=== PATIENT | female | born 1970 | race Caucasian/White ===

== ENCOUNTER → 2017-11-14 11:37 | Outpatient (CLI) | payer BC, SELFPAY ==
[2017-11-14 12:43] LABS: Free T3 2.2 pg/mL (2.18-3.98); T4 Free Direct 0.97 ng/dL (0.76-1.46)
== END ==
PROVIDERS: Family Provider Family Medicine; PCP Family Medicine; Visit Provider Obstetrics & Gynecology
DX: N92.6 Irregular menstruation, unspecified (principal)
CPT/HCPCS: 36415; 84439; 84481

== ENCOUNTER → 2017-11-16 08:06 | Outpatient (CLI) | payer BC, SELFPAY ==
--- NOTE | 2017-11-16 11:07 | US_ITS ---
STUDY: THYROID ULTRASOUND REASON FOR EXAM: Female, 47 years old. History of thyroid nodules. TECHNIQUE: Ultrasound evaluation of the thyroid was performed with real-time and static sharma-scale imaging. COMPARISON: Comparison is made with prior examination dated November 17, 2016. FINDINGS: RIGHT LOBE: The right lobe of the thyroid gland measures 4.0 cm x 1.5 cm x 1.3 cm. There is a homogeneous echotexture. There are no demonstrated solid, cystic or complex lesions. LEFT LOBE: The left lobe of the thyroid gland measures 4.0 cm x 1.2 cm x 1.3 cm. There is a homogeneous echotexture. Once again, there are 4 well-defined hypoechoic nodule within the left lobe of the thyroid. The largest measures 6 mm x 5 mm x 4 mm. This is seen along the inferior medial aspect of the left lobe. This is unchanged. ISTHMUS: The isthmus measures 2.0 cm. The regional lymph nodes are normal. US/Thyroid IMPRESSION: Stable subcentimeter nodules in the left lobe of the thyroid. Electronically Signed: Carson Pinon MD at 15:15 EST Tel [phone], Service support ,
[2017-11-16 12:04] LABS: Basophil# 0.04 X10^3/uL; Eosinophil# 0.09 X10^3/uL; Eosinophils% 2.3 % (0-5); Hematocrit 39.7 % (37-47); Hemoglobin 13.4 g/dl (12.0-15.0); Lymphocyte % 37.7 % (19-41); Mean Corp Hgb Conc 33.8 g/gl (32-36); Mean Corpuscular Hgb 29.7 pg (27.0-32.0); Mean Platelet Vol. 11.4 fl (6.2-12.0); Monocyte# 0.33 X10^3/uL; Monocyte% 8.3 % (0-10); Neutrophil # 2.02 X10^3/uL (2.7-7.7); Neutrophil % 50.7 % (47-70); Platelet Count 176 K/mm3 (150-450); RBC Distribution Width CV 12.8 % (11.6-14.6); RBC Distribution Width SD 40.7 fl (35.1-43.9); Red Blood Count 4.51 M/mm3 (4.2-5.4)
[2017-11-16 12:08] LABS: POSITIVE COUNT NO; POSITIVE DIFFERENTIAL NO; POSITIVE MORPHOLOGY NO
[2017-11-16 12:16] LABS: AST(SGOT) 33 U/L (15-37); Alanine Aminotransfer ALT/SGPT 51 U/L (13-56); Albumin, Serum 3.8 g/dL (3.2-5.0); Alkaline Phosphatase 17 U/L (45-117); Anion Gap 7 (5-15); BUN 12 mg/dL (7-18); Calcium,Total 8.8 mg/dL (8.5-10.1); Chloride 104 mmol/L (98-107); Cholesterol 226 mg/dL (200); EST Glomerular Filtration Rate 63 mL/min (>60); Est Glom Filt Rate - Afr Amer 76 mL/min (>60); Glucose 85 mg/dL (70-110); High Density Lipoprotein 80 mg/dL; Lipase 171 U/L (73-393); Potassium 3.9 mmol/L (3.5-5.1); Protein, Total 7.8 g/dL (6.4-8.2); Sodium Level 138 mmol/L (136-145); Triglycerides 99 mg/dL; Very Low Density Lipoprotein 20 mg/dL (5-40)
== END ==
PROVIDERS: Family Provider Family Medicine; PCP Family Medicine; Visit Provider Obstetrics & Gynecology
DX: Z00.00 Encounter for general adult medical examination without abnormal findings (principal); E04.1 Nontoxic single thyroid nodule
CPT/HCPCS: 36415; 76536; 80053; 80061; 83690; 85025

== ENCOUNTER → 2017-11-25 09:31 | Outpatient (CLI) | payer BC, SELFPAY ==
--- NOTE | 2017-11-25 09:34 | US_ITS ---
STUDY: ABDOMINAL ULTRASOUND - RIGHT UPPER QUADRANT REASON FOR VISIT: Female, 47 years old. Intermittent right upper quadrant pain. Prior left nephrectomy. TECHNIQUE: Ultrasound evaluation of the right upper quadrant was performed with real-time and static sharma-scale imaging. TECHNICAL QUALITY: Adequate. COMPARISON: None. FINDINGS: Liver: The liver measures 14.2 cm. There is normal echogenicity of the liver. The bile ducts are within normal limits. There is hepatic color flow. The direction of portal flow is hepatopetal. There is no demonstrated mass lesion. Gallbladder: Normal distended gallbladder. The gallbladder wall measures 2.8 mm. There is a negative sonographic Garcia's sign. There is no pericholecystic fluid. There are no gallstones. Common Bile Duct (C.B.D.): The common bile duct measures 4.3 mm. Pancreas: Normal size of the head, body and tail of the pancreas. There is normal echogenicity of the pancreas. There is no demonstrated pancreatic mass or cyst. Right Kidney: Normal size of the right kidney. The right kidney measures 12.1 cm x 6.4 cm x 4.7 cm. Normal renal cortex. The right cortex measures 2.0 cm. There is no demonstrated renal mass or cyst. Minimal right hydronephrosis. US/Gallbladder IMPRESSION: Minimal right hydronephrosis. Electronically Signed: Carson Pinon MD at 13:42 EST Tel [phone], Service support ,
== END ==
PROVIDERS: Family Provider Family Medicine; PCP Family Medicine; Visit Provider Family Medicine
DX: R10.11 Right upper quadrant pain (principal)
CPT/HCPCS: 76705

== ENCOUNTER → 2018-06-16 14:01 | Outpatient (CLI) | payer BC, SELFPAY ==
[2018-06-21 15:08] LABS: HPV Reflexed? NOT INDICATED
== END ==
PROVIDERS: Visit Provider Obstetrics & Gynecology
DX: Z12.4 Encounter for screening for malignant neoplasm of cervix (principal)
CPT/HCPCS: 88175; G0145

== ENCOUNTER → 2018-07-10 14:31 | Outpatient (CLI) | payer BC, SELFPAY ==
--- NOTE | 2018-07-10 14:33 | BI_ITS ---
MAMMOGRAPHY - BILATERAL SCREENING REASON FOR EXAM: Female, 47 years old. Routine annual screening examination. PERTINENT HISTORY: Mother with breast cancer. TECHNIQUE: Digital bilateral breast pamela (3D mammographic acquisition) in the CC and MLO projections. 2-D mediolateral oblique (MLO) and craniocaudad (CC) views of both breasts were obtained. CAD: Full Field Digital Mammography with Computer Added Detection was performed. COMPARISON: Comparison is made with prior study dated June 13, 2017 and June 07, 2016. FINDINGS: Breast Composition: The breasts are heterogeneously dense, which may obscure small masses. There are no dominant masses or suspicious calcifications. No other significant abnormalities are identified. There has been no significant change since the prior study. BI/SCREENING MAMM (CAD), BILAT IMPRESSION: Stable bilateral screening mammogram. Yearly follow-up mammogram recommended. (A) ASSESSMENT CATEGORY: BIRADS Category 1: Negative. A letter regarding these results will be sent to the patient by the facility within 30 days. Approximately 10% of breast cancers are not detected by mammography. A normal mammogram should not delay biopsy of a clinically suspicious abnormality. [id number] Electronically Signed: Carson Pinon MD at 8:20 EDT Tel [phone], Service support ,
== END ==
PROVIDERS: Family Provider Family Medicine; PCP Family Medicine; Visit Provider Obstetrics & Gynecology
DX: Z12.31 Encounter for screening mammogram for malignant neoplasm of breast (principal)
CPT/HCPCS: 77063; 77067

== ENCOUNTER → 2019-04-12 08:36 | Outpatient (CLI) | payer BC, SELFPAY ==
[2019-04-12 12:26] LABS: Absolute Lymphocyte Count 1.49 X10^3/ul (0.83-4.51); Absolute Neutrophil Count 2.2 X10^3/uL (2.0-7.7); Basophil# 0.05 X10^3/uL; Basophil% 1.2 % (0-1); Eosinophil# 0.08 X10^3/uL; Eosinophils% 1.9 % (0-5); Hematocrit 38.7 % (37-47); Hemoglobin 12.7 g/dl (12.0-15.0); Lymphocyte # 1.49 X10^3/ul (4.0); Lymphocyte % 35.3 % (19-41); Mean Corp Hgb Conc 32.8 g/gl (32-36); Mean Corpuscular Hgb 28.8 pg (27.0-32.0); Mean Corpuscular Volume 87.8 fL (81-99); Mean Platelet Vol. 10.4 fl (6.2-12.0); Monocyte# 0.38 X10^3/uL; Neutrophil # 2.22 X10^3/uL (2.7-7.7); Neutrophil % 52.6 % (47-70); Platelet Count 244 K/mm3 (150-450); RBC Distribution Width CV 12.7 % (11.6-14.6); RBC Distribution Width SD 41.3 fl (35.1-43.9); Red Blood Count 4.41 M/mm3 (4.2-5.4); White Blood Count 4.2 K/mm3 (4.4-11.0)
[2019-04-12 12:31] LABS: POSITIVE COUNT NO; POSITIVE DIFFERENTIAL NO; POSITIVE MORPHOLOGY NO
[2019-04-12 13:56] LABS: ALB/GLOB Ratio 0.8 RATIO (0.9-2.4); AST(SGOT) 19 U/L (15-37); Alanine Aminotransfer ALT/SGPT 22 U/L (13-56); Albumin, Serum 3.4 g/dL (3.2-5.0); Alkaline Phosphatase 18 U/L (45-117); Anion Gap 3 (5-15); BUN 13 mg/dL (7-18); BUN/Creat Ratio 14.1 RATIO (10-20); Calcium,Total 8.6 mg/dL (8.5-10.1); Chloride 106 mmol/L (98-107); Cholesterol 239 mg/dL (200); Creatinine, Serum 0.92 mg/dL (0.55-1.02); EST Glomerular Filtration Rate 69 mL/min (>60); Est Glom Filt Rate - Afr Amer 83 mL/min (>60); Globulin 4.1 g/dL (2.2-4.2); Glucose 85 mg/dL (74-106); High Density Lipoprotein 85 mg/dL; Potassium 3.8 mmol/L (3.5-5.1); Protein, Total 7.5 g/dL (6.4-8.2); Sodium Level 137 mmol/L (136-145); T4 Free Direct 0.87 ng/dL (0.76-1.46); Thyroid Stim Hormone (TSH) 1.49 uIU/mL (0.358-3.74); Triglycerides 104 mg/dL; Very Low Density Lipoprotein 21 mg/dL (5-40)
== END ==
PROVIDERS: Family Provider Family Medicine; PCP Family Medicine; Visit Provider Family Medicine
DX: Z00.00 Encounter for general adult medical examination without abnormal findings (principal); E04.2 Nontoxic multinodular goiter
CPT/HCPCS: 36415; 80053; 80061; 84439; 84443; 85025

== ENCOUNTER → 2019-07-11 09:46 | Outpatient (CLI) | payer BC, SELFPAY ==
--- NOTE | 2019-07-11 09:48 | BI_ITS ---
MAMMOGRAPHY - BILATERAL SCREENING REASON FOR EXAM: Female, 48 years old. Routine annual screening examination. PERTINENT HISTORY: Mother with breast cancer. Brother with breast cancer. TECHNIQUE: Digital bilateral breast albina (3D mammographic acquisition) in the CC and MLO projections. 2-D mediolateral oblique (MLO) and craniocaudad (CC) views of both breasts were obtained. CAD: Full Field Digital Mammography with Computer Added Detection was performed. COMPARISON: Comparison is made with prior study dated July 10, 2018 and June 13, 2017. FINDINGS: Breast Composition: The breasts are heterogeneously dense, which may obscure small masses. There are no dominant masses or suspicious calcifications. No other significant abnormalities are identified. There has been no significant change since the prior study. BI/SCREEN MAMM (CAD) W/ALBINA BILAT IMPRESSION: Stable bilateral screening mammogram. Yearly follow-up mammogram recommended. (A) ASSESSMENT CATEGORY: BIRADS Category 1: Negative. A letter regarding these results will be sent to the patient by the facility within 30 days. Approximately 10% of breast cancers are not detected by mammography. A normal mammogram should not delay biopsy of a clinically suspicious abnormality. [id number] Electronically Signed: Carson Pinon, at 12:32 EDT , Service support ,
== END ==
PROVIDERS: Family Provider Family Medicine; PCP Family Medicine; Referring Provider Obstetrics & Gynecology; Visit Provider Obstetrics & Gynecology
DX: Z12.31 Encounter for screening mammogram for malignant neoplasm of breast (principal)
CPT/HCPCS: 77063; 77067

== ENCOUNTER → 2019-12-28 09:38 | Outpatient (CLI) | payer BC, SELFPAY ==
[2019-12-28 10:35] LABS: Absolute Lymphocyte Count 1.67 X10^3/uL (0.83-4.51); Absolute Neutrophil Count 2.5 X10^3/uL (2.0-7.7); Basophil# 0.05 X10^3/uL; Basophil% 1.1 % (0-1); Eosinophil# 0.08 X10^3/uL; Eosinophils% 1.7 % (0-5); Hematocrit 41.9 % (37-47); Hemoglobin 13.6 g/dL (12.0-15.0); Lymphocyte # 1.67 X10^3/ul (4.0); Lymphocyte % 35.4 % (19-41); Mean Corp Hgb Conc 32.5 g/dL (32-36); Mean Corpuscular Hgb 29.2 pg (27.0-32.0); Mean Corpuscular Volume 89.9 fL (81-99); Mean Platelet Vol. 10.4 fl (6.2-12.0); Monocyte# 0.38 X10^3/uL; Monocyte% 8.1 % (0-10); NRBC Flagged by Analyzer 0 % (0-5); Neutrophil # 2.53 X10^3/uL (2.7-7.7); Neutrophil % 53.5 % (47-70); Platelet Count 232 K/mm3 (150-450); RBC Distribution Width CV 11.9 % (11.6-14.6); RBC Distribution Width SD 39.1 fl (35.1-43.9); Red Blood Count 4.66 M/mm3 (4.2-5.4); White Blood Count 4.7 K/mm3 (4.4-11.0)
[2019-12-28 11:29] LABS: ALB/GLOB Ratio 0.8 RATIO (0.9-2.4); AST(SGOT) 19 U/L (15-37); Alanine Aminotransfer ALT/SGPT 23 U/L (13-56); Albumin, Serum 3.6 g/dL (3.2-5.0); Alkaline Phosphatase 20 U/L (45-117); Anion Gap 5 (5-15); BUN 13 mg/dL (7-18); Chloride 104 mmol/L (98-107); Cholesterol 294 mg/dL (200); Creatinine, Serum 0.93 mg/dL (0.55-1.02); EST Glomerular Filtration Rate 68 mL/min (>60); Est Glom Filt Rate - Afr Amer 82 mL/min (>60); Globulin 4.3 g/dL (2.2-4.2); Glucose 89 mg/dL (74-106); High Density Lipoprotein 94 mg/dL; Potassium 3.9 mmol/L (3.5-5.1); Protein, Total 7.9 g/dL (6.4-8.2); Sodium Level 139 mmol/L (136-145); T4 Free Direct 0.98 ng/dL (0.76-1.46); Thyroid Stim Hormone (TSH) 1.18 uIU/mL (0.358-3.74); Triglycerides 85 mg/dL; Very Low Density Lipoprotein 17 mg/dL (5-40)
== END ==
PROVIDERS: PCP Family Medicine; Referring Provider Family Medicine; Visit Provider Family Medicine
DX: Z00.00 Encounter for general adult medical examination without abnormal findings (principal); E04.2 Nontoxic multinodular goiter
CPT/HCPCS: 36415; 80053; 80061; 84439; 84443; 85025

== ENCOUNTER → 2020-01-31 13:06 | Outpatient (CLI) | payer BC, SELFPAY ==
[2020-01-31 13:15] LABS: Mucous, Urine 0 SEEN /hpf (<or=2+); Red Blood Cells-Urine 0 SEEN /hpf (0-5)
--- NOTE | 2020-01-31 13:15 | RAD_ITS ---
STUDY: X-RAY - ABDOMEN/PELVIS REASON FOR EXAM: Female, 49 years old. right side flank pain for several weeks TECHNIQUE: Two AP supine views of the abdomen and pelvis. COMPARISON: None. FINDINGS: Normal visualized lung bases. There is an unremarkable bowel gas pattern. There is no demonstrated free abdominal air. The visualized liver, spleen and kidneys are grossly normal in size and morphology. Normal soft tissue structures. Normal visualized osseous structures. RAD/Abdomen Single View IMPRESSION: Normal x-ray examination of the abdomen and pelvis. Electronically Signed: Franko Guerra, at 14:08 EDT Tel , Service support ,
[2020-01-31 15:20] LABS: Color, Urine Yellow (Yellow); Glucose, Dipstick Normal (Normal); Ketone-Dipstick 5 mg/dl (Negative); Leukocyte Esterase-Dipstick 100 /ul (Negative); Nitrite-Dipstick Negative (Negative); Occult Blood-Urine Negative /ul (Negative); Protein-Dipstick 15 mg/dl (Negative); Specific Gravity, Urine 1.025 (1.002-1.030); Urine Bilirubin Dipstick Negative (Negative); Urine Clarity Clear (Clear); Urine Urobilinogen 1 mg/dl (Normal)
[2020-01-31 15:29] LABS: Bacteria RARE /hpf (None Seen); Calcium Oxalate Crystals Ur 1+ /hpf (<or=2+); Squamous Epithelial Cells - UA 0-5 SEEN /hpf (5-10); White Blood Cells 0-5 SEEN /hpf (0-5)
== END ==
PROVIDERS: PCP Family Medicine; Referring Provider Family Medicine; Visit Provider Family Medicine
DX: R10.9 Unspecified abdominal pain (principal)
CPT/HCPCS: 74018; 81001

== ENCOUNTER → 2020-03-11 17:26 | Outpatient (CLI) | payer BC, SELFPAY | PROVIDERS: PCP Family Medicine; Referring Provider Obstetrics & Gynecology; Visit Provider Obstetrics & Gynecology | DX: Z12.4 Encounter for screening for malignant neoplasm of cervix (principal); N93.0 Postcoital and contact bleeding ==

== ENCOUNTER → 2020-03-20 16:13 | Outpatient (CLI) | payer BC, SELFPAY ==
--- NOTE | 2020-03-20 16:16 | US_ITS ---
STUDY: THYROID ULTRASOUND REASON FOR EXAM: Female, 49 years old. F/U NODULES follow-up nodules TECHNIQUE: Ultrasound evaluation of the thyroid was performed with real-time and static sharma-scale imaging. COMPARISON: 11/16/2017. FINDINGS: RIGHT LOBE: The right lobe of the thyroid gland measures 4.0 x 1.3 x 1.2 cm. There is a homogeneous echotexture. There are no demonstrated solid, cystic or complex lesions. LEFT LOBE: The left lobe of the thyroid gland measures 4.3 x 1.2 x 1.2 cm. There is a homogeneous echotexture. Several heterogeneous complex density nodules are seen. These range in size from 5 to 8 mm. Previously the largest nodule was 6 mm, but this is not considered a very significant globe changer 2 years. ISTHMUS: The isthmus measures 2 mm . The regional lymph nodes are normal. US/Thyroid IMPRESSION: Several subcentimeter nodules on the left minimally larger than 2 years ago. Recommend repeat exam in one year. Electronically Signed: Eugenio Marquez MD at 23:51 EDT , Service support ,
== END ==
PROVIDERS: PCP Family Medicine; Referring Provider Family Medicine; Visit Provider Family Medicine
DX: E04.2 Nontoxic multinodular goiter (principal)
CPT/HCPCS: 76536

== ENCOUNTER → 2020-07-21 15:33 | Outpatient (CLI) | payer BC, SELFPAY ==
--- NOTE | 2020-07-21 15:34 | BI_ITS ---
MAMMOGRAPHY - BILATERAL SCREENING REASON FOR EXAM: Female, 49 years old. Routine annual screening examination. PERTINENT HISTORY: FAM HX OF BREAST CANCER MOTHER AGE 83 BROTHER AGE 58 PROSTATE CA SAME T3 CELL MOTHERS SISTER DX WITH THYROID CA AGE 50 PT ON NUVA RING SINCE 10/2016 NO PREV SX TECHNIQUE: Digital bilateral breast albina (3D mammographic acquisition) in the CC and MLO projections. 2-D mediolateral oblique (MLO) and craniocaudad (CC) views of both breasts were obtained. CAD: Full Field Digital Mammography with Computer Added Detection was performed. COMPARISON: 07/11/2019 and 07/10/2018. FINDINGS: Breast Composition: The breasts are heterogeneously dense, which may obscure small masses. There are no dominant masses or suspicious calcifications. No other significant abnormalities are identified. BI/SCREEN MAMM (CAD) W/ALBINA BILAT IMPRESSION: Stable bilateral screening mammogram. Yearly follow-up mammogram recommended. (A) ASSESSMENT CATEGORY: BIRADS Category 2: Benign. A letter regarding these results will be sent to the patient by the facility within 30 days. Approximately 10% of breast cancers are not detected by mammography. A normal mammogram should not delay biopsy of a clinically suspicious abnormality. [id number] Electronically Signed: Franko Guerra, at 15:13 EDT Tel , Service support ,
== END ==
PROVIDERS: PCP Family Medicine; Referring Provider Obstetrics & Gynecology; Visit Provider Obstetrics & Gynecology
DX: Z12.31 Encounter for screening mammogram for malignant neoplasm of breast (principal); Z80.3 Family history of malignant neoplasm of breast; Z85.3 Personal history of malignant neoplasm of breast
CPT/HCPCS: 77063; 77067

== ENCOUNTER → 2020-12-01 09:13 | Outpatient (CLI) | payer BC, SELFPAY ==
[2020-12-01 12:06] LABS: Absolute Neutrophil Count 3.7 X10^3/uL (2.0-7.7); Basophil# 0.06 X10^3/uL; Basophil% 1.1 % (0-1); Eosinophil# 0.08 X10^3/uL; Eosinophils% 1.4 % (0-5); Hematocrit 41.9 % (37-47); Hemoglobin 13.7 g/dL (12.0-15.0); Mean Corp Hgb Conc 32.7 g/dL (32-36); Mean Corpuscular Hgb 29.4 pg (27.0-32.0); Mean Corpuscular Volume 89.9 fL (81-99); Mean Platelet Vol. 10.5 fl (6.2-12.0); Monocyte# 0.31 X10^3/uL; Monocyte% 5.5 % (0-10); NRBC Flagged by Analyzer 0 % (0-5); Neutrophil # 3.74 X10^3/uL (2.7-7.7); Platelet Count 241 K/mm3 (150-450); RBC Distribution Width CV 12.3 % (11.6-14.6); RBC Distribution Width SD 40.1 fl (35.1-43.9); Red Blood Count 4.66 M/mm3 (4.2-5.4); White Blood Count 5.6 K/mm3 (4.4-11.0)
[2020-12-01 12:08] LABS: Erythrocyte Sedimentation Rate 4 mm/hr (0-30)
[2020-12-01 12:31] LABS: Vitamin B12 346 pg/mL (211-911); Vitamin D,25 Hydroxy 17.7 ng/mL
[2020-12-01 12:40] LABS: ALB/GLOB Ratio 0.9 RATIO (0.9-2.4); AST(SGOT) 17 U/L (15-37); Alanine Aminotransfer ALT/SGPT 23 U/L (13-56); Albumin, Serum 3.6 g/dL (3.2-5.0); Alkaline Phosphatase 21 U/L (45-117); Anion Gap 5 (5-15); BUN 16 mg/dL (7-18); BUN/Creat Ratio 17.5 RATIO (10-20); CRP < 2.90 mg/L (0.0-3.0); Calcium,Total 8.9 mg/dL (8.5-10.1); Chloride 106 mmol/L (98-107); Cholesterol 274 mg/dL (200); Creatinine, Serum 0.92 mg/dL (0.55-1.02); EST Glomerular Filtration Rate 69 mL/min (>60); Est Glom Filt Rate - Afr Amer 84 mL/min (>60); Globulin 4.2 g/dL (2.2-4.2); Glucose 91 mg/dL (74-106); High Density Lipoprotein 95 mg/dL; Potassium 3.9 mmol/L (3.5-5.1); Protein, Total 7.8 g/dL (6.4-8.2); Sodium Level 139 mmol/L (136-145); Thyroid Stim Hormone (TSH) 1.57 uIU/mL (0.358-3.74); Triglycerides 88 mg/dL; Very Low Density Lipoprotein 18 mg/dL (5-40)
[2020-12-02 14:38] LABS: ANTINUCLEAR ANTIBODIES DIRECT Negative (Negative)
== END ==
PROVIDERS: PCP Family Medicine; Visit Provider Family Medicine
DX: Z00.00 Encounter for general adult medical examination without abnormal findings (principal); R53.83 Other fatigue; M54.2 Cervicalgia
CPT/HCPCS: 36415; 80053; 80061; 82306; 82607; 84439; 84443; 85025; 85652; 86038; 86140; 86225; 86235

== ENCOUNTER → 2021-01-26 13:56 | Outpatient (CLI) | payer BC, SELFPAY ==
--- NOTE | 2021-01-26 14:01 | US_ITS ---
STUDY: THYROID ULTRASOUND REASON FOR EXAM: Female, 50 years old. rt NECK PAIN HX MULTIPLE THYROID NODULE TECHNIQUE: Ultrasound evaluation of the thyroid was performed with real-time and static sharma-scale imaging. COMPARISON: 03/20/2020 FINDINGS: RIGHT LOBE: The right lobe of the thyroid gland measures 4.2 x 1.3 x 1.4 cm. There is a homogeneous echotexture. There is a simple 0.3 cm cyst. LEFT LOBE: The left lobe of the thyroid gland measures 3.8 x 1.3 x 1.4 cm. There is a homogeneous echotexture. Stable complex nodules in the left lobe largest again measures 0.7 cm. ISTHMUS: The isthmus measures 2 mm. The regional lymph nodes are normal. US/Thyroid IMPRESSION: Normal-sized homogeneous thyroid gland with cyst in the right lobe and stable complex nodules in the left lobe. No interval change since the previous study. Another year follow-up could be performed to ensure stability Electronically Signed: Dg Wilson MD at 16:44 EDT , Service support ,
== END ==
PROVIDERS: PCP Family Medicine; Referring Provider Family Medicine; Visit Provider Family Medicine
DX: M54.2 Cervicalgia (principal); E04.2 Nontoxic multinodular goiter
CPT/HCPCS: 76536

== ENCOUNTER → 2021-07-27 15:18 | Outpatient (CLI) | payer BC, SELFPAY ==
--- NOTE | 2021-07-27 15:20 | BI_ITS ---
MAMMOGRAPHY - BILATERAL SCREENING REASON FOR EXAM: Female, 50 years old. Routine annual screening examination. PERTINENT HISTORY: Mother with breast cancer. TECHNIQUE: Digital bilateral breast albina (3D mammographic acquisition) in the CC and MLO projections. 2-D mediolateral oblique (MLO) and craniocaudad (CC) views of both breasts were obtained. CAD: Full Field Digital Mammography with Computer Added Detection was performed. COMPARISON: Comparison is made with prior study 07/21/2020 and 07/11/2000. FINDINGS: Breast Composition: The breasts are extremely dense, which lowers the sensitivity of mammography. There are no dominant masses or suspicious calcifications. No other significant abnormalities are identified. There has been no significant change since the prior study. BI/SCRN MAMM (CAD)W/ALBINA BILAT IMPRESSION: Stable bilateral screening mammogram. Yearly follow-up mammogram recommended. (A) ASSESSMENT CATEGORY: BIRADS Category 1: Negative. A letter regarding these results will be sent to the patient by the facility within 30 days. Approximately 10% of breast cancers are not detected by mammography. A normal mammogram should not delay biopsy of a clinically suspicious abnormality. [id number] Pending Final Proof Editing
== END ==
PROVIDERS: PCP Family Medicine; Referring Provider Obstetrics & Gynecology; Visit Provider Obstetrics & Gynecology
DX: Z12.31 Encounter for screening mammogram for malignant neoplasm of breast (principal)
CPT/HCPCS: 77063; 77067

== ENCOUNTER → 2021-08-17 11:06 | Outpatient (CLI) | payer BC, SELFPAY ==
--- NOTE | 2021-08-17 11:19 | MRI_ITS ---
STUDY: BILATERAL BREAST MR WITHOUT AND WITH CONTRAST REASON FOR EXAM: Female, 50 years old. Dense breasts. Personal history of renal carcinoma status post nephrectomy in 2013. Mother with breast cancer at age 83. TECHNIQUE: Multi-sequence multi-echo imaging of both breasts was performed with a dedicated breast coil. T1-weighted and T2-weighted images were performed before the administration of contrast. T1-weighted images were also performed after the administration of 13 mL of Dotarem contrast without complications. COMPARISON: Mammograms dated 07/27/2021 and 07/21/2020. FINDINGS: RIGHT BREAST: The breast tissue is heterogeneously dense with no background enhancement. There are no abnormal enhancing masses or areas of non-mass enhancement in the right breast. LEFT BREAST: The breast tissue is heterogeneously dense with no background enhancement. There are no abnormal enhancing masses or areas of non-mass enhancement in the left breast. There are no enlarged or abnormal lymph nodes. There is no abnormality in the visualized regions of the chest or liver. MRI/Breast Bilateral W/O and W IMPRESSION: No abnormality on the breast MRI with contrast. Continued mammographic screening yearly recommended. CATEGORY: BIRADS Category 2: Benign. A letter regarding these results will be sent to the patient by the facility within 30 days. Electronically Signed: Gómez Hilliard MD at 13:54 EDT , Service support ,
[2021-08-17 11:40] LABS: CREATININE FINGERSTICK < 0.6 mg/dL (0.55-1.02); EGFR FINGERSTICK > 60.0000 mL/min (>60)
== END ==
PROVIDERS: PCP Family Medicine; Referring Provider Obstetrics & Gynecology; Visit Provider Obstetrics & Gynecology
DX: R92.2 Inconclusive mammogram (principal); Z80.3 Family history of malignant neoplasm of breast; Z90.5 Acquired absence of kidney; Z85.528 Personal history of other malignant neoplasm of kidney
CPT/HCPCS: 77049; A9575; A4216; C8908

== ENCOUNTER → 2022-03-31 | Outpatient (CLI) | payer BC, SELFPAY ==
[2022-03-31 10:31] LABS: Follicle Stimulating Hormone 1.7 mIU/mL
== END | disposition home or self-care (01) ==
LOC: WOBLAB 08:35
PROVIDERS: PCP Family Medicine; Visit Provider Obstetrics & Gynecology
DX: N92.5 Other specified irregular menstruation (principal)
CPT/HCPCS: 36415; 83001

== ENCOUNTER → 2022-08-16 | Outpatient (CLI) | payer BC, SELFPAY ==
--- NOTE | 2022-08-16 13:46 | BI_ITS ---
MAMMOGRAPHY - BILATERAL SCREENING REASON FOR EXAM: Female, 51 years old. Routine annual screening examination. PERTINENT HISTORY: Mother with breast cancer. TECHNIQUE: Digital bilateral breast albina (3D mammographic acquisition) in the CC and MLO projections. 2-D mediolateral oblique (MLO) and craniocaudad (CC) views of both breasts were obtained. CAD: Full Field Digital Mammography with Computer Added Detection was performed. COMPARISON: Comparison is made with prior study 07/21/2020 and 07/11/2019. FINDINGS: Breast Composition: The breasts are extremely dense, which lowers the sensitivity of mammography. There are no dominant masses or suspicious calcifications. No other significant abnormalities are identified. There has been no significant change since the prior study. BI/SCRN MAMM (CAD)W/ALBINA BILAT IMPRESSION: Stable bilateral screening mammogram. Yearly follow-up mammogram recommended. (A) ASSESSMENT CATEGORY: BIRADS Category 1: Negative. A letter regarding these results will be sent to the patient by the facility within 30 days. Approximately 10% of breast cancers are not detected by mammography. A normal mammogram should not delay biopsy of a clinically suspicious abnormality. [id number] Electronically Signed: Carson Pinon MD at 14:28 EDT ,
== END | disposition home or self-care (01) ==
LOC: OPBI 13:45
PROVIDERS: PCP Family Medicine; Visit Provider Family Medicine
DX: Z12.31 Encounter for screening mammogram for malignant neoplasm of breast (principal); Z80.3 Family history of malignant neoplasm of breast
CPT/HCPCS: 77063; 77067

== ENCOUNTER → 2022-11-22 | Outpatient (CLI) | payer BC, SELFPAY ==
[2022-11-22 17:46] LABS: Absolute Lymphocyte Count 1.96 X10^3/uL (0.83-4.51); Absolute Neutrophil Count 3.8 X10^3/uL (2.0-7.7); Basophil# 0.06 X10^3/uL; Eosinophil# 0.09 X10^3/uL; Eosinophils% 1.4 % (0-5); Hematocrit 38.8 % (37-47); Hemoglobin 12.9 g/dL (12.0-15.0); Lymphocyte # 1.96 X10^3/ul (0.83-4.51); Lymphocyte % 31.3 % (19-41); Mean Corp Hgb Conc 33.2 g/dL (32-36); Mean Corpuscular Hgb 29.5 pg (27.0-32.0); Mean Corpuscular Volume 88.6 fL (81-99); Monocyte# 0.33 X10^3/uL; Monocyte% 5.3 % (0-10); NRBC Flagged by Analyzer 0 % (0-5); Neutrophil # 3.82 X10^3/uL (2.7-7.7); Neutrophil % 60.8 % (47-70); Platelet Count 246 K/mm3 (150-450); RBC Distribution Width CV 12.1 % (11.6-14.6); RBC Distribution Width SD 39.5 fl (35.1-43.9); Red Blood Count 4.38 M/mm3 (4.2-5.4); White Blood Count 6.3 K/mm3 (4.4-11.0)
[2022-11-22 18:03] LABS: ALB/GLOB Ratio 0.8 RATIO (0.9-2.4); AST(SGOT) 17 U/L (15-37); Alanine Aminotransfer ALT/SGPT 24 U/L (13-56); Albumin, Serum 3.5 g/dL (3.2-5.0); Alkaline Phosphatase 18 U/L (45-117); Anion Gap 8 (5-15); BUN 12 mg/dL (7-18); BUN/Creat Ratio 13.2 RATIO (10-20); Calcium,Total 9.2 mg/dL (8.5-10.1); Chloride 104 mmol/L (98-107); Cholesterol 261 mg/dL (200); Creatinine, Serum 0.91 mg/dL (0.55-1.02); EST Glomerular Filtration Rate 69 mL/min (>60); Est Glom Filt Rate - Afr Amer 84 mL/min (>60); Globulin 4.6 g/dL (2.2-4.2); Glucose 79 mg/dL (74-106); High Density Lipoprotein 99 mg/dL; Potassium 3.7 mmol/L (3.5-5.1); Protein, Total 8.1 g/dL (6.4-8.2); Sodium Level 138 mmol/L (136-145); T4 Free Direct 0.95 ng/dL (0.76-1.46); Thyroid Stim Hormone (TSH) 1.85 uIU/mL (0.358-3.74); Triglycerides 89 mg/dL; Very Low Density Lipoprotein 18 mg/dL (5-40); Vitamin B12 585 pg/mL (211-911); Vitamin D,25 Hydroxy 24.3 ng/mL
== END | disposition home or self-care (01) ==
LOC: BFHLAB 13:55
PROVIDERS: PCP Family Medicine; Visit Provider Family Medicine
DX: Z00.00 Encounter for general adult medical examination without abnormal findings (principal); E04.2 Nontoxic multinodular goiter; E55.9 Vitamin D deficiency, unspecified; E53.8 Deficiency of other specified B group vitamins
CPT/HCPCS: 36415; 80053; 80061; 82306; 82607; 84439; 84443; 85025

== ENCOUNTER → 2022-12-06 | Outpatient (CLI) | payer BC, SELFPAY ==
--- NOTE | 2022-12-06 12:53 | US_ITS ---
INDICATION: NODULAR GOITER EXAMINATION: Ultrasound US Thyroid (eg thyroid, parathyroid, parotid) TECHNIQUE: Sandoval scale and color doppler imaging was performed of the thyroid gland. COMPARISON: 01/26/2021 FINDINGS: RIGHT THYROID LOBE: 4.3 x 1.4 x 1.0 cm previous 4.2 x 1.3 x 1.4 cm.. Homogeneous echotexture with normal vascularity. [] Medial midpole cyst 0.4 x 0.4 x 0.2 cm previously measuring 0.3 cm. LEFT THYROID LOBE: 3.9 x 1.4 x 1.0 cm previous 3.8 x 1.3 x 1.4 cm.. Homogeneous echotexture with normal vascularity. [Mixed solid and cystic nodule within the mid pole 1.2 x 0.8 x 0.5 cm increased as compared to prior study previously measuring 0.7 cm. This is a T RADS 3 nodule. There is a 0.6 x 0.4 x 0.5 cm solid nodule posteriorly in the mid to upper pole which is hypoechoic. There is a 0.4 x 0.2 x 0.2 cm nodule in the mid to lower pole which is hyperechoic. ISTHMUS: 0.2 cm. No thyroid nodules are present. US/Thyroid IMPRESSION: Multinodular goiter as detailed above. Electronically Signed: Maynor Bowamn MD, DANIEL at 8:43 EST ,
== END | disposition home or self-care (01) ==
LOC: US 12:50
PROVIDERS: PCP Family Medicine; Referring Provider Family Medicine; Visit Provider Family Medicine
DX: E04.2 Nontoxic multinodular goiter (principal)
CPT/HCPCS: 76536

== ENCOUNTER → 2022-12-20 | Outpatient (CLI) | payer BC, SELFPAY ==
--- NOTE | 2022-12-20 10:04 | MRI_ITS ---
STUDY: MRI BRAIN WITH AND WITHOUT CONTRAST (ATTENTION INTERNAL AUDITORY CANALS - I.A.C.''s) REASON FOR EXAM: Female, 52 years old. TINNITUS L EAR -- IAC TECHNIQUE: Standardized multiplanar fat and water weighted pulse sequences were obtained. IV 13mL CLARISCAN was administered for the contrast portion of the examination. COMPARISON: None. FINDINGS: Normal bilateral temporal bones. Normal bilateral internal auditory canals. There is no demonstrated intracanalicular or cisternal vestibular schwannoma (acoustic neuroma). There is no enhancement of the bilateral VIIth or VIIIth cranial nerves. Normal bilateral cochlea, vestibules and semicircular canals. Normal size of the ventricles and extra-axial spaces for the patient''s age. Normal white matter tracts of the supratentorial brain. Normal bilateral basal ganglia. Normal thalami. Normal flow voids within the major intracranial circulation suggesting patency by spin echo criteria. Normal venous enhancement. There is no enhancing intra-axial or extra-axial abnormality. There is no extra-axial fluid accumulation. Normal sella turcica, pituitary gland, infundibular stalk, optic chiasm and hypothalamus. Normal tectal plate and pineal gland. Normal midbrain, darwin and medulla. Normal cerebellum. Normal basal cisterns. No demonstrated orbital abnormality, within the constraints of a routine brain study. Normal visualized paranasal sinuses. Normal calvarium and skull base. Normal visualized soft tissue structures. Normal visualized upper cervical spine. MRI/Brain W/WO Contrast IMPRESSION: Normal unenhanced and enhanced MRI of the brain and bilateral internal auditory canals (I.A.C''s). Electronically Signed: Marshall Mart MD at 14:04 EST ,
== END | disposition home or self-care (01) ==
PROVIDERS: PCP Family Medicine; Referring Provider Family Medicine; Visit Provider Family Medicine
DX: H93.A2 Pulsatile tinnitus, left ear (principal); G25.3 Myoclonus; R20.2 Paresthesia of skin; R42 Dizziness and giddiness
CPT/HCPCS: 70553; A9575

== ENCOUNTER → 2023-03-21 | Outpatient (CLI) | payer BC, SELFPAY ==
[2023-03-21 12:47] LABS: NATERA MAILED SPECIMEN
[2023-03-29 15:08] LABS: HPV APTIMA, High Risk Negative (Negative)
== END | disposition home or self-care (01) ==
PROVIDERS: PCP Family Medicine; Referring Provider Registered Nurse; Visit Provider Registered Nurse
DX: Z01.419 Encounter for gynecological examination (general) (routine) without abnormal findings (principal)
CPT/HCPCS: 36415; 87624; 88175; G0145

== ENCOUNTER → 2023-03-28 | Outpatient (CLI) | payer BC, SELFPAY ==
--- NOTE | 2023-03-28 11:27 | US_ITS ---
STUDY: ULTRASOUND TRANSVAGINAL CLINICAL: Female, 52 years old. Postcoital bleeding TECHNIQUE: Transvaginal COMPARISON: None. FINDINGS: Normal uterine size measuring 6.6 x 4.3 x 3.0 cm in maximal craniocaudal dimension. There are no myometrial masses. Normal endometrial thickness measuring 4 mm. There are no endometrial masses, and there is no fluid in the endometrial cavity. Endometrium is striated. Uterine cervix is unremarkable aside from multiple nabothian cysts, largest measures 1.1 cm. Normal right ovary, measuring 1.5 x 1.1 x 1.7 cm. There are multiple follicles without a dominant cyst. Normal left ovary, measuring 1.4 x 1.2 x 1.6 cm. There are multiple follicles without a dominant cyst. There is no free fluid in the pelvis. US/Transvaginal Non- IMPRESSION: No suspicious adnexal mass or abnormal endometrial thickening. There are multiple nabothian cysts noted on the cervix. No suspicious adnexal mass or free fluid Electronically Signed: Dg Wilson MD at 9:45 EDT ,
== END | disposition home or self-care (01) ==
PROVIDERS: PCP Family Medicine; Referring Provider Registered Nurse; Visit Provider Registered Nurse
DX: N92.4 Excessive bleeding in the premenopausal period (principal); N93.0 Postcoital and contact bleeding
CPT/HCPCS: 76830

== ENCOUNTER → 2023-05-03 | Outpatient (CLI) | payer BC, SELFPAY ==
--- NOTE | 2023-05-03 13:50 | CER_PTH ---
PATIENT: JOSE JUAN RICHARDSON LOC: [facility]#:[id number] AGE/SX: 52/F ROOM: RE05/03/[address]: Dr. Jamee Gray MD : 1970 BED: DIS: 05/03/2023 SPEC #: [id number] RECD: 05/03/23 17:28 STATUS: JAMMIE RE #: [id number] PAULETTE: 05/03/23 13:[address]: Jamee Gray DEPT: SURGICAL PATHOLOGY RECD BY: Nayely Nunez ENTERED: 05/04/23 07:45 SP TYPE: CERV OTHR DR: Dr. Maynor Townsend, DO Tissues: Uterine cervix, NOS Procedures: Surgery Specimen Level IV HEADER OPERATION: Cervical biopsy PRE-OP DIAGNOSIS: Abnormal uterine bleeding TISSUE SUBMITTED: Cervical polyp MICROSCOPIC DIAGNOSIS Cervical polyp, biopsy: Benign inflamed endocervical polyp with acute and chronic inflammation and squamous metaplasia. SJ:masoud 05/05/2023 MICROSCOPIC DESCRIPTION Slides are reviewed. GROSS DESCRIPTION Received is one container labeled with the patient's name and not further designated. The specimen consists of a piece of pink, congested polyp measuring 1.0 x 0.6 x 0.2 cm. The specimen is totally submitted in one cassette. / SJ:rg 05/04/2023 TC:5 CPT: 61935
[2023-05-03 14:40] LABS: Estradiol 435.5 pg/mL; Follicle Stimulating Hormone 14.3 mIU/mL
== END | disposition home or self-care (01) ==
PROVIDERS: PCP Family Medicine; Referring Provider Obstetrics & Gynecology; Visit Provider Obstetrics & Gynecology
DX: N93.9 Abnormal uterine and vaginal bleeding, unspecified (principal)
CPT/HCPCS: 36415; 82670; 83001; 88305

== ENCOUNTER → 2023-06-03 | Outpatient (CLI) | payer BC, SELFPAY | END | disposition home or self-care (01) | LOC: MTLAB 07:04 | PROVIDERS: PCP Family Medicine; Referring Provider Family Medicine; Visit Provider Family Medicine | DX: N39.0 Urinary tract infection, site not specified (principal) | CPT/HCPCS: 87086; 87088 ==

== ENCOUNTER → 2023-08-22 | Outpatient (CLI) | payer BC, SELFPAY ==
--- NOTE | 2023-08-22 10:26 | BI_ITS ---
MAMMOGRAPHY - BILATERAL SCREENING REASON FOR EXAM: Female, 52 years old. Routine annual screening examination. PERTINENT HISTORY: Mother with breast cancer. TECHNIQUE: Digital bilateral breast albina (3D mammographic acquisition) in the CC and MLO projections. 2-D mediolateral oblique (MLO) and craniocaudad (CC) views of both breasts were obtained. CAD: Full Field Digital Mammography with Computer Added Detection was performed. COMPARISON: Comparison is made with prior study dated August 16, 2022 and July 21, 2020. FINDINGS: Breast Composition: The breasts are extremely dense, which lowers the sensitivity of mammography. There are no dominant masses or suspicious calcifications. No other significant abnormalities are identified. There has been no significant change since the prior study. BI/SCRN MAMM (CAD)W/ALBINA BILAT IMPRESSION: Stable bilateral screening mammogram. Yearly follow-up mammogram recommended. (A) ASSESSMENT CATEGORY: BIRADS Category 1: Negative. A letter regarding these results will be sent to the patient by the facility within 30 days. Approximately 10% of breast cancers are not detected by mammography. A normal mammogram should not delay biopsy of a clinically suspicious abnormality. [id number] Electronically Signed: Carson Pinon MD at 12:51 EST ,
== END | disposition home or self-care (01) ==
LOC: OPBI 10:25
PROVIDERS: PCP Family Medicine; Referring Provider Obstetrics & Gynecology; Visit Provider Obstetrics & Gynecology
DX: Z12.31 Encounter for screening mammogram for malignant neoplasm of breast (principal); Z80.3 Family history of malignant neoplasm of breast
CPT/HCPCS: 77063; 77067

== ENCOUNTER → 2023-12-19 | Outpatient (CLI) | payer BC, SELFPAY ==
[2023-12-19 12:45] LABS: Absolute Lymphocyte Count 1.63 X10^3/uL (0.83-4.51); Absolute Neutrophil Count 3.5 X10^3/uL (2.0-7.7); Basophil# 0.06 X10^3/uL; Basophil% 1.1 % (0-1); Eosinophil# 0.07 X10^3/uL; Eosinophils% 1.2 % (0-5); Hematocrit 39.4 % (37-47); Hemoglobin 12.7 g/dL (12.0-15.0); Lymphocyte # 1.63 X10^3/ul (0.83-4.51); Lymphocyte % 28.9 % (19-41); Mean Corp Hgb Conc 32.2 g/dL (32-36); Mean Corpuscular Hgb 28.7 pg (27.0-32.0); Mean Corpuscular Volume 88.9 fL (81-99); Mean Platelet Vol. 10.9 fl (6.2-12.0); Monocyte# 0.38 X10^3/uL; Monocyte% 6.7 % (0-10); NRBC Flagged by Analyzer 0 % (0-5); Neutrophil # 3.49 X10^3/uL (2.7-7.7); Neutrophil % 61.9 % (47-70); Platelet Count 223 K/mm3 (150-450); RBC Distribution Width CV 12.2 % (11.6-14.6); RBC Distribution Width SD 39.8 fl (35.1-43.9); Red Blood Count 4.43 M/mm3 (4.2-5.4); White Blood Count 5.6 K/mm3 (4.4-11.0)
[2023-12-19 13:08] LABS: Vitamin D,25 Hydroxy 34.5 ng/mL
[2023-12-19 13:36] LABS: AST(SGOT) 21 U/L (15-37); Alanine Aminotransfer ALT/SGPT 20 U/L (13-56); Albumin, Serum 3.7 g/dL (3.2-5.0); Alkaline Phosphatase 23 U/L (45-117); Anion Gap 5 (5-15); BUN 13 mg/dL (7-18); BUN/Creat Ratio 17.3 RATIO (10-20); Calcium,Total 9.2 mg/dL (8.5-10.1); Chloride 105 mmol/L (98-107); Cholesterol 220 mg/dL (200); Creatinine, Serum 0.75 mg/dL (0.55-1.02); EST Glomerular Filtration Rate 86 mL/min (>60); Est Glom Filt Rate - Afr Amer 104 mL/min (>60); Globulin 3.8 g/dL (2.2-4.2); Glucose 73 mg/dL (74-106); High Density Lipoprotein 90 mg/dL; Potassium 4.2 mmol/L (3.5-5.1); Protein, Total 7.5 g/dL (6.4-8.2); Sodium Level 138 mmol/L (136-145); T4 Free Direct 0.91 ng/dL (0.76-1.46); Thyroid Stim Hormone (TSH) 1.23 uIU/mL (0.358-3.74); Triglycerides 53 mg/dL; Very Low Density Lipoprotein 11 mg/dL (5-40)
== END | disposition home or self-care (01) ==
LOC: BFHLAB 10:59
PROVIDERS: PCP Family Medicine; Visit Provider Family Medicine
DX: Z00.00 Encounter for general adult medical examination without abnormal findings (principal); E04.2 Nontoxic multinodular goiter; E55.9 Vitamin D deficiency, unspecified
CPT/HCPCS: 36415; 80053; 80061; 82306; 84439; 84443; 85025

== ENCOUNTER → 2024-03-22 | Outpatient (CLI) | payer BC, SELFPAY ==
[2024-03-22 13:40] LABS: hCG Titer Quant., Serum < 1 mIU/mL (1-3)
== END | disposition home or self-care (01) ==
LOC: PAVLAB 12:37
PROVIDERS: PCP Family Medicine; Referring Provider Obstetrics & Gynecology; Visit Provider Obstetrics & Gynecology
DX: N91.2 Amenorrhea, unspecified (principal)
CPT/HCPCS: 36415; 84702

== ENCOUNTER → 2024-08-06 | Outpatient (CLI) | payer BC, SELFPAY ==
[2024-08-06 16:52] LABS: Absolute Lymphocyte Count 1.81 X10^3/uL (0.83-4.51); Basophil# 0.06 X10^3/uL; Basophil% 0.9 % (0-1); Eosinophil# 0.06 X10^3/uL; Eosinophils% 0.9 % (0-5); Hemoglobin 12.3 g/dL (12.0-15.0); Lymphocyte # 1.81 X10^3/ul (0.83-4.51); Lymphocyte % 28.3 % (19-41); Mean Corp Hgb Conc 32.4 g/dL (32-36); Mean Corpuscular Hgb 28.8 pg (27.0-32.0); Mean Platelet Vol. 10.6 fl (6.2-12.0); Monocyte# 0.45 X10^3/uL; NRBC Flagged by Analyzer 0 % (0-5); Neutrophil % 62.6 % (47-70); Platelet Count 238 K/mm3 (150-450); RBC Distribution Width CV 12.1 % (11.6-14.6); RBC Distribution Width SD 39.3 fl (35.1-43.9); Red Blood Count 4.27 M/mm3 (4.2-5.4); White Blood Count 6.4 K/mm3 (4.4-11.0)
[2024-08-06 17:35] LABS: Estradiol 81.1 pg/mL; Follicle Stimulating Hormone 13.6 mIU/mL
== END | disposition home or self-care (01) ==
LOC: PAVLAB 15:59 → LAB 16:02
PROVIDERS: PCP Family Medicine; Referring Provider Obstetrics & Gynecology; Visit Provider Obstetrics & Gynecology
DX: N93.9 Abnormal uterine and vaginal bleeding, unspecified (principal)
CPT/HCPCS: 36415; 82670; 83001; 84443; 85025

== ENCOUNTER → 2024-08-13 | Outpatient (CLI) | payer BC, SELFPAY ==
--- NOTE | 2024-08-13 14:19 | US_ITS ---
STUDY: ULTRASOUND OF THE FEMALE PELVIS - COMPLETE REASON FOR EXAM: Female, 53 years old. AUB LMP: August 04, 2024. TECHNIQUE: Transabdominal and Transvaginal TECHNICAL QUALITY: Adequate. COMPARISON: Comparison is made with prior study dated March 28, 2023. FINDINGS: The uterus is anteverted and is in a midline position. The uterus measures 8.8 cm x 4.6 cm x 3.9 cm. There is a Nabothian cyst of the cervix. The endometrium measures 6 mm in thickness, and is hyperechoic. There is no demonstrated endometrial mass. There is a 9 mm x 8 mm x 8 mm fibroid in the uterine body. Uterine echotexture is heterogeneous in keeping with fibroid change. I.U.D. - The patient does not have an I.U.D. The right ovary is visualized. The right ovary measures 2.2 cm x 2.5 cm x 1.8 cm. There is no right ovarian cyst or ovarian mass. There is no visualized right adnexal mass or complex lesion. There is normal arterial and normal venous vascularity. The left ovary is visualized. The left ovary measures 3 cm x 1.9 cm x 1.7 cm. There is no left ovarian cyst or ovarian mass. There is no visualized left adnexal mass or complex lesion. There is normal arterial and normal venous vascularity. There is no fluid in the cul-de-sac. The pre void volume of the bladder was 75 ml. Polycystic ovary disease: No. US/Pelvic w/ Transvaginal IMPRESSION: Small uterine fibroid. Heterogeneous appearance of the myometrium. Electronically Signed: Carson Pinon MD at 15:22 EDT ,
== END | disposition home or self-care (01) ==
LOC: US 14:16
PROVIDERS: PCP Family Medicine; Referring Provider Obstetrics & Gynecology; Visit Provider Obstetrics & Gynecology
DX: N93.9 Abnormal uterine and vaginal bleeding, unspecified (principal)
CPT/HCPCS: 76830; 76856

== ENCOUNTER → 2024-08-27 | Outpatient (CLI) | payer BC, SELFPAY | END | disposition home or self-care (01) | PROVIDERS: PCP Family Medicine; Referring Provider Obstetrics & Gynecology; Visit Provider Obstetrics & Gynecology | DX: Z12.31 Encounter for screening mammogram for malignant neoplasm of breast (principal); Z80.3 Family history of malignant neoplasm of breast | CPT/HCPCS: 77063; 77067 ==

== ENCOUNTER → 2025-03-04 | Outpatient (CLI) | payer BC, SELFPAY ==
[2025-03-04 12:30] LABS: Absolute Lymphocyte Count 1.37 X10^3/uL (0.83-4.51); Absolute Neutrophil Count 2.8 X10^3/uL (2.0-7.7); Basophil# 0.06 X10^3/uL; Basophil% 1.3 % (0-1); Eosinophil# 0.12 X10^3/uL; Eosinophils% 2.6 % (0-5); Hematocrit 37.8 % (37-47); Hemoglobin 12.6 g/dL (12.0-15.0); Lymphocyte # 1.37 X10^3/ul (0.83-4.51); Lymphocyte % 29.7 % (19-41); Mean Corp Hgb Conc 33.3 g/dL (32-36); Mean Corpuscular Hgb 29.7 pg (27.0-32.0); Mean Corpuscular Volume 89.2 fL (81-99); Mean Platelet Vol. 10.8 fl (6.2-12.0); Monocyte% 6.5 % (0-10); NRBC Flagged by Analyzer 0 % (0-5); Neutrophil # 2.75 X10^3/uL (2.7-7.7); Neutrophil % 59.7 % (47-70); Platelet Count 228 K/mm3 (150-450); RBC Distribution Width SD 38.8 fl (35.1-43.9); Red Blood Count 4.24 M/mm3 (4.2-5.4); White Blood Count 4.6 K/mm3 (4.4-11.0)
[2025-03-04 12:47] LABS: International Normalized Ratio 0.9; Prothrombin Time (Protime)PT. 12.8 SECONDS (11.7-14.9)
[2025-03-04 13:50] LABS: Albumin, Serum 4.3 g/dL (3.5-5.0); BUN 13 mg/dL (4-19); BUN/Creat Ratio 16.8 RATIO (10-20); Creatinine, Serum 0.74 mg/dL (0.70-1.20); EST Glomerular Filtration Rate 95 (>60); Glucose 81 mg/dL (70-99); Protein, Total 7.6 g/dL (5.9-8.4)
[2025-03-04 13:51] LABS: ALB/GLOB Ratio 1.3 RATIO (0.9-2.4); AST(SGOT) 21 U/L (<=31); Alanine Aminotransfer ALT/SGPT 12 U/L (<=34); Alkaline Phosphatase 24 U/L (35-104); Anion Gap 10 (5-15); Calcium,Total 9.3 mg/dL (7.6-11.0); Carbon Dioxide 25.1 mmol/L (21.0-32.0); Chloride 103 mmol/L (98-108); Globulin 3.3 g/dL (2.2-4.2); Lipase 35 U/L (13-75); Potassium 4.2 mmol/L (3.3-5.1); Sodium Level 137 mmol/L (133-145); Total Bilirubin 0.38 mg/dL (0.00-1.30)
== END | disposition home or self-care (01) ==
LOC: MTLAB 10:21
PROVIDERS: PCP Family Medicine; Referring Provider Family Medicine; Visit Provider Family Medicine
DX: R10.13 Epigastric pain (principal); R58 Hemorrhage, not elsewhere classified
CPT/HCPCS: 36415; 80053; 83690; 85025; 85610

== ENCOUNTER → 2025-03-09 | Outpatient (CLI) | payer BC, SELFPAY ==
--- NOTE | 2025-03-09 07:55 | US_ITS ---
PROCEDURE: THYROID 03/09/2025 REASON FOR EXAM: REASSESS THYROID NODULES TECHNIQUE: High-frequency thyroid ultrasound, including grayscale and color-flow images. REFERENCE LINKS: TI-RADS Chart: [email or web address] TI-RADS Calculator Tool with Reference Images: [email or web address]/ COMPARISON: Prior study dated December 06, 2022. FINDINGS: Right thyroid lobe size: 3.7 cm x 0.9 cm x 0.9 cm Left thyroid lobe size: 3.8 cm by 1.4 cm 1.4 cm Isthmus: 0.2 cm Background parenchymal echotexture is homogeneous. Nodules: . Lobe: Right, Location: Superior pole, Size: 0.5 cm x 0.4 cm 0.3 cm, Stability: Stable Composition: Cystic or mostly cystic (+0) Echogenicity: Anechoic (+0) Margin: Smooth (+0) Shape: Wider than tall (+0) Echogenic Foci: None (+0) TI-RADS: <2 = TR 1 * 2 = TR 2 * 3 = TR 3 * 4-6 = TR 4 * >6 = TR 5 . Lobe: Right, Location: Mid, Size: 0.6 cm 0.4 cm x 0.3 cm, Stability: Stable Composition: Cystic or mostly cystic (+0) Echogenicity: Anechoic (+0) Margin: Smooth (+0) Shape: Wider than tall (+0) Echogenic Foci: None (+0) TI-RADS: <2 = TR 1 * 2 = TR 2 * 3 = TR 3 * 4-6 = TR 4 * >6 = TR 5 Interval enlargement of the upper pole complex nodule in the left lobe presently measuring 1.7 cm x 1 cm x 0.8 cm. Biopsy recommended. The remaining nodules are unchanged. US/Thyroid IMPRESSION: Increased size of the complex nodule in the upper pole of the left lobe of the thyroid as described. Biopsy recommended. RECOMMENDATION: Based on most suspicious nodule. Nodule size = largest diameter Only evaluate nodule if =>5 mm. Growth > 20% in 2 dimensions = worsening. Follow up to 4 nodules. Recommend biopsy for no more than 2 nodules. Reading Location: [facility]--1
== END | disposition home or self-care (01) ==
LOC: US 07:53
PROVIDERS: PCP Family Medicine; Referring Provider Family Medicine; Visit Provider Family Medicine
DX: E04.2 Nontoxic multinodular goiter (principal)
CPT/HCPCS: 76536

== ENCOUNTER → 2025-03-26 | Outpatient (CLI) | payer BC, SELFPAY ==
--- NOTE | 2025-03-26 08:51 | US_ITS ---
PROCEDURE: ABDOMEN LIMITED 03/26/2025 REASON FOR EXAM: CHRONIC NAUSEA EPIGASTRIC PAIN COMPARISON: None FINDINGS: Liver: Grossly normal size and echotexture. There is evidence of a 1.2 cm 1.3 cm 1.1 cm cyst in the right lobe of the liver. Gallbladder: No stones, sludge, wall thickening or tenderness. Common bile duct: Normal measuring 4.7 mm . Pancreas: Normal Other: Visualized portions of the right kidney are unremarkable. No right upper quadrant ascites. US/Abdomen Limited IMPRESSION: 1.2 cm 1.3 cm 1.1 cm cyst in the right lobe of the liver. Reading Location: [place] [id number]
== END | disposition home or self-care (01) ==
LOC: US 08:44
PROVIDERS: PCP Family Medicine; Referring Provider Family Medicine; Visit Provider Family Medicine
DX: R10.13 Epigastric pain (principal); R11.0 Nausea
CPT/HCPCS: 76705

== ENCOUNTER → 2025-03-26 | Outpatient (CLI) | payer BC, SELFPAY ==
--- NOTE | 2025-03-26 10:00 | RAD_ITS ---
PROCEDURE: SHOULDER MIN 2 VIEWS 03/26/2025 REASON FOR EXAM: SHOULDER PAIN TECHNIQUE: Four view right shoulder series COMPARISON: None. RAD/Shoulder min 2 Views IMPRESSION: [id number] right acromioclavicular joint degenerative changes are seen, w ith significant associated joint narrowing. The right glenohumeral joint demonstrates no significant abnormality. 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 No acute fracture or dislocation is seen. If clinical concern persists, short-term follow-up imaging may be obtained to r ule out a currently occult fracture. Reading Location: [address]
--- OUTSIDE RECORDS SUMMARY | 2025-03-26 22:19 | XMS RPT_ITS | CCD ---
Author Organization [facility] CliniSynv Care Team Providers Care Occ Therapy Asst Name Role Phone BOLOGNA, BOLIVAR A Unavailable Unavailable BOLOGNA, BOLIVAR A Unavailable Unavailable BOLOGNA, BOLIVAR A Unavailable Unavailable BOLOGNA, BOLIVAR A Unavailable Unavailable BOLOGNA, BOLIVAR A Unavailable Unavailable NO REFERRING DR Unavailable Unavailable Albert, Bolivar G Unavailable Unavailable Kaylee Pink DO Primary Care Provider Kaylee Bolanos Primary Care Provider Unavail able Kaylee Bolanos Referring Provider UnavailMONET Franklin Attending Provider [phone] Dr. Kaylee Pink Primary Care Provider [phone] Dr. Kaylee Pink Referring Provider [phone] Dr. Jamee Gray Attending Provider Dr. Kaylee Pink Primary Care Provider Dr. Kaylee Pink Referring Provider [phone] Dr. Jamee Gray Attending Provider Kaylee Pink DO Primary Care Provider KAYLEE PINK Primary Care Unavailable GIOVANNI BEY Attending Unavailable KAYLEE PINK A Primary Care Unavailable GIOVANNI BEY Referring Unavailable KAYLEE PINK A Primary Care Unavailable HARSH VELAZQUEZ Referring Unavailable KAYLEE PINK A Primary Care Unavailable KAYLEE PINK A Primary Care Unavailable JAMSHID DUBOIS Attending Unavailable KAYLEE PINK A Primary Care Unavailable KAYLEE PINK Referring Unavailable Dr. Kaylee Pink DO Primary Care Provider [phone] Dr. Kaylee Pink DO Attending Provider Dr. Kaylee Pink DO Referring Provider [phone] Jamee Gray Referring Unavailable Kristian, Kaylee Primary Care Unavailable MarinonyJamee Attending Unavailable Kristian, Kaylee Primary Care Unavailable Kristian, Kaylee Attending Unavailable Kristian, Kaylee Referring Unavailable Kristian, Kaylee Referring Unavailable Kristian, Kaylee Primary Care Unavailable Kristian, Kaylee Attending Unavailable Marcanthony, Jamee Attending Unavailable Marcanthony, Jamee Referring Unavailable Kristian, Kaylee Primary Care Unavailable Kristian, Kaylee Referring Unavailable Marcanthony, Jamee Attending Unavailable Kristian, Kaylee Primary Care Unavailable Kristian, Kaylee Primary Care Unavailable Kristian, Kaylee Attending Unavailable Kristian, Kaylee Referring Unavailable Kristian, Kaylee Primary Care Unavailable Kristian, Kaylee Attending Unavailable Kristian, Kaylee Primary Care Unavailable Lauren Zafar Attending Unavailabl e Lauren Zafar Referring Unavailabl e Marcanthony, Jamee Referring Unavailable Kristian, Kaylee Primary Care Unavailable Marcanthony, Jamee Attending Unavailable Allergies Allergy Classification Reported Allergen(s) Allergy Type Date of Onset Reaction(s) Facility (12 sources) Dust; Translations: [DUST] Propensity to adverse reactions (disorder) 6 [facility] Repository (12 sources) methenamine; Translations: [METHENAMINE] Drug Allergy 7 Unknown [facility] Repository (12 sources) mold extract; Translations: [MOLD] Drug Allergy 6 [facility] Repository (12 sources) Seasonal allergy; Translations: [SEASONAL ALLERGIES] Propensity to adverse reactions (disorder) 7 Unknown [facility] Repository (12 sources) RAGWEED; Translations: [RAGWEED] Propensity to adverse reactions (disorder) 6 [facility] Repository (2 sources) HYDROcodone Drug Allergy 6 [facility] Work Phone: Medications Current Medications Medication Drug Class(es) Dates Sig (Normalized) Sig (Original) ascorbic acid 1000 mg oral tablet (17 sources) Vitamin C Start: 06-29-2016 take 1 tablet by mouth once daily Ascorbic Acid (Vitamin C) (Vitamin C) 1,000 MG tablet Active 1000 mg PO DAILY June 29, 2016 12:00am Comment on above: Take 1,000 mg by martin th once daily. biotin 1 mg oral capsule (1 source) Start: 07-30-2024 take 1 capsule by mouth once daily Biotin 1 mg capsule Active 1 mg PO daily July 30, 2024 12:00am cholecalciferol 0.025 mg oral capsule (1 source) Vitamin D Start: 07-30-2024 take 1 capsule by mouth once daily Cholecalciferol (Vitamin D3) 25 mcg (1,000 unit) capsule Active 25 ug PO daily July 30, 2024 12:00am ciclopirox 80 mg/ml topical solution (1 source) Start: 08-14-2024 End: 09-13-2024 Ciclopirox (CICLODAN) 8 % solution Indications: Onychodystrophy Apply to affected area daily at bedtime. 6.6 mL 2 08/14/2024 09/13/2024 Active ergocalciferol 1.25 mg oral capsule (7 sources) Provitamin D2 Compound ergocalciferol 50,000 unit capsule (VITAMIN D2, DRISDOL) Active Lactobacillus acidophilus (10 sources) LACTOBACILLUS ACIDOPHILUS (PROBIOTIC ORAL) Take by mouth. Active LACTOBACILLUS AC IDOPHILUS (PROBIOTIC ORAL) Take by mouth. 0 Active Comment on above: Take by mouth. LORazepam 0.5 mg oral tablet (10 sources) Benzodiazepine LORAZEPAM ORAL Take 0.5 mg by mouth as needed. Active Comment on above: Take 0.5 mg by mouth as needed. Magnesium Glycinate 100 mg magnesium capsule (1 source) Start: 4 take 1 mg by mouth once daily Magnesium Glycinate 100 mg magnesium capsule Active mg PO DAILY July 30, 2024 12:00am magnesium oxide 500 mg oral tablet (7 sources) Magnesium Oxide 500 mg magnesium tab Active meclizine hydrochloride 25 mg oral tablet (15 sources) Antiemetic Start: 3 take 1 tablet by mouth twice daily as needed Meclizine 25 mg tablet Active 25 mg PO TWICE A DAY as needed March 21, 2023 12:00am take 2 tablets by mo [facility] three times daily meclizine (ANTIVERT) 12.5 mg tab Take 25 mg by mouth three times daily. Active Comment on above: Take 25 mg by mouth three times daily. multivitamin tablet (10 sources) multivitamin tab let Take 1 tablet by mouth as needed. Active multivitamin tab let Take 1 tablet by mouth as needed. 0 Active Comment on above: Take 1 tablet by martin as needed. Completed/Discontinued Medications Medication Drug Class(es) Dates Sig (Normalized) Sig (Original) amoxicillin 500 mg oral capsule (2 sources) Penicillin-class Antibacterial Start: 08-09-2017 End: 12-23-2022 take 1 capsule by mouth three times daily amoxicillin (POLYMOX, AMOXIL) 500 mg capsule Take 1 capsule by mouth three times daily. 15 capsule 0 08/09/2017 12/23/2022 Discontinued Start: 05-19-2017 End: 12-23-2022 amoxicillin (AMOXIL) 875 mg tablet Comment on above: Take 1 capsule by mo [facility] three times daily. amoxicillin 875 mg / clavulanate 125 mg oral tablet (1 source) Penicillin-class Antibacterial Start: 08-17-20 End: 12-24-19 take 1 tablet by mouth twice daily amoxicillin-clavulani c acid (AUGMENTIN) 875-125 mg per tablet Take 1 tablet by mouth twice daily. 14 tablet 0 08/17/2017 12/23/2022 Discontinued Comment on above: Take 1 tablet by martin twice daily. Calcium Carbonate (1 source) End: 12-24-19 23 CALCIUM CARBONATE (CALCIUM 300 ORAL) Take by mouth as needed. 0 12/23/2022 Discontinued (Discontinued by Patient) Comment on above: Take by mouth as nee ded. ciprofloxacin 500 mg oral tablet (1 source) Quinolone Antimicrobial Start: 06-09-20 17 End: 12-24-19 23 ciprofloxacin HCl (CIPRO) 500 mg tablet Cran-C-B.Coag-Fos-L.A navdeep-L.Rha (Probiotic Plus & Cranberry Cap) 1 EACH capsule (7 sources) Start: 06-29-20 16 End: 03-21-20 23 Cran-C-B.Coag-Fos-L.A navdeep-L.Rha (Probiotic Plus & Cranberry Cap) 1 EACH capsule Discontinued 1 NMA PO DAILY June 29, 2016 12:00am March 21, 2023 9:58am Start: 06-29-2016 End: 03-21-2023 Cran-C-B.Coag-Fos-L.Acid-L.R wei (Probiotic Plus & Cranberry Cap) 1 EACH capsule Discontinued 1 EACH PO DAILY June 28, 2016 11:00pm March 21, 2023 8:58am Start: 06-29-2016 End: 03-21-2023 Cran-C-B.Coag-Fos-L.Acid-L.R wei (Probiotic Plus & Cranberry Cap) 1 EACH capsule Discontinued 1 EACH PO DAILY June 29, 2016 12:00am March 21, 2023 9:58am Start: 06-29-2016 Cran-C-B.Coag- Fos-L.Acid-L.Rha (Probiotic Plus & Cranberry Cap) 1 EACH capsule Active 1 EACH PO DAILY June 28, 2016 11:00pm Start: 06-29-2016 Cran-C-B.Coag- Fos-L.Acid-L.Rha (Probiotic Plus & Cranberry Cap) 1 EACH capsule Active 1 EACH PO DAILY June 29, 2016 12:00am 21 day ethinyl estradiol 0.764323 mg/hr / etonogestrel 0.005 mg/hr vaginal system (18 sources) Progestin, Estrogen Start: 03-21-2023 End: 06-13-2023 Etonogestrel-Ethinyl Estradiol (Nuvaring) 0.12-0.015 mg/24 hr ring Discontinued 1 NMA VAGINAL every 4 weeks 3 May 10, 2023 12:59pm June 13, 2023 1:11pm Leave inplace for 4 weeks, remove X 1 week then insert new ring Start: 06-06-2017 End: 06-13-2023 NUVARING 0.12-0.015 mg/24 hr vaginal ring 06/06/2017 Active METHENAM/DENIZ AC/SALICY/TY-AM (CYSTEX ORAL) (1 source) End: 12-23-2022 METHENAM/DENIZ AC/SALICY/TY-AM (CYSTEX ORAL) Take by mouth. 0 12/23/2022 Discontinued Comment on above: Take by mouth. methenamine hippurate 1000 mg oral tablet (1 source) Start: 06-07-2017 End: 12-23-2022 take 1 tablet by mouth twice daily Methenamine Hippurate (HIPREX) 1 gram tablet Take 1 tablet by mouth twice daily. 60 tablet 11 06/07/2017 12/23/2022 Discontinued Comment on above: Take 1 tablet by martin twice daily. methenamine 162 mg / sodium salicylate 162.5 mg oral tablet (7 sources) Start: 06-29-2016 End: 03-21-2023 Methenamine-Sodium Salicylate (Cystex Tablet) 1 EACH tablet Discontinued 1 NMA PO DAILY June 29, 2016 12:00am March 21, 2023 9:59am metroNIDAZOLE 0.01 mg/mg topical gel (1 source) Nitroimidazole Antimicrobial End: 12-23-2022 metroNIDAZOLE (METROGEL) 1 % Topical Gel Apply to affected area. 0 12/23/2022 Discontinued (Discontinued by Patient) Comment on above: Apply to affected ar ea. Problems Active Problems Problem Classification Problem Date Documented Date Episodic/Chronic Abdominal pain (2 sources) Epigastric pain; Translations: [Epigastric pain] Onset: 03-07-2025 Episodic Allergic reactions (10 sources) Contact dermatitis; Translations: [Unspecified contact dermatitis, unspecified cause] 02-18-2006 Episodic Fracture of lower limb (1 source) Closed fracture of phalanx of foot; Translations: [Nondisplaced unspecified fracture of right lesser toe(s), initial encounter for closed fracture] 08-15-2024 Episodic Menopausal disorders (7 sources) Postcoital bleeding; Translations: [Excessive bleeding in the premenopausal period] Onset: 07-30-2024 03-21-2023 Chronic Comment on above: discussed irregular menses and insomnia- discussed trazodone Menstrual disorders (2 sources) Amenorrhea; Translations: [Amenorrhea, unspecified] Onset: 03-30-2024 07-30-2024 Chronic Nausea and vomiting (1 source) Nausea; Translations: [Nausea] Onset: 03-21-2025 Episodic Nonmalignant breast conditions (10 sources) Fibrocystic disease of breast; Translations: [Diffuse cystic mastopathy of unspecified breast] 02-18-2006 Chronic Other connective tissue disease (1 source) Calcaneal spur of left foot; Translations: [Calcaneal spur, left foot] 08-15-2024 Episodic Other female genital disorders (3 sources) Abnormal uterine bleeding; Translations: [Abnormal uterine and vaginal bleeding, unspecified] 06-13-2023 Chronic Comment on above: nuvaring if desired. Other female genital disorders (3 sources) Abnormal uterine and vaginal bleeding, unspecified; Translations: [Unspecified disorders of menstruation and other abnormal bleeding from female genital tract] Onset: 09-04-2024 05-03-2023 Chronic Other female genital disorders (5 sources) Lesion of cervix; Translations: [Noninflammatory disorder of cervix uteri, unspecified] 03-21-2023 Episodic Comment on above: pap obtained today. removed in office Other female genital disorders (4 sources) Noninflammatory disorder of cervix uteri, unspecified; Translations: [Unspecified noninflammatory disorder of cervix] 03-21-2023 Episodic Other skin disorders (1 source) Dystrophia unguium; Translations: [Nail dystrophy] 08-15-2024 Episodic Other upper respiratory disease (10 sources) Allergic rhinitis; Translations: [Allergic rhinitis, unspecified] 02-18-2006 Chronic Residual codes; unclassified (5 sources) Family history of breast cancer; Translations: [Family history of malignant neoplasm of breast] 03-31-2023 Episodic Comment on above: brother with breast cancer cells in prostatesister with metastatic breast cancer [facility] genetic screening accepted todaydiscontinued nuvaring today. will call if bleeding increases over next few months. will consider POP. 03/31/23 [facility] test Negative. Residual codes; unclassified (3 sources) Family history of malignant neoplasm of breast; Translations: [Family history of malignant neoplasm of breast] 03-21-2023 Episodic Residual codes; unclassified (2 sources) Pain; Translations: [Pain, unspecified] 07-17-2024 Episodic Thyroid disorders (4 sources) Multinodular goiter; Translations: [Nontoxic multinodular goiter] Onset: 01-30-2024 Chronic Unclassified (1 source) Unknown / UNK(Unknown) Onset: 05-30-2017 Past or Other Problems Problem Classification Problem Date Documented Da te Episodic/Chronic Conditions associated with dizziness or vertigo (10 sources) Vertigo; Translations: [Dizziness and giddiness] Onset: 05-08-2015 05-08-2015 Episodic Fracture of lower limb (4 sources) Closed fracture of distal phalanx of lesser toe; Translations: [Nondisplaced fracture of distal phalanx of left lesser toe(s), initial encounter for closed fracture] Onset: 08-14-2024 07-17-2024 Episodic Other screening for suspected conditions (not mental disorders or infectious disease) (1 source) Encounter for screening mammogram for malignant neoplasm of breast; Translations: [Encounter for screening mammogram for malignant neoplasm of breast] Onset: 09-24-2024 Episodic Residual codes; unclassified (10 sources) History of nephrectomy; Translations: [Acquired absence of kidney] Onset: 05-08-2015 05-08-2015 Episodic Residual codes; unclassified (1 source) Pain, unspecified; Translations: [Pain] Onset: 07-17-2024 Episodic Unclassified (1 source) R30.0, R10.9 Onset: 05-30-2017 Urinary tract infections (4 sources) Urinary tract infection, site not specified; Translations: [Urinary tract infection, site not specified] Onset: 06-07-2017 Episodic Results Test Name Value Interpretation Reference Range Facility Thyroidon 03-09-[address] [facility] [address] [place] [id number] Thyroid MR#: [id number] Acct: [id number] Name: JOSE JUAN JOSHI Rep #: [id number] : [id number] F [id number] From: Carson sheikh MD PCP: Dr. Kaylee Pink DO Status: REG CLI Study: Thyroid Date of Exam: 03/09/25 Exam# [id number] Ordering Dr: Kaylee Pink DO PROCEDURE: THYROID 03/09/2025 REASON FOR EXAM: REASSESS THYROID NODULES TECHNIQUE: High-frequency thyroid ultrasound, including grayscale and color-flow images. REFERENCE LINKS: TI-RADS Chart: [email or web address] TI-RADS Calculator Tool with Reference Images: [email or web address]/ COMPARISON: Prior study dated December 06, 2022. FINDINGS: Right thyroid lobe size: 3.7 cm x 0.9 cm x 0.9 cm Left thyroid lobe size: 3.8 cm by 1.4 cm 1.4 cm Isthmus: 0.2 cm Background parenchymal echotexture is homogeneous. Nodules: . Lobe: Right, Location: Superior pole, Size: 0.5 cm x 0.4 cm 0.3 cm, Stability: Stable Composition: Cystic or mostly cystic (+0) Echogenicity: Anechoic (+0) Margin: Smooth (+0) Shape: Wider than tall (+0) Echogenic Foci: None (+0) TI-RADS: <2 = TR 1 * 2 = TR 2 * 3 = TR 3 * 4-6 = TR 4 * >6 = TR 5 . Lobe: Right, Location: Mid, Size: 0.6 cm 0.4 cm x 0.3 cm, Stability: Stable Composition: Cystic or mostly cystic (+0) Echogenicity: Anechoic (+0) Margin: Smooth (+0) Shape: Wider than tall (+0) Echogenic Foci: None (+0) TI-RADS: <2 = TR 1 * 2 = TR 2 * 3 = TR 3 * 4-6 = TR 4 * >6 = TR 5 Interval enlargement of the upper pole complex nodule in the left lobe presently measuring 1.7 cm x 1 cm x 0.8 cm. Biopsy recommended. The remaining nodules are unchanged. US/Thyroid IMPRESSION: Increased size of the complex nodule in the upper pole of the left lobe of the thyroid as described. Biopsy recommended. RECOMMENDATION: Based on most suspicious nodule. Nodule size = largest diameter Only evaluate nodule if =>5 mm. Growth > 20% in 2 dimensions = worsening. Follow up to 4 nodules. Recommend biopsy for no more than 2 nodules. Reading Location: [place] [address] CC: Dr. Kaylee Pink DO Table Hand: Signed Normal [facility] Absolute lymphocyte countOrd ered By: Kaylee Pink on 03-04-2025 Lymphocytes Auto (Unsp spec) [#/Vol] 1.37 10*3/uL 0.83-4.51 [facility] Absolute neutrophil countOrd ered By: Kaylee Pink on 03-04-2025 Neutrophils (Bld) [#/Vol] 2.8 10*3/uL 2.0-7.7 [facility] Anion gap in Serum or Plasma Ordered By: Kaylee Pink on 03-04-2025 Anion gap [Moles/Vol] 10 mmol/L 5-15 [facility] Automated lymphocyte count a s percentage of total leukocytesOrdered By: Kaylee Pink on 03-04-2025 Lymphocytes/100 WBC Auto (Unsp spec) 29.7 % [facility] BUN/creatinine ratioOrdered By: Kaylee Pink on 03-04-2025 Urea nitrogen/Creatinine [Mass ratio] 16.8 mg/mg 10- [facility] Basophil percentageOrdered B y: Kaylee ValenciaKristian on 03-04-2025 Basophils/100 WBC (Bld) 1.3 % High 0-1 [facility] Bilirubin, totalOrdered By: Kaylee ValenciaKristian on 03-04-2025 Bilirubin [Mass/Vol] 0.38 mg/dL 0.00-1.30 [facility] CBC W/Diff, Automatedon 02-14 Absolute Lymph 1.37 X10 3/uL Normal 0.83-4.51 [facility] Comment on above: Performed By: #### L 500.4050, L501.2450, L300.3900, L100.0100 #### [facility] [address] [place], [address] Absolute Neut 2.8 X10 3/uL Normal 2.0-7.7 [facility] Comment on above: Performed By: #### L 500.4050, L501.2450, L300.3900, L100.0100 #### [facility] [address] [place], [address] Basophils/100 WBC (Bld) 1.3 % High 0-1 [facility] Comment on above: Performed By: #### L 500.4050, L501.2450, L300.3900, L100.0100 #### [facility] [address] [place], [address] Eosinophils/100 WBC (Bld) 2.6 % Normal 0-5 [facility] Comment on above: Performed By: #### L 500.4050, L501.2450, L300.3900, L100.0100 #### [facility] [address] [place], [address] Erythrocyte distribution width (RBC) [Ratio] 12.0 % Normal 11.6-14.6 [facility] Comment on above: Performed By: #### L 500.4050, L501.2450, L300.3900, L100.0100 #### [facility] [address] [place], [address] Hematocrit (Bld) [Volume fraction] 37.8 % Normal 37-47 [facility] Comment on above: Performed By: #### L 500.4050, L501.2450, L300.3900, L100.0100 #### [facility] [address] [place], [address] Hemoglobin (Bld) [Mass/Vol] 12.6 g/dL Normal 12.0-15.0 [facility] Comment on above: Performed By: #### L 500.4050, L501.2450, L300.3900, L100.0100 #### [facility] [address] [place], [address] IG% 0.200 Normal 0.0-0.9 [facility] Comment on above: Result Comment: IG% - Immature Granulocytes (promyelocytes, myelocytes and metamyelocytes) > 1% indicates that a LEFT SHIFT is Present. Performed By: #### L 500.4050, L501.2450, L300.3900, L100.0100 #### [facility] [address] [place], [address] Lymphocytes/100 WBC (Bld) 29.7 % Normal 19-41 [facility] Comment on above: Performed By: #### L 500.4050, L501.2450, L300.3900, L100.0100 #### [facility] [address] [place], [address] MCH (RBC) [Entitic mass] 29.7 pg Normal 27.0-32.0 [facility] Comment on above: Performed By: #### L 500.4050, L501.2450, L300.3900, L100.0100 #### [facility] [address] [place], [address] MCHC (RBC) [Mass/Vol] 33.3 g/dL Normal 32-36 [facility] Comment on above: Performed By: #### L 500.4050, L501.2450, L300.3900, L100.0100 #### [facility] [address] [place], [address] MCV (RBC) [Entitic vol] 89.2 fL Normal 81-99 [facility] Comment on above: Performed By: #### L 500.4050, L501.2450, L300.3900, L100.0100 #### [facility] [address] [place], [address] Monocytes/100 WBC (Bld) 6.5 % Normal 0-10 [facility] Comment on above: Performed By: #### L 500.4050, L501.2450, L300.3900, L100.0100 #### [facility] [address] [place], [address] Neutrophils/100 WBC (Bld) 59.7 % Normal 47-70 [facility] Comment on above: Performed By: #### L 500.4050, L501.2450, L300.3900, L100.0100 #### [facility] [address] [place], [address] Nucleated RBC (Bld) [#/Vol] 0 10*3/uL Normal 0-5 [facility] Comment on above: Performed By: #### L 500.4050, L501.2450, L300.3900, L100.0100 #### [facility] [address] [place], [address] Platelet mean volume (Bld) [Entitic vol] 10.8 fL Normal 6.2-12.0 [facility] Comment on above: Performed By: #### L 500.4050, L501.2450, L300.3900, L100.0100 #### [facility] [address] [place], [address] Platelets (Bld) [#/Vol] 228 10*3/uL Normal 150-450 [facility] Comment on above: Performed By: #### L 500.4050, L501.2450, L300.3900, L100.0100 #### [facility] [address] [place], [address] RBC (Bld) [#/Vol] 4.24 10*6/uL Normal 4.2-5.4 [facility] Comment on above: Performed By: #### L 500.4050, L501.2450, L300.3900, L100.0100 #### [facility] [address] [place], [address] RDW SD 38.8 fl Normal 35.1-43.9 [facility] Comment on above: Performed By: #### L 500.4050, L501.2450, L300.3900, L100.0100 #### [facility] [address] [place], [address] WBC (Bld) [#/Vol] 4.6 10*3/uL Normal 4.4-11.0 [facility] Comment on above: Performed By: #### L 500.4050, L501.2450, L300.3900, L100.0100 #### [facility] [address] [place], [address] Carbon dioxide, total [Moles /volume] in Central venous bloodOrdered By: Kaylee Pink on 03-04-2025 CO2 [Moles/Vol] 25.1 mmol/L 21.0-32.0 [facility] Chloride assayOrdered By: Genet Pink on 03-04-2025 Chloride [Moles/Vol] 103 mmol/L 98-108 [facility] Comprehensive Metabolic Prof ilon 03-04-2025 Albumin/Globulin [Mass ratio] 1.3 {ratio} Normal 0.9-2.4 [facility] Comment on above: Performed By: #### L 500.4050, L501.2450, L300.3900, L100.0100 #### [facility] [address] [place], [address] ALK PHOS 24 U/L Low 35-104 [facility] Comment on above: Performed By: #### L 500.4050, L501.2450, L300.3900, L100.0100 #### [facility] [address] [place], [address] ALT [Catalytic activity/Vol] 12 U/L Normal <=34 [facility] Comment on above: Performed By: #### L 500.4050, L501.2450, L300.3900, L100.0100 #### [facility] [address] [place], [address] AST [Catalytic activity/Vol] 21 U/L Normal <=31 [facility] Comment on above: Performed By: #### L 500.4050, L501.2450, L300.3900, L100.0100 #### [facility] [address] [place], [address] Bilirubin [Mass/Vol] 0.38 mg/dL Normal 0.00-1.30 [facility] Comment on above: Performed By: #### L 500.4050, L501.2450, L300.3900, L100.0100 #### [facility] [address] [place], [address] Calcium [Mass/Vol] 9.3 mg/dL Normal 7.6-11.0 [facility] Comment on above: Performed By: #### L 500.4050, L501.2450, L300.3900, L100.0100 #### [facility] [address] [place], [address] Chloride [Moles/Vol] 103 mmol/L Normal 98-108 [facility] Comment on above: Performed By: #### L 500.4050, L501.2450, L300.3900, L100.0100 #### [facility] [address] [place], [address] CO2 [Moles/Vol] 25.1 mmol/L Normal 21.0-32.0 [facility] Comment on above: Performed By: #### L 500.4050, L501.2450, L300.3900, L100.0100 #### [facility] [address] [place], [address] GAP 10 Normal 5-15 [facility] Comment on above: Performed By: #### L 500.4050, L501.2450, L300.3900, L100.0100 #### [facility] [address] [place], [address] Globulin (S) [Mass/Vol] 3.3 g/dL Normal 2.2-4.2 [facility] Comment on above: Performed By: #### L 500.4050, L501.2450, L300.3900, L100.0100 #### [facility] [address] [place], [address] Potassium [Moles/Vol] 4.2 mmol/L Normal 3.3-5.1 [facility] Comment on above: Performed By: #### L 500.4050, L501.2450, L300.3900, L100.0100 #### [facility] [address] [place], [address] Sodium [Moles/Vol] 137 mmol/L Normal 133-145 [facility] Comment on above: Performed By: #### L 500.4050, L501.2450, L300.3900, L100.0100 #### [facility] [address] [place], [address] Albumin [Mass/Vol] 4.3 g/dL Normal 3.5-5.0 [facility] Comment on above: Performed By: #### L 500.4050, L501.2450, L300.3900, L100.0100 #### [facility] [address] [place], [address] BUN/CRE 16.8 RATIO Normal 10-20 [facility] Comment on above: Performed By: #### L 500.4050, L501.2450, L300.3900, L100.0100 #### [facility] [address] [place], [address] Creatinine [Mass/Vol] 0.74 mg/dL Normal 0.70-1.20 [facility] Comment on above: Performed By: #### L 500.4050, L501.2450, L300.3900, L100.0100 #### [facility] [address] [place], [address] GFR/1.73 sq M.predicted among non-blacks MDRD (S/P/Bld) [Vol rate/Area] 95 mL/min/{1.73_m2} Normal >60 [facility] Comment on above: Result Comment: mL/m in/1.73m2 CKD-EPI Creatinine Equation (2020) Performed By: #### L 500.4050, L501.2450, L300.3900, L100.0100 #### [facility] [address] [place], [address] Glucose [Mass/Vol] 81 mg/dL Normal 70-99 [facility] Comment on above: Performed By: #### L 500.4050, L501.2450, L300.3900, L100.0100 #### [facility] [address] [place], [address] T PROT 7.6 g/dL Normal 5.9-8.4 [facility] Comment on above: Performed By: #### L 500.4050, L501.2450, L300.3900, L100.0100 #### [facility] [address] [place], [address] Urea nitrogen [Mass/Vol] 13 mg/dL Normal 4-19 [facility] Comment on above: Performed By: #### L 500.4050, L501.2450, L300.3900, L100.0100 #### [facility] [address] [place], [address] Eosinophil percentageOrdered By: Kaylee Pink on 03-04-2025 Eosinophils/100 WBC (Bld) 2.6 % 0-5 [facility] Erythrocyte distribution wid th ratioOrdered By: Kaylee Pink on 03-04-2025 Erythrocyte distribution width (RBC) [Ratio] 12.0 % 11.6-14.6 [facility] Erythrocyte distribution wid th standard deviationOrdered By: Kaylee Pink on 03-04-2025 Erythrocyte distribution width (RBC) [Ratio] 38.8 fl 35.1-43.9 [facility] Glomerular filtration rate ( GFR) estimation/1.73 sq m using serum, plasma, or whole bOrdered By: Kaylee Pink on 03-04-2025 GFR/1.73 sq M.predicted among non-blacks MDRD (S/P/Bld) [Vol rate/Area] 95 mL/min/{1.73_m2} >60 [facility] Comment on above: mL/min/1.73m2 CKD-EP I Creatinine Equation (2020) Hematocrit Auto (Bld) [Volum e fraction]Ordered By: Kaylee Pink on 03-04-2025 Hematocrit (Bld) [Volume fraction] 37.8 % 37-47 [facility] Hemoglobin measurementOrdere d By: Kaylee Pink on 03-04-2025 Hemoglobin (Bld) [Mass/Vol] 12.6 g/dL 12.0-15.0 [facility] Immature granulocytes/100 WB C Auto (Bld)Ordered By: Kaylee Pink on 03-04-2025 Immature granulocytes/100 WBC (Bld) 0.200 % 0.0-0.9 [facility] Comment on above: IG% - Immature Granu locytes (promyelocytes, myelocytes and metamyelocytes) > 1% indicates that a LEFT SHIFT is Present. International normalized rat io (INR) calculationOrdered By: Kaylee Pink on 03-04-2025 INR Coag (Bld) [Relative time] 0.9 {INR} [facility] - Chemistry and C hemistry - challengeOrdered By: Kaylee Pink on 03-04-2025 AST [Catalytic activity/Vol] 21 U/L <32 [facility] Lipaseon 03-04-2025 Lipase [Catalytic activity/Vol] 35 U/L Normal 13-75 [facility] Comment on above: Result Comment: Plea note: LIPASE revised reference range effective 23. New Lipase methodology. Expected to produce lower values than the previous assay method. NEW Reference Range: 13 - 75 U/L Performed By: #### L 500.4050, L501.2450, L300.3900, L100.0100 #### [facility] [address] [place] [address], [address] Lipase measurementOrdered By : Kaylee Pink on 03-04-2025 Lipase [Catalytic activity/Vol] 35 U/L 13-75 [facility] Comment on above: Please note:LIPASE r evised reference range effective 23. New Lipase methodology. Expected to produce lower values than the previous assay method. NEW Reference Range: 13 - 75 U/L MCV (mean corpuscular volume ) determinationOrdered By: Kaylee Pink on 03-04-2025 MCV (RBC) [Entitic vol] 89.2 fL 81-99 [facility] Mean corpuscular hemoglobin (MCH) determinationOrdered By: Kaylee Pink on 03-04-2025 MCH (RBC) [Entitic mass] 29.7 pg 27.0-32.0 [facility] Mean corpuscular hemoglobin concentration (MCHC) determinationOrdered By: Kaylee Pink on 03-04-2025 MCHC (RBC) [Mass/Vol] 33.3 g/dL 32-36 [facility] Mean platelet volume determi nationOrdered By: Kaylee Pink on 03-04-2025 Platelet mean volume (Bld) [Entitic vol] 10.8 fL 6.2-12.0 [facility] Monocyte percentageOrdered B y: Kaylee Pink on 03-04-2025 Monocytes/100 WBC (Bld) 6.5 % 0-10 [facility] Neutrophil percentageOrdered By: Kaylee Pink on 03-04-2025 Neutrophils/100 WBC (Bld) 59.7 % 47-70 [facility] Nucleated red blood cell per centageOrdered By: Kaylee Pink on 03-04-2025 Nucleated RBC/100 WBC (Bld) [Ratio] 0 % 0-5 [facility] Platelet countOrdered By: Genet Pink on 03-04-2025 Platelets (Bld) [#/Vol] 228 10*3/uL 150-450 [facility] Potassium measurement (mass/ volume)Ordered By: Kaylee Pink on 03-04-2025 Potassium (Unsp spec) [Mass/Vol] 4.2 mmol/L 3.3-5.1 [facility] Prothrombin Time w/INRon INR Coag (PPP) [Relative time] 0.9 {INR} Normal [facility] Comment on above: Performed By: #### L 500.4050, L501.2450, L300.3900, L100.0100 #### [facility] [address] [place], [place], [address] PT Coag (PPP) [Time] 12.8 s Normal 11.7-14.9 [facility] Comment on above: Performed By: #### L 500.4050, L501.2450, L300.3900, L100.0100 #### [facility] [address] [place], [address] Prothrombin timeOrdered By: Kaylee Pink on 03-04-2025 PT Coag (PPP) [Time] 12.8 s 11.7-14.9 [facility] RBC Auto (Bld) [#/Vol]Ordere d By: Kaylee Pink on 03-04-2025 RBC (Bld) [#/Vol] 4.24 10*6/uL 4.2-5.4 [facility] Serum creatinine measurement (mass/volume)Ordered By: Kaylee Pink on 03-04-2025 Creatinine [Mass/Vol] 0.74 mg/dL 0.70-1.20 [facility] Serum globulin measurementOr dered By: Kaylee Pink on 03-04-2025 Globulin (S) [Mass/Vol] 3.3 g/dL 2.2-4.2 [facility] Serum glucose measurement (m ass/volume)Ordered By: Kaylee Pink on 03-04-2025 Glucose [Mass/Vol] 81 mg/dL 70-99 [facility] Serum or plasma alanine dillard otransferase (ALT) measurementOrdered By: Kaylee Pink on 03-04-2025 ALT [Catalytic activity/Vol] 12 U/L <35 [facility] Serum or plasma albumin paul urement (mass/volume)Ordered By: Kaylee Pink on 03-04-2025 Albumin [Mass/Vol] 4.3 g/dL 3.5-5.0 [facility] Serum or plasma albumin/glob ulin mass ratioOrdered By: Kaylee Pink on 03-04-2025 Albumin/Globulin [Mass ratio] 1.3 {ratio} 0.9-2.4 [facility] Serum or plasma alkaline amy sphatase measurementOrdered By: Kaylee Pink on 03-04-2025 ALP [Catalytic activity/Vol] 24 U/L Low 35-104 [facility] Serum or plasma calcium paul urement (mass/volume)Ordered By: Kaylee Pink on 03-04-2025 Calcium [Mass/Vol] 9.3 mg/dL 7.6-11.0 [facility] Serum or plasma urea nitroge n measurement (mass/volume)Ordered By: Kaylee Pink on 03-04-2025 Urea nitrogen [Mass/Vol] 13 mg/dL 4- [facility] Sodium levelOrdered By: Kaylee Pink on 03-04-2025 Sodium [Moles/Vol] 137 mmol/L 133-145 [facility] Total proteinOrdered By: Karen Pink on 03-04-2025 Protein [Mass/Vol] 7.6 g/dL 5.9-8.4 [facility] White blood cell (WBC) count Ordered By: Kaylee Pink on 03-04-2025 WBC (Bld) [#/Vol] 4.6 10*3/uL 4.4-11.0 [facility] CNPNon 09-17-2024 CNPN Telephone (RGMOB) -- JOSE JUAN JOSHI ([id number]) 1970 F Date Time Provider Department 09/17/24 JAZ PATEL [facility] During your visit today, we recorded the following information about you: Madison High 09/17/2024 8:04 AM Signed Patient is requesting disc and report of 08/14/24 XR FOOT LEFT and 07/17/24 XR TOE LEFT. 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 Jaz Patel, SOLO 09/17/2024 2:37 PM Signed CD READY FOR ROUSTABOUT AT [facility] Pt is aware Allergies As of Date: 09/17/2024 Noted Allergy Reaction DUST 02/18/2006 METHENAMINE 06/03/2017 16 - Unknown MOLD 02/18/2006 RAGWEED 02/18/2006 SEASONAL ALLERGIES 06/03/2017 16 - Unknown Date Reviewed: 08/14/2024 Reviewed by: Poornima Leigh MA - Fully Assessed Reason for Visit: Release Of Medical Records [2017] Cmt: Imaging Disc/Report Prescriptions as of 11/29/2024 - ergocalciferol 50,000 unit capsule (VITAMIN D2, DRISDOL) - Magnesium Oxide 500 mg magnesium tab - NUVARING 0.12-0.015 mg/24 hr vaginal ring - Ascorbic Acid (VITAMIN C) 1,000 mg tablet Take 1,000 mg by mouth once daily. - LACTOBACILLUS ACIDOPHILUS (PROBIOTIC ORAL) Take by mouth. - meclizine (ANTIVERT) 12.5 mg tab Take 25 mg by mouth three times daily. - multivitamin tablet Take 1 tablet by mouth as needed. - LORAZEPAM ORAL Take 0.5 mg by mouth as needed. Problem List As Of Date 09/17/2024 Noted Resolved ALLERGIC RHINITIS NOS [J30.9] DERMATITIS NOS [L25.9] DIFFUS CYSTIC MASTOPATHY [N60.19] S/p nephrectomy [Z90.5] 05/08/2015 Vertigo [R42] 05/08/2015 Encounter Status:Closed by MADISON HIGH on 11/29/24 Normal [facility] SCRN MAMM (CAD)W/ALBINA BILATo n 08-27-2024 SCRN MAMM (CAD)W/ALBINA BILAT [facility] Imaging Services [address] [place] [address] SCRN MAMM (CAD)W/ALBINA BILAT MR#: [id number] Acct: [id number] Name: JOSE JUAN JOSHI Rep #: [id number] : 1970 F 53 From: Carson sheikh MD PCP: Dr. Kaylee Pink, DO Status: REG CL Study: SCRN MAMM (CAD)W/ALBINA BILAT Date of Exam: 08/17 11/09 Exam# [id number] Ordering Dr: Jamee Gray [id number] MAMMOGRAPHY - BILATERAL SCREENING REASON FOR EXAM: Female, 53 years old. Routine annual screening examination. PERTINENT HISTORY: Sister with breast cancer. Mother with breast cancer. TECHNIQUE: Digital bilateral breast albina (3D mammographic acquisition) in the CC and MLO projections. 2-D mediolateral oblique (MLO) and craniocaudad (CC) views of both breasts were obtained. CAD: Full Field Digital Mammography with Computer Added Detection was performed. COMPARISON: Comparison is made with prior study August 22, 2023 and August 16, 2022. FINDINGS: Breast Composition: The breasts are extremely dense, which lowers the sensitivity of mammography. There are no dominant masses or suspicious calcifications. No other significant abnormalities are identified. There has been no significant change since the prior study. BI/SCRN MAMM (CAD)W/ALBINA BILAT IMPRESSION: Stable bilateral screening mammogram. Yearly follow-up mammogram recommended. (A) ASSESSMENT CATEGORY: BIRADS Category 1: Negative. A letter regarding these results will be sent to the patient by the facility within 30 days. Approximately 10% of breast cancers are not detected by mammography. A normal mammogram should not delay biopsy of a clinically suspicious abnormality. [id number] Electronically Signed: Carson Pinon MD at 10:33 EST , CC: Dr. Kaylee Pink, ; Dr. Jamee Gray MD Table Hand: Signed Normal [facility] CNOVon 08-14-2024 CNOV Office Visit (PODIWS ) -- JOSE JUAN JOSHI ([id number]) 1970 F Date Time Provider Department 08/14/24 2:15 PM SHARONEDDIE ALSTONLESLY EBAN During your visit today, we recorded the following information about you: Last Period 08/04/24 Giovanni Bey 08/15/2024 7:20 PM Signed Initial Podiatric Office Visit: Chief Complaint: This 53 year old female who presents with chief complaint:left foot pain HPI Patient presents to clinic for evaluation of left foot Complains of pain to left 3rd toe and left heel Earlier this month, she rolled her left 3rd toe and resulted in injury Went to urgent care and had xrays taken and she was told she fractured her 3rd toe. She has been using a surgical shoe Pain is 3/10 Patient does complain of pain to the posterior heel. Patient states that she hit the left heel on a garden bed. Patient states the pain in the left heel is sharp shooting pain. Takes tylenol and ices the foot. PAIN EVALUATION 08/14/2024 0755 08/14/2024 1355 Pain Level: 4 5 Pain Location: Heel-Left Foot-Left Description: Sharp Sharp Duration Amount of Time: -- 6 Duration Units: Weeks Weeks Frequency: Continuous Continuous Intervention/Comfort measure: Medication;Cold;Positionin g -- No results found for: HBA1C PCP: Kaylee Pink DO PAST MEDICAL HISTORY Diagnosis Date Abdominal pain, left lower quadrant Allergic rhinitis, cause unspecified Arthritis Bronchitis Contact dermatitis and other eczema, due to unspecified cause Diffuse cystic mastopathy Eczema Hemorrhage of gastrointestinal tract, unspecified Hives Infectious disease Internal hemorrhoids without mention of complication Mononucleosis Pneumonia UTI (urinary tract infection) Vertigo Current Outpatient Medications Medication Sig ergocalciferol 50,000 unit capsule (VITAMIN D2, DRISDOL) Magnesium Oxide 500 mg magnesium tab Ascorbic Acid (VITAMIN C) 1,000 mg tablet Take 1,000 mg by mouth once daily. LACTOBACILLUS ACIDOPHILUS (PROBIOTIC ORAL) Take by mouth. meclizine (ANTIVERT) 12.5 mg tab Take 25 mg by mouth three times daily. multivitamin tablet Take 1 tablet by mouth as needed. NUVARING 0.12-0.015 mg/24 hr vaginal ring LORAZEPAM ORAL Take 0.5 mg by mouth as needed. No current facility-administered medications for this visit. ALLERGIES Allergen Reactions Dust Methenamine Unknown Mold Ragweed Seasonal Allergies Unknown PAST SURGICAL HISTORY Procedure Laterality Date COLONOSCOPY FLX DX W/COLLJ SPEC WHEN PFRMD 05/14/15 Colonoscopy CYSTOSCOPY 2015 [facility] DIAGNOSTIC OR THERA - IPAS LAPAROSCOPY RADICAL NEPHRECTOMY 2013 left NM BILIARY (HIDA) SCAN 2016 SIGMOIDOSCOPY FLX DX W/COLLJ SPEC BR/WA IF PFRMD 06/12/10 wisdom teeth FAMILY HISTORY Problem Relation Age of Onset Hypertension Mother Stroke Mother Breast Cancer Mother other (MELANOMA) Mother Hypertension Father Prostate Cancer Father Thyroid Sister Hypertension Sister Cancer Sister Thyroid Cancer Sister Lung Cancer Sister Prostate Cancer Brother Heart Maternal Aunt Social History Tobacco Use Smoking status: Never Vaping Use Vaping status: Never Used Substance Use Topics Alcohol use: No Drug use: No REVIEW OF SYSTEMS GENERAL: Negative for Malaise, significant weight loss, fever RESPIRATORY: Negative for cough, wheezing and shortness of breath CARDIOVASCULAR: Negative for chest pain, leg swelling and palpitations GI: Negative for abdominal discomfort, blood in stools or black stools and change in bowel habits : Negative for dysuria, frequency and incontinence MUSCULOSKELETAL: Negative for joint pain or swelling, back pain, and muscle pain. SKIN: Negative for lesions, rash, and itching. HEMATOLOGY/LYMPHOLOGY Negative for prolonged bleeding, bruising easily, and swollen nodes. ENDOCRINE: Negative for cold or heat intolerance, polyuria, polydipsia and goiter. NEURO: negative Physical Exam: Constitutional: Pt is a well developed 53 year old female who is alert, oriented and cooperative Eyes: Following during examination. No redness or drainage. Respiratory: RR normal and nonlabored. Even breathing. No evidence of distress or shortness of breath. Psychology: Patient is engaged during conversation. Normal affect and mood. Does not appear depressed or anxious during encounter. Vascular: Dorsalis pedis and posterior tibial pulses palpable as b/l Capillary Fill time < 5 seconds to digits 1-5 b/l Skin temperature warm to warm proximal to distal b/l Hair growth present to digits Neurological: intact light touch/epicritic sensation - tinel b/l intact protective sensation no significant neurological deficits Dermatological: Nails left 3rd and left 5th show some discoloration. Webspaces clean and dry 1-4 b/l. Skin appears well hydrated and supple. good color, texture, turgor. (more content not included)... Normal [facility] XR FOOT 3V AP/LAT/OBL LTon 1 0-29-2024 XR FOOT 3V AP/LAT/OBL LT * * *Final Report* * * DATE OF EXAM: Aug 14 2024 1:52PM [id number] - XR FOOT 3V AP/LAT/OBL LT / PROCEDURE REASON: Closed nondisplaced fracture of distal phalanx of lesser toe of left foot with r * * * * Physician Interpretation * * * * EXAMINATION / TECHNIQUE: XR FOOT 3V AP/LAT/OBL LT HISTORY: Closed nondisplaced fracture of distal phalanx of 3rd toe of left foot, and left heel pain after injury to heel. Closed nondisplaced fracture of distal phalanx of lesser toe of left foot with routine healing, subsequent encounter COMPARISON: 07/17/2024. RESULT: See Impression IMPRESSION: Small fracture at the dorsal base of the third digit distal phalanx is better appreciated on the prior exam. Remaining bones appear intact with normal alignment. The joint spaces are preserved. There is an insertional Achilles enthesophyte. Table Hand: [facility] Trans[facility] Date/Time: Aug 20 2024 7:39P Dictated by : HARLEY LINDER MD This examination was interpreted and the report reviewed and electronically signed by: HARLEY LINDER MD on Aug 20 2024 7:40PM EST [id number] Normal [facility] Pelvic w/ Transvaginalon Pelvic w/ Transvaginal [facility] Imaging Services [address] [place] [address] Pelvic w/ Transvaginal MR#: [id number] Acct: [id number] Name: JOSE JUAN JOSHI Rep #: [id number] : 1970 F 53 From: Carson sheikh MD PCP: Dr. Kaylee Pink, Status: REG CLI Study: Pelvic w/ Transvaginal Date of Exam: 08/13/24 Exam# [id number] Ordering Dr: Jamee Gray [id number] STUDY: ULTRASOUND OF THE FEMALE PELVIS - COMPLETE REASON FOR EXAM: Female, 53 years old. AUB LMP: August 04, 2024. TECHNIQUE: Transabdominal and Transvaginal TECHNICAL QUALITY: Adequate. COMPARISON: Comparison is made with prior study dated March 28, 2023. FINDINGS: The uterus is anteverted and is in a midline position. The uterus measures 8.8 cm x 4.6 cm x 3.9 cm. There is a Nabothian cyst of the cervix. The endometrium measures 6 mm in thickness, and is hyperechoic. There is no demonstrated endometrial mass. There is a 9 mm x 8 mm x 8 mm fibroid in the uterine body. Uterine echotexture is heterogeneous in keeping with fibroid change. I.U.D. - The patient does not have an I.U.D. The right ovary is visualized. The right ovary measures 2.2 cm x 2.5 cm x 1.8 cm. There is no right ovarian cyst or ovarian mass. There is no visualized right adnexal mass or complex lesion. There is normal arterial and normal venous vascularity. The left ovary is visualized. The left ovary measures 3 cm x 1.9 cm x 1.7 cm. There is no left ovarian cyst or ovarian mass. There is no visualized left adnexal mass or complex lesion. There is normal arterial and normal venous vascularity. There is no fluid in the cul-de-sac. The pre void volume of the bladder was 75 ml. Polycystic ovary disease: No. US/Pelvic w/ Transvaginal IMPRESSION: Small uterine fibroid. Heterogeneous appearance of the myometrium. Electronically Signed: Carson Pinon MD at 15:22 EDT , CC: Dr. Kaylee Pink DO; Dr. Jamee Gray MD Table Hand: Signed Normal [facility] CBC W/Diff, Automatedon 10-2 Absolute Lymph 1.81 X10 3/uL Normal 0.83-4.51 [facility] Comment on above: Performed By: #### L 3100.5125, L501.9520, L3300.1750, L100.0100 #### [facility] [address] [place], [address] Absolute Neut 4.0 X10 3/uL Normal 2.0-7.7 [facility] Comment on above: Performed By: #### L 3100.5125, L501.9520, L3300.1750, L100.0100 #### [facility] [address] [place], [address] Basophils/100 WBC (Bld) 0.9 % Normal 0-1 [facility] Comment on above: Performed By: #### L 3100.5125, L501.9520, L3300.1750, L100.0100 #### [facility] [address] [place], [address] Eosinophils/100 WBC (Bld) 0.9 % Normal 0-5 [facility] Comment on above: Performed By: #### L 3100.5125, L501.9520, L3300.1750, L100.0100 #### [facility] [address] [place], [address] Erythrocyte distribution width (RBC) [Ratio] 12.1 % Normal 11.6-14.6 [facility] Comment on above: Performed By: #### L 3100.5125, L501.9520, L3300.1750, L100.0100 #### [facility] [address] [place], [address] Hematocrit (Bld) [Volume fraction] 38.0 % Normal 37-47 [facility] Comment on above: Performed By: #### L 3100.5125, L501.9520, L3300.1750, L100.0100 #### [facility] [address] [place], [address] Hemoglobin (Bld) [Mass/Vol] 12.3 g/dL Normal 12.0-15.0 [facility] Comment on above: Performed By: #### L 3100.5125, L501.9520, L3300.1750, L100.0100 #### [facility] [address] [place], [address] IG% 0.300 Normal 0.0-0.9 [facility] Comment on above: Result Comment: IG% - Immature Granulocytes (promyelocytes, myelocytes and metamyelocytes) > 1% indicates that a LEFT SHIFT is Present. Performed By: #### L 3100.5125, L501.9520, L3300.1750, L100.0100 #### [facility] [address] [place], [address] Lymphocytes/100 WBC (Bld) 28.3 % Normal 19-41 [facility] Comment on above: Performed By: #### L 3100.5125, L501.9520, L3300.1750, L100.0100 #### [facility] [address] [place], [address] MCH (RBC) [Entitic mass] 28.8 pg Normal 27.0-32.0 [facility] Comment on above: Performed By: #### L 3100.5125, L501.9520, L3300.1750, L100.0100 #### [facility] [address] [place], [address] MCHC (RBC) [Mass/Vol] 32.4 g/dL Normal 32-36 [facility] Comment on above: Performed By: #### L 3100.5125, L501.9520, L3300.1750, L100.0100 #### [facility] [address] [place], [address] MCV (RBC) [Entitic vol] 89.0 fL Normal 81-99 [facility] Comment on above: Performed By: #### L 3100.5125, L501.9520, L3300.1750, L100.0100 #### [facility] [address] [place], [address] Monocytes/100 WBC (Bld) 7.0 % Normal 0-10 [facility] Comment on above: Performed By: #### L 3100.5125, L501.9520, L3300.1750, L100.0100 #### [facility] [address] [place], [address] Neutrophils/100 WBC (Bld) 62.6 % Normal 47-70 [facility] Comment on above: Performed By: #### L 3100.5125, L501.9520, L3300.1750, L100.0100 #### [facility] [address] [place], [address] Nucleated RBC (Bld) [#/Vol] 0 10*3/uL Normal 0-5 [facility] Comment on above: Performed By: #### L 3100.5125, L501.9520, L3300.1750, L100.0100 #### [facility] [address] [place], [address] Platelet mean volume (Bld) [Entitic vol] 10.6 fL Normal 6.2-12.0 [facility] Comment on above: Performed By: #### L 3100.5125, L501.9520, L3300.1750, L100.0100 #### [facility] [address] [place], [address] Platelets (Bld) [#/Vol] 238 10*3/uL Normal 150-450 [facility] Comment on above: Performed By: #### L 3100.5125, L501.9520, L3300.1750, L100.0100 #### [facility] [address] [place], [address] RBC (Bld) [#/Vol] 4.27 10*6/uL Normal 4.2-5.4 [facility] Comment on above: Performed By: #### L 3100.5125, L501.9520, L3300.1750, L100.0100 #### [facility] [address] [place], [address] RDW SD 39.3 fl Normal 35.1-43.9 [facility] Comment on above: Performed By: #### L 3100.5125, L501.9520, L3300.1750, L100.0100 #### [facility] [address] [place], [address] WBC (Bld) [#/Vol] 6.4 10*3/uL Normal 4.4-11.0 [facility] Comment on above: Performed By: #### L 3100.5125, L501.9520, L3300.1750, L100.0100 #### [facility] [address] [place], [address] Estradiolon 08-06-2024 ESTRADIOL 81.1 pg/mL Normal [facility] Comment on above: Result Comment: NORM AL REFERENCE RANGES FEMALE FOLLICULAR 21.4 - 164.8 pg/mL MID-CYCLE PEAK 49.9 - 367.2 pg/mL LUTEAL 40.2 - 259.0 pg/mL POST-MENOPAUSAL ON MHT <11.0 - 462.1 pg/mL NOT ON MHT <11.0 - 58.3 pg/mL MALE <11.0 - 52.5 pg/mL NOTE: [facility] HAS CONFIRMED THE DRUG FULVETRANT (FASLODEX) MAY CAUSE FALSELY ELEVATED ESTRADIOL RESULTS WHEN USING THIS TEST METHOD. IF PATIENT IS TAKING FULVESTRANT AN ALTERNATIVE METHOD SHOULD BE USED TO DETERMINE ESTRADIOL CONCENTRATION. Performed By: #### L 500.4050, L501.2450, L300.3900, L100.0100 #### [facility] [address] [place], [place], [address] Follicle Stimulating Hormone on 08-06-2024 FSH 13.6 mIU/mL Normal [facility] Comment on above: Result Comment: NORMAL REFERENCE RANGES FEMALE FOLLICULAR 2.3 - 12.6 mIU/mL MID-CYCLE PEAK 5.2 - 17.5 mIU/mL LUTEAL 1.7 - 12.9 mIU/mL POST-MENOPAUSAL ON MHT 5.9 - 72.8 mIU/mL NOT ON MHT 12.7 - 132.2 mlU/mL MALE 0.7 - 10.8 mIU/mL Performed By: #### L 500.4050, L501.2450, L300.3900, L100.0100 #### [facility] [address] [place], [place], [address] Thyroid Stim Hormone (TSH)on 08-06-2024 TSH 1.490 uIU/mL Normal 0.358-3.740 [facility] Comment on above: Performed By: #### L 500.4050, L501.2450, L300.3900, L100.0100 #### [facility] [address] 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 ) Allergies No Known Allergies Allergy (Verified 07/30/24 10:27) Medications ???Medication ???Instructions ???Recorded ???Confirmed ???Type ascorbic acid (vitamin C) 1,000 mg 1,000 mg PO DAILY 06/29/16 07/30/24 History tablet (Vitamin C) meclizine 25 mg tablet 25 mg PO BID PRN 03/21/23 07/30/24 History biotin 1 mg capsule 1 mg PO QDAY 07/30/24 07/30/24 History cholecalciferol (vitamin D3) 25 25 mcg PO QDAY 07/30/24 07/30/24 History mcg (1,000 unit) capsule magnesium glycinate mg PO DAILY 07/30/24 07/30/24 History Is last menstrual period known: Yes Last Menstrual Period: 07/23/24 (irregular spotting and periods) Patient : No : No PFSH Surgical History S/P wisdom tooth extraction S/P dilation and curettage S/P endometrial ablation S/p nephrectomy Family History (Updated 07/30/24 @ 10:34 by Sunitha Schwartz) Brother Breast cancer Sister Breast cancer Cancer osteocarcinoma Parkinsons disease Mother CVA (cerebral vascular accident) Breast cancer Skin cancer Father CVA (cerebral vascular accident) Prostate cancer Social History (Updated 07/30/24 @ 10:32 by Sunitha Schwartz) housing: apartment number of children: 2 current occupational status: employed current occupation: [employer] Smoking Status: Never smoker alcohol intake: current details: occasionally substance use type: does not use caffeine: Yes what type of physical activity do you participate in: walking, aerobics and weight training frequency: 1-2 times per week seatbelt use: always do you feel safe at home: Yes additional social history: -Rosalba History 2 Elective abortions Hx Para 2 Spontaneous abortions Hx # Term Pregnancies Ectopic pregnancies Hx # Pregnancies Multiple births # of living children Past Pregnancies Del. Date Name GA/Weeks Outcome Route Bth Weight Infant Gen Labor Lgth Anesthesia Del Locatn Provider FOB Unknown Silvino Unknown Adriana HPI Encounter for routine gynecological examination Details: JOSE JUAN JOSHI is a 53 year old who presents for annual exam.june irregular bleeding most of the month, rest were WNL Last PAP: 03/21/2023 History of abnormal PAP: Last mammogram: 08/22/2023 History of abnormal mammogram: Colon cancer screening: Around 10 years ago Other preventative health care screenings: PCP Dr. Pink - monitors routine labs Female Reproductive History Last Menstrual Period: 07/23/24 (irregular spotting and periods) Cycle Length: 21-35 Bleeding Duration: 5 Questions: metorrhagia: No, sexually active: Yes, dyspareunia: No and PCB: No Menopausal Symptoms: No hot flashes, No night sweats, No weight change, No mood changes, No difficulty concentrating, No sleep problems and No change in libido ROS Const Constitutional: Reports as per HPI; Denies fatigue, increased appetite, poor appetite, night sweats, weight gain or weight loss Cardio Card: Denies chest pain Resp Resp: Denies cough or dyspnea GI GI: Reports as per HPI; Denies abdominal pain, bloating, constipation, nausea or vomiting : Reports as per HPI and other; Denies difficulty voiding, dysuria, hematuria, hot flashes, nipple discharge, pelvic pain, prolapse symptoms, urinary frequency, urinary incontinence, urinary urgency, vaginal discharge, vaginal dryness, vaginal odor or vaginal pruritus Skin Skin/Breast: Denies changing lesions, breast mass, breast pain, breast skin changes or nipple discharge Psych Psych: Denies anxiety, change in libido, depression or difficulty concentrating Exam Const General: cooperative, healthy appearing, comfortable, no acute distress, well developed and well groomed HENWY Head: normal to inspection and normocephalic Ears: hearing grossly normal bilaterally and external ears normal Nose: external nose normal Face and sinus: normal facial exam Neck Neck: normal visual inspection, full ROM and no lymphad (more content not included)... Normal [facility] CNOVon 07-17-2024 CNOV Office Visit (UCWSTR ) -- MADELYNJOSE JUAN Gwyn ([id number]) 1970 F Date Time Provider Department 07/17/24 5:30 PM [facility] During your visit today, we recorded the following information about you: Temperature Pulse Respiration Blood pressure 98 degrees 73/minute 16/minute 128/80 Weight 65.4 kg Harsh Velazquez APRN.DATA CENTER OPERATOR 07/17/2024 7:14 PM Signed Subjective Female with complaints of left toe pain. Patient says she tripped over a toy. Patient says it is swollen and bruised. Patient says it is painful. Patient denies any numbness tingling or loss of feeling. The history is provided by the patient. No speech language pathologist was used. Review of Systems Constitutional: Negative. Skin: Negative. Objective Physical Exam Constitutional: Appearance: Normal appearance. Pulmonary: Effort: Pulmonary effort is normal. Musculoskeletal: Feet: Feet: Comments: Swelling and bruising noted in the area marked above. Patient is tender in that area. Circulation is intact. Neurological: Mental Status: She is alert. PAST MEDICAL HISTORY Diagnosis Date Abdominal pain, left lower quadrant Allergic rhinitis, cause unspecified Arthritis Bronchitis Contact dermatitis and other eczema, due to unspecified cause Diffuse cystic mastopathy Eczema Hemorrhage of gastrointestinal tract, unspecified Hives Infectious disease Internal hemorrhoids without mention of complication Mononucleosis Pneumonia UTI (urinary tract infection) Vertigo PAST SURGICAL HISTORY Procedure Laterality Date COLONOSCOPY FLX DX W/COLLJ SPEC WHEN PFRMD 05/14/15 Colonoscopy CYSTOSCOPY 2016 [facility] DIAGNOSTIC OR THERA - IPAS LAPAROSCOPY RADICAL NEPHRECTOMY 2014 left NM BILIARY (HIDA) SCAN 2016 SIGMOIDOSCOPY FLX DX W/COLLJ SPEC BR/WA IF PFRMD 06/12/10 wisdom teeth ALLERGIES Dust, Methenamine, Mold, Ragweed, and Seasonal Allergies MEDICATIONS ergocalciferol 50,000 unit capsule (VITAMIN D2, DRISDOL) Magnesium Oxide 500 mg magnesium tab NUVARING 0.12-0.015 mg/24 hr vaginal ring Ascorbic Acid (VITAMIN C) 1,000 mg tablet Take 1,000 mg by mouth once daily. LACTOBACILLUS ACIDOPHILUS (PROBIOTIC ORAL) Take by mouth. meclizine (ANTIVERT) 12.5 mg tab Take 25 mg by mouth three times daily. multivitamin tablet Take 1 tablet by mouth as needed. LORAZEPAM ORAL Take 0.5 mg by mouth as needed. FAMILY HISTORY Problem Relation Age of Onset Hypertension Mother Stroke Mother Breast Cancer Mother other (MELANOMA) Mother Thyroid Sister Hypertension Sister Heart Maternal Aunt Hypertension Father Prostate Cancer Father Social History Tobacco Use Smoking status: Never Substance Use Topics Alcohol use: No Drug use: No ASSESSMENT/PLAN: 1. Pain - ICD9: 780.96, ICD10: R52 - XR TOE AP/LAT/OBL LEFT * * * * Physician Interpretation * * * * EXAMINATION: LEFT THIRD TOE X-RAY SERIES HISTORY: Third toe jamming injury. Pain at the tuft. COMPARISON: None available. TECHNIQUE: PA, lateral and oblique views. RESULT: There is a small chip/avulsion fracture involving the dorsal base of the distal phalanx of the third toe. Mild degenerative changes at the third DIP joint. Soft tissue swelling about the third toe. IMPRESSION IMPRESSION: Small chip/avulsion fracture involving the dorsal base of the distal phalanx of the third toe. Table Hand: ARCHANA Transcribe Date/Time: Jul 17 2024 6:34P Dictated by : PREM DEGROOT MD 2. Closed nondisplaced fracture of distal phalanx of lesser toe of left foot, initial encounter - ICD9: 826.0, ICD10: S92.535A Was placed in a postop shoe. Patient was educated to follow-up with primary podiatry. Patient will rest ice elevate. Patient was okay with this care plan. Harsh Velazquez APRN.DATA CENTER OPERATOR Allergies As of Date: 07/17/2024 Noted Allergy Reaction DUST 02/18/2006 METHENAMINE 06/03/2017 16 - Unknown MOLD 02/18/2006 RAGWEED 02/18/2006 SEASONAL ALLERGIES 06/03/2017 16 - Unknown Date Reviewed: 07/17/2024 Reviewed by: Radha Cervantes LPN - Fully Assessed Reason for Visit: left foot/toe pain [Other] Cmt: X 3 days-tripped over toys Primary Visit Diagnosis:Pain [R52] Other Visit Diagnosis:Closed nondisplaced fracture of distal phalanx of lesser toe of left foot, initial encounter [S92.535A] Order(s):XR TOE AP/LAT/OBL LEFT [[id number]] Order #: [id number] FUTURE Prescriptions as of 07/17/2024 - ergocalciferol 50,000 unit capsule (VITAMIN D2, DRISDOL) - Magnesium Oxide 500 mg magnesium tab - NUVARING 0.12-0.015 mg/24 hr vaginal ring - Ascorbic Acid (VITAMIN C) 1,000 mg tablet Take 1,000 mg by mouth once daily. - LACTOBACILLUS ACIDOPHILUS (PROBIOTIC ORAL) Take by mouth. - meclizine (ANTIVERT) 12.5 mg tab Take 25 mg by mouth three times daily. - multivitamin tablet Take 1 tablet by mouth as needed. - LORAZEPAM ORAL Take 0.5 mg by mouth as needed. Pro (more content not included)... Normal [facility] XR TOE 3V AP/LAT/OBL LTon XR TOE 3V AP/LAT/OBL LT * * *Final Report* * * DATE OF EXAM: Jul 17 2024 6:06PM WOX 5268 - XR TOE 3V AP/LAT/OBL LT / PROCEDURE REASON: Pain * * * * Physician Interpretation * * * * EXAMINATION: LEFT THIRD TOE X-RAY SERIES HISTORY: Third toe jamming injury. Pain at the tuft. COMPARISON: None available. TECHNIQUE: PA, lateral and oblique views. RESULT: There is a small chip/avulsion fracture involving the dorsal base of the distal phalanx of the third toe. Mild degenerative changes at the third DIP joint. Soft tissue swelling about the third toe. IMPRESSION: Small chip/avulsion fracture involving the dorsal base of the distal phalanx of the third toe. Table Hand: ARCHANA Transcribe Date/Time: Jul 17 2024 6:34P Dictated by : PREM DEGROOT MD This examination was interpreted and the report reviewed and electronically signed by: PREM DEGROOT MD on Jul 17 2024 6:36PM EST [id number] Normal [facility] XR Toes - left 3 Viewson IMPRESSION: Small chip/avulsion fracture involving the dorsal base of the distal phalanx of the third toe. Table Hand: PSCVannesa Transcribe Date/Time: Jul 17 2024 6:34P Dictated by : PREM DEGROOT MD This examination was interpreted and the report reviewed and electronically signed by: PREM DEGROOT MD on Jul 17 2024 6:36PM EST DIVISION OF RADIOLOGY * * *Final Report* * * DATE OF EXAM: Jul 17 2024 6:06PM WOX 5268 - XR TOE 3V AP/LAT/OBL LT / PROCEDURE REASON: Pain * * * * Physician Interpretation * * * * EXAMINATION: LEFT THIRD TOE X-RAY SERIES HISTORY: Third toe jamming injury. Pain at the tuft. COMPARISON: None available. TECHNIQUE: PA, lateral and oblique views. RESULT: There is a small chip/avulsion fracture involving the dorsal base of the distal phalanx of the third toe. Mild degenerative changes at the third DIP joint. Soft tissue swelling about the third toe. DIVISION OF RADIOLOGY Provider, [facility] - 07/17/2024 * * *Final Report* * * DATE OF EXAM: Jul 17 2024 6:06PM WOX 5268 - XR TOE 3V AP/LAT/OBL LT / PROCEDURE REASON: Pain * * * * Physician Interpretation * * * * EXAMINATION: LEFT THIRD TOE X-RAY SERIES HISTORY: Third toe jamming injury. Pain at the tuft. COMPARISON: None available. TECHNIQUE: PA, lateral and oblique views. RESULT: There is a small chip/avulsion fracture involving the dorsal base of the distal phalanx of the third toe. Mild degenerative changes at the third DIP joint. Soft tissue swelling about the third toe. IMPRESSION IMPRESSION: Small chip/avulsion fracture involving the dorsal base of the distal phalanx of the third toe. Table Hand: PSCB Transcribe Date/Time: Jul 17 2024 6:34P Dictated by : PREM DEGROOT MD This examination was interpreted and the report reviewed and electronically signed by: PREM DEGROOT MD on Jul 17 2024 6:36PM EST [facility] Radiology Study observation (narrative) [facility] XR Toes - left 3 ViewsOrdere d By: [facility]cf Provider on 07-17-2024 [facility] CNOVon 07-04-2024 CNOV Office Visit (ENDOMN ) -- JOSE JUAN JOSHI ([id number]) 1970 F Date Time Provider Department 07/04/24 11:00 AM JAMSHID DUBOIS During your visit today, we recorded the following information about you: Pulse Blood pressure Weight 67/minute 138/65 66 kg Pennie Wilson OCCA 07/04/2024 10:50 AM Signed Thank you for choosing the [facility] Department of Endocrinology, Diabetes and Metabolism. Did you know that you need to call 48 hours in advance of your scheduled visit, if you are unable to make your appointment? The [facility] [place] thanks you for your commitment, because patients not showing to their appointment results in a lost opportunity for patients to receive [facility] health care at the [facility]. To Cancel an appointment, please choose one of the following: - Call the Appointment Call Center at [phone] - From [place], Go to Appointments - Cancel Appts If cancelling, consider your need to reschedule to prevent further delays in your care. To Schedule an appointment, please choose one of the following: - Call the Appointment Call Center at [phone] - From [place], Go to Appointments - Request an Appt Jamshid Dubois MD 07/04/2024 11:19 AM Signed Jose Juan Joshi is a 53 year old female who is presenting today July 04, 2024 for a Thyroid problem. Parts of this note are copied from last visit and modified as needed. Social History Tobacco Use Smoking status: Never Substance Use Topics Alcohol use: No Drug use: No Reason for visit: Nodules/mass Previous laboratory results: TSH (uU/mL) Date Value 09/23/2003 1.770 Review of patient's past medical history indicates: Jose Juan Joshi is a 53 year old female with a medical history of thyroid nodules, renal mass s/p nephrectomy 2013, presenting today for evaluation of thyroid nodules. She was initially diagnosed with thyroid nodules in 2013 during a renal mass workup. Since then she has had a thyroid ultrasound yearly. She has never had an FNA and one was never recommended, Until 2022 when a nodule was noted to have increased in size. However the US done in our office showed nodule to be stable in siz.e ROS: Energy is good. Sleeps well. Weight is stable. No difficulties swallowing or breathing. No pain or tenderness from thyroid bed. No heart palpitations. No temperature intolerance. No excessive sweating No constipation or diarrhea. No problems with skin, hair or nails. No muscle weaknes. No muscle cramping. No tremors. Memory is good. No problems focusing. FAM HX: Sister - thyroid cancer in her 50s. PE: Middle aged CC female. No acute distress, alert and oriented and in appropriate mood. HEENT: Jennifer, sclera anicteric, conjunctiva non inflamed, oral mucosa moist, no lesions. No lid lag. No stare. No exophtalmos. NECK: Supple. No adenopathy. No elevated JVP. No palpable lymph nodes. THYROID: Not palpable. CV: No tachycardia. EXT: No edema or deformities. SKIN: no rash or lesions. No achantosis nigricans. NEURO: No focal signs. No tremors. Assessment: Patient has thyroid nodules first time noticed in 2013. Nodules are small but she has sister with history of thyroid Ca (may have been an incidental finding in [facility]). Last US reported increase in the size of left sided nodule (14 mm in largest dimension now). Cursory US exam today showed largest nodule to be well defined oval and hyperechoic and measures 10 mm in largest dimension. Plan: Her nodules are small, long standing and stable in size. But, because of sister's history we recommend US exam in 2 years. Jamshid Dubois MD Answers submitted by the patient for this visit: Endocrine Review of Systems (Submitted on 06/28/2024) Fatigue: Yes Night sweats: Yes Recent unintentional weight change: No Skin Color Changes: No Post-Nasal Drip: No Thyroid Pain (lower neck): No Trouble Swallowing: No Vision Disturbance: Yes Chest pain: No Leg Swelling: No Blood Clots?: No Leg Pain while walking?: No Difficulty Breathing?: Yes Heartburn: Yes Nausea: Yes Vomiting: No Diarrhea: No Constipation: Yes Abdominal pain: Yes Bone Pain?: No Muscle aches: No Muscle weakness: No Joint pain or stiffness: Yes Headaches: No Dizziness: Yes Numbness?: Yes Urgency to Urinate?: No Increased Urination: No Slow or Small Urine Stream?: No Are your menstrual cycles regular?: No Are your menstrual cycles irregular?: Yes Have your menstrual cycles stopped?: No Flushing: No Hot Flashes?: No Increased Thirst: No Change in Body Hair?: Yes Cold Intolerance: No Heat Intolerance: No Jamshid Dubois MD 07/04/2024 11:19 AM Signed ULTRASOUND EXAM OF THYROID RIGHT: Right thyroid lobe is of normal size and shape. Parenchyma is homogenous. There are few small cysts in this lobe that are not c (more content not included)... Normal [facility] Thyroid glandon [facility] Radiology Study observation (narrative) [facility] hCG Titer Quant., Serumon HCG QUANT. < 1 Normal 1-3 [facility] Comment on above: Result Comment: hCG levels with Gestational Age Gestational Age hCG mIU/mL (IU/L) 0.2 - 1 week 5 - 50 1-2 weeks 50 - 500 2-3 weeks 100 - 5000 3-4 weeks 500 - 74353 4-5 weeks 1000 - 40132 5-6 weeks 78843 - 100,000 6-8 weeks 12801 - 200,000 2-3 months 70307 - 100,000 Performed By: #### L 700.8000 #### [facility] [address] [place], [address] CNPNon 02-02-2024 CNPN Telephone (ENDOMN) -- JOSE JUAN JOSHI ([id number]) 1970 F Date Time Provider Department 02/02/24 JAMSHID DUBOIS During your visit today, we recorded the following information about you: Grecia Morrell 02/02/2024 4:17 PM Signed Patient called in to let the office know she had her ultrasound done 02/01/24 and is asking for the office to review. Patient can be reached via my chart. Grecia Hummel Chief Power Dispatcher II [facility] Allergies As of Date: 02/02/2024 Noted Allergy Reaction DUST 02/18/2006 METHENAMINE 06/03/2017 16 - Unknown MOLD 02/18/2006 RAGWEED 02/18/2006 SEASONAL ALLERGIES 06/03/2017 16 - Unknown Date Reviewed: 12/23/2022 Reviewed by: Lynn James MA - Fully Assessed Reason for Visit: Patient Update [1234] Prescriptions as of 02/03/2024 - NUVARING 0.12-0.015 mg/24 hr vaginal ring - Ascorbic Acid (VITAMIN C) 1,000 mg tablet Take 1,000 mg by mouth once daily. - LACTOBACILLUS ACIDOPHILUS (PROBIOTIC ORAL) Take by mouth. - meclizine (ANTIVERT) 12.5 mg tab Take 25 mg by mouth three times daily. - multivitamin tablet Take 1 tablet by mouth as needed. - LORAZEPAM ORAL Take 0.5 mg by mouth as needed. Problem List As Of Date 02/02/2024 Noted Resolved ALLERGIC RHINITIS NOS [J30.9] DERMATITIS NOS [L25.9] DIFFUS CYSTIC MASTOPATHY [N60.19] S/p nephrectomy [Z90.5] 05/08/2015 Vertigo [R42] 05/08/2015 Encounter Status:Closed by JAMSHID DUBOIS on 02/03/24 Normal [facility] US THYROID/PARATHYROIDon US THYROID/PARATHYROID * * *Final Report * * * DATE OF EXAM: Jan 30 2024 9:33AM [facility] 1048 - US THYROID/PARATHYROID / PROCEDURE REASON: MULTINODULAR GOITER * * * * Physician Interpretation * * * * EXAMINATION: THYROID ULTRASOUND CLINICAL HISTORY: MULTINODULAR GOITER TECHNIQUE: Sonography and Doppler imaging of the thyroid was performed. Images were obtained and stored in a permanent archive. MQ: UST_1 COMPARISON: None. RESULT: Right Lobe: 3.8 x 1.1 x 1.3 cm; homogeneous echogenicity, expected vascular flow. Left Lobe: 4 x 1.3 x 1.4 cm; homogeneous echogenicity, expected vascular flow. Isthmus: 0.1 cm The most suspicious thyroid nodule(s) (up to four) as below: NODULE 1: Location: Upper left Size: 1.3 x 1 x 0.7 cm Characteristics: Composition: Solid or almost completely solid, 2 points Echogenicity: Hypoechoic, 2 points Shape: [id number], 0 points Margin: Smooth, 0 points Echogenic foci (add points for all that apply): Punctate echogenic foci, 3 points Internal vascularity: present Interval growth: No prior available for comparison TI-RADS Category: TR5 ACR Recommendation: TI-RADS 5 nodule. FNA is advised. NODULE 2: Location: Mid left Size: 0.5 x 0.5 x 0.5 cm Characteristics: Composition: Solid or almost completely solid, 2 points Echogenicity: Hypoechoic, 2 points Shape: [id number], 0 points Margin: Smooth, 0 points Echogenic foci (add points for all that apply): Peripheral (rim) calcification (complete or incomplete), 2 points Internal vascularity: absent Interval growth: No prior available for comparison TI-RADS Category: TR4 ACR Recommendation: TI-RADS 4 nodule. No FNA or follow-up imaging is advised. IMPRESSION: Thyroid nodule(s) is/are present. Fine needle aspiration is recommended for one or more nodules as detailed in the synoptic report. TI-RADS Category: TR5 ACR Recommendation: TI-RADS 5 nodule. FNA is advised. ACR recommendations are strictly based on the size and imaging appearance at the time of the exam and do not consider stability or previous biopsy results. ACTIONABLE RESULT: FOLLOW-UP Acuity: Actionable Findings: Endocrine (thyroid) Routing Code: EMI_1 Recommendation: Unlisted Recommendation (see report) Time Frame: At the discretion of the clinical team. COMMUNICATION: Results will be communicated with the ordering provider via [employer] staff message or phone message by [facility] [employer] within 2 business days of report finalization. --END OF FINDING-- Table Hand: ARCHANA Transcribe Date/Time: Feb 01 2024 1:23P Dictated by : LISA ROJAS MD This examination was interpreted and the report reviewed and electronically signed by: LISA ROJAS MD on Feb 01 2024 1:27PM EST [id number] ACTIONABLE Invalid Interpretation Code [facility] Absolute lymphocyte countOrd ered By: Kaylee Pink on 12-19-2023 Lymphocytes Auto (Unsp spec) [#/Vol] 1.63 10*3/uL 0.83-4.51 [facility] Automated lymphocyte count a s percentage of total leukocytesOrdered By: Kaylee Pink on 12-19-2023 Lymphocytes/100 WBC Auto (Unsp spec) 28.9 % 19-41 [facility] Basophil percentageOrdered B y: Kaylee Pink on 12-19-2023 Basophils/100 WBC (Bld) 1.1 % 0-1 [facility] Bilirubin [Mass/Vol] 0.50 mg/dL 0.20-1.00 [facility] Comment on above: For patients on eltr ombopag therapy, use of Dimension [place] TBIL is not recommended. Chloride [Moles/Vol] 105 mmol/L 98-107 [facility] Cholesterol [Mass/Vol] 220 mg/dL <200 [facility] Comment on above: <200 mg/dL Desirable 200-240 mg/dL Borderline >240 mg/dL High Risk Eosinophils/100 WBC (Bld) 1.2 % 0-5 [facility] Glucose [Mass/Vol] 73 mg/dL 74-106 [facility] Hemoglobin (Bld) [Mass/Vol] 12.7 g/dL 12.0-15.0 [facility] Monocytes/100 WBC (Bld) 6.7 % 0-10 [facility] Neutrophils (Bld) [#/Vol] 3.5 10*3/uL 2.0-7.7 [facility] Neutrophils/100 WBC (Bld) 61.9 % 47-70 [facility] Potassium [Moles/Vol] 4.2 mmol/L 3.5-5.1 [facility] Protein [Mass/Vol] 7.5 g/dL 6.4-8.2 [facility] Sodium [Moles/Vol] 138 mmol/L 136-145 [facility] Triglyceride [Mass/Vol] 53 mg/dL <199 [facility] Comment on above: The drugs N-Acetylcy steine and Metamizole may falsely depress this assay.Serum Triglycerides Reference Interval Normal <150 mg/dL Borderline high 150 - 199 mg/dL High 200 - 499 mg/dL Very High > or = 500 mg/dL WBC (Bld) [#/Vol] 5.6 10*3/uL 4.4-11.0 [facility] Determination of erythrocyte mean corpuscular volume (MCV)Ordered By: Kaylee Pink on 12-19-2023 MCV (RBC) [Entitic vol] 88.9 fL 81-99 [facility] Erythrocyte distribution wid th ratioOrdered By: Kaylee Pink on 12-19-2023 Erythrocyte distribution width (RBC) [Ratio] 12.2 % 11.6-14.6 [facility] Erythrocyte distribution wid th standard deviationOrdered By: Kaylee Pink on 12-19-2023 Erythrocyte distribution width (RBC) [Entitic vol] 39.8 fL 35.1-43.9 [facility] Hematocrit Auto (Bld) [Volum e fraction]Ordered By: Kaylee Pink on 12-19-2023 Hematocrit (Bld) [Volume fraction] 39.4 % 37-47 [facility] Immature granulocytes/100 WB C Auto (Bld)Ordered By: Kaylee Pink on 12-19-2023 Immature granulocytes/100 WBC (Bld) 0.200 % 0.0-0.9 [facility] Comment on above: IG% - Immature Granu locytes (promyelocytes, myelocytes and metamyelocytes) > 1% indicates that a LEFT SHIFT is Present. Laboratory - Chemistry and C hemistry - challengeOrdered By: Kaylee Pink on 12-19-2023 Albumin/Globulin [Mass ratio] 1.0 {ratio} 0.9-2.4 [facility] ALP [Catalytic activity/Vol] 23 U/L 45-117 [facility] ALT [Catalytic activity/Vol] 20 U/L 13-56 [facility] Cholesterol in HDL [Mass/Vol] 90 mg/dL >40 [facility] Comment on above: The drugs N-Acetylcy steine and Metamizole may falsely depress this assay. Reference Range HDL <40 mg/dL Low HDL Cholesterol HDL >or= 60 mg/dL High HDL Cholesterol Cholesterol in LDL [Mass/Vol] 119 mg/dL 0-130 [facility] CO2 [Moles/Vol] 28.0 mmol/L 21.0-32.0 [facility] Globulin (S) [Mass/Vol] 3.8 g/dL 2.2-4.2 [facility] Urea nitrogen/Creatinine [Mass ratio] 17.3 mg/mg 10-20 [facility] Laboratory - Hematology and Cell countsOrdered By: Kaylee Pink on 12-19-2023 MCH (RBC) [Entitic mass] 28.7 pg 27.0-32.0 [facility] MCHC (RBC) [Mass/Vol] 32.2 g/dL 32-36 [facility] Nucleated RBC/100 WBC (Bld) [Ratio] 0 % 0-5 [facility] Platelet mean volume (Bld) [Entitic vol] 10.9 fL 6.2-12.0 [facility] Platelets (Bld) [#/Vol] 223 10*3/uL 150-450 [facility] No Panel InformationOrdered By: Kaylee Pink on 12-19-2023 Estimated GFR (MDRD) Amer 104 mL/min >60 [facility] Comment on above: GFR Calc Estimated GFR (MDRD) Non-Af Amer 86 mL/min >60 [facility] Comment on above: Non- GFR Calc Vitamin D 25-Hydroxy 34.5 ng/mL [facility] Comment on above: Vitamin D 25(OH) Sta tus Range Deficiency <20 ng/mL (50nmol/L) Insufficiency 20 - 30 ng/mL (50 - 75 nmol/L) Sufficiency 30 - 100 ng/mL (75 - 250 nmol/L) Toxicity >100 ng/mL (>250 nmol/L) VLDL Cholesterol 11 mg/dL 5-40 [facility] RBC Auto (Bld) [#/Vol]Ordere d By: Kaylee Pink on 12-19-2023 RBC (Bld) [#/Vol] 4.43 10*6/uL 4.2-5.4 [facility] Serum or plasma calcium paul urement (mass/volume)Ordered By: Kaylee Pink on 12-19-2023 Calcium [Mass/Vol] 9.2 mg/dL 8.5-10.1 [facility] Serum or plasma creatinine m easurement (mass/volume)Ordered By: Kaylee Pink on 12-19-2023 Creatinine [Mass/Vol] 0.75 mg/dL 0.55-1.02 [facility] Comment on above: The validity of the calculated GFR & GFRAA in patients over 70 years has not been determined. Clinical correlation is essential. Serum or plasma thyroid stim ulating hormone (TSH) measurement (units/volume)Ordered By: Kaylee Pink on 12-19-2023 TSH Qn 1.23 uIU/mL 0.358-3.74 [facility] Serum or plasma urea nitroge n measurement (mass/volume)Ordered By: Kaylee Pink on 12-19-2023 Urea nitrogen [Mass/Vol] 13 mg/dL 7-18 [facility] Thin prep Papanicolaou smear with manual screeningOrdered By: Kaylee Pink on 12-19-2023 Thin prep Papanicolaou smear with manual screening 3.7 g/dL 3.2-5.0 [facility] Thin prep Papanicolaou smear with manual screening 21 U/L 15-37 [facility] Thin prep Papanicolaou smear with manual screening 5 5-15 [facility] Thin prep Papanicolaou smear with manual screening 0.91 ng/dL 0.76-1.46 [facility] Culture, urineOrdered By: Genet Pink on 06-03-2023 Bacteria identified Cx Nom (U) Positive [facility] No Panel InformationOrdered By: Jamee Gray on 05-03-2023 Follicle Stimulating Hormone 14.3 mIU/mL [facility] Comment on above: NORMAL REFERENCE RAN GES FEMALE FOLLICULAR 2.3 - 12.6 mIU/mL MID-CYCLE PEAK 5.2 - 17.5 mIU/mL LUTEAL 1.7 - 12.9 mIU/mL POST-MENOPAUSAL ON MHT 5.9 - 72.8 mIU/mL NOT ON MHT 12.7 - 132.2 mlU/mL MALE 0.7 - 10.8 mIU/mL Serum or plasma estradiol (E 2) measurement (mass/volume)Ordered By: Jamee Gray on 05-03-2023 E2 [Mass/Vol] 435.5 pg/mL [facility] Comment on above: NORMAL REFERENCE RAN GES FEMALE FOLLICULAR 21.4 - 164.8 pg/mL MID-CYCLE PEAK 49.9 - 367.2 pg/mL LUTEAL 40.2 - 259.0 pg/mL POST-MENOPAUSAL ON MHT <11.0 - 462.1 pg/mL NOT ON MHT <11.0 - 58.3 pg/mL MALE <11.0 - 52.5 pg/mL NOTE:[employer] HAS CONFIRMED THE DRUG FULVETRANT (FASLODEX) MAY CAUSE FALSELY ELEVATED ESTRADIOL RESULTS WHEN USING THIS TEST METHOD. IF PATIENT IS TAKING FULVESTRANT AN ALTERNATIVE METHOD SHOULD BE USED TO DETERMINE ESTRADIOL CONCENTRATION. Cervical or vagninal specime n microscopic examination by cytology stain (reported asOrdered By: Cait Torrez on 03-21-2023 Cytology report Cyto stain Doc (Cvx/Vag) Comment . [facility] Comment on above: The Pap smear is a s creening test designed to aid in thedetection of premalignant and malignant conditions of theuterine cervix. It is not a diagnostic procedure andshould not be used as the sole means of detecting cervicalcancer. Both false-positive and false-negative reports dooccur. Detection in cervical specim en of any of human papilloma virus (HPV) 16, 18, 31, 33,Ordered By: Cait Torrez on 03-21-2023 HPV 16+18+31+33+35+39+45+5 1+52+56+58+59+66+68 DNA Probe+sig amp Ql (Cvx) Negative Negative [facility] Comment on above: This nucleic acid am plification test detects fourteen high- risk HPV types (16,18,31,33,35,39,45,51,52,56,58,59,66,68)without differentiation. Laboratory - CytologyOrdered By: Cait Torrez on 03-21-2023 Recreation Program Coordinator Cyto stain Nom (Cvx/Vag) [ID] Comment . [facility] Comment on above: Kelsy Santillan, Cytotec hnologist (ASCP) Laboratory - Miscellaneous t estsOrdered By: Cait Torrez on 03-21-2023 Service comment (Unsp spec) [Interp] Comment . [facility] Comment on above: This liquid based Th inPrep(R) pap test was screened withthe use of an image guided system. Service comment (Unsp spec) [Interp] . . [facility] Liquid-based cerv Pap + CT/G C by CHRISTOPHER w reflex to high-risk HPV for ASCUSOrdered By: Cait Torrez on 03-21-2023 Cytology report Cyto stain.thin prep Doc (Cvx/Vag) Comment . [facility] Comment on above: Criteria not met, HP V Genotype not performed.Performed at: [facility] [address] [id number] Director: Delia Barbosa MD, Phone: [phone] at: [facility] [id number] [place], [place] [id number] Director: Juve Zapata MD, Phone: [phone] at: =[facility] - [facility] [address] [id number] Director: Delia Barbosa MD, Phone: [phone] No Panel InformationOrdered By: Cait Torrez on 03-21-2023 Pap Smear QC Review Comment . [facility] Comment on above: Lisa Sinclair ytotechnologist (ASCP) Pathology report final diagnosis Narrative Comment . [facility] Comment on above: NEGATIVE FOR INTRAEP ITHELIAL LESION OR MALIGNANCY.THIS SPECIMEN WAS RESCREENED PART OF OUR SOFTWARE TEST AND VALIDATION ENGINEER PROGRAM. Miscellaneous Test Comment MAILED SPECIMEN [facility] No Panel Informationon 03-31 Follicle Stimulating Hormone 1.7 mIU/mL [facility] Work Phone: Comment on above: NORMAL REFERENCE RAN GES FEMALE FOLLICULAR 2.3 - 12.6 mIU/mL MID-CYCLE PEAK 5.2 - 17.5 mIU/mL LUTEAL 1.7 - 12.9 mIU/mL POST-MENOPAUSAL ON MHT 5.9 - 72.8 mIU/mL NOT ON MHT 12.7 - 132.2 mlU/mL MALE 0.7 - 10.8 mIU/mL Celeste 08-17-2017 VICTORINO Telephone ([employer]) JOSE JUAN JOSHI ([id number]) 1970 FDate Time Provider Stsrtppriz02/1/17 MONA VALLEJO (MAURO) HEMANT During your visit today, we recorded the following information about you:Reyes Garcia MA 08/17/2017 9:28 AM SignedPatient called for urine culture results. Please advise. Thank you.Reyes Vallejo CNP, MAURO 08/17/2017 1:18 PM SignedPlease call patientbalbina sent to pharmacy.Reyes Garcia MA 08/17/2017 2:01 PM SignedPatient notified.Reyes Garcia MAAllashu As of Date: 08/17/2017 Noted Allergy ReactionDUST 02/18/2006METHENAMINE 06/03/2017 16 - UnknownMOLD 02/18/2006RAGWEED 02/18/2006SEASONAL ALLERGIES 06/03/2017 16 - UnknownDate Reviewed: 06/07/2017Reviewed by: Eva Batista MA - Fully AssessedReason for Visit: Results [95]Order(s):amoxicillin-c lavulanic acid (AUGMENTIN) 875-125 mg per tabletTake 1 tablet by mouth twice daily.Disp: 14 tabletRfl: 0Prescriptions as of 08/17/2017 Sig: AMOXICILLIN 875 MG-POTASSIUM * Take 1 tablet by mouth twice * AMOXICILLIN 500 MG CAPSULE Take 1 capsule by mouth three* NUVARING 0.12 MG -0.015 MG/24* ASCORBIC ACID (VITAMIN C) 1,0* Take 1,000 mg by mouth once d* CYSTEX ORAL Take by mouth. PROBIOTIC ORAL Take by mouth. METHENAMINE HIPPURATE 1 GRAM * Take 1 tablet by mouth twice * MECLIZINE 12.5 MG TABLET Take 25 mg by mouth three sharita* CALCIUM 300 ORAL Take by mouth as needed. MULTIVITAMIN TABLET Take 1 tablet by mouth as nee* METRONIDAZOLE 1 % TOPICAL GEL Apply to affected area. 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 Status:Closed by MONA VALLEJO on 08/17/17 [facility] CNPN Telephone (UROLAE) JOSE JUAN JOSHI ([id number]) 1970 FDate Time Provider Jewuzxyaeq89/1/17 BOLIVAR DEL TORO During your visit today, we recorded the following information about you:Bolivar Del Toro MD 08/17/2017 1:35 PM SignedI sent an rx in for amoxicillinI do not know if her uti has been treated.08/17/2017 ?7:57 AM - Interface, Results InComponent ResultsComponent Performing LabSpecimen Request (Final) CCMSpecimen received in preservativeCulture (Abnormal) (Final) CCM10,000 - ANDlt;50,000 CFU/mlEnterococcus faecalisInsignificant colony count. No further workup.Culture (Final) CCM10,000 - ANDlt;50,000 CFU/mlNormal urogenital floraResult HistoryReyes Garcia MA 08/17/2017 2:12 PM SignedPatient notified of urine culture results as well as last urine culture resultsexplained to patient both antibiotics would cover the bacteria.Reyes Jose Carmona 08/17/2017 2:31 PM SignedStacy called requesting to speak with you. She asked if you could call her backregarding concerns about her UTI. Phone # is .Lety Call As of Date: 08/17/2017 Noted Allergy ReactionDUST 02/18/2006METHENAMINE 06/03/2017 16 - UnknownMOLD 02/18/2006RAGWEED 02/18/2006SEASONAL ALLERGIES 06/03/2017 16 - UnknownDate Reviewed: 06/07/2017Reviewed by: Eva Batista MA - Fully AssessedReason for Visit: UTI [116]Order(s):amoxicillin (POLYMOX, AMOXIL) 500 mg capsuleTake 1 capsule by mouth three times daily for 5 days.Disp: 15 capsuleRfl: 0Prescriptions as of 08/17/2017 Sig: AMOXICILLIN 875 MG-POTASSIUM * Take 1 tablet by mouth twice * AMOXICILLIN 500 MG CAPSULE Take 1 capsule by mouth three* AMOXICILLIN 500 MG CAPSULE Take 1 capsule by mouth three* NUVARING 0.12 MG -0.015 MG/24* ASCORBIC ACID (VITAMIN C) 1,0* Take 1,000 mg by mouth once d* CYSTEX ORAL Take by mouth. PROBIOTIC ORAL Take by mouth. METHENAMINE HIPPURATE 1 GRAM * Take 1 tablet by mouth twice * MECLIZINE 12.5 MG TABLET Take 25 mg by mouth three sharita* CALCIUM 300 ORAL Take by mouth as needed. MULTIVITAMIN TABLET Take 1 tablet by mouth as nee* METRONIDAZOLE 1 % TOPICAL GEL Apply to affected area. 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 Status:Closed by BOLIVAR DEL TORO MD on 08/17/17 [facility] Celeste 08-08-2017 VICTORINO Telephone (UROLAE) JOSE JUAN JOSHI ([id number]) 1970 FDate Time Provider Prfkszkdkw25/23/17 BOLIVAR DEL TORO During your visit today, we recorded the following information about you:Eva Batista MA 08/08/2017 11:56 AM SignedPt called asking for urine culture resultsBolivar Del Toro MD 08/09/2017 8:39 AM SignedRX sent to pharmacy for uti.Please confirm with patient.Thank youMelizaana Batista MA 08/09/2017 8:51 AM SignedPt should take amoxicillianTamara Lynne MAYA 08/09/2017 9:00 AM SignedThe Rx for amoxicillin was not sent please give directions and I will call inRx to her pharmacyMelizaana Batista MA 08/09/2017 9:17 AM SignedPt aware of rxAllergies As of Date: 08/08/2017 Noted Allergy ReactionDUST 02/18/2006METHENAMINE 06/03/2017 16 - UnknownMOLD 02/18/2006RAGWEED 02/18/2006SEASONAL ALLERGIES 06/03/2017 16 - UnknownDate Reviewed: 06/07/2017Reviewed by: Eva Batista MA - Fully AssessedReason for Visit: Results [95]Order(s):cephALEXin (KEFLEX) 500 mg capsuleTake 1 capsule by mouth three times daily for 7 days.Disp: 21 capsuleRfl: 0Prescriptions as of 08/08/2017 Sig: CEPHALEXIN 500 MG CAPSULE Take 1 capsule by mouth three* NUVARING 0.12 MG -0.015 MG/24* ASCORBIC ACID (VITAMIN C) 1,0* Take 1,000 mg by mouth once d* CYSTEX ORAL Take by mouth. PROBIOTIC ORAL Take by mouth. METHENAMINE HIPPURATE 1 GRAM * Take 1 tablet by mouth twice * MECLIZINE 12.5 MG TABLET Take 25 mg by mouth three sharita* CALCIUM 300 ORAL Take by mouth as needed. MULTIVITAMIN TABLET Take 1 tablet by mouth as nee* METRONIDAZOLE 1 % TOPICAL GEL Apply to affected area. 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 Status:Closed by BOLIVAR DEL TORO MD on 08/09/17 [facility] CNOVon 06-07-2017 CNOV Office Visit (UROLAE) MADELYNJOSE JUAN BARRETO ([id number]) 1970 FDate Time Provider Department06/07/17 2:45 PM BOLIVAR DEL TORO UROMILDRED During your visit today, we recorded the following information about you: Blood pressure Weight Height 118/74 65.8 kg 1.702 Deysi Del Toro MD 06/07/2017 4:23 PM SignedESTABLISHED PATIENT VISITHPBenny Pascal Madelyn is a 46 year old female who presents uti symptoms started [id number].Recent uti April entercoccus - amoxicillinNo bladder symptoms is the flank pain.Currently on Nuvo ring.Two infections since October.Reviewed uti prevention.08/18/2016 ?9:23 AM - Interface, Results InImpressionIMPRESSION:1. ?Normal appearance of the right kidney including no calculus, mass, orhydronephrosis. ?2. Prior left nephrectomy. ?3. There is a small amount of free pelvic fluid (a common physiologicfinding in premenopausal women). ?NOTE: ?There are one or more incidentally detected liver lesions lessthan or equal to 0.5 cm. ?Recommend no follow-up imaging of theselesions.Color/Appeara nce (comment:)Date Value06/07/2017 yellow/clear Gluc ose, Urine (mg/dL)Date Value06/07/2017 neg Bilirubin, Urine (no units)Date Value06/07/2017 neg Ketones, Urine (no units)Date 06/07/2017 trace Specific Harmony, Ur (no units)Date 06/07/2017 1.024 Hemoglobin/ Blood,Ur (no units)Date 06/07/2017 neg pH, Urine (no units)Date 06/07/2017 6.0 Protein, Urine (mg/dL)Date Value06/07/2017 neg Nitrites (no units)Date 06/07/2017 neg REVIEW OF SYSTEMSGENERAL:No weight loss, malaise or fevers, No weight loss, malaise or fevers.,SEE HPIGENITOURINARY: No history of dysuria, frequency or incontinence, See HPICONSTITUTIONALl: No recent fever or weight lossALLERGIESAllergen Reactions- Dust- Methenamine Unknown- Mold- Ragweed- Seasonal Allergies UnknownHISTORIESPAST MEDICAL HISTORYDiagnosis Date- Abdominal pain, left lower quadrant- Allergic rhinitis, cause unspecified- Arthritis- Bronchitis- Contact dermatitis and other eczema, due to unspecified cause- Diffuse cystic mastopathy- Eczema- Hemorrhage of gastrointestinal tract, unspecified- Hives- Infectious disease- Internal hemorrhoids without mention of complication- Mononucleosis- Pneumonia- UTI (urinary tract infection)- VertigoFAMILY HISTORYProblem Relation Age of Onset- Hypertension Mother- Stroke Mother- Breast Cancer Mother- MELANOMA [OTHER] Mother- Thyroid Sister- Hypertension Sister- Heart Maternal Aunt- Hypertension Father- Prostate Cancer FatherSocial HistorySubstance Use Topics- Smoking status: Never Smoker- Smokeless tobacco: Not on file- Alcohol use NoMEDICATIONS:NUVARING 0.12-0.015 mg/24 hr vaginal ringAscorbic Acid (VITAMIN C) 1,000 mg tablet Take 1,000 mg by mouth once daily.METHENAM/DENIZ AC/SALICY/TY-AM (CYSTEX ORAL) Take by mouth.LACTOBACILLUS ACIDOPHILUS (PROBIOTIC ORAL) Take by mouth.meclizine (ANTIVERT) 12.5 mg tab Take 25 mg by mouth three times daily.multivitamin tablet Take 1 tablet by mouth as needed.metroNIDAZOLE (METROGEL) 1 % gel Apply to affected area.CALCIUM CARBONATE (CALCIUM 300 ORAL) Take by mouth as needed.LORAZEPAM ORAL Take 0.5 mg by mouth as needed.Physical ExamBP 118/74 Ht 170.2 cm (5' 7ANDquot;) Wt 65.8 kg (145 lb) BMI 22.71 kg/f5LPMUAYBTHC/PLAN:1. Urinary tract infection, site not specified- UA DIP B/Celina Del Toro MD 06/07/2017 3:58 PM SignedRecurrent Urinary Tract InfectionsMost Common Questions1. How many infections a year is considered normal?2. Does intercourse cause urinary tract infections?3. How can I prevent infections?4. Should I have a culture done when I have symptoms?5. What is self-start therapy?6. What role does cranberry and vitamin C play in urinary tract infections?Urinary tract infections (UTI?s) are a significant burden. When they happen,they disrupt all aspects of life. Bladder infections, infectious cystitis, andlower urinary tract infections are similar terms. These are infections of thebladder or lower urinary tract system. Symptoms of a bladder infection includepain with urination (dysuria), needing to urinate frequently (urinaryfrequency), hesitation or difficulty urinating, and maybe blood in the urine(hematuria).Usually, if you have a bladder infection, lower urinary tract infection, youwill not have a fever. If you have a fever and back pain, this is a sign thatyou may have a kidney infection or upper urinary tract infection. Upper urinarytract infections need to be evaluated and treated differently.Two or three infections a year is considered normal. Also, recurrences arecommon if infections are not adequately treated the first time.Why do infections happen?Most women get some bacteria in their bladder every day. The bladder lining isprotective and prevents the bacteria from adhering to the bladder wall. Whenyou urinate, the bacteria flush out of the bladder. Any change in this normalprocess can result in a bladder infection.What can go wrong?1. Not drinking enough water.2. Not urinating regularly.3. Not emptying your bladder completely.4. An increase in the amount of bacteria in the bladder due to other reasons.a. Change or irritation to the vaginal environment.b. Menopause ? the decrease in estrogens results in a decrease in the goodbacteria, lactobacillus. This provides an increased opportunity for the badbacteria such as E. coli to increase its presence in the vaginal area andtherefore the bladder.5. Abnormalities in the urinary tract or urethra (the tube you urinate through)a. Bladder or kidney stonesb. Fistula ? an abnormal connection between the bladder and bowel.1. History ? When you are seen by your health-care provider he/she will wantto knowa. How many infections have you had in the past 12 months?b. Have you had a fever with these infections?c. Have you had any urine cultures done to determine the source of theinfection?d. What antibiotics have you been on and for how long?e. Was there anything associated with the infections?i. Travelii. Dehydrationiii. Sexual activityf. Have you had previous bladder or pelvic surgery.g. Have you had any recent x-rays of your kidneys or bladder?h. Do you have any symptoms of prolapse (loss of support of your bladder,uterus, or vagina)?i. Feeling or seeing a vaginal bulge?ii. Feeling of a pressure or pulling sensation vaginally?i. Do you have a history of diverticulosis or other bowel problems?2. Evaluationa. Physical exam ? we will want to do a pelvic exam and check how well yourbladder empties.b. A catheterized urine specimen can be villatoro to out a bladderinfection from irritating bladder symptoms. Both have very similar symptoms.Often, the symptoms after intercourse are irritative bladder symptoms not aurinary tract infection.c. X-rays, often your provider will want to order a renal ultrasound or otherimaging to check for kidney stones or other problems.d. Cystoscopy ? looking into the bladder with a small scope in the office.Cystoscopy is a five-minute office procedure to allow us to evaluate thebladder lining. Typically, the urethra is numbed with a gel and the scope isplaced into the bladder. This allows the urethra and bladder lining to beevaluated for any abnormalities.3. Treatmenta. Treating the most recent infection with five to ten days of the correctantibiotics is step one. Often, someone will have a recurrence of theirinfection because the correct antibiotic was not used based on a urine culture.b. If you have been suffering from frequent infections, checking a repeatculture after treatment to insure the infections has completely cleared can behelpful.c. A Long-term course of treatment is often used to help give the bladder achance to recover. Typically, this is one antibiotic at bedtime to help reducethe amount of bacteria in the urine. This can be helpful. However, we try tolimit the amount of antibiotics used because of the risks of antibiotics usageincluding C. diff and other complications.d. Self-start therapy ? once we know that a you do not have an anatomy problem,kidney stones or other problem, self-start therapy is an options. This allowsyou to start an antibiotic when you are developing symptoms. We will give youantibiotics and a slip to get a urine culture. We ask that once you feel youare getting an infection, to go to a convenient lab and get a urine culture andthen start your antibiotic. As long as you are only getting 2 or 3 infectionsin a year this is an acceptable treatment option.4. Prevention ? This maybe the most important parta. Hydration ? staying well hydrated is the first villatoro to prevention.b. Emptying your bladder on a regular basis.c. Good bowel habits. Constipation and loose stools can both increase the riskof urinary tract infections.d. Vitamin C 1000mg a day increases the acidity of your urine and potentiallyreduces the growth of bacteria.e. Cranberry pills help prevent the bacteria from adhering to the bladderlining. The active ingredient in cranberry pills is Proanthocyanidins. Therecommendation is 36 mg orally a day. You want the supplement made from theinner portion of the maddox, not from the skin.f. D-Mannose power, 2gm daily.g. Methiamine (Urex) a prescription medication that acidifies the urine.h. Vaginal estrogen help return the vaginal environment back to its normalpre-menopausal state. The use of vaginal estrogens increases the growth thegood bacteria, lactobacillus, resulting in the presence of less bad bacteria.Vaginal estrogens come in cream, pills, and an estrogen ring. Even women whoare on oral estrogen replacement tend not to have enough local vaginalestrogen.i. Probiotics/Lactobacillus ? Intravaginal lactin-v probiotic 5 days a weekthen 1 day a week can help prevention. Orally, twice weekly rhamunosus or L.reuteri maybe helpful.5. Special situationsa. Travel ? We have noticed that patients are more prone to infections whenthey travel. Travel disrupts the normal routine. Often people will drink lessand urinate less often. We try to encourage good bladder habits with travel andwill often provide patients with an antibiotic so that their vacation is notspent finding a local pharmacy.b. Sexual activity. If infections have been related to sexual activity, weencourage patients to drink water and urinate after sexual activity. For somepatients one does of an antibiotic after sexual activity can be helpful.c. Swimming and hot tubs ? many patients claim they get bladder infectionsafter these activities. The most important part of this is determining if youhave an infection.6. Is it an infection?a. Often we see patients that say they have a bladder infection or that theyhave been treated for a bladder infection. Many have had a dipstick urine checkat home, in their primary care providers officer, or an urgent care setting.Often the dipsticks can be misleading. A patient may show a trace of blood andhave symptoms a bladder infection, but their culture is negative. This is wherewe must try to determine if a patient is truly infected or has bladderirritation. Bladder irritation can be treated without antibiotics.Non-antibiotic preventive optionsVaginal estrogens (post-menopausal women) Small amount (pea sized) twice weeklyCranberryVaccinium Macrocarpon Rwandan Cranberry Proanthocyanidins 36 mg daily 3600mg Cranberry per day*Vitamin C 1000 mg per dayD-Mannose Powder 2 gm dailyLactobacillus Intravaginal lactin-V, 109 cfuOral probiotics L. rhamunosus or L.reuteri orally twice a day* A note about Cranberry. The active ingredient is thought to beProanthocyanidins (PAC). PAC?s are found in many products. The concentration incranberry is high. PAC?s are divided into varies types such as dimers andtrimers. It is thought that the dimers and trimers have the best absorption inthe gastrointestinal tract. Cranberries contain 25mgs of PAC dimers per 100gmor edible food. If the recommended dose of PAC?s for urinary tract infectionprevention is 36 mg per day it would take a minimum of 3600gms of cranberry perday (1 cup = 100gm).Referring Provider: SELF [200]Allergies As of Date: 06/07/2017 Noted Allergy ReactionDUST 02/18/2006METHENAMINE 06/03/2017 16 - UnknownMOLD 02/18/2006RAGWEED 02/18/2006SEASONAL ALLERGIES 06/03/2017 16 - UnknownDate Reviewed: 06/07/2017Reviewed by: Eva Batista MA - Fully AssessedReason for Visit: UTI [116]Primary Visit Diagnosis:Urinary tract infection, site not specified [N39.0]Order(s):UA DIP B/O [1851116] Order #: [id number] Methenamine Hippurate (HIPREX) 1 gram tabletTake 1 tablet by mouth twice daily.Disp: 60 tabletRfl: 11 URINE CULTURE [SQURCUL] Order #: [id number] URINE CULTURE [SQURCUL] Order #: [id number] STANDINGPrescriptions as of 06/07/2017 Sig: NUVARING 0.12 MG -0.015 MG/24* ASCORBIC ACID (VITAMIN C) 1,0* Take 1,000 mg by mouth once d* CYSTEX ORAL Take by mouth. PROBIOTIC ORAL Take by mouth. MECLIZINE 12.5 MG TABLET Take 25 mg by mouth three sharita* MULTIVITAMIN TABLET Take 1 tablet by mouth as nee* METRONIDAZOLE 1 % TOPICAL GEL Apply to affected area. METHENAMINE HIPPURATE 1 GRAM * Take 1 tablet by mouth twice * CALCIUM 300 ORAL Take by mouth as needed. 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 How many infections a year is considered normal? 2. Does intercourse cause urinary tract infections? 3. How can I prevent infections? 4. Should I have a culture done when I have symptoms? 5. What is self-start therapy? 6. What role does cranberry and vitamin C play in urinary tract infections? Urinary tract infections (UTI?s) are a significant burden. When they happen, they disrupt all aspects of life. Bladder infections, infectious cystitis, and lower urinary tract infections are similar terms. These are infections of the bladder or lower urinary tract system. Symptoms of a bladder infection include pain with urination (dysuria), needing to urinate frequently (urinary frequency), hesitation or difficulty urinating, and maybe blood in the urine (hematuria). Usually, if you have a bladder infection, lower urinary tract infection, you will not have a fever. If you have a fever and back pain, this is a sign that you may have a kidney infection or upper urinary tract infection. Upper urinary tract infections need to be evaluated and treated differently. Two or three infections a year is considered normal. Also, recurrences are common if infections are not adequately treated the first time. Why do infections happen? Most women get some bacteria in their bladder every day. The bladder lining is protective and prevents the bacteria from adhering to the bladder wall. When you urinate, the bacteria flush out of the bladder. Any change in this normal process can result in a bladder infection. What can go wrong? 1. Not drinking enough water. 2. Not urinating regularly. 3. Not emptying your bladder completely. 4. An increase in the amount of bacteria in the bladder due to other reasons. a. Change or irritation to the vaginal environment. b. Menopause ? the decrease in estrogens results in a decrease in the good bacteria, lactobacillus. This provides an increased opportunity for the bad bacteria such as E. coli to increase its presence in the vaginal area and therefore the bladder. 5. Abnormalities in the urinary tract or urethra (the tube you urinate through) a. Bladder or kidney stones b. Fistula ? an abnormal connection between the bladder and bowel. 1. History ? When you are seen by your health-care provider he/she will want to know a. How many infections have you had in the past 12 months? b. Have you had a fever with these infections? c. Have you had any urine cultures done to determine the source of the infection? d. What antibiotics have you been on and for how long? e. Was there anything associated with the infections? i. Travel ii. Dehydration iii. Sexual activity f. Have you had previous bladder or pelvic surgery. g. Have you had any recent x-rays of your kidneys or bladder? h. Do you have any symptoms of prolapse (loss of support of your bladder, uterus, or vagina)? i. Feeling or seeing a vaginal bulge? ii. Feeling of a pressure or pulling sensation vaginally? i. Do you have a history of diverticulosis or other bowel problems? 2. Evaluation a. Physical exam ? we will want to do a pelvic exam and check how well your bladder empties. b. A catheterized urine specimen can be villatoro to out a bladder infection from irritating bladder symptoms. Both have very similar symptoms. Often, the symptoms after intercourse are irritative bladder symptoms not a urinary tract infection. c. X-rays, often your provider will want to order a renal ultrasound or other imaging to check for kidney stones or other problems. d. Cystoscopy ? looking into the bladder with a small scope in the office. Cystoscopy is a five-minute office procedure to allow us to evaluate the bladder lining. Typically, the urethra is numbed with a gel and the scope is placed into the bladder. This allows the urethra and bladder lining to be evaluated for any abnormalities. 3. Treatment a. Treating the most recent infection with five to ten days of the correct antibiotics is step one. Often, someone will have a recurrence of their infection because the correct antibiotic was not used based on a urine culture. b. If you have been suffering from frequent infections, checking a repeat culture after treatment to insure the infections has completely cleared can be helpful. c. A Long-term course of treatment is often used to help give the bladder a chance to recover. Typically, this is one antibiotic at bedtime to help reduce the amount of bacteria in the urine. This can be helpful. However, we try to limit the amount of antibiotics used because of the risks of antibiotics usage including C. diff and other complications. d. Self-start therapy ? once we know that a you do not have an anatomy problem, kidney stones or other problem, self-start therapy is an options. This allows you to start an antibiotic when you are developing symptoms. We will give you antibiotics and a slip to get a urine culture. We ask that once you feel you are getting an infection, to go to a convenient lab and get a urine culture and then start your antibiotic. As long as you are only getting 2 or 3 infections in a year this is an acceptable treatment option. 4. Prevention ? This maybe the most important part a. Hydration ? staying well hydrated is the first villatoro to prevention. b. Emptying your bladder on a regular basis. c. Good bowel habits. Constipation and loose stools can both increase the risk of urinary tract infections. d. Vitamin C 1000mg a day increases the acidity of your urine and potentially reduces the growth of bacteria. e. Cranberry pills help prevent the bacteria from adhering to the bladder lining. The active ingredient in cranberry pills is Proanthocyanidins. The recommendation is 36 mg orally a day. You want the supplement made from the inner portion of the maddox, not from the skin. f. D-Mannose power, 2gm daily. g. Methiamine (Urex) a prescription medication that acidifies the urine. h. Vaginal estrogen help return the vaginal environment back to its normal pre-menopausal state. The use of vaginal estrogens increases the growth the good bacteria, lactobacillus, resulting in the presence of less bad bacteria. Vaginal estrogens come in cream, pills, and an estrogen ring. Even women who are on oral estrogen replacement tend not to have enough local vaginal estrogen. i. Probiotics/Lactobacillus ? Intravaginal lactin-v probiotic 5 days a week then 1 day a week can help prevention. Orally, twice weekly rhamunosus or L. reuteri maybe helpful. 5. Special situations a. Travel ? We have noticed that patients are more prone to infections when they travel. Travel disrupts the normal routine. Often people will drink less and urinate less often. We try to encourage good bladder habits with travel and will often provide patients with an antibiotic so that their vacation is not spent finding a local pharmacy. b. Sexual activity. If infections have been related to sexual activity, we encourage patients to drink water and urinate after sexual activity. For some patients one does of an antibiotic after sexual activity can be helpful. c. Swimming and hot tubs ? many patients claim they get bladder infections after these activities. The most important part of this is determining if you have an infection. 6. Is it an infection? a. Often we see patients that say they have a bladder infection or that they have been treated for a bladder infection. Many have had a dipstick urine check at home, in their primary care providers officer, or an urgent care setting. Often the dipsticks can be misleading. A patient may show a trace of blood and have symptoms a bladder infection, but their culture is negative. This is where we must try to determine if a patient is truly infected or has bladder irritation. Bladder irritation can be treated without antibiotics. Non-antibiotic preventive options Vaginal estrogens (post-menopausal women) Small amount (pea sized) twice weekly Cranberry Vaccinium Macrocarpon Rwandan Cranberry Proanthocyanidins 36 mg daily 3600mg Cranberry per day* Vitamin C 1000 mg per day D-Mannose Powder 2 gm daily Lactobacillus Intravaginal lactin-V, 109 cfu Oral probiotics L. rhamunosus or L.reuteri orally twice a day * A note about Cranberry. The active ingredient is thought to be Proanthocyanidins (PAC). PAC?s are found in many products. The concentration in cranberry is high. PAC?s are divided into varies types such as dimers and trimers. It is thought that the dimers and trimers have the best absorption in the gastrointestinal tract. Cranberries contain 25mgs of PAC dimers per 100gm or edible food. If the recommended dose of PAC?s for urinary tract infection prevention is 36 mg per day it would take a minimum of 3600gms of cranberry per day (1 cup = 100gm).Prescriptions ordered this encounter Disp Refills Start End METHENAMINE HIPPURATE 1 GRAM TABLET 60 t* 11 06/07/2017 Route: ORAL Sig: Take 1 tablet by mouth twice daily. Status:Closed by BOLIVAR DEL TORO MD on 06/07/17 [facility] Cult Urineon 06-07-2017 Cult Urine Test performed at [facility] Mixed skin zi. No further identification or susceptibility testing will be performed. Please submit a new specimen. Plates will be held for 5 days. Normal [facility] Comment on above: Performed By: #### C _URI ####[facility] [place] [id number] PROGRESSon 06-07-2017 PROGRESS HNO ID: [id number] thor: Bolivar Dean: (none)Author Type: PhysicianType: Progress NotesFiled: 06/07/2017 4:23 PMNote Text:ESTABLISHED PATIENT VISITHPBenny Joshi is a 46 year old female who presents uti symptoms startedin 2013.Recent uti April entercoccus - amoxicillinNo bladder symptoms is the flank pain.Currently on Nuvo ring.Two infections since October.Reviewed uti prevention.08/18/2016 ?9:23 AM - Interface, Results InImpressionIMPRESSION:1. ?Normal appearance of the right kidney including no calculus, mass, orhydronephrosis. ?2. Prior left nephrectomy. ?3. There is a small amount of free pelvic fluid (a common physiologicfinding in premenopausal women). ?NOTE: ?There are one or more incidentally detected liver lesions lessthan or equal to 0.5 cm. ?Recommend no follow-up imaging of theselesions.Color/Appeara nce (comment:)Date Value06/07/2017 yellow/clear Gluc ose, Urine (mg/dL)Date Value06/07/2017 neg Bilirubin, Urine (no units)Date Value06/07/2017 neg Ketones, Urine (no units)Date Value06/07/2017 trace Specific Harmony, Ur (no units)Date Value06/07/2017 1.024 Hemoglobin/ Blood,Ur (no units)Date Value06/07/2017 neg pH, Urine (no units)Date Value06/07/2017 6.0 Protein, Urine (mg/dL)Date Value06/07/2017 neg Nitrites (no units)Date Value06/07/2017 neg REVIEW OF SYSTEMSGENERAL:No weight loss, malaise or fevers, No weight loss, malaise orfevers., SEE HPIGENITOURINARY: No history of dysuria, frequency or incontinence, See HPICONSTITUTIONALl: No recent fever or weight lossALLERGIESAllergen Reactions- Dust- Methenamine Unknown- Mold- Ragweed- Seasonal Allergies UnknownHISTORIESPAST MEDICAL HISTORYDiagnosis Date- Abdominal pain, left lower quadrant- Allergic rhinitis, cause unspecified- Arthritis- Bronchitis- Contact dermatitis and other eczema, due to unspecified cause- Diffuse cystic mastopathy- Eczema- Hemorrhage of gastrointestinal tract, unspecified- Hives- Infectious disease- Internal hemorrhoids without mention of complication- Mononucleosis- Pneumonia- UTI (urinary tract infection)- VertigoFAMILY HISTORYProblem Relation Age of Onset- Hypertension Mother- Stroke Mother- Breast Cancer Mother- MELANOMA [OTHER] Mother- Thyroid Sister- Hypertension Sister- Heart Maternal Aunt- Hypertension Father- Prostate Cancer FatherSocial HistorySubstance Use Topics- Smoking status: Never Smoker- Smokeless tobacco: Not on file- Alcohol use NoMEDICATIONS:NUVARING 0.12-0.015 mg/24 hr vaginal ringAscorbic Acid (VITAMIN C) 1,000 mg tablet Take 1,000 mg by mouth oncedaily.METHENAM/DENIZ AC/SALICY/TY-AM (CYSTEX ORAL) Take by mouth.LACTOBACILLUS ACIDOPHILUS (PROBIOTIC ORAL) Take by mouth.meclizine (ANTIVERT) 12.5 mg tab Take 25 mg by mouth three times daily.multivitamin tablet Take 1 tablet by mouth as needed.metroNIDAZOLE (METROGEL) 1 % gel Apply to affected area.CALCIUM CARBONATE (CALCIUM 300 ORAL) Take by mouth as needed.LORAZEPAM ORAL Take 0.5 mg by mouth as needed.Physical ExamBP 118/74 Ht 170.2 cm (5' 7) Wt 65.8 kg (145 lb) BMI 22.71 kg/m3AUCBQOBSYO/PLAN:1. Urinary tract infection, site not specified- UA DIP B/O [facility] URINE CULTUREon 06-01-2017 Urine culture, bacteria URINE RESULT 15-20,000 COL/ML MIXED ZI-PLEASE REPEAT-POSSIBLE CONTAMIN [facility] Comment on above: Performed By: #### M [id number] ####[facility] [id number] [place] [id number]# [phone] Vital Signs Date Time Vital Sign Value Performing Clinician Facility 07-17-2024 17:31-0400 Body mass index (BMI) [Ratio] 22.52 kg/m2 Harsh Velazquez APRN.DATA CENTER OPERATOR Work Phone: [facility] 07-17-2024 17:31-0400 Body temperature 98.01 [degF] Harsh Velazquez APRN.DATA CENTER OPERATOR Work Phone: [facility] 07-17-2024 17:31-0400 Body weight 65.4 kg Harsh Velazquez APRN.DATA CENTER OPERATOR Work Phone: [facility] 07-17-2024 17:31-0400 Diastolic blood pressure 80 mm[Hg] Harsh Velazquez APRN.DATA CENTER OPERATOR Work Phone: [facility] 07-17-2024 17:31-0400 Heart rate 73 /min Harsh Velazquez APRN.DATA CENTER OPERATOR Work Phone: [facility] 07-17-2024 17:31-0400 Respiratory rate 16 /min Harsh Velazquez APRN.DATA CENTER OPERATOR Work Phone: [facility] 07-17-2024 17:31-0400 SaO2% (BldA) [Mass fraction] 99 % Harsh Velazquez APRN.DATA CENTER OPERATOR Work Phone: [facility] 07-17-2024 17:31-0400 Systolic blood pressure 128 mm[Hg] Harsh Velazquez APRN.DATA CENTER OPERATOR Work Phone: [facility] 07-04-2024 10:56-0400 Body mass index (BMI) [Ratio] 22.73 kg/m2 Jamshid Dubois MD Work Phone: [facility] 07-04-2024 10:56-0400 Body weight 66 kg Jamshid Dubois MD Work Phone: [facility] 07-04-2024 10:56-0400 Diastolic blood pressure 65 mm[Hg] Jamshid Dubois MD Work Phone: [facility] 07-04-2024 10:56-0400 Heart rate 67 /min Jamshid Dubois MD Work Phone: [facility] 07-04-2024 10:56-0400 Systolic blood pressure 138 mm[Hg] Jamshid Dubois MD Work Phone: [facility] 06-13-2023 13:11-0400 Body height 167.[address] Kaylee Pink Work Phone: [facility] 06-13-2023 13:09-0400 Body mass index (BMI) [Ratio] 23.6 kg/m2 Dr. Kaylee Pink Work Phone: [facility] 06-13-2023 13:09-0400 Body weight 66.[address] Kaylee Pink Work Phone: [facility] 06-13-2023 13:09-0400 Diastolic blood pressure 76 mm[Hg] Dr. Kaylee Pink Work Phone: [facility] 06-13-2023 13:09-0400 Systolic blood pressure 115 mm[Hg] Dr. Kaylee Pink Work Phone: [facility] 05-03-2023 12:55-0400 Body mass index (BMI) [Ratio] 23.4 kg/m2 Kaylee [facility] 05-03-2023 12:55-0400 [facility] 05-03-2023 12:55-0400 Diastolic blood pressure 90 mm[Hg] Kaylee [facility] 05-03-2023 12:55-0400 Systolic blood pressure 131 mm[Hg] [facility] 03-21-2023 10:02-0400 Body height 167.64 [facility]23 09:46-0400 Body mass index (BMI) [Ratio] 23.3 kg/m2 [facility]-21-2023 09:46-0400 Body weight 65.48 kg [facility] 03-21-2023 09:46-0400 Diastolic blood pressure 77 mm[Hg] Kaylee ROSEN [facility] 03-21-2023 09:46-0400 Systolic blood pressure 120 mm[Hg] Kaylee ROSEN [facility] 12-23-2022 08:46-0500 Body height 170.4 cm Melinahelga Ajchito DO Work Phone: [facility] 12-23-2022 08:46-0500 Body weight 64.41 kg Melina Tranchito DO Work Phone: [facility] 12-23-2022 08:46-0500 Diastolic blood pressure 60 mm[Hg] Melina Tranchito DO Work Phone: [facility] 12-23-2022 08:46-0500 Heart rate 69 /min Melina Ajchito DO Work Phone: [facility] 12-23-2022 08:46-0500 Systolic blood pressure 115 mm[Hg] Melina Ajchito DO Work Phone: [facility] Encounters Encounter Date Encounter Type Care Provider Facility Start: 03-26-2025 ambulatory Kaylee Pink Facility: [facility] Start: 03-11-2025 ambulatory Kaylee Kristian Facility: [facility] Start: 03-09-2025 End: 03-09-[address] Kaylee Pink DO Work Phone: [facility] Work Phone: Start: 03-09-2025 End: 03-09-[address] Kaylee Pink DO -Ultrasound [facility] Work Phone: Start: 03-09-2025 End: 03-09-2025 ambulatory Kaylee Pink Facility:[facility] Start: 03-04-2025 End: 03-04-[address] Kaylee Pink DO -Laboratory [place] Work Phone: Start: 03-04-2025 End: 03-04-2025 ambulatory Kaylee Pink Facility:[facility] Start: 09-17-2024 End: 11-29-2024 Telephone encounter Jaz Patel [facility] Radiology Comment on above: Release Of Medical R ecords (Imaging Disc/Report) Start: 08-27-2024 End: 08-27-2024 ambulatory Jamee Gray Facility:[facility] Start: 08-14-2024 End: 08-14-2024 Patient encounter procedure Giovanni Bey Work Phone: Podiatry Comment on above: Closed nondisplaced fracture of phalanx of lesser toe of right foot, unspecified phalanx, initial encounter (Primary Dx); Onychodystrophy; Calcaneal spur of foot, left Start: 08-14-2024 End: 08-14-2024 ambulatory [facility] Facility:[facility] Start: 08-14-2024 End: 08-14-2024 Subsequent hospital visit by physician Marcella [facility] Franc Work Phone: Radiology Comment on above: Closed nondisplaced fracture of distal phalanx of lesser toe of left foot with routine healing, subsequent encounter [S92.535D] Start: 08-13-2024 End: 08-13-2024 Orders Only Giovanni Bey Work Phone: Podiatry Comment on above: Closed nondisplaced fracture of distal phalanx of lesser toe of left foot with routine healing, subsequent encounter (Primary Dx) Start: 08-13-2024 End: 08-13-2024 ambulatory Jamee Gray Facility:[facility] Start: 08-06-2024 End: 08-06-2024 ambulatory Jamee Gray Facility:[facility] Start: 07-30-2024 Encounter for gynecological examination (general) (routine) with abnormal findings Jamee Gray [facility] Start: 07-30-2024 End: 07-30-2024 ambulatory [facility] Facility:[facility] Start: 07-17-2024 End: 07-17-2024 Subsequent hospital visit by physician Marcella [facility] Work Phone: Radiology Comment on above: Pain [R52] Start: 07-17-2024 End: 07-17-2024 ambulatory [facility] Facility:[facility] Start: 07-17-2024 End: 07-17-2024 Patient encounter procedure Harsh Velazquez APRN.CNP Work Phone: [facility] Comment on above: Pain (Primary Dx); Closed nondisplaced fracture of distal phalanx of lesser toe of left foot, initial encounter Start: 07-04-2024 End: 07-04-2024 ambulatory [facility] Facility:[facility] Start: 07-04-2024 End: 07-04-2024 Patient encounter procedure Jamshid Dubois MD Work Phone: Endocrinology Comment on above: Multiple thyroid nod ules (Primary Dx) Start: 03-22-2024 End: 03-22-2024 ambulatory [facility] Facility:[facility] Start: 02-02-2024 Telephone encounter Jamshid byrnes MD Work Phone: Endocrinology Comment on above: Patient Update Start: 01-30-2024 End: 01-30-2024 ambulatory [facility] Facility:[facility] Start: 01-30-2024 End: 01-30-2024 Subsequent hospital visit by physician [facility] Work Phone: Radiology Comment on above: 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 Kaylee Pink Work Phone: [facility] Work Phone: Start: 08-22-2023 End: 08-22-[address] Kaylee Pink Work Phone: [facility]-Outpatient Breast Imaging Work Phone: Start: 06-13-2023 End: 06-13-[address] Kaylee Pink Work Phone: [facility] Work Phone: Start: 06-03-2023 End: 06-03-[address] Kaylee Pink Work Phone: [facility]-Laboratory, [place] Work Phone: Start: 05-03-2023 End: 05-03-2023 ambulatory [facility] Work Phone: Start: 05-03-2023 End: 05-03-2023 Patient encounter procedure Kaylee Pink [facility], [facility] Start: 05-03-2023 End: 05-03-2023 Patient encounter procedure Kaylee Kristian [facility] Work Phone: Start: 03-28-2023 End: 03-28-2023 ambulatory Kaylee [facility] Work Phone: Start: 03-28-2023 End: 03-28-2023 Patient encounter procedure Kaylee [facility]-Ultrasound, [facility] Start: 03-21-2023 Patient encounter procedure Kaylee [facility] Start: 03-21-2023 End: 03-21-2023 Patient encounter procedure Kaylee [facility] Start: 03-21-2023 End: 03-21-2023 Patient encounter procedure Kaylee [facility] Start: 12-23-2022 End: 12-23-2022 Patient encounter procedure Melina Vieira DO Work Phone: Endocrinology Comment on above: Multiple thyroid nod ules (Primary Dx) Start: 12-20-2022 End: 12-20-2022 Patient encounter procedure Kaylee Kristian [facility]-MRI - [facility] Start: 12-06-2022 End: 12-06-2022 Patient encounter procedure Kaylee Pink [facility]-Ultrasound, [facility] Start: 08-16-2022 End: 08-16-2022 ambulatory [facility] Work Phone: Start: 08-16-2022 End: 08-16-2022 Patient encounter procedure [facility]-Outpatient Breast Imaging Start: 03-31-2022 End: 03-31-2022 Patient encounter procedure [facility]-Laboratory, [place] chief power dispatcher Off Start: 06-07-2017 End: 06-08-2017 [facility] Start: 06-07-2017 End: 06-07-2017 Ambulatory BOLIVAR Perez [facility] Start: 05-30-2017 Ambulatory Bolivar Price Facilit y:[facility] Procedures Date Procedure Procedure Detail Performing Clinician Start: 03-09-2025 US scan of thyroid Dr. Kaylee Pink DO Work Phone: Start: 07-17-2024 Radex toe minimum 2 views Harsh Velazquez APRN.CNP Work Phone: Start: 07-04-2024 Us soft tissue head & neck real time imge justin Dubois MD Work Phone: Start: 08-22-2023 Screening mammography Roni Pink Work Phone: Start: 06-03-[address] Kaylee Pink Work Phone: Start: 03-28-2023 Transvaginal echography Kaylee ROSEN Start: 12-20-2022 MRI of brain with contrast Kaylee ROSEN Start: 12-06-2022 US scan of thyroid Kaylee ROSEN Start: 08-16-2022 Screening mammography Start: 05-14-2015 Colonoscopy Melina chavarria DO Work Phone: Plan of Treatment Date Care Activity Detail Author Start: 08-14-2024 End: 08-14-2024 Patient encounter procedure Podiatry Comment on above: broken toe 3rd,Lt Xray Start: 06-17-2024 Covid-19 Vaccine ( season) Covid-19 Vaccine ( season) [facility] Start: 06-17-2024 Covid-19 Vaccine ( season) Covid-19 Vaccine ( season) [facility] Start: 06-17-2024 Influenza vaccination C [facility] Start: 10-17-2023 Behavioral Health Screening Behavioral Health Screening [facility] Start: 06-17-2023 Covid-19 Vaccine ( season) Covid-19 Vaccine ( season) [facility] Start: 10-17-2022 DEPRESSION ASSESSMENT DEPRESSION ASS ESSMENT [facility] Start: 06-17-2022 Influenza vaccination INFLUENZA (#1) [facility] Start: 07-19-2021 DIABETES SCREEN DIABETES SCREEN [facility] Start: 07-19-2021 Diabetes Screening Diabetes Screenin g [facility] Start: 2020 Pneumococcal Vaccine : 50+ (1 of 1 - PCV) Pneumococcal Vaccine: 50+ (1 of 1 - PCV) [facility] Start: 2020 SHINGRIX VACCINE (1 of 2) SHINGRIX VACCINE (1 of 2) [facility] Start: 05-14-2020 Colonoscopy COLONOSCOPY [facility] Start: 05-14-2020 COLORECTAL CANCER SCREENING COLORECTAL CANCER SCREENING [facility] Start: 05-14-2020 Screening for malign ant neoplasm of colon [facility] Start: 2015 COLOGUARD (FIT-DNA) COLOGUARD (FIT-D NA) [facility] Start: [address] COLONOGRAPHY [facility] Start: 2015 FECAL OCCULT BLOOD FECAL OCCULT BLOO D [facility] Start: 2015 Lipid panel Lipid Screening [facility] Start: 2015 LIPID SCREEN LIPID SCREEN [facility] Start: 2015 Screening for malign ant neoplasm of colon [facility] Start: 2015 SIGMOIDOSCOPY SIGMOIDOSCOPY [facility] Start: 2010 Mammography MAMMOGRAM [facility] Start: 2010 Screening for malign ant neoplasm of breast Mammogram Screening [facility] Start: 06-05-2005 Urine microalbumin profile [facility] Start: 2000 HPV TESTING HPV TESTING [facility] Start: 2000 Screening for malign ant neoplasm of cervix HPV Testing [facility] Start: 1991 PAP TESTING PAP TESTING [facility] Start: 1991 Screening for malign ant neoplasm of cervix [facility] Start: 1989 Hepatitis B Vaccine (1 of 3 - 19+ 3-dose series) Hepatitis B Vaccine (1 of 3 - 19+ 3-dose series) [facility] Start: 1988 Anxiety Screening Anxiety Screening [facility] Start: 1988 Depression Screening Depression Scre toney [facility] Start: 1988 HEPATITIS C SCREENING HEPATITIS C [facility] Start: 1988 Hepatitis C screening Hepatitis C [facility] Start: 1988 HIV SCREENING HIV SCREENING [facility] Start: 1988 HIV screening HIV Screening [facility] Start: 04-04-1971 COVID-19 VACCINE (#1) COVID-19 VACCI NE (#1) [facility] Start: 1970 HEPATITIS B (1 of 3 - 3-dose series) HEPATITIS B (1 of 3 - 3-dose series) [facility] End: 09-12-2025 XR Foot - left AP and Lateral and oblique XR FOOT GENERAL 3V AP/LAT/OBL LEFT Radiology Routine Closed nondisplaced fracture of distal phalanx of lesser toe of left foot with routine healing, subsequent encounter 1 Occurrences starting 08/13/2024 until 09/12/2025 [facility] Work Phone: Comment on above: 1 Occurrences starti ng 08/13/2024 until 09/12/2025 XR Foot - left AP an d Lateral and oblique XR FOOT GENERAL 3V AP/LAT/OBL LEFT Radiology Routine Closed nondisplaced fracture of distal phalanx of lesser toe of left foot with routine healing, subsequent encounter 08/14/2024 1:52 PM EDT [facility] Work Phone: Immunizations Immunization Date Immunization Notes Care Provider Irene wei 06-04-2005 tetanus and diphther ia toxoids, not adsorbed, for adult use Melina Vieira DO Work Phone: [facility] Work Phone: Payers Date Payer Category Payer Self-pay [id number] 2007 [facility] BLUE CARD PPO OOS [id number] 2007 Unknown [employer] BLUE CARD PPO OOS [id number] 2007-Present [phone] [address] [place] [address] PPO [id number] 2007 Unknown [id number] Unknown [id number] Unknown [id number] Unknown [id number] Unknown [id number] Unknown [id number] Unknown [id number] Unknown [id number] Unknown [id number] Unknown [id number] Social History Date Type Detail Facility Start: 06-29-2016 End: 06-13-2023 Tobacco smoking status NHIS Unknown if ever smoked [facility] Start: 1970 Sex Assigned At Female [facility] Start: 07-30-2024 Tobacco smoking stat us NHIS Never smoked tobacco [facility] Start: 12-23-2022 End: 08-14-2024 Alcohol intake Current non-drinker of alcohol (finding) [facility] Start: 1970 Sex Assigned At Not on file C [facility] Start: 12-23-2022 End: 07-04-2024 History of Social function [facility] Start: 12-23-2022 End: 07-04-2024 Tobacco use panel [facility] National Score (1-10 0), lower number is lower risk 52 [facility] Functional Status Date Assessment Result Facility 05-21-2015 Are you deaf, or do you have serious difficulty hearing No 05/21/2015 10:10 AM Alana Martinez LPN No [facility] 05-21-2015 Are you blind, or do you have serious difficulty seeing, even when wearing glasses No 05/21/2015 10:10 AM Alana Martinez LPN No [facility] 05-21-2015 Do you have serious difficulty walking or climbing stairs No 05/21/2015 10:10 AM Alana Martinez LPN No [facility] 05-21-2015 Do you have difficul ty dressing or bathing No 05/21/2015 10:10 AM Alana Martinez LPN No [facility] 05-21-2015 Because of a physica l, mental, or emotional condition, do you have difficulty doing errands alone such as visiting a physician's office or shopping No 05/21/2015 10:10 AM Alana Martinez LPN No [facility] Mental Status Date Assessment Result Facility 05-21-2015 Because of a physica l, mental, or emotional condition, do you have serious difficulty concentrating, remembering, or making decisions No 05/21/2015 10:10 AM Alana Martinez LPN No [facility] Clinical Notes 12-23-2022 to 03-12-2025 Telephone Encounter - Jaz Patel PSS - 09/17/2024 2:36 PM ESTTelephone Encounter - Jaz Patel PSS - 09/17/2024 2:36 PM ESTTelephone Encounter - [place] [facility] - 09/17/2024 8:03 AM EST Note Date & Type Note Facility 03-12-2025 Radiology Diagnostic study note [facility] Imaging Services [address] [place] [address] Thyroid MR#: [id number] Acct: [id number] Name: JOSE JUAN JOSHI Rep #: [id number] : 1970 F [id number] From: Jose Daniel Pinon MD PCP: Dr. Kaylee Pink DO Status: REG CLI Study:Thyroid Date of Exam: 03/09/25 Exam# [id number] Ordering Dr: Kaylee Pink DO PROCEDURE: THYROID 03/09/2025 REASON FOR EXAM: REASSESS THYROID NODULES TECHNIQUE: High-frequency thyroid ultrasound, including grayscale and color-flow images. REFERENCE LINKS: TI-RADS Chart: [email or web address] TI-RADS Calculator Tool with Reference Images: [email or web address] [email or web address] COMPARISON: Prior study dated December 06, 2022. FINDINGS: Right thyroid lobe size: 3.7 cm x 0.9 cm x 0.9 cm Left thyroid lobe size: 3.8 cm by 1.4 cm 1.4 cm Isthmus: 0.2 cm Background parenchymal echotexture is homogeneous. Nodules: . Lobe: Right, Location: Superior pole, Size: 0.5 cm x 0.4 cm 0.3 cm, Stability: Stable Composition: Cystic or mostly cystic (+0) Echogenicity: Anechoic (+0) Margin: Smooth (+0) Shape: Wider than tall (+0) Echogenic Foci: None (+0) TI-RADS: <2 = TR 1 * 2 = TR 2 * 3 = TR 3 * 4-6 = TR 4 * >6 = TR 5 . Lobe: Right, Location: Mid, Size: 0.6 cm 0.4 cm x 0.3 cm, Stability: Stable Composition: Cystic or mostly cystic (+0) Echogenicity: Anechoic (+0) Margin: Smooth (+0) Shape: Wider than tall (+0) Echogenic Foci: None (+0) TI-RADS: <2 = TR 1 * 2 = TR 2 * 3 = TR 3 * 4-6 = TR 4 * >6 = TR 5 Interval enlargement of the upper pole complex nodule in the left lobe presentlymeasuring 1.7 cm x 1 cm x 0.8 cm. Biopsy recommended. The remaining nodules are unchanged. US/Thyroid IMPRESSION: Increased size of the complex nodule in the upper pole of the left lobe of the thyroid as described. Biopsy recommended. RECOMMENDATION: Based on most suspicious nodule. Nodule size = largest diameter Only evaluate nodule if =>5 mm. Growth > 20% in 2 dimensions = worsening. Follow up to 4 nodules. Recommend biopsy for no more than 2 nodules. Reading Location: [place] [address] CC: Dr. Kaylee Pink, DO ~ Table Hand: Signed [facility] 09-17-2024 Telephone encounter Note CD READY FOR ROUSTABOUT AT [facility] Pt is aware [facility] 09-17-2024 Miscellaneous Notes CD READY FOR ROUSTABOUT AT [facility] Pt is aware Patient is requesting disc and report of 08/14/24 XR FOOT LEFT and 07/17/24 XR TOE LEFT. 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 documented in this encounter [facility] 09-17-2024 Telephone encounter Note Patient is requesting disc and report of 08/14/24 XR FOOT LEFT and 07/17/24 XR TOE LEFT. 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 [facility] 08-14-2024 Note HNO ID: [id number] Author: CARRIE MACIAS LPN Service: ? Author Type: LICENSED NURSE Type: Progress Notes Filed: 08/15/2024 19:20 Note Text: Per Dr. Bey, Jose Juan was provided with Achilles sleeve, size M, and instructed/educated in its application, wear, and care. All questions were answered, and patient was able to demonstrate competence with the necessary skills to utilize the above equipment. Carrie Macias LPN [facility] 08-14-2024 History of Present illness Narrative Per Dr. Bey, Jose Juan was provided with Achilles sleeve, size M, and instructed/educated in its application, wear, and care. All questions were answered, and patient was able to demonstrate competence with the necessary skills to utilize the above equipment. Carrie Macias LPN Images from the original note were not included. Initial Podiatric Office Visit: Chief Complaint: This 53 year old female who presents with chief complaint:left foot pain HPI Patient presents to clinic for evaluation of left foot Complains of pain to left 3rd toe and left heel Earlier this month, she rolled her left 3rd toe and resulted in injury Went to urgent care and had xrays taken and she was told she fractured her 3rd toe. She has been using a surgical shoe Pain is 3/10 Patient does complain of pain to the posterior heel. Patient states that she hit the left heel on a garden bed. Patient states the pain in the left heel is sharp shooting pain. Takes tylenol and ices the foot. PAIN EVALUATION 08/14/2024 [id number] 08/14/2024 1355 Pain Level: 4 5 Pain Location: Heel-Left Foot-Left Description: Sharp Sharp Duration Amount of Time: -- 6 Duration Units: Weeks Weeks Frequency: Continuous Continuous Intervention/Comfort measure: Medication;Cold;Positioning -- No results found for: HBA1C PCP: Kaylee Pink DO PAST MEDICAL HISTORY Diagnosis Date Abdominal pain, left lower quadrant Allergic rhinitis, cause unspecified Arthritis Bronchitis Contact dermatitis and other eczema, due to unspecified cause Diffuse cystic mastopathy Eczema Hemorrhage of gastrointestinal tract, unspecified Hives Infectious disease Internal hemorrhoids without mention of complication Mononucleosis Pneumonia UTI (urinary tract infection) Vertigo Current Outpatient Medications Medication Sig ergocalciferol 50,000 unit capsule (VITAMIN D2, DRISDOL) Magnesium Oxide 500 mg magnesium tab Ascorbic Acid (VITAMIN C) 1,000 mg tablet Take 1,000 mg by mouth once daily. LACTOBACILLUS ACIDOPHILUS (PROBIOTIC ORAL) Take by mouth. meclizine (ANTIVERT) 12.5 mg tab Take 25 mg by mouth three times daily. multivitamin tablet Take 1 tablet by mouth as needed. NUVARING 0.12-0.015 mg/24 hr vaginal ring LORAZEPAM ORAL Take 0.5 mg by mouth as needed. No current facility-administered medications for this visit. ALLERGIES Allergen Reactions Dust Methenamine Unknown Mold Ragweed Seasonal Allergies Unknown PAST SURGICAL HISTORY Procedure Laterality Date COLONOSCOPY FLX DX W/COLLJ SPEC WHEN PFRMD 05/14/15 Colonoscopy CYSTOSCOPY 2016 D&C DIAGNOSTIC OR THERA - IPAS LAPAROSCOPY RADICAL NEPHRECTOMY 2013 left NM BILIARY (HIDA) SCAN 2016 SIGMOIDOSCOPY FLX DX W/COLLJ SPEC BR/WA IF PFRMD 06/12/10 wisdom teeth FAMILY HISTORY Problem Relation Age of Onset Hypertension Mother Stroke Mother Breast Cancer Mother other (MELANOMA) Mother Hypertension Father Prostate Cancer Father Thyroid Sister Hypertension Sister Cancer Sister Thyroid Cancer Sister Lung Cancer Sister Prostate Cancer Brother Heart Maternal Aunt Social History Tobacco Use Smoking status: Never Vaping Use Vaping status: Never Used Substance Use Topics Alcohol use: No Drug use: No REVIEW OF SYSTEMS GENERAL: Negative for Malaise, significant weight loss, fever RESPIRATORY: Negative for cough, wheezing and shortness of breath CARDIOVASCULAR: Negative for chest pain, leg swelling and palpitations GI: Negative for abdominal discomfort, blood in stools or black stools and change in bowel habits : Negative for dysuria, frequency and incontinence MUSCULOSKELETAL: Negative for joint pain or swelling, back pain, and muscle pain. SKIN: Negative for lesions, rash, and itching. HEMATOLOGY/LYMPHOLOGY Negative for prolonged bleeding, bruising easily, and swollen nodes. ENDOCRINE: Negative for cold or heat intolerance, polyuria, polydipsia and goiter. NEURO: negative Physical Exam: Constitutional: Pt is a well developed 53 year old female who is alert, oriented and cooperative Eyes: Following during examination. No redness or drainage. Respiratory: RR normal and nonlabored. Even breathing. No evidence of distress or shortness of breath. Psychology: Patient is engaged during conversation. Normal affect and mood. Does not appear depressed or anxious during encounter. Vascular: Dorsalis pedis and posterior tibial pulses palpable as b/l Capillary Fill time < 5 seconds to digits 1-5 b/l Skin temperature warm to warm proximal to distal b/l Hair growth present to digits Neurological: intact light touch/epicritic sensation - tinel b/l intact protective sensation no significant neurological deficits Dermatological: Nails left 3rd and left 5th show some discoloration. Webspaces clean and dry 1-4 b/l. Skin appears well hydrated and supple. good color, texture, turgor. No open lesions present. No callosities present. Musculoskeletal/Orthopaedic: Patient has pain to palpation of left 3rd toe at dipj. Decreased motion of left 3rd toe dipj. Pain present to left posterior heel Foot type is neutral structurally AJ ROM is full with knee extended and flexed 1st MPJ is full when loaded and no pain or crepitus are noted with ROM. MTJ, STJ are full and free of pain and crepitus. +5/5 muscle strength dorsiflexion, plantarflexion, inversion, eversion b/l Radiographs: 3 views left foot ordered August 14, 2024: I have personally reviewed and interpreted these XR myself: posterior heel spur. 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 History and physical examination performed. 2. XR reviewed with patient and interpreted today 3. Discussed fracture of left 3rd toe. No significant pain. Fracture is less apparent on xray today but xrays were of the foot. Could obtain xrays of toe. Patient has no pain. Can use firm sole sneaker or surgical shoe 4. Discussed posterior heel spur. Recommend stretching, icing, inserts. If pain fails to improve, referral to therapy is an option. Lastly, if pain fails to improve, could proceed with surgical removal of spur 5. Discussed nail disoloration. Discussed topical medication vs oral medication vs removal of toenail. Will try penlac. Giovanni Bey DPM Podiatry [address] [place] [address] Dept: [phone] Dept documented in this encounter [facility] 08-14-2024 Instructions Giovanni Bey - 08/14/2024 2:14 PM EDT Fracture of toe: continue with firm sole sneaker, ie hoka, booker or asics Heel spur: recommend low heels shoes and/or use of gel pad. documented in this encounter [facility] 08-14-2024 Note HNO ID: [id number] Author: GIOVANNI BEY, ? Service: ? Author Type: Physician Type: Progress Notes Filed: 08/15/2024 19:20 Note Text: Initial Podiatric Office Visit: Chief Complaint: This 53 year old female who presents with chief complaint:left foot pain HPI Patient presents to clinic for evaluation of left foot Complains of pain to left 3rd toe and left heel Earlier this month, she rolled her left 3rd toe and resulted in injury Went to urgent care and had xrays taken and she was told she fractured her 3rd toe. She has been using a surgical shoe Pain is 3/10 Patient does complain of pain to the posterior heel. Patient states that she hit the left heel on a garden bed. Patient states the pain in the left heel is sharp shooting pain. Takes tylenol and ices the foot. PAIN EVALUATION 08/14/2024 [id number] 08/14/2024 1355 Pain Level: 4 5 Pain Location: Heel-Left Foot-Left Description: Sharp Sharp Duration Amount of Time: -- 6 Duration Units: Weeks Weeks Frequency: Continuous Continuous Intervention/Comfort measure: Medication;Cold;Positioning -- No results found for: HBA1C PCP: Kaylee Pink DO PAST MEDICAL HISTORY Diagnosis Date Abdominal pain, left lower quadrant Allergic rhinitis, cause unspecified Arthritis Bronchitis Contact dermatitis and other eczema, due to unspecified cause Diffuse cystic mastopathy Eczema Hemorrhage of gastrointestinal tract, unspecified Hives Infectious disease Internal hemorrhoids without mention of complication Mononucleosis Pneumonia UTI (urinary tract infection) Vertigo Current Outpatient Medications Medication Sig ergocalciferol 50,000 unit capsule (VITAMIN D2, DRISDOL) Magnesium Oxide 500 mg magnesium tab Ascorbic Acid (VITAMIN C) 1,000 mg tablet Take 1,000 mg by mouth once daily. LACTOBACILLUS ACIDOPHILUS (PROBIOTIC ORAL) Take by mouth. meclizine (ANTIVERT) 12.5 mg tab Take 25 mg by mouth three times daily. multivitamin tablet Take 1 tablet by mouth as needed. NUVARING 0.12-0.015 mg/24 hr vaginal ring LORAZEPAM ORAL Take 0.5 mg by mouth as needed. No current facility-administered medications for this visit. ALLERGIES Allergen Reactions Dust Methenamine Unknown Mold Ragweed Seasonal Allergies Unknown PAST SURGICAL HISTORY Procedure Laterality Date COLONOSCOPY FLX DX W/COLLJ SPEC WHEN PFRMD 05/14/15 Colonoscopy CYSTOSCOPY 2015 [facility] DIAGNOSTIC OR THERA - IPAS LAPAROSCOPY RADICAL NEPHRECTOMY 2013 left NM BILIARY (HIDA) SCAN 2016 SIGMOIDOSCOPY FLX DX W/COLLJ SPEC BR/WA IF PFRMD 06/12/10 wisdom teeth FAMILY HISTORY Problem Relation Age of Onset Hypertension Mother Stroke Mother Breast Cancer Mother other (MELANOMA) Mother Hypertension Father Prostate Cancer Father Thyroid Sister Hypertension Sister Cancer Sister Thyroid Cancer Sister Lung Cancer Sister Prostate Cancer Brother Heart Maternal Aunt Social History Tobacco Use Smoking status: Never Vaping Use Vaping status: Never Used Substance Use Topics Alcohol use: No Drug use: No REVIEW OF SYSTEMS GENERAL: Negative for Malaise, significant weight loss, fever RESPIRATORY: Negative for cough, wheezing and shortness of breath CARDIOVASCULAR: Negative for chest pain, leg swelling and palpitations GI: Negative for abdominal discomfort, blood in stools or black stools and change in bowel habits : Negative for dysuria, frequency and incontinence MUSCULOSKELETAL: Negative for joint pain or swelling, back pain, and muscle pain. SKIN: Negative for lesions, rash, and itching. HEMATOLOGY/LYMPHOLOGY Negative for prolonged bleeding, bruising easily, and swollen nodes. ENDOCRINE: Negative for cold or heat intolerance, polyuria, polydipsia and goiter. NEURO: negative Physical Exam: Constitutional: Pt is a well developed 53 year old female who is alert, oriented and cooperative Eyes: Following during examination. No redness or drainage. Respiratory: RR normal and nonlabored. Even breathing. No evidence of distress or shortness of breath. Psychology: Patient is engaged during conversation. Normal affect and mood. Does not appear depressed or anxious during encounter. Vascular: Dorsalis pedis and posterior tibial pulses palpable as b/l Capillary Fill time < 5 seconds to digits 1-5 b/l Skin temperature warm to warm proximal to distal b/l Hair growth present to digits Neurological: intact light touch/epicritic sensation - tinel b/l intact protective sensation no significant neurological deficits Dermatological: Nails left 3rd and left 5th show some discoloration. Webspaces clean and dry 1-4 b/l. Skin appears well hydrated and supple. good color, texture, turgor. No open lesions present. No callosities present. Musculoskeletal/Orthopaedic: Patient has pain to palpation of left 3rd toe at dipj. Decreased motion of left 3rd toe dipj. Pain present to left posterior heel (more content not included)... [facility] 08-14-2024 History of Present illness Narrative Radiology Service Progress Note PATIENT NAME: Jose Juan Joshi DATE OF SERVICE: August 14, 2024 TIME: 1:40 PM PATIENT IDENTITY VERIFICATION COMPLETED USING TWO (2) IDENTIFIERS: Name and Date of confirmed by patient verbally. FALL SCREENING: Has the patient had 2 falls in the last year or 1 fall with injury or currently using an Ambulatory Assistive Device (Walker, Cane, Wheelchair, Crutches, etc.)? No PATIENT GENDER DATA: Female. status: : No status: NO. PATIENT RELEVANT IMPLANT DATA REVIEWED: Yes PATIENT PRESENTS WITH AN IMPLANTABLE OR ATTACHED HOME HEALTH MANAGER: No RADIOLOGY DEPARTMENT: General X-ray: Exam(s) Completed: Lower Extremity X-Ray(s): Foot, Left PERIPHERAL IV DATA: Not applicable SIGNED BY: RT Jordan(R) August 14, 2024 1:40 PM documented in this encounter [facility] 08-14-2024 Note HNO ID: [id number] Author: RICCO MONTENEGRO RT(R) Service: ? Author Type: Customer Account Coordinator Type: Progress Notes Filed: 08/14/2024 13:50 Note Text: Radiology Service Progress Note PATIENT NAME: Jose Juan Joshi DATE OF SERVICE: August 14, 2024 TIME: 1:40 PM PATIENT IDENTITY VERIFICATION COMPLETED USING TWO (2) IDENTIFIERS: Name and Date of confirmed by patient verbally. FALL SCREENING: Has the patient had 2 falls in the last year or 1 fall with injury or currently using an Ambulatory Assistive Device (Walker, Cane, Wheelchair, Crutches, etc.)? No PATIENT GENDER DATA: Female. status: : No status: NO. PATIENT RELEVANT IMPLANT DATA REVIEWED: Yes PATIENT PRESENTS WITH AN IMPLANTABLE OR ATTACHED HOME HEALTH MANAGER: No RADIOLOGY DEPARTMENT: General X-ray: Exam(s) Completed: Lower Extremity X-Ray(s): Foot, Left PERIPHERAL IV DATA: Not applicable SIGNED BY: RT Jordan(Junior) August 14, 2024 1:40 PM [facility] 07-17-2024 History of Present illness Narrative Radiology Service Progress Note PATIENT NAME: Jose Juan Joshi DATE OF SERVICE: July 17, 2024 TIME: 5:58 PM PATIENT IDENTITY VERIFICATION COMPLETED USING TWO (2) IDENTIFIERS: Name and Date of confirmed by patient verbally. FALL SCREENING: Has the patient had 2 falls in the last year or 1 fall with injury or currently using an Ambulatory Assistive Device (Walker, Cane, Wheelchair, Crutches, etc.)? No PATIENT GENDER DATA: Female. status: : No status: NO. PATIENT RELEVANT IMPLANT DATA REVIEWED: Yes PATIENT PRESENTS WITH AN IMPLANTABLE OR ATTACHED HOME HEALTH MANAGER: No RADIOLOGY DEPARTMENT: General X-ray: Exam(s) Completed: Lower Extremity X-Ray(s): Toes, Left 3rd toe PERIPHERAL IV DATA: Not applicable SIGNED BY: RT Willy(Junior) July 17, 2024 5:58 PM documented in this encounter [facility] 07-17-2024 Note HNO ID: [id number] Author: FRASER, DINORAH, RT(R) Service: Radiology Author Type: Technologist Type: Progress Notes Filed: 07/17/2024 18:06 Note Text: Radiology Service Progress Note PATIENT NAME: Jose Juan Joshi DATE OF SERVICE: July 17, 2024 TIME: 5:58 PM PATIENT IDENTITY VERIFICATION COMPLETED USING TWO (2) IDENTIFIERS: Name and Date of confirmed by patient verbally. FALL SCREENING: Has the patient had 2 falls in the last year or 1 fall with injury or currently using an Ambulatory Assistive Device (Walker, Cane, Wheelchair, Crutches, etc.)? No PATIENT GENDER DATA: Female. status: : No status: NO. PATIENT RELEVANT IMPLANT DATA REVIEWED: Yes PATIENT PRESENTS WITH AN IMPLANTABLE OR ATTACHED HOME HEALTH MANAGER: No RADIOLOGY DEPARTMENT: General X-ray: Exam(s) Completed: Lower Extremity X-Ray(s): Toes, Left 3rd toe PERIPHERAL IV DATA: Not applicable SIGNED BY: RT Willy(R) July 17, 2024 5:58 PM [facility] 07-17-2024 Note HNO ID: [id number] Author: HARSH VELAZQUEZ APRN.DATA CENTER OPERATOR Service: ? Author Type: Nurse Practitioner Type: Progress Notes Filed: 07/17/2024 19:14 Note Text: Subjective Female with complaints of left toe pain. Patient says she tripped over a toy. Patient says it is swollen and bruised. Patient says it is painful. Patient denies any numbness tingling or loss of feeling. The history is provided by the patient. No speech language pathologist was used. Review of Systems Constitutional: Negative. Skin: Negative. Objective Physical Exam Constitutional: Appearance: Normal appearance. Pulmonary: Effort: Pulmonary effort is normal. Musculoskeletal: Feet: Feet: Comments: Swelling and bruising noted in the area marked above. Patient is tender in that area. Circulation is intact. Neurological: Mental Status: She is alert. PAST MEDICAL HISTORY Diagnosis Date Abdominal pain, left lower quadrant Allergic rhinitis, cause unspecified Arthritis Bronchitis Contact dermatitis and other eczema, due to unspecified cause Diffuse cystic mastopathy Eczema Hemorrhage of gastrointestinal tract, unspecified Hives Infectious disease Internal hemorrhoids without mention of complication Mononucleosis Pneumonia UTI (urinary tract infection) Vertigo PAST SURGICAL HISTORY Procedure Laterality Date COLONOSCOPY FLX DX W/COLLJ SPEC WHEN PFRMD 05/14/15 Colonoscopy CYSTOSCOPY 2016 [facility] DIAGNOSTIC OR THERA - IPAS LAPAROSCOPY RADICAL NEPHRECTOMY 2013 left [place] BILIARY (HIDA) SCAN 2016 SIGMOIDOSCOPY FLX DX W/COLLJ SPEC BR/WA IF PFRMD 06/12/10 wisdom teeth ALLERGIES Dust, Methenamine, Mold, Ragweed, and Seasonal Allergies MEDICATIONS ergocalciferol 50,000 unit capsule (VITAMIN D2, DRISDOL) Magnesium Oxide 500 mg magnesium tab NUVARING 0.12-0.015 mg/24 hr vaginal ring Ascorbic Acid (VITAMIN C) 1,000 mg tablet Take 1,000 mg by mouth once daily. LACTOBACILLUS ACIDOPHILUS (PROBIOTIC ORAL) Take by mouth. meclizine (ANTIVERT) 12.5 mg tab Take 25 mg by mouth three times daily. multivitamin tablet Take 1 tablet by mouth as needed. LORAZEPAM ORAL Take 0.5 mg by mouth as needed. FAMILY HISTORY Problem Relation Age of Onset Hypertension Mother Stroke Mother Breast Cancer Mother other (MELANOMA) Mother Thyroid Sister Hypertension Sister Heart Maternal Aunt Hypertension Father Prostate Cancer Father Social History Tobacco Use Smoking status: Never Substance Use Topics Alcohol use: No Drug use: No ASSESSMENT/PLAN: 1. Pain - ICD9: 780.96, ICD10: R52 - XR TOE AP/LAT/OBL LEFT * * * * Physician Interpretation * * * * EXAMINATION: LEFT THIRD TOE X-RAY SERIES HISTORY: Third toe jamming injury. Pain at the tuft. COMPARISON: None available. TECHNIQUE: PA, lateral and oblique views. RESULT: There is a small chip/avulsion fracture involving the dorsal base of the distal phalanx of the third toe. Mild degenerative changes at the third DIP joint. Soft tissue swelling about the third toe. IMPRESSION IMPRESSION: Small chip/avulsion fracture involving the dorsal base of the distal phalanx of the third toe. Table Hand: ARCHANA Transcribe Date/Time: Jul 17 2024 6:34P Dictated by : PREM DEGROOT MD 2. Closed nondisplaced fracture of distal phalanx of lesser toe of left foot, initial encounter - ICD9: 826.0, ICD10: S92.535A Was placed in a postop shoe. Patient was educated to follow-up with primary podiatry. Patient will rest ice elevate. Patient was okay with this care plan. Harsh Velazquez APRN.[facility] 07-17-2024 History of Present illness Narrative Images from the original note were not included. Subjective Female with complaints of left toe pain. Patient says she tripped over a toy. Patient says it is swollen and bruised. Patient says it is painful. Patient denies any numbness tingling or loss of feeling. The history is provided by the patient. No speech language pathologist was used. Review of Systems Constitutional: Negative. Skin: Negative. Objective Physical Exam Constitutional: Appearance: Normal appearance. Pulmonary: Effort: Pulmonary effort is normal. Musculoskeletal: Feet: Feet: Comments: Swelling and bruising noted in the area marked above. Patient is tender in that area. Circulation is intact. Neurological: Mental Status: She is alert. PAST MEDICAL HISTORY Diagnosis Date Abdominal pain, left lower quadrant Allergic rhinitis, cause unspecified Arthritis Bronchitis Contact dermatitis and other eczema, due to unspecified cause Diffuse cystic mastopathy Eczema Hemorrhage of gastrointestinal tract, unspecified Hives Infectious disease Internal hemorrhoids without mention of complication Mononucleosis Pneumonia UTI (urinary tract infection) Vertigo PAST SURGICAL HISTORY Procedure Laterality Date COLONOSCOPY FLX DX W/COLLJ SPEC WHEN PFRMD 05/14/15 Colonoscopy CYSTOSCOPY 2016 [facility] DIAGNOSTIC OR THERA - IPAS LAPAROSCOPY RADICAL NEPHRECTOMY 2013 left NM BILIARY (HIDA) SCAN 2016 SIGMOIDOSCOPY FLX DX W/COLLJ SPEC BR/WA IF PFRMD 06/12/10 wisdom teeth ALLERGIES Dust, Methenamine, Mold, Ragweed, and Seasonal Allergies MEDICATIONS ergocalciferol 50,000 unit capsule (VITAMIN D2, DRISDOL) Magnesium Oxide 500 mg magnesium tab NUVARING 0.12-0.015 mg/24 hr vaginal ring Ascorbic Acid (VITAMIN C) 1,000 mg tablet Take 1,000 mg by mouth once daily. LACTOBACILLUS ACIDOPHILUS (PROBIOTIC ORAL) Take by mouth. meclizine (ANTIVERT) 12.5 mg tab Take 25 mg by mouth three times daily. multivitamin tablet Take 1 tablet by mouth as needed. LORAZEPAM ORAL Take 0.5 mg by mouth as needed. FAMILY HISTORY Problem Relation Age of Onset Hypertension Mother Stroke Mother Breast Cancer Mother other (MELANOMA) Mother Thyroid Sister Hypertension Sister Heart Maternal Aunt Hypertension Father Prostate Cancer Father Social History Tobacco Use Smoking status: Never Substance Use Topics Alcohol use: No Drug use: No ASSESSMENT/PLAN: 1. Pain - ICD9: 780.96, ICD10: R52 - XR TOE AP/LAT/OBL LEFT * * * * Physician Interpretation * * * * EXAMINATION: LEFT THIRD TOE X-RAY SERIES HISTORY: Third toe jamming injury. Pain at the tuft. COMPARISON: None available. TECHNIQUE: PA, lateral and oblique views. RESULT: There is a small chip/avulsion fracture involving the dorsal base of the distal phalanx of the third toe. Mild degenerative changes at the third DIP joint. Soft tissue swelling about the third toe. IMPRESSION IMPRESSION: Small chip/avulsion fracture involving the dorsal base of the distal phalanx of the third toe. Table Hand: ARCHANA Transcribe Date/Time: Jul 17 2024 6:34P Dictated by : PREM DEGROOT MD 2. Closed nondisplaced fracture of distal phalanx of lesser toe of left foot, initial encounter - ICD9: 826.0, ICD10: S92.535A Was placed in a postop shoe. Patient was educated to follow-up with primary podiatry. Patient will rest ice elevate. Patient was okay with this care plan. Harsh Velazquez APRN.DATA CENTER OPERATOR documented in this encounter [facility] 07-04-2024 Note HNO ID: [id number] Author: JAMSHID DUBOIS MD Service: ? Author Type: Physician Type: Procedures Filed: 07/04/2024 11:19 Note Text: ULTRASOUND EXAM OF THYROID RIGHT: Right thyroid lobe is of normal size and shape. Parenchyma is homogenous. There are few small cysts in this lobe that are not clinically significant. ISTHMUS:Normal. LEFT: Left thyroid lobe is of normal size and shape. Parenchyma is homogenous. IN the mid lobe there is well defined elongated. partially cystic nodule measuring 8 x 10 x 14 mm. Nodule has no calcifications and shows 2/4 level of vascularity. In the lower pole there is another small nodule measuring 6 x 6 x 10 mm that is not vascular and has one area of rough calcification. Impression: Stable right sided thyroid nodules. FNA: No FNA - We will repeat US exam next year. U/S by Staff:Jamshid Dubois MD Date: July 04, 2024 [facility] 07-04-2024 Procedure note ULTRASOUND EXAM OF THYROID RIGHT: Right thyroid lobe is of normal size and shape. Parenchyma is homogenous. There are few small cysts in this lobe that are not clinically significant. ISTHMUS:Normal. LEFT: Left thyroid lobe is of normal size and shape. Parenchyma is homogenous. IN the mid lobe there is well defined elongated. partially cystic nodule measuring 8 x 10 x 14 mm. Nodule has no calcifications and shows 2/4 level of vascularity. In the lower pole there is another small nodule measuring 6 x 6 x 10 mm that is not vascular and has one area of rough calcification. Impression: Stable right sided thyroid nodules. FNA: No FNA - We will repeat US exam next year. U/S by Staff:Jamshid Dubois MD Date: July 04, 2024 [facility] 07-04-2024 Procedure note ULTRASOUND EXAM OF THYROID RIGHT: Right thyroid lobe is of normal size and shape. Parenchyma is homogenous. There are few small cysts in this lobe that are not clinically significant. ISTHMUS:Normal. LEFT: Left thyroid lobe is of normal size and shape. Parenchyma is homogenous. IN the mid lobe there is well defined elongated. partially cystic nodule measuring 8 x 10 x 14 mm. Nodule has no calcifications and shows 2/4 level of vascularity. In the lower pole there is another small nodule measuring 6 x 6 x 10 mm that is not vascular and has one area of rough calcification. Impression: Stable right sided thyroid nodules. FNA: No FNA - We will repeat US exam next year. U/S by Staff:Jamshid Dubois MD Date: July 04, 2024 documented in this encounter [facility] 07-04-2024 Note HNO ID: [id number] Author: JAMSHID DUBOIS MD Service: ? Author Type: Physician Type: Progress Notes Filed: 07/04/2024 11:19 Note Text: Jose Juan Joshi is a 53 year old female who is presenting today July 04, 2024 for a Thyroid problem. Parts of this note are copied from last visit and modified as needed. Social History Tobacco Use Smoking status: Never Substance Use Topics Alcohol use: No Drug use: No Reason for visit: Nodules/mass Previous laboratory results: TSH (uU/mL) Date Value 09/23/2003 1.770 Review of patient's past medical history indicates: Jose Juan Joshi is a 53 year old female with a medical history of thyroid nodules, renal mass s/p nephrectomy 2013, presenting today for evaluation of thyroid nodules. She was initially diagnosed with thyroid nodules in 2013 during a renal mass workup. Since then she has had a thyroid ultrasound yearly. She has never had an FNA and one was never recommended, Until 2022 when a nodule was noted to have increased in size. However the US done in our office showed nodule to be stable in siz.e ROS: Energy is good. Sleeps well. Weight is stable. No difficulties swallowing or breathing. No pain or tenderness from thyroid bed. No heart palpitations. No temperature intolerance. No excessive sweating No constipation or diarrhea. No problems with skin, hair or nails. No muscle weaknes. No muscle cramping. No tremors. Memory is good. No problems focusing. FAM HX: Sister - thyroid cancer in her 50s. PE: Middle aged CC female. No acute distress, alert and oriented and in appropriate mood. HEENT: Jennifer, sclera anicteric, conjunctiva non inflamed, oral mucosa moist, no lesions. No lid lag. No stare. No exophtalmos. NECK: Supple. No adenopathy. No elevated JVP. No palpable lymph nodes. THYROID: Not palpable. CV: No tachycardia. EXT: No edema or deformities. SKIN: no rash or lesions. No achantosis nigricans. NEURO: No focal signs. No tremors. Assessment: Patient has thyroid nodules first time noticed in 2013. Nodules are small but she has sister with history of thyroid Ca (may have been an incidental finding in [facility]). Last US reported increase in the size of left sided nodule (14 mm in largest dimension now). Cursory US exam today showed largest nodule to be well defined oval and hyperechoic and measures 10 mm in largest dimension. Plan: Her nodules are small, long standing and stable in size. But, because of sister's history we recommend US exam in 2 years. Jamshid Dubois MD Answers submitted by the patient for this visit: Endocrine Review of Systems (Submitted on 06/28/2024) Fatigue: Yes Night sweats: Yes Recent unintentional weight change: No Skin Color Changes: No Post-Nasal Drip: No Thyroid Pain (lower neck): No Trouble Swallowing: No Vision Disturbance: Yes Chest pain: No Leg Swelling: No Blood Clots?: No Leg Pain while walking?: No Difficulty Breathing?: Yes Heartburn: Yes Nausea: Yes Vomiting: No Diarrhea: No Constipation: Yes Abdominal pain: Yes Bone Pain?: No Muscle aches: No Muscle weakness: No Joint pain or stiffness: Yes Headaches: No Dizziness: Yes Numbness?: Yes Urgency to Urinate?: No Increased Urination: No Slow or Small Urine Stream?: No Are your menstrual cycles regular?: No Are your menstrual cycles irregular?: Yes Have your menstrual cycles stopped?: No Flushing: No Hot Flashes?: No Increased Thirst: No Change in Body Hair?: Yes Cold Intolerance: No Heat Intolerance: No [facility] 07-04-2024 History of Present illness Narrative Jose Juan Joshi is a 53 year old female who is presenting today July 04, 2024 for a Thyroid problem. Parts of this note are copied from last visit and modified as needed. Social History Tobacco Use Smoking status: Never Substance Use Topics Alcohol use: No Drug use: No Reason for visit: Nodules/mass Previous laboratory results: TSH (uU/mL) Date Value 09/23/2003 1.770 Review of patient's past medical history indicates: Jose Juan Joshi is a 53 year old female with a medical history of thyroid nodules, renal mass s/p nephrectomy 2013, presenting today for evaluation of thyroid nodules. She was initially diagnosed with thyroid nodules in 2013 during a renal mass workup. Since then she has had a thyroid ultrasound yearly. She has never had an FNA and one was never recommended, Until 2022 when a nodule was noted to have increased in size. However the US done in our office showed nodule to be stable in siz.e ROS: Energy is good. Sleeps well. Weight is stable. No difficulties swallowing or breathing. No pain or tenderness from thyroid bed. No heart palpitations. No temperature intolerance. No excessive sweating No constipation or diarrhea. No problems with skin, hair or nails. No muscle weaknes. No muscle cramping. No tremors. Memory is good. No problems focusing. FAM HX: Sister - thyroid cancer in her 50s. PE: Middle aged CC female. No acute distress, alert and oriented and in appropriate mood. HEENT: Jennifer, sclera anicteric, conjunctiva non inflamed, oral mucosa moist, no lesions. No lid lag. No stare. No exophtalmos. NECK: Supple. No adenopathy. No elevated JVP. No palpable lymph nodes. THYROID: Not palpable. CV: No tachycardia. EXT: No edema or deformities. SKIN: no rash or lesions. No achantosis nigricans. NEURO: No focal signs. No tremors. Assessment: Patient has thyroid nodules first time noticed in 2013. Nodules are small but she has sister with history of thyroid Ca (may have been an incidental finding in [facility]). Last US reported increase in the size of left sided nodule (14 mm in largest dimension now). Cursory US exam today showed largest nodule to be well defined oval and hyperechoic and measures 10 mm in largest dimension. Plan: Her nodules are small, long standing and stable in size. But, because of sister's history we recommend US exam in 2 years. Jamshid Dubois MD Answers submitted by the patient for this visit: Endocrine Review of Systems (Submitted on 06/28/2024) Fatigue: Yes Night sweats: Yes Recent unintentional weight change: No Skin Color Changes: No Post-Nasal Drip: No Thyroid Pain (lower neck): No Trouble Swallowing: No Vision Disturbance: Yes Chest pain: No Leg Swelling: No Blood Clots?: No Leg Pain while walking?: No Difficulty Breathing?: Yes Heartburn: Yes Nausea: Yes Vomiting: No Diarrhea: No Constipation: Yes Abdominal pain: Yes Bone Pain?: No Muscle aches: No Muscle weakness: No Joint pain or stiffness: Yes Headaches: No Dizziness: Yes Numbness?: Yes Urgency to Urinate?: No Increased Urination: No Slow or Small Urine Stream?: No Are your menstrual cycles regular?: No Are your menstrual cycles irregular?: Yes Have your menstrual cycles stopped?: No Flushing: No Hot Flashes?: No Increased Thirst: No Change in Body Hair?: Yes Cold Intolerance: No Heat Intolerance: No documented in this encounter [facility] 07-04-2024 Instructions Pennie Wilson OCCA - 07/04/2024 10:50 AM EDT Thank you for choosing the [facility] Department of Endocrinology, Diabetes and Metabolism. Did you know that you need to call 48 hours in advance of your scheduled visit, if you are unable to make your appointment? [facility] [place] thanks you for your commitment, because patients not showing to their appointment results in a lost opportunity for patients to receive [facility] health care at the [facility]. To Cancel an appointment, please choose one of the following: - Call the Appointment Call Center at [phone] - From [place], Go to Appointments - Cancel Appts If cancelling, consider your need to reschedule to prevent further delays in your care. To Schedule an appointment, please choose one of the following: - Call the Appointment Call Center at [phone] - From [place], Go to Appointments - Request an Appt documented in this encounter [facility] 02-02-2024 Miscellaneous Notes Patient called in to let the office know she had her ultrasound done 02/01/24 and is asking for the office to review. Patient can be reached via my chart. Grecia Hummel Chief Power Dispatcher [facility] documented in this encounter [facility] 01-30-2024 History of Present illness Narrative Radiology Service Progress Note PATIENT NAME: Jose Juan Joshi DATE OF SERVICE: January 30, 2024 TIME: 2:30 PM PATIENT IDENTITY VERIFICATION COMPLETED USING TWO (2) IDENTIFIERS: Name and Date of confirmed by patient verbally. FALL SCREENING: Has the patient had 2 falls in the last year or 1 fall with injury or currently using an Ambulatory Assistive Device (Walker, Cane, Wheelchair, Crutches, etc.)? No PATIENT GENDER DATA: Female. status: : No status: NO. PATIENT RELEVANT IMPLANT DATA REVIEWED: Not Applicable PATIENT PRESENTS WITH AN IMPLANTABLE OR ATTACHED HOME HEALTH MANAGER: No RADIOLOGY DEPARTMENT: Ultrasound PERIPHERAL IV DATA: Not applicable SIGNED BY: Sara Baltazar RDMS RVLauren January 30, 2024 2:30 PM documented in this encounter [facility] 01-30-2024 Note HNO ID: [id number] Author: SARA BALTAZAR RDMS Service: ? Author Type: Surveyor'S Assistant Type: Progress Notes Filed: 01/30/2024 14:31 Note Text: Radiology Service Progress Note PATIENT NAME: Jose Juan Joshi DATE OF SERVICE: January 30, 2024 TIME: 2:30 PM PATIENT IDENTITY VERIFICATION COMPLETED USING TWO (2) IDENTIFIERS: Name and Date of confirmed by patient verbally. FALL SCREENING: Has the patient had 2 falls in the last year or 1 fall with injury or currently using an Ambulatory Assistive Device (Walker, Cane, Wheelchair, Crutches, etc.)? No PATIENT GENDER DATA: Female. status: : No status: NO. PATIENT RELEVANT IMPLANT DATA REVIEWED: Not Applicable PATIENT PRESENTS WITH AN IMPLANTABLE OR ATTACHED HOME HEALTH MANAGER: No RADIOLOGY DEPARTMENT: Ultrasound PERIPHERAL IV DATA: Not applicable SIGNED BY: Sara Baltazar RDMS RVLauren January 30, 2024 2:30 PM [facility] 03-21-2023 Note [facility] Pap Smear Specimen Adequacy March 21, 2023 1:22pm Comment . Satisfactory for evaluation. Endocervical and/or squamous metaplasticcells (endocervical component) are present. Comment on above: Satisfactory for patito luation. Endocervical and/or squamous metaplasticcells (endocervical component) are present. 03-21-2023 Note [facility] Pap Smear Specimen Adequacy March 21, 2023 1:22pm Comment . Satisfactory for evaluation. Endocervical and/or squamous metaplasticcells (endocervical component) are present. Comment on above: Satisfactory for patito luation. Endocervical and/or squamous metaplasticcells (endocervical component) are present. 12-23-2022 History of Present illness Narrative Images from the original note were not included. [facility] CC: Thyroid nodules Request of PCP regarding: thyroid nodule PCP is Kaylee Pink DO HISTORY OF PRESENT ILLNESS: Jose Juan Joshi is a 52 year old female with a medical history of thyroid nodules, renal mass s/p nephrectomy 2013, presenting today for evaluation of thyroid nodules. She was initially diagnosed with thyroid nodules in 2013 during a renal mass workup. Since then she has had a thyroid ultrasound yearly. She has never had an FNA and one was never recommended, until this year when a nodule was noted to have increased in size. Reports that her blood work was done recently and her thyroid function was normal. History of ionizing radiation to the head, neck or chest? no Family history of thyroid disorders or thyroid cancer: Sister - thyroid cancer in her 50s. 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 Also has lung CA - Father has prostate CA - Mother has breast and skin CA - Brother has prostate CA - Oldest sister has breast CA REVIEW OF SYSTEMS: SYSTEMIC: weight has been stable and good energy Voice: normal NECK: Denies neck pain, new lumps CARDIOVASCULAR: Denies chest pain, palpitations RESPIRATORY: Denies shortness of breath, cough, wheezing GASTRO-INTESTINAL: Denies abdominal pain, increased bowel movements, nausea or vomiting NEUROLOGICAL: Denies tremor, weakness, numbness or tingling MUSCULOSKELETAL: Denies joint pain, stiffness, swelling SKIN: Denies new rashes, dryness, new stretch casey PSYCHIATRIC: Denies depression or anxiety PAST HISTORY, MEDICATIONS & ALLERGIES: PAST MEDICAL HISTORY Diagnosis Date Abdominal pain, left lower quadrant Allergic rhinitis, cause unspecified Arthritis Bronchitis Contact dermatitis and other eczema, due to unspecified cause Diffuse cystic mastopathy Eczema Hemorrhage of gastrointestinal tract, unspecified Hives Infectious disease Internal hemorrhoids without mention of complication Mononucleosis Pneumonia UTI (urinary tract infection) Vertigo PAST SURGICAL HISTORY Procedure Laterality Date COLONOSCOPY FLX DX W/COLLJ SPEC WHEN PFRMD 05/14/15 Colonoscopy CYSTOSCOPY 2016 D&C DIAGNOSTIC OR THERA - IPAS LAPAROSCOPY RADICAL NEPHRECTOMY 2013 left NM BILIARY (HIDA) SCAN 2016 SIGMOIDOSCOPY FLX DX W/COLLJ SPEC BR/WA IF PFRMD 06/12/10 wisdom teeth FAMILY HISTORY Problem Relation Age of Onset Hypertension Mother Stroke Mother Breast Cancer Mother other (MELANOMA) Mother Thyroid Sister Hypertension Sister Heart Maternal Aunt Hypertension Father Prostate Cancer Father Social History Tobacco Use Smoking status: Never Substance Use Topics Alcohol use: No Drug use: No Current Outpatient Medications Medication Sig Dispense Refill NUVARING 0.12-0.015 mg/24 hr vaginal ring Ascorbic Acid (VITAMIN C) 1,000 mg tablet Take 1,000 mg by mouth once daily. LACTOBACILLUS ACIDOPHILUS (PROBIOTIC ORAL) Take by mouth. meclizine (ANTIVERT) 12.5 mg tab Take 25 mg by mouth three times daily. multivitamin tablet Take 1 tablet by mouth as needed. LORAZEPAM ORAL Take 0.5 mg by mouth as needed. amoxicillin (AMOXIL) 875 mg tablet ciprofloxacin HCl (CIPRO) 500 mg tablet amoxicillin-clavulanic acid (AUGMENTIN) 875-125 mg per tablet Take 1 tablet by mouth twice daily. 14 tablet 0 amoxicillin (POLYMOX, AMOXIL) 500 mg capsule Take 1 capsule by mouth three times daily. 15 capsule 0 METHENAM/DENIZ AC/SALICY/TY-AM (CYSTEX ORAL) Take by mouth. Methenamine Hippurate (HIPREX) 1 gram tablet Take 1 tablet by mouth twice daily. 60 tablet 11 CALCIUM CARBONATE (CALCIUM 300 ORAL) Take by mouth as needed. metroNIDAZOLE (METROGEL) 1 % Topical Gel Apply to affected area. No current facility-administered medications for this visit. ALLERGIES Allergen Reactions Dust Methenamine Unknown Mold Ragweed Seasonal Allergies Unknown PHYSICAL EXAMINATION: BP 115/60 Pulse 69 Ht 170.4 cm (5' 7.09) Wt 64.4 kg (142 lb) LMP 04/24/2015 BMI 22.18 kg/m General: Well appearing, no acute distress Heart: Normal rate Lungs: Breathing comfortably on room air Neck: Soft, no tenderness, masses or lymphadenopathy, thyroid normal size and consistency Extremities: Warm and well perfused, no edema Neuro: A&Ox3, no tremors, normal strength in upper and lower extremities Skin: No rash LABS & IMAGIN11/23/2022 TSH: 1.85 Imaging: Thyroid INDICATION: NODULAR GOITER EXAMINATION: Ultrasound US Thyroid (eg thyroid, parathyroid, parotid) COMPARISON: 01/26/2021 FINDINGS: RIGHT THYROID LOBE: 4.3 x 1.4 x 1.0 cm previous 4.2 x 1.3 x 1.4 cm.. Homogeneous echotexture with normal vascularity. [] Medial midpole cyst 0.4 x 0.4 x 0.2 cm previously measuring 0.3 cm. LEFT THYROID LOBE: 3.9 x 1.4 x 1.0 cm previous 3.8 x 1.3 x 1.4 cm.. Homogeneous echotexture with normal vascularity. [Mixed solid and cystic nodule within the mid pole 1.2 x 0.8 x 0.5 cm increased as compared to prior study previously measuring 0.7 cm. This is a T RADS 3 nodule. There is a 0.6 x 0.4 x 0.5 cm solid nodule posteriorly in the mid to upper pole which is hypoechoic. There is a 0.4 x 0.2 x 0.2 cm nodule in the mid to lower pole which is hyperechoic. ISTHMUS: 0.2 cm. No thyroid nodules are present. US/Thyroid IMPRESSION: Multinodular goiter as detailed above. ASSESSMENT & PLAN: Jose Juan Joshi is a 52 year old female with a medical history of thyroid nodules, renal mass s/p nephrectomy 2013, presenting today for evaluation of thyroid nodules. Report reviewed and cursory exam done in office today shows multiple sub-centimeter nodules and a dominant nodule which measures 1.0 cm in the largest dimension. Discussed that there is no indication for FNA at this time, but given her family history of thyroid cancer, can continue to monitor with ultrasounds. # MNG: - Follow up ultrasound in 2 years Melina Vieira, DO PGY-5, [facility] [place]. Patient seen and staffed with Dr. Dubois, addendum to follow Endocrinology Staff Note: New: Patient is self referred to me for evaluation of thyroid nodules.. I personally interviewed and examined Jose Juan Joshi and confirmed the villatoro elements of the history and physical exam documented by the Fellow. Assessment: Patient has thyroid nodules first time noticed in 2013. Nodules are small but she has sister with history of thyroid Ca (may have been an incidental finding in [facility]). Last US reported increase in the size of left sided nodule (12 mm in largest dimension now). Cursory US exam today showed largest nodule to be well defined oval and hyperechoic and measures 10 mm in largest dimension. Plan: Her nodules are small, long standing and stable in size. But, because of sister's history we recommend US exam in 2 years. Jamshid Dubois MD documented in this encounter [facility] 12-23-2022 Instructions Lynn James Ma - 12/23/2022 8:41 AM EST Thank you for choosing the [facility] Department of Endocrinology, Diabetes and Metabolism. Did you know that you need to call 48 hours in advance of your scheduled visit, if you are unable to make your appointment? The [facility] [place] thanks you for your commitment, because patients not showing to their appointment results in a lost opportunity for patients to receive [facility] health care at the [facility]. To Cancel an appointment, please choose one of the following: - Call the Appointment Call Center at [phone] - From [place], Go to Appointments - Cancel Appts If cancelling, consider your need to reschedule to prevent further delays in your care. To Schedule an appointment, please choose one of the following: - Call the Appointment Call Center at [phone] - From [place], Go to Appointments - Request an Appt documented in this encounter [facility] Evaluation note No assessment inform ation available [facility] Work Phone: Evaluation note Diagnosis Multiple thyroid nodules- Primary Nontoxic multinodular goiter [facility] Diagnosis Onset Date Resolution Status Cervical lesion acute Family history of breast cancer acute Women's annual routine gynecological examination acute [facility] Work Phone: Evaluation note* Diagnosis Onset Date Resolution Status Abnormal uterine bleeding ac [place] Cervical lesion acute Abnormal uterine bleeding ac [place] Cervical lesion acute Family history of breast cancer acute [facility] Work Phone: Evaluation note* Diagnosis Multiple thyroid nodules- Primary Nontoxic multinodular goiter [facility] [place] [facility]* Diagnosis Pain- Primary Generalized pain Closed nondisplaced fracture of distal phalanx of lesser toe of left foot, initial encounter Pain Generalized pain [facility] [place] [facility]* Diagnosis Pain Generalized pain documented [facility] [place] [facility]* Diagnosis Closed nondisplaced fracture of distal phalanx of lesser toe of left foot with routine healing, subsequent encounter- Primary documented [facility] [place] [facility]* Diagnosis Closed nondisplaced fracture of distal phalanx of lesser toe of left foot with routine healing, subsequent encounter [facility] [place] [facility]* Diagnosis Closed nondisplaced fracture of phalanx of lesser toe of right foot, unspecified phalanx, initial encounter- Primary Onychodystrophy Other specified disease of nail Calcaneal spur of foot, left documented in this encounter [facility] for referral (narrative)* Diagnostic Procedure Only (Urgent) - Closed Specialty Diagnoses / Procedures Referred By Contac t Referred To Contact XR IMAGING Diagnoses Pain Procedures XR TOE AP/LAT/OBL LEFT RADEX TOE MINIMUM 2 VIEWS Harsh Velazquez APRN.DATA CENTER OPERATOR [address] [place] [address] [place] [address] Referral ID Status Reason Start Date Expiration Date V isits Requested Visits Authorized [id number] Closed Auto-Generate d Referral 07/17/2024 08/16/2025 1 1 [facility] for referral (narrative)* Diagnostic Procedure Only (Urgent) - Closed Specialty Diagnoses / Procedures Referred By Contac t Referred To Contact XR IMAGING Diagnoses Pain Procedures XR TOE AP/LAT/OBL LEFT RADEX TOE MINIMUM 2 VIEWS Harsh Velazquez APRN.CNP [address] [place] [address] [place] [address] Referral ID Status Reason Start Date Expiration Date V isits Requested Visits Authorized [id number] Closed Auto-Generate d Referral 07/17/2024 08/16/2025 1 1 [facility] for referral (narrative)* Diagnostic Procedure Only (Routine) - Authorized Specialty Diagnoses / Procedures Referred By Contac t Referred To Contact XR IMAGING Diagnoses Closed nondisplaced fracture of distal phalanx of lesser toe of left foot with routine healing, subsequent encounter Procedures XR FOOT GENERAL 3V AP/LAT/OBL LEFT RADEX FOOT COMPLETE MINIMUM 3 VIEWS Giovanni Bey [address] [place] [address] [place] [address] Referral ID Status Reason Start Date Expiration Date Visits Requested Visits Authorized [id number] Authorized Auto-Generat ed Referral 09/12/2025 1 1 [facility] for referral (narrative)No reason for referral [facility]: [facility]oms for visit Narrative* Diagnostic Procedure Only (Urgent) - Closed Specialty Diagnoses / Procedures Referred By Contac t Referred To Contact XR IMAGING Diagnoses Pain Procedures XR TOE AP/LAT/OBL LEFT RADEX TOE MINIMUM 2 VIEWS Harsh Velazquez APRN.CNP [address] [place] [address] [place] [address] Referral ID Status Reason Start Date Expiration Date V isits Requested Visits Authorized [id number] Closed Auto-Generate d Referral 07/17/2024 08/16/2025 1 1 [facility] for visit Narrative* Diagnostic Procedure Only (Routine) - Closed Specialty Diagnoses / Procedures Referred By Contac t Referred To Contact XR IMAGING Diagnoses Closed nondisplaced fracture of distal phalanx of lesser toe of left foot with routine healing, subsequent encounter Procedures XR FOOT GENERAL 3V AP/LAT/OBL LEFT RADEX FOOT COMPLETE MINIMUM 3 VIEWS Giovanni Bey [address] [place] [address] [place] [id number] Referral ID Status Reason Start Date Expiration Date V isits Requested Visits Authorized [id number] Closed Auto-Generate d Referral 08/13/2024 09/12/2025 1 1 [facility] Summary Purpose Family History No Family History Records Found Relationship Condition Age at Onset Recorded Date/T rashid brother Malignant neoplasm of breast Unknown sister Malignant neoplasm of breast Unknown Malignant neoplasm Unknown mother Cerebrovascular accident (CVA) Unknown Malignant neoplasm of breast Unknown Malignant neoplasm of skin Unknown father Cerebrovascular accident (CVA) Unknown Malignant neoplasm of prostate Unknown Relationship Condition Age at Onset Recorded Date/T rashid brother Malignant neoplasm of breast Unknown sister Malignant neoplasm of breast Unknown Malignant neoplasm Unknown Parkinson's disease Unknown mother Cerebrovascular accident (CVA) Unknown Malignant neoplasm of breast Unknown Malignant neoplasm of skin Unknown father Cerebrovascular accident (CVA) Unknown Malignant neoplasm of prostate Unknown Advance Directives No Advanced Directives Records Found Advance Directive Response Recorded Date/ Time Advance Directives Yes June 3:39pm Living Will Yes June 29, 2016 3:39pm Power of Audiovisual Librarian Yes June 3:39pm Advance Directive Response Recorded Date/ Time Advance Directives Yes June 2:39pm Living Will Yes June 29, 2016 2:39pm Power of Audiovisual Librarian Yes June 2:39pm Advance Directive Response Recorded Date/ Time Advance Directives Yes March 09 1:08pm Living Will Yes March 09, 2023 1 :08pm Power of Audiovisual Librarian Yes March 09, 2023 1:08pm Advance Directive Response Recorded Date/ Time Advance Directives Yes May 03 2:07pm Living Will Yes May 03, 2023 2:07pm Power of Audiovisual Librarian Yes May 03 2:07pm Advance Directive Response Recorded Date/ Time Advance Directives Yes May 03 1:07pm Living Will Yes May 03, 2023 1:07pm Power of Audiovisual Librarian Yes May 03 1:07pm Advance Directive Response Recorded Date/ Time Advance Directives Yes May 03 2:07pm Chief Complaint and Reason for Visit Chief Complaint SCREENING Chief Complaint Nontoxic multinodula r goiter PERSISTENT PULSATILE TINNITUS LEFT EAR 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) , per nurse moved up due to BC refill POSTCOITAL BLEEDING Reason for Visit Cervical lesion Family history of breast cancer Women's annual routine gynecological examination Chief Complaint 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) , per n arianae moved up due to BC refill POSTCOITAL BLEEDING surgical consult Reason for Visit Cervical lesion Family history of breast cancer Women's annual routine gynecological examination Chief Complaint surgical consult 1 M FU, Pt req SCREENING Reason for Visit Abnormal uterine ble eding Cervical lesion Abnormal uterine bleeding Cervical lesion Family history of breast cancer Chief Complaint Admit Date REASSESS THYROID NODULES March 09, 2025 7:52am Additional Source Comments INFORMATION SOURCE (unrecogn ized section and content) DATE CREATED AUTHOR 04/11/2018 [facility] DATE CREATED AUTHOR AUTHOR'S ORGANIZ ATION 04/12/2018 [facility] DATE CREATED AUTHOR AUTHOR'S ORGANIZ ATION 04/12/2018 [facility] DATE CREATED AUTHOR AUTHOR'S ORGANIZ ATION 12/01/2024 [facility] DATE CREATED AUTHOR AUTHOR'S ORGANIZ ATION 03/22/2025 [facility] Goals (unrecognized section and content) Goals may be documented in a n alternate sectionGoals may be documented in an alternate sectionGoals may be documented in an alternate sectionGoals may be documented in an alternate sectionGoals may be documented in an alternate sectionGoals may be documented in an alternate sectionGoals may be documented in an alternate section Source Comments (unrecognize d section and content) In the event this informatio n is protected by the Federal Confidentiality of Alcohol and Drug Abuse Patient Records regulations: The Federal rules restrict any use of the information to criminally investigate or prosecute any alcohol or drug abuse patient.[facility] the event this information is protected by the Federal Confidentiality of Alcohol and Drug Abuse Patient Records regulations: The Federal rules restrict any use of the information to criminally investigate or prosecute any alcohol or drug abuse patient.[facility] the event this information is protected by the Federal Confidentiality of Alcohol and Drug Abuse Patient Records regulations: The Federal rules restrict any use of the information to criminally investigate or prosecute any alcohol or drug abuse patient.[facility] the event this information is protected by the Federal Confidentiality of Alcohol and Drug Abuse Patient Records regulations: The Federal rules restrict any use of the information to criminally investigate or prosecute any alcohol or drug abuse patient.[facility] the event this information is protected by the Federal Confidentiality of Alcohol and Drug Abuse Patient Records regulations: The Federal rules restrict any use of the information to criminally investigate or prosecute any alcohol or drug abuse patient.[facility] the event this information is protected by the Federal Confidentiality of Alcohol and Drug Abuse Patient Records regulations: The Federal rules restrict any use of the information to criminally investigate or prosecute any alcohol or drug abuse patient.[facility] the event this information is protected by the Federal Confidentiality of Alcohol and Drug Abuse Patient Records regulations: The Federal rules restrict any use of the information to criminally investigate or prosecute any alcohol or drug abuse patient.[facility] the event this information is protected by the Federal Confidentiality of Alcohol and Drug Abuse Patient Records regulations: The Federal rules restrict any use of the information to criminally investigate or prosecute any alcohol or drug abuse patient.[facility] the event this information is protected by the Federal Confidentiality of Alcohol and Drug Abuse Patient Records regulations: The Federal rules restrict any use of the information to criminally investigate or prosecute any alcohol or drug abuse patient.[facility] System[facility] the event this information is protected by the Federal Confidentiality of Alcohol and Drug Abuse Patient Records regulations: The Federal rules restrict any use of the information to criminally investigate or prosecute any alcohol or drug abuse patient.[facility] Reason for Visit (unrecogniz ed section and content) Reason Comments Thyroid Nodule Reason Comments Radiology US Reason Comments Patient Update Reason Comments left foot/toe pain X 3 days-tripped ove r toys Reason Comments New broken 3rd toe Pain Reason Comments Release Of Medical Records Imaging Disc/ Report Care Teams (unrecognized sec tion and content) Occ Therapy Asst Relationship Specialty Start Date End Date Kaylee Pink DO [address] [place] [address] PCP - General Family Medicine 09/12/17 Team Status: Active Member Role Status Dates Kaylee ROSEN Family Provider Active Dr. Kaylee Pink DO Primary Care Provider Active Team Status: Inactive Member Role Status Dates Kaylee ROSEN Primary Care Provider, Referring Pro vider Active Cait Torrez CNM Attending Provider Active Team Status: Inactive Member Role Status Dates Kaylee ROSEN Primary Care Provider Active Dr. Kaylee Pink DO Attending Provider, Referring P rovider Active Team Status: Inactive Member Role Status Dates Dr. Kaylee Pink DO Primary Care Provider Active Cait Torrez CNM Attending Provider, Referring Pr ovider Active Team Status: Inactive Member Role Status Dates Dr. Kaylee Pink DO Primary Care Provider, Referrin g Provider Active Dr. Jamee Gray MD Attending Provider Active Team Status: Inactive Member Role Status Dates Dr. Kaylee Pink DO Primary Care Provider Active Dr. Jamee Gray MD Attending Provider, Referr ing Provider Active Team Status: Inactive Member Role Status Dates Dr. Kaylee Pink DO Primary Care Prov ider, Attending Provider, Referring Provider Active Team Status: Inactive Member Role Status Dates Dr. Kaylee Pink DO Primary Care Provider, Attendin g Provider Active Occ Therapy Asst Relationship Specialty Start Date End Date Kaylee Pink DO [address] [place] [address] PCP - General Family Medicine 09/12/17 Occ Therapy Asst Relationship Specialty Start Date End Date Kaylee Pink DO [address] [place] [address] PCP - General Family Medicine 09/12/17 Occ Therapy Asst Relationship Specialty Start Date End Date Kaylee Pink DO [address] [place] [address] PCP - General Family Medicine 09/12/17 Occ Therapy Asst Relationship Specialty Start Date End Date Kaylee Pink DO [address] [place] [address] PCP - General Family Medicine 09/12/17 Occ Therapy Asst Relationship Specialty Start Date End Date Kaylee Pink DO [address] [place] [address] PCP - General Family Medicine 09/12/17 Occ Therapy Asst Relationship Specialty Start Date End Date Kaylee Pink DO [address] [place] [address] PCP - General Family Medicine 09/12/17 Occ Therapy Asst Relationship Specialty Start Date End Date Kaylee Pink DO [address] [place] [address] PCP - General Family Medicine 09/12/17 Team Status: Active Member Role Status Dates Dr. Kaylee Pink DO Primary Care Provider Active Team Status: Inactive Member Role Status Dates Dr. Kaylee Pink DO Primary Care Provider Active Start: March 04, 2025 End: March 04, 2025 Dr. Kaylee Pink DO Attending Provider Active Start: March 04, 2025 End: March 04, 2025 Dr. Kaylee Pink DO Referring Provider Active Start: March 04, 2025 End: March 04, 2025 Team Status: Inactive Member Role Status Dates Dr. Kaylee Pink DO Primary Care Provider Active Start: March 09, 2025 End: March 09, 2025 Dr. Kaylee Pink DO Attending Provider Active Start: March 09, 2025 End: March 09, 2025 Dr. Kaylee Pink DO Referring Provider Active Start: March 09, 2025 End: March 09, 2025 FOR RECORDS PERTAINING TO PATIENTS WHO ARE OR HAVE BEEN ENROLLED IN A CHEMICAL DEPENDENCY/SUBSTANCEABUSE PROGRAM, SOME INFORMATION MAY BE OMITTED. This clinical summary was aggregated from multiple sources. Caution should be exercised in using it in the provision of clinical care. This summary normalizes information from multiple sources, and as a consequence, information in this document may materially change the coding, format and clinical context of patient data. In addition, data may be omitted in some cases. CLINICAL DECISIONS SHOULD BE BASED ON THE PRIMARY CLINICAL RECORDS. [employer] [facility]. provides no warranty or guarantee of the accuracy or completeness of information in this document.
== END | disposition home or self-care (01) ==
LOC: MTRAD 09:54
PROVIDERS: PCP Family Medicine; Referring Provider Family Medicine; Visit Provider Family Medicine
DX: M25.511 Pain in right shoulder (principal)
CPT/HCPCS: 73030

== ENCOUNTER → 2025-06-24 | Outpatient (CLI) | payer BC, SELFPAY | END | disposition home or self-care (01) | LOC: LABSPEC 15:30 | PROVIDERS: PCP Family Medicine; Referring Provider Urology; Visit Provider Urology | DX: R30.0 Dysuria (principal) | CPT/HCPCS: 87077; 87086; 87088; 87186 ==

== ENCOUNTER 2025-07-15 08:13 | Day surgery (SDC) | payer BC, SELFPAY ==
[2025-07-15] VITALS (10 sets, daily range): BP systolic 98–154; BP diastolic 57–95; PULSE 81–89; RESP 16–18; TEMP 36.6–36.9; O2SAT 95–100; BMI 23.3
[2025-07-15 08:44] LABS: Internal QC Validated? YES +Cl - CLEAR BKGD; Pregnancy, Urine Negative Negative; Record Kit Lot#,Urine Preg 0000964736
[2025-07-15] MEDS: Lactated Ringers 1,000 ML 15 ML IV (08:54)
--- NOTE | 2025-07-15 09:02 | PCM.PRE.AN2 ---
ASA Classification* ASA Classification ASA Classification: 2 Assessment & Plan Anesthesia* Anesthesia Assessment Anesthesia Assessment: Discussed sedation and/or anesthesia options, risks, benefits, and alternatives with patient/parents/legal guardian/POA. Questions invited. The patient/parents/legal guardian/POA seems to understand and agrees to proceed with anesthesia plan. Reviewed the physical assessment, medical history, allergy history and patient home medications list prior to surgery/procedure/anesthetic and documented any changes. Performed airway and anesthesia risk assessments. Anesthesia Type Anesthesia Type: MAC History Source History Obtained from:: Patient and Chart Anesthesia Focused Assessment* Temperature: 98.3 F Pulse Rate: 81 Blood Pressure: 110/61 Respiratory Rate: 18 Pulse Ox: 98 Airway Assessment Mouth opens: >3 cm Mallampati Score: I Labs Anesthesia Preop lab: CBC WBC, (4.4-11.0) 4.6 K/mm3 03/04/25, 10:24 RBC, (4.2-5.4) 4.24 M/mm3 03/04/25, 10:24 Hgb, (12.0-15.0) 12.6 g/dL 03/04/25, 10:24 Hct, (37-47) 37.8 % 03/04/25, 10:24 Plt Count, (150-450) 228 K/mm3 03/04/25, 10:24 CHEMISTRY Potassium, (3.3-5.1) 4.2 mmol/L 03/04/25, 10:24 Sodium, (133-145) 137 mmol/L 03/04/25, 10:24 BUN, (4-19) 13 mg/dL 03/04/25, 10:24 Creatinine, (0.70-1.20) 0.74 mg/dL 03/04/25, 10:24 Glucose, (70-99) 81 mg/dL 03/04/25, 10:24 TSH, (0.358-3.740) 1.490 uIU/mL 08/06/24, 16:13 COAG PT, (11.7-14.9) 12.8 SECONDS 03/04/25, 10:24 HCG, Quant, (1-3) < 1 mIU/mL 06/06/24, 12:50 Urine Test Negative Negative Today, 08:33 Pre-Assessment Diagnosis/Proposed Procedure Planned Operative Procedure(s): COLONOSCOPY Anesthesia History 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 When Was Last Pacemaker Check QUESTION #4 FULL TEXT: You/Your Family Experience fever (hyperthermia) with Anesthesia Last Oral Intake Last Oral intake: Last Oral Intake NPO since 00:00 07/15/25 08:42 Meds taken in AM with sips of No 07/15/25 08:42 water? Meds patient instructed to take am of surgery PONV PONV - surgical appliance fitter: PONV - surgical appliance fitter Female Yes 07/10/25 13:54 HX of Motion Sickness Yes 07/10/25 13:54 HX of N/V After Surgery Yes 07/10/25 13:54 Non-Smoker Yes 07/10/25 13:54 Duration of Surgery greater No 07/10/25 13:54 than 60 minutes Number of Risk Factors 4 07/10/25 13:54 PONV Score Severe Risk 07/10/25 13:54 Height & Weight Height & Weight: Anesthesia: Height & Weight Height 5 ft 6 in 07/15/25 08:42 Weight: 65.7 kg 07/15/25 08:42 Body Mass Index (BMI) 23.3 07/15/25 08:42 Respiratory Assessment Respiratory Assessment - surgical appliance fitter: Respiratory Tract Infection Hx - surgical appliance fitter Hx Respiratory Tract Infection Yes: COLD SYMPTOMS, WILL 07/10/25 13:54 CALL IF SYMPTOMS STOP Sleep Apnea STOP Sleep Apnea - surgical appliance fitter: STOP Sleep Apnea - surgical appliance fitter Hx Hypertension No 07/10/25 13:54 Hx Sleep Apnea No 07/10/25 13:54 CPAP No 05/03/23 14:07 BIPAP No 05/03/23 14:07 Do you snore loudly (louder No 07/10/25 13:54 than talking or can be heard Do you often feel tired/ No 07/10/25 13:54 fatigued/ sleepy during daytime? Has anyone observed you stop No 07/10/25 13:54 breathing during sleep? STOP Results Negative 07/10/25 13:54 QUESTION #5 FULL TEXT : Do you snore loudly (louder than talking or can be heard through closed doors)? 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 Specify any problems Hx of Preganancy in last 3 No 07/10/25 13:54 Months Nurse Filling Out Transfusion VLEHMAN 07/10/25 13:54 & Questions: Date: 07/10/25 07/10/25 13:54 Time: 14:01 07/10/25 13:54 Patient unable to answer at this time (ie. confused, unrespo /Reproduction History /Reproductive History - surgical appliance fitter: /Reproductive Hx- surgical appliance fitter Hx Now No 07/10/25 13:54 Gestational Age (in weeks): EDC: Hx Hx Para Hx Section SAB No 07/10/25 13:54 Active Medications Active Medications: Current Medications Generic Name Dose Route Start Last Admin Trade Name Freq PRN Reason Stop Dose Admin Lactated Ringer's 1,000 mls @ 15 mls/hr 07/15/25 08:30 07/15/25 08:54 IV 15 mls/hr .Q48H LYNETTE Administration PFSH Medical History Wears glasses Thyroid disease Arthritis History of renal disease Easy bruising Restless legs History of IBS Non-smoker Leg cramps Home Medications Medication Instructions Recorded Last Taken Type meclizine 25 mg tablet 25 mg PO BID PRN dizziness 03/21/23 Unknown History peg 3350-electrolytes 236 4,000 ml PO ONCE #4,000 mL 05/13/25 07/14/25 Rx gram-22.74 gram-6.74 gram-5.86 gram solution metronidazole 0.75 % topical gel 1 applic topical BID PRN ROSCEA 07/10/25 Unknown History Allergy/AdvReac Type Severity Reaction Status Date / Time No Known Allergies Allergy Verified 07/15/25 08:41 Family History Brother Breast cancer Sister Breast cancer Cancer osteocarcinoma Parkinsons disease Mother CVA (cerebral vascular accident) Breast cancer Skin cancer Father CVA (cerebral vascular accident) Prostate cancer Surgical History History of colonoscopy S/P wisdom tooth extraction S/P dilation and curettage S/P endometrial ablation S/p nephrectomy Social History housing: apartment number of children: 2 current occupational status: employed current occupation: [employer] Smoking Status: Never smoker alcohol intake: current details: occasionally substance use type: does not use caffeine: Yes what type of physical activity do you participate in: walking, aerobics and weight training frequency: 1-2 times per week seatbelt use: always do you feel safe at home: Yes additional social history: -Bennett Addt'l Information Additional Findings: >4 mets Review of Systems (Anesthesia) ROS Narrative System reviewed and no additional complaints, except as documented. Physical Exam Const alert and oriented x3 Neck full ROM Resp normal respiratory effort, normal air movement and clear to auscultation bilaterally Cardio regular rate and regular rhythm Back/Spine normal ROM Neuro oriented x3 and moves all extremities
--- NOTE | 2025-07-15 09:28 | HP.PCM_ITS ---
[facility] - General General Date of Service: 07/15/25 HPI Narrative JOSE JUAN RICHARDSON, is a 54 F who presents for screening colonoscopy. Patient's last colonoscopy was about 10 years ago at [facility] per patient negative. Patient states her mom did have a grape sized tumor may be related to diverticulitis removed in her 40s not sure if it was cancerous per patient mom is now in her 80s. Patient has bowel movements about every 3 to 4 days. Patient denies any chronic abdominal pain/nausea/vomiting/reflux. Patient is is having some nausea at night almost every night currently not on any medication. [facility] Medical History Wears glasses Thyroid disease Arthritis History of renal disease Easy bruising Restless legs History of IBS Non-smoker Leg cramps Home Medications Medication Instructions Recorded Last Taken Type meclizine 25 mg tablet 25 mg PO BID PRN dizziness 0 03/21/23 Unknown History peg 3350-electrolytes 236 4,000 ml PO ONCE #4,000 mL 0 05/13/25 07/14/25 Rx gram-22.74 gram-6.74 gram-5.86 gram solution metronidazole 0.75 % topical gel 1 applic topical BID PRN ROSCEA 07/10/25 Unknown History Allergy/AdvReac Type Severity Reaction Status Date / Time No Known Allergies Allergy Verified 07/15/25 08:41 Family History Brother Breast cancer Sister Breast cancer Cancer osteocarcinoma Parkinsons disease Mother CVA (cerebral vascular accident) Breast cancer Skin cancer Father CVA (cerebral vascular accident) Prostate cancer Surgical History History of colonoscopy S/P wisdom tooth extraction S/P dilation and curettage S/P endometrial ablation S/p nephrectomy Social History housing: apartment number of children: 2 current occupational status: employed current occupation: [employer] Smoking Status: Never smoker alcohol intake: current details: occasionally substance use type: does not use caffeine: Yes what type of physical activity do you participate in: walking, aerobics and weight training frequency: 1-2 times per week seatbelt use: always do you feel safe at home: Yes additional social history: -B[place]ett Past Medical/Surgical History Planned Operation Planned Operative Procedure(s): COLONOSCOPY S.O.S: No Previous Hospitalizations/Surgeries HX Hospitalizations: Yes HX of Surgeries: WISDOM TEETH D AND C 2011 NEPHRECTOMY 2013 Any Problems With Anesthesia: No You/Your Family Experience Fever (Hyperthermia) With Anes: No Cholinesterase deficiency: No Cardiovascular Hx Chest Pain within Last 2 months: No Hx of Irregular Heartbeat and/or Afib: No Hx Heart Attack: No Hx Congestive Heart Failure: No Hx Rheumatic Fever: No Hx Hypertension: No Hx Internal Defibrillator: No Hx Pacemaker: No Hx Cardiac Catheterization: No Hx Cardiac Surgery/Stents/Etc.: No Hx Stress Test: No Hx Pain in Legs when Walking/Leg Cramps: No Respiratory Chronic Cough: No HX of Shortness of Breath: No Hoarseness: No Hx Chronic Obstructive Pulmonary Disease (COPD): No Hx Asthma: No Hx Emphysema: No Hx Sleep Apnea: No CPAP: No BIPAP: No Hx Respiratory Tract Infection/Cold (presently): Yes (MILD COLD, NO FEVER OR COUGH) Do You Snore Loudly (louder than talking or can be heard): No Do You Often Feel Tired/ Fatigued/ Sleepy Dring Daytime?: No Has Anyone Observed You Stop Breathing During Sleep?: No Result (for STOP score): Negative Hx Smoking: No Smoking Status: Never smoker Gastrointestinal Hx Gastrointestinal Disorders: Yes (IBS) Hx Gastrointestinal Bleed: No Hx Ulcer: No Hx Hiatal Hernia: No Difficulty Chewing/Swallowing: No Special diet followed at home: Yes (LOW PROTEIN, LOW SODIUM,) Hx Unplanned Weight Loss of 20#: No HX Unplanned Weight Gain of 20#: No Neurological Hx Seizures: No HX Syncope/Blackout Spells/Unconsciousness: No Hx Transient Ischemic Attacks (TIA): No Hx Multiple Sclerosis: No Hx Parkinson's Disease: No Hx Head/Neck Injury: No Hx Headaches: No Hx Back Injury/Pain: No Recent Onset of Speech Difficulty: No Restless Legs: No Does patient have nerve stimulator: No Blood Disorder Hx Leukemia: No Bleeding Tendencies: No Hx Deep Vein Thrombosis: No Hx High Cholesterol: No Blood Transmitted Disease: No Hx Hepatitis: No Hx Cirrhosis: No Hx Anemia: No Hx Blood Disorders: No Reproduction : No Is Patient Lactating: No Hx Hysterectomy: No Hx Tubal Ligation: No Are You Post Menopause: No Genitourinary Hx 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) Hx Dialysis: No Musculoskeletal Hx Arthritis: No Hx Rheumatoid Arthritis: No Hx Gout: No Recent Onset of an Orthopedic Problem: No Endocrine Hx Diabetes: No Thyroid Disease: Yes Hx Steroid Therapy: No Psycho/Social Hx Substance Use: No Hx Alcohol Use: No Hx Anxiety: No Hx Depression: No Mental Illness: No Hx Dementia: No Miscellaneous Hx Cancer: No Recent Exposure to Contagious Disease: No Hx of C-Diff: No Any Loose Teeth: No Allergies No Known Allergies Allergy (Verified 07/15/25 08:41) Discharge Is Pt Admitted From a Halfway, or a Longterm: No Who Could Help: After D/C, Where Do you Plan to Go: Return Home Vital Signs Vital Signs Vital Signs: 07/15/25 08:42 07/15/25 08:42 07/15/25 09:06 Temperature 98.3 F 98.3 F Temperature Source Temporal Pulse Rate 81 81 Respiratory Rate 18 18 Respiratory Pattern Normal Blood Pressure 110/61 110/61 Blood Pressure Mean 77 Blood Pressure Source Monitor Blood Pressure Position Semi-Fowlers Blood Pressure Location Left Arm Pulse Ox 98 98 Oxygen Delivery Method Room Air Weight Weight: 144 lb 13.499 oz Body Mass Index (BMI) 23.3 Physical Exam Const alert, oriented x3 and no apparent distress HEENT normocephalic and head/scalp atraumatic Resp normal respiratory effort Cardio regular rate GI soft to palpation and non-tender; Negative for non-distended Palpation: Negative for guarding Extremity no clubbing, cyanosis or edema Skin no rashes or lesions noted Neuro CN's II-XII intact bilaterally Psych mental status grossly normal Assessment & Plan Assessment/Plan (1) Screening for colon cancer: (2) Nausea: PLAN: Plan Recommend patient trying [id number] omeprazole 20 to 40 mg p.o. daily for couple weeks and Pepcid (famotidine 20 mg p.o. daily for 1 to 2 days) for the initial first few days with the omeprazole due to the nausea and see if it improves. Patient is agreeable to plan. Surgery Risks - Colonoscopy I discussed with the patient the risks of the procedure: Yes Risks Include but are not Limited To: Risks include but are not limited to: Bleeding, perforation requiring further surgery, inability to complete colonoscopy requiring barium enema.
[2025-07-15] MEDS: Lidocaine 1% (5 ml sdv) 5 ML Vial IV (10:16)
--- NOTE | 2025-07-15 10:44 | OP.PROVAT_ITS ---
07/15/2025 Maynor Townsend [address] [place] [address] Re : Colonoscopy procedure for [facility] Dear Dr. Townsend This procedure was performed on Tuesday, July 15, 2025. My impressions and recommendations are as follows: Impressions : - The entire examined colon is normal on direct and retroflexion views. - No specimens collected. Recommendations : - Discharge patient to home. - Resume previous diet. - Continue present medications. - Repeat colonoscopy in 10 years for screening purposes. My findings are described in the full procedure note, which is enclosed. If I can be of further assistance, please feel free to contact me at Doctor phone number(s): , Work: . Sincerely, MD Elham Bautista MD 07/15/2025 10:44:01 AM This report has been signed electronically.
--- NOTE | 2025-07-15 10:44 | OP.COLON_ITS ---
Patient Name: Elisabet Joshi Procedure Date: 07/15/2025 10:10 AM Date of : 1970 Age: 54 Procedure: Colonoscopy Indications: Screening for colorectal malignant neoplasm Providers: Elham Curtis MD Referring MD: Maynor Townsend Medicines: Monitored Anesthesia Care Patient Profile: This is a 54 year old female. Last Colonoscopy: 10 years ago. Complications: No immediate complications. Procedure: Pre-Anesthesia Assessment: - Prior to the procedure, a History and Physical was performed, and patient medications and allergies were reviewed. The patient's tolerance of previous anesthesia was also reviewed. The risks and benefits of the procedure and the sedation options and risks were discussed with the patient. All questions were answered, and informed consent was obtained. Prior Anticoagulants: The patient has taken no anticoagulant or antiplatelet agents. ASA Grade Assessment: Per anesthesia. After reviewing the risks and benefits, the patient was deemed in satisfactory condition to undergo the procedure. After I obtained informed consent, the scope was passed under direct vision. Throughout the procedure, the patient's blood pressure, pulse, and oxygen saturations were monitored continuously. The Colonoscope was introduced through the anus and advanced to the cecum, identified by the appendiceal orifice, ileocecal valve and palpation. The colonoscopy was performed without difficulty. The patient tolerated the procedure well. The quality of the bowel preparation was good. Scope In: 10:19:16 AM Scope Withdrawal Time 0 hours 6 minutes 59 seconds Scope Out: 10:39:31 AM Total Procedure Duration Time 0 hours 20 minutes 15 seconds Findings: The perianal and digital rectal examinations were normal. The entire examined colon appeared normal on direct and retroflexion views. Impression: - The entire examined colon is normal on direct and retroflexion views. - No specimens collected. Recommendation: - Discharge patient to home. - Resume previous diet. - Continue present medications. - Repeat colonoscopy in 10 years for screening purposes. Procedure Code(s): --- Professional --- G0121, PT, Colorectal cancer screening; colonoscopy on individual not meeting criteria for high risk Diagnosis Code(s): --- Professional --- Z12.11, Encounter for screening for malignant neoplasm of colon CPT copyright 2021 [employer]. All rights reserved. The codes documented in this report are preliminary and upon foiling machine adjuster review may be revised to meet current compliance requirements. MD Elham Bautista MD 07/15/2025 10:44:01 AM This report has been signed electronically. Number of Addenda: 0 Note Initiated On: 07/15/2025 10:10 AM
--- NOTE | 2025-07-15 10:46 | PCM.POST.ANE ---
Anesthesia: Postop Eval I Current Vital Signs Temperature: 98.5 F Pulse Rate: 88 Blood Pressure: 154/95 Respiratory Rate: 16 Pulse Ox: 95 Oxygen Delivery Method: Room Air Assessment Airway patent: Yes Spontaneous unlabored respirations: Yes Mental status: Asleep nausea: No Vomiting: No Anesthesia Complication: No Fluid Hydration Crystalloid volume administer (ml): 600 Total IV fluid infused: 600 Progress Note Anesthesia document: Postop Eval 1 completed: No
--- NOTE | 2025-07-15 11:56 | POSTOPAN2_ITS ---
Anesthesia Postop Eval I Sum Postop Eval Completion status Anesthesia document: Postop Eval 1 completed: No Anesthesia Postop Eval I Summary Anesthesia Postop Eval I Summary: Anesthesia Postop Eval I: Assessment Summary Airway patent Yes 07/15/25 10:47 [email or web address] Spontaneous unlabored Yes 07/15/25 10:47 [email or web address] respirations Mental status Asleep 07/15/25 10:47 [email or web address] nausea No 07/15/25 10:47 [email or web address] Vomiting No 07/15/25 10:47 [email or web address] Anesthesia Postop Eval I: Fluid Summary Crystalloid volume administer 600 07/15/25 10:47 [email or web address] (ml) Colloids volume administered ( ml) Blood Product volume administered (ml) Total IV fluid infused 600 07/15/25 10:47 [email or web address] Anesthesia Postop Eval I: Summary Notes Anesthesia Complication No 07/15/25 10:47 MIK Anesthesia Complication Comment: Post-operative progress note Anesthesia: Postop Eval II Evaluation Mental status: Awake and Calm Pain Level: 0 nausea: No Vomiting: No Complications Anesthesia Complication: No
--- NOTE | 2025-07-15 11:56 | PCM.POSTANE2 ---
Anesthesia Postop Eval I Sum Postop Eval Completion status Anesthesia document: Postop Eval 1 completed: No Anesthesia Postop Eval I Summary Anesthesia Postop Eval I Summary: Anesthesia Postop Eval I: Assessment Summary Airway patent Yes 07/15/25 10:47 [email or web address] Spontaneous unlabored Yes 07/15/25 10:47 [email or web address] respirations Mental status Asleep 07/15/25 10:47 [email or web address] nausea No 07/15/25 10:47 [email or web address] Vomiting No 07/15/25 10:47 [email or web address] Anesthesia Postop Eval I: Fluid Summary Crystalloid volume administer 600 07/15/25 10:47 [email or web address] (ml) Colloids volume administered ( ml) Blood Product volume administered (ml) Total IV fluid infused 600 07/15/25 10:47 [email or web address] Anesthesia Postop Eval I: Summary Notes Anesthesia Complication No 07/15/25 10:47 MIK Anesthesia Complication Comment: Post-operative progress note Anesthesia: Postop Eval II Evaluation Mental status: Awake and Calm Pain Level: 0 nausea: No Vomiting: No Complications Anesthesia Complication: No
== END 2025-07-15 11:43 | disposition home or self-care (01) ==
LOC: EN 08:13 → AC 08:14
PROVIDERS: Anesthesiology; PCP Family Medicine; Referring Provider Family Medicine; Visit Provider Surgery
PROC: 0DJD8ZZ Inspection of Lower Intestinal Tract, Via Natural or Artificial Opening Endoscopic (ICD-10-PCS; CPT 45378; principal; 2025-07-15 09:25)
DX: Z12.11 Encounter for screening for malignant neoplasm of colon (principal); R11.0 Nausea
CPT/HCPCS: 45378; 81025; J2405

== ENCOUNTER → 2025-07-24 | Outpatient (CLI) | payer BC, SELFPAY | END | disposition home or self-care (01) | PROVIDERS: PCP Family Medicine; Referring Provider Urology; Visit Provider Urology | DX: N39.0 Urinary tract infection, site not specified (principal) | CPT/HCPCS: 87077; 87086; 87088; 87186 ==

== ENCOUNTER → 2025-08-05 | Outpatient (CLI) | payer BC, SELFPAY ==
--- OUTSIDE RECORDS SUMMARY | 2025-08-05 12:38 | XMS RPT_ITS | CCD ---
Author Organization [facility] Care Team Providers Care Account Liaison Name Role Phone BOLOGNA, BOLIVAR A Unavailable Unavailable BOLOGNA, BOLIVAR A Unavailable Unavailable BOLOGNA, BOLIVAR A Unavailable Unavailable BOLOGNA, BOLIVAR A Unavailable Unavailable BOLOGNA, BOLIVAR A Unavailable Unavailable NO REFERRING DR Unavailable Unavailable Bolivar Price Unavailable Unavailable Kaylee Pink DO Primary Care Provider Kaylee Bolanos Primary Care Provider Unavail able Kaylee Bolanos Referring Provider UnavailMONET Franklin Attending Provider Dr. Kaylee Pink Primary Care Provider [phone] Dr. Kaylee Pink Referring Provider Dr. Jamee Gray Attending Provider Dr. Kaylee Pink Primary Care Provider Dr. Kaylee Pink Referring Provider Dr. Jamee Gray Attending Provider Kaylee Pink [...] Dr. Kaylee Pink DO Primary Care Provider Dr. Kaylee Pink DO Attending Provider Dr. Kaylee Pink DO Referring Provider [phone] Kristian LOPEZ, Dr. Mcguire Primary Care Physician [phone] Kristian LOPEZ, Dr. Mcguire Attending Physician Kristian LOPEZ, Dr. Mcguire Referring Provider [phone] Fer LITTLE, Dr. Dhruv Chaparro Attending Physician Fer LITTLE, Dr. Dhruv Chaparro Referring Provider Kirsten LITTLE, Dr. Lizarraga Attending Physician Kirsten LITTLE, Dr. Lizarraga Nurse Practitioner Kristian, Kaylee Attending Unavailable Kristian, Kaylee Referring Unavailable Kristian, Kaylee Primary Care Unavailable Kristian, Kaylee Primary Care Unavailable Marcanthony, Jamee Attending Unavailable Marcanthony, Jamee Referring Unavailable Kristian, Kaylee Primary Care Unavailable Kristian, Kaylee Attending Unavailable Kristian, Kaylee Referring Unavailable Robotham, Elham Attending Unavailable Kristian, Kaylee Referring Unavailable Kristian, Kaylee Primary Care Unavailable Kristian, Kaylee Attending Unavailable Kristian, Kaylee Referring Unavailable Kristian, Kaylee Primary Care Unavailable Fer, Dhruv Chaparro Attending Unavailable Fer, Dhruv Chaparro Referring Unavailable Kristian, Kaylee Primary Care Unavailable Marcanthony, Jamee Attending Unavailable Kristian, Kaylee Referring Unavailable Kristian, Kaylee Primary Care Unavailable Robotham, Elham Consulting Unavailable Robotham, Elham Attending Unavailable Kristian, Kaylee Referring Unavailable Kristian, Kaylee Primary Care Unavailable Fer, Dhruv Chaparro Attending Unavailable Fer, Dhruv Chaparro Referring Unavailable Kristian, Kaylee Primary Care Unavailable Marcanthony, Jamee Attending Unavailable Marcanthony, Jamee Referring Unavailable Kristian, Kaylee Primary Care Unavailable Kristian, Kaylee Primary Care Unavailable Marcanthony, Jamee Referring Unavailable Marcanthony, Jamee Attending Unavailable Kristian, Kaylee Attending Unavailable Kristian, Kaylee Referring Unavailable Kristian, Kaylee Primary Care Unavailable Allergies Allergy Classification Reported Allergen(s) Allergy Type Date of Onset Reaction(s) Facility (12 sources) Dust; Translations: [DUST] Propensity to adverse reactions (disorder) [facility] Repository (12 sources) methenamine; Translations: [METHENAMINE] Drug Allergy 7 Unknown [facility] Repository (12 sources) mold extract; Translations: [MOLD] Drug Allergy 6 [facility] Repository (12 sources) Seasonal allergy; Translations: [SEASONAL ALLERGIES] Propensity to adverse reactions (disorder) 7 Unknown [facility] Repository (12 sources) RAGWEED; Translations: [RAGWEED] Propensity to adverse reactions (disorder) 6 [facility] Repository (2 sources) HYDROcodone Drug Allergy 6 Nausea [facility] Work Phone: Medications Current Medications Medication Drug Class(es) Dates Sig (Normalized) Sig (Original) ciclopirox 80 mg/ml topical solution (1 source) Start: 08-14-2024 End: 09-13-2024 Ciclopirox (CICLODAN) 8 % solution Indications: Onychodystrophy Apply to affected area daily at bedtime. 6.6 mL 2 08/14/2024 09/13/2024 Active ergocalciferol 1.25 mg oral capsule (7 sources) Provitamin D2 Compound ergocalciferol 50,00 0 unit capsule (VITAMIN D2, DRISDOL) Active Lactobacillus acidophilus (10 sources) LACTOBACILLUS ACIDOPHILUS (PROBIOTIC ORAL) Take by mouth. Active LACTOBACILLUS AC IDOPHILUS (PROBIOTIC ORAL) Take by mouth. 0 Active Comment on above: Take by mouth. LORazepam 0.5 mg oral tablet (10 sources) Benzodiazepine LORAZEPAM ORAL Take 0.5 mg by mouth as needed. Active Comment on above: Take 0.5 mg by mouth as needed. magnesium oxide 500 mg oral tablet (7 sources) Magnesium Oxide 500 mg magnesium tab Active meclizine hydrochloride 25 mg oral tablet (19 sources) Antiemetic Start: 03-21-20 take 1 tablet by mouth twice daily as needed for dizziness take 2 tablets by mo ut three times daily meclizine (ANTIVERT) 12.5 mg tab Take 25 mg by mouth three times daily. Active Comment on above: Take 25 mg by mouth three times daily. metroNIDAZOLE 0.0075 mg/mg topical gel (3 sources) Nitroimidazole Antimicrobial Start: 07-10-2025 Start: 07-10-2025 End: 03-09-2023 metroNIDAZOLE (METROGEL) 1 % Topical Gel Apply to affected area. 0 12/23/2022 Discontinued (Discontinued by Patient) Comment on above: Apply to affected ar ea. multivitamin tablet (10 sources) multivitamin tab let Take 1 tablet by mouth as needed. Active multivitamin tab let Take 1 tablet by mouth as needed. 0 Active Comment on above: Take 1 tablet by martin as needed. polyethylene glycol 3350 829385 mg / potassium chloride 2970 mg / sodium bicarbonate 6740 mg / sodium chloride 5860 mg / sodium sulfate 33981 mg powder for oral solution (2 sources) Osmotic Laxative Start: 05-13-2025 take 4000 mL by mouth once Completed/Discontinued Medications Medication Drug Class(es) Dates Sig [...] on above: Take 1 capsule by mo [facility] three times daily. amoxicillin 875 mg / clavulanate 125 mg oral tablet (1 source) Penicillin-class Antibacterial Start: 017 End: 023 take 1 tablet by mouth twice daily amoxicillin-clavulanic acid (AUGMENTIN) 875-125 mg per tablet Take 1 tablet by mouth twice daily. 14 tablet 0 08/17/2017 12/23/2022 Discontinued Comment on above: Take 1 tablet by martin twice daily. ascorbic acid 1000 mg oral tablet (20 sources) Vitamin C Start: 016 End: 025 take 1 tablet by mouth once daily Ascorbic Acid (Vitamin C) (Vitamin C) 1,000 MG tablet Discontinued 1000 mg PO DAILY June 29, 2016 12:00am July 10, 2025 1:52pm Comment on above: Take 1,000 mg by martin once daily. biotin 1 mg oral capsule (5 sources) Start: 024 End: 025 take 1 capsule by mouth once daily Biotin 1 mg capsule Discontinued 1 mg PO daily July 30, 2024 12:00am July 10, 2025 1:52pm Calcium Carbonate (1 source) End: CALCIUM CARBONATE (CALCIUM 300 ORAL) Take by mouth as needed. 0 12/23/2022 Discontinued (Discontinued by Patient) Comment on above: Take by mouth as nee ded. cholecalciferol 0.025 mg oral capsule (5 sources) Vitamin D Start: 024 End: take 1 capsule by mouth once daily Cholecalciferol (Vitamin D3) 25 mcg (1,000 unit) capsule Discontinued 25 ug PO daily July 30, 2024 12:00am July 10, 2025 1:51pm ciprofloxacin 500 mg oral tablet (1 source) Quinolone Antimicrobial Start: 017 End: ciprofloxacin HCl (CIPRO) 500 mg tablet Cran-C-B.Coag-Fos-L.Ac id-L.Rha (Probiotic Plus & Cranberry Cap) 1 EACH capsule (11 sources) Start: 016 End: Cran-C-B.Coag-Fos-L.Ac id-L.Rha (Probiotic Plus & Cranberry Cap) 1 EACH [...] 29, 2016 12:00am 21 day ethinyl estradiol 0.914043 mg/hr / etonogestrel 0.005 mg/hr vaginal system (20 sources) Progestin, Estrogen Start: 03-21-2023 End: 06-13-2023 Etonogestrel-Ethinyl Estradiol (Nuvaring) 0.12-0.015 mg/24 hr ring Discontinued 1 NMA VAGINAL every 4 weeks 3 2 May 10, 2023 12:59pm June 13, 2023 1:11pm Leave inplace for 4 weeks, remove X 1 week then insert new ring Start: 06-06-2017 End: 06-13-2023 NUVARING 0.12-0.015 mg/24 hr vaginal ring 06/06/2017 Active Magnesium Glycinate 100 mg magnesium capsule (5 sources) Start: 07-30-2024 End: 07-10-2025 take 1 mg by mouth once daily Magnesium Glycinate 100 mg magnesium capsule Discontinued mg PO DAILY July 30, 2024 12:00am July 10, 2025 1:51pm Start: 07-30-2024 take 1 mg by mouth once daily Magnesium Glycinate 100 mg magnesium capsule Active mg PO DAILY July 30, 2024 12:00am METHENAM/DENIZ AC/SALICY/TY-AM (CYSTEX ORAL) (1 source) End: [...] on above: Take 1 tablet by martin th twice daily. methenamine 162 mg / sodium salicylate 162.5 mg oral tablet (11 sources) Start: 06-29-2016 End: 03-21-2023 Methenamine-Sodium Salicylate (Cystex Tablet) 1 EACH tablet Discontinued 1 NMA PO DAILY June 29, 2016 12:00am March 21, 2023 9:59am Problems Active Problems Problem Classification Problem Date Documented Date Episodic/Chronic Allergic reactions (10 sources) Contact dermatitis; Translations: [Unspecified contact dermatitis, unspecified cause] 02-18-2006 Episodic Fracture of lower limb (1 source) Closed fracture of phalanx of foot; Translations: [Nondisplaced unspecified fracture of right lesser toe(s), initial encounter for closed fracture] 08-15-2024 Episodic Genitourinary symptoms and ill-defined conditions (1 source) Dysuria; Translations: [Dysuria] Onset: 07-05-2025 Episodic Menopausal disorders (14 sources) Postcoital bleeding; Translations: [Excessive bleeding in the premenopausal period] 03-21-2023 Chronic Comment on above: discussed irregular menses and insomnia- discussed trazodone Menstrual disorders (5 sources) Amenorrhea; Translations: [Amenorrhea, unspecified] 07-30-2024 Chronic Nausea and vomiting (5 sources) Nausea; Translations: [Nausea] Onset: 07-18-2025 07-15-2025 Episodic Nonmalignant breast conditions (10 sources) Fibrocystic disease of breast; Translations: [Diffuse cystic mastopathy of unspecified breast] 02-18-2006 Chronic Other connective tissue disease (1 source) Calcaneal spur of left foot; Translations: [Calcaneal spur, left foot] 08-15-2024 Episodic Other female genital disorders (7 sources) Abnormal uterine bleeding; Translations: [Abnormal uterine and vaginal bleeding, unspecified] 06-13-2023 Chronic Comment on above: nuvaring if desired. Other female genital disorders (3 sources) Abnormal uterine and vaginal bleeding, unspecified; Translations: [Unspecified disorders of menstruation and other abnormal bleeding from female genital tract] Onset: 09-04-2024 05-03-2023 Chronic Other female genital disorders (9 sources) Lesion of cervix; Translations: [Noninflammatory disorder of cervix uteri, unspecified] 03-21-2023 Episodic Comment on above: pap obtained today. removed in office Other female genital disorders (4 sources) Noninflammatory disorder of cervix uteri, unspecified; Translations: [Unspecified noninflammatory disorder of cervix] 03-21-2023 Episodic Other screening for suspected conditions (not mental disorders or infectious disease) (8 sources) Patient encounter status; Translations: [Encounter for screening for malignant neoplasm of colon] Onset: 09-24-2024 07-15-2025 Episodic Other skin disorders (1 source) Dystrophia unguium; Translations: [Nail dystrophy] 08-15-2024 Episodic Other upper respiratory disease (10 sources) Allergic rhinitis; Translations: [Allergic rhinitis, unspecified] 02-18-2006 Chronic Residual codes; unclassified (9 sources) Family history of breast cancer; Translations: [...] (1 source) Unknown / UNK(Unknown) Onset: 05-30-2017 Urinary tract infections (5 sources) Urinary tract infection, site not specified; Translations: [Urinary tract infection, site not specified] Onset: 06-07-2017 Episodic Past or Other Problems Problem Classification Problem Date Documented Da te Episodic/Chronic Abdominal pain (1 source) Epigastric pain; Translations: [Epigastric pain] Onset: 04-03-2025 Episodic Conditions associated with dizziness or vertigo (10 sources) Vertigo; Translations: [Dizziness and giddiness] Onset: 05-08-2015 05-08-2015 Episodic Fracture of lower limb (4 sources) Closed fracture of distal phalanx of lesser toe; Translations: [Nondisplaced fracture of distal phalanx of left lesser toe(s), initial encounter for closed fracture] Onset: 08-14-2024 07-17-2024 Episodic Other non-traumatic joint disorders (1 source) Pain in right shoulder; Translations: [Pain in right shoulder] Onset: 04-02-2025 Episodic Residual codes; unclassified (10 sources) History of nephrectomy; Translations: [Acquired absence of kidney] Onset: 05-08-2015 05-08-2015 Episodic Residual codes; unclassified (1 source) Pain, unspecified; Translations: [Pain] Onset: 07-17-2024 Episodic Unclassified (1 source) R30.0, R10.9 Onset: 05-30-2017 Results Test Name Value Interpretation Reference Range Facility Urine Cultureon 07-26-2025 [facility] Streptococcus agalac tiae (B) Emerson Count 50,000-80,000 Streptococcus agalactiae (B): REACTION Ampicillin Islt NELIA <=0.25 cefTRIAXone Islt NELIA <=0.12 S Clindamycin.induced Susc Islt POS Linezolid Islt NELIA <=2 S Vancomycin Islt NELIA 0.5 S Normal [facility] Comment on above: Performed By: #### M 100.2200 ####[facility] [id number] [facility] [place], [address] Colonoscopy Reporton 025 Colonoscopy Report [facility] Medical Records Department [address] [place] [address] Colonoscopy Report MR#: [id number] Acct: [id number] Name: JOSE JUAN JOSHI Rep #: [id number] : 1970 54 From: Elham Curtis MD PCP: Dr. Kaylee Pink, DO Status:[place] [facility] Patient Name: Jose Juan Joshi Procedure Date: 07/15/2025 10:10 AM Date of : 1970 Age: 54 Procedure: Colonoscopy Indications: Screening for colorectal malignant neoplasm Providers: Elham Curtis MD Referring MD: Kaylee Pink Medicines: Monitored Anesthesia Care Patient Profile: This is a 54 year old female. Last Colonoscopy: 10 years ago. Complications: No immediate complications. Procedure: Pre-Anesthesia Assessment: - Prior to the procedure, a History and Physical was performed, and patient medications and allergies were reviewed. The patient's tolerance of previous anesthesia was also reviewed. The risks and benefits of the procedure and the sedation options and risks were discussed with the patient. All questions were answered, and informed consent was obtained. Prior Anticoagulants: The patient has taken no anticoagulant or antiplatelet agents. ASA Grade Assessment: Per anesthesia. After reviewing the risks and benefits, the patient was deemed in satisfactory condition to undergo the procedure. After I obtained informed consent, the scope was passed under direct vision. Throughout the procedure, the patient's blood pressure, pulse, and oxygen saturations were monitored continuously. The Colonoscope was introduced through the anus and advanced to the cecum, identified by the appendiceal orifice, ileocecal valve and palpation. The colonoscopy was performed without difficulty. The patient tolerated the procedure well. The quality of the bowel preparation was good. Scope In: 10:19:16 AM Scope Withdrawal Time 0 hours 6 minutes 59 seconds Scope Out: 10:39:31 AM Total Procedure Duration Time 0 hours 20 minutes 15 seconds Findings: The perianal and digital rectal examinations were normal. The entire examined colon appeared normal on direct and retroflexion views. Impression: - The entire examined colon is normal on direct and retroflexion views. - No specimens collected. Recommendation: - Discharge patient to home. - Resume previous diet. - Continue present medications. - Repeat colonoscopy in 10 years for screening purposes. Procedure Code(s): --- Professional --- G0121, PT, Colorectal cancer screening; colonoscopy on individual not meeting criteria for high risk Diagnosis Code(s): --- Professional --- Z12.11, Encounter for screening for malignant neoplasm of colon CPT copyright 2021 [employer]. All rights reserved. The codes documented in this report are preliminary and upon group fitness department head review may be revised to meet current compliance requirements. MD Elham Bautista MD 07/15/2025 10:44:01 AM This report has been signed electronically. Number of Addenda: 0 Note Initiated On: 07/15/2025 10:10 AM 07/15/25 1044 Date Elham Lee Signature: Date (if indicated) CC: Dr. Kaylee Pink DO; Dr. Elham Curtis MD Date Dictated: 07/15/25 1010 Date Transcribed: Cannoneer: TR Signed [facility] MR/OP.Taco 07-15-2025 MR[facility]OP.[facility] Medical Records Department [address] [place] [address] Provation Physician Letter MR#: [id number] Acct: [id number] Name: JOSE JUAN JOSHI Rep #: [id number] : 1970 54 From: Elham Curtis MD PCP: Dr. Kaylee Pink DO Status:[place] [facility] 07/15/2025 Kaylee Pink [address] [place] [address] Re : Colonoscopy procedure for Jose Juan Joshi Dear Dr. Pink This procedure was performed on Tuesday, July 15, 2025. My impressions and recommendations are as follows: Impressions : - The entire examined colon is normal on direct and retroflexion views. - No specimens collected. Recommendations : - Discharge patient to home. - Resume previous diet. - Continue present medications. - Repeat colonoscopy in 10 years for screening purposes. My findings are described in the full procedure note, which is enclosed. If I can be of further assistance, please feel free to contact me at Doctor phone number(s): , Work: . Sincerely, MD Elham Bautista MD 07/15/2025 10:44:01 AM This report has been signed electronically. 07/15/25 1044 Date Elham Curtis MD Cosigner Signature: Date (if indicated) CC: Dr. Kaylee Pink DO; Dr. Elham Curtis MD Date Dictated: 07/15/25 1010 Date Transcribed: Cannoneer: TR Signed [facility] MR/POSTOP.ANEon 07-15-2025 MR/POSTOP.ANE [facility] Medical Records Department [address] [place] [address] Anesthesia Postop Eval I 07/15/25 1046 MR#: [id number] Acct: [id number] Name: JOSE JUAN JOSHI Rep #: [id number] : 1970 54 From: Thao Hansen CRNA PCP: Dr. Kaylee Pink, DO Status:REG SDC Y Race: C Location: [place] [address] Anesthesia: Postop Eval I Current Vital Signs Temperature: 98.5 F Pulse Rate: 88 Blood Pressure: 154/95 Respiratory Rate: 16 Pulse Ox: 95 Oxygen Delivery Method: Room Air Assessment Airway patent: Yes Spontaneous unlabored respirations: Yes Mental status: Asleep nausea: No Vomiting: No Anesthesia Complication: No Fluid Hydration Crystalloid volume administer (ml): 600 Total IV fluid infused: 600 Progress Note Anesthesia document: Postop Eval 1 completed: No 07/15/25 1047 Date Thao Hansen TRIBAL JUDGE Cosigner Signature: Date CC: Signed [facility] MR/RMATCCOS4gi 07-15-2025 MR/POSTOPAN2 [facility] Medical Records Department [address] [place] [address] Anesthesia Postop Eval II 07/15/25 1156 MR#: [id number] Acct: [id number] Name: JOSE JUAN JOSHI Rep #: [id number] : 1970 54 From: Go Chen MD PCP: Dr. Kaylee Pink, DO Status:DEP SDC Y Race: C Location: [place] Anesthesia Postop Eval I Sum Postop Eval Completion status Anesthesia document: Postop Eval 1 completed: No Anesthesia Postop Eval I Summary Anesthesia Postop Eval I Summary: Anesthesia Postop Eval I: Assessment Summary Airway patent Yes 07/15/25 10:47 TRIBAL JUDGE.OSMAR Spontaneous unlabored Yes 07/15/25 10:47 TRIBAL JUDGE.OSMAR respirations Mental status Asleep 07/15/25 10:47 TRIBAL JUDGE.OSMAR nausea No 07/15/25 10:47 TRIBAL JUDGE.OSMAR Vomiting No 07/15/25 10:47 TRIBAL JUDGE.OSMAR Anesthesia Postop Eval I: Fluid Summary Crystalloid volume administer 600 07/15/25 10:47 TRIBAL JUDGE.OSMAR (ml) Colloids volume administered ( ml) Blood Product volume administered (ml) Total IV fluid infused 600 07/15/25 10:47 MIK Anesthesia Postop Eval I: Summary Notes Anesthesia Complication No 07/15/25 10:47 MIK Anesthesia Complication Comment: Post-operative progress note Anesthesia: Postop Eval II Evaluation Mental status: Awake and Calm Pain Level: 0 nausea: No Vomiting: No Complications Anesthesia Complication: No 07/15/25 1156 Date Go Chen MD Cosigner Signature: Date CC: Signed Normal [facility] ,Urineon 07-15-2025 Beta HCG ( test) Ql (U) Negative Normal [facility] Comment on above: Result Comment: Very dilute urine specimens, as indicated by a low specific gravity, may not contain eligibility services representative levels of hCG. If is still suspected, a first morning urine specimen should be collected 48 hours later and tested. Performed By: #### L 400.7600 ####[facility] [address] [place], [address] Urine testOrdered By: Martin Hayward on 07-15-2025 HCG ( test) Ql (U) Negative [facility] Comment on above: Very dilute urine sp ecimens, as indicated by a low specificgravity, may not contain eligibility services representative levels of hCG. If is still suspected, a first morning urinespecimen should be collected 48 hours later and tested. Urine Cultureon 06-27-2025 [facility] Streptococcus agalac tiae (B) Emerson Count 50,000-80,000 Streptococcus agalactiae (B): REACTION Ampicillin Islt NELIA <=0.25 cefTRIAXone Islt NELIA <=0.12 S Clindamycin.induced Susc Islt POS Linezolid Islt NELIA <=2 S Vancomycin Islt NELIA 0.5 S Normal [facility] Comment on above: Performed By: #### M 100.2200 #### [facility] [address] [facility]. [place], [place], [id number] Urine cultureOrdered By: Lambert Monroe on 06-24-2025 Bacteria identified Cx Nom (U) Streptococcus agalactiae (B) Abnormal [facility] Abdomen Limitedon 03-26-2025 Abdomen Limited [facility] Imaging Services [address] [place], [place] [address] Abdomen Limited MR#: [id number] Acct: [id number] Name: JOSE JUAN JOSHI Rep #: [id number] : 1970 F 54 From: Carson sheikh MD PCP: Dr. Kaylee Pink DO Status: REG CLI Study: Abdomen Limited Date of Exam: 03/26/25 Exam# [id number] Ordering Dr: Kaylee Pink DO PROCEDURE: ABDOMEN LIMITED 03/26/2025 REASON FOR EXAM: CHRONIC NAUSEA EPIGASTRIC PAIN COMPARISON: None FINDINGS: Liver: Grossly normal size and echotexture. There is evidence of a 1.2 cm 1.3 cm 1.1 cm cyst in the right lobe of the liver. Gallbladder: No stones, sludge, wall thickening or tenderness. Common bile duct: Normal measuring 4.7 mm . Pancreas: Normal Other: Visualized portions of the right kidney are unremarkable. No right upper quadrant ascites. US/Abdomen Limited IMPRESSION: 1.2 cm 1.3 cm 1.1 cm cyst in the right lobe of the liver. Reading Location: [place] [address] CC: Dr. Kaylee Pink DO Cannoneer: Signed Normal [facility] Shoulder min 2 Viewson 03-26 Shoulder min 2 Views [facility] Imaging Services [address] [place], [place] [id number] Shoulder min 2 Views MR#: [id number] Acct: [id number] Name: JOSE JUAN JOSHINE Rep #: [id number] : 1970 F 54 From: Prem Tamaoy PCP: Dr. Kaylee Pink DO Status: REG CLI Study: Shoulder min 2 Views Date of Exam: 03/26/25 Exam# [id number] Ordering Dr: Kaylee Pink DO PROCEDURE: SHOULDER MIN 2 VIEWS 03/26/2025 REASON FOR EXAM: SHOULDER PAIN TECHNIQUE: Four view right shoulder series COMPARISON: None. RAD/Shoulder min 2 Views IMPRESSION: [id number] right acromioclavicular joint degenerative changes are seen, with significant associated joint narrowing. The right glenohumeral joint demonstrates no significant abnormality. 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 No acute fracture or dislocation is seen. If clinical concern persists, short-term follow-up imaging may be obtained to rule out a currently occult fracture. Reading Location: [address] CC: Dr. Kaylee Pink DO Cannoneer: Signed Normal [facility] Thyroidon 03-09-2025 Thyroid [facility] Imaging Services [address] [place] [address] Thyroid MR#: [id number] Acct: [id number] Name: JOSE JUAN JOSHI Rep #: [id number] : 1970 F 54 From: Carson sheikh MD PCP: Dr. Kaylee Pink DO Status: REG CLI Study: Thyroid Date of Exam: 03/09/25 Exam# [id number] Ordering Dr: Kaylee Pink DO PROCEDURE: THYROID 03/09/2025 REASON FOR EXAM: REASSESS THYROID NODULES TECHNIQUE: High-frequency thyroid ultrasound, including grayscale and color-flow images. REFERENCE LINKS: TI-RADS Chart: [email or web address]/ti-[email or web address] ads TI-RADS Calculator Tool with Reference Images: [email or web address] ology-calculators/body-abby ging/tirads-calculator/ COMPARISON: Prior study dated December [...] no more than 2 nodules. Reading Location: [place] [address] CC: Dr. Kaylee Pink, Cannoneer: Signed Normal [facility] Absolute lymphocyte countOrd ered By: Kaylee Pink on 03-04-2025 Lymphocytes Auto (Unsp spec) [#/Vol] 1.37 10*3/uL 0.83-4.51 [facility] Absolute neutrophil countOrd ered By: Kaylee Pink on 03-04-2025 Neutrophils (Bld) [#/Vol] 2.8 10*3/uL 2.0-7.7 [facility] Anion gap in Serum or Plasma Ordered By: Kaylee Pink on 03-04-2025 Anion gap [Moles/Vol] 10 mmol/L 5-15 [facility] Automated lymphocyte count a s percentage of total leukocytesOrdered By: Kaylee Pink on 03-04-2025 Lymphocytes/100 WBC Auto (Unsp spec) 29.7 % - [facility] BUN/creatinine ratioOrdered By: Kaylee Pink on 03-04-2025 Urea nitrogen/Creatinine [Mass ratio] 16.8 mg/mg 10-20 [facility] Basophil percentageOrdered B y: Kaylee Pink on 03-04-2025 Basophils/100 WBC (Bld) 1.3 % High 0-1 [facility] Bilirubin, totalOrdered By: Kaylee Pink on 03-04-2025 Bilirubin [Mass/Vol] 0.38 mg/dL 0.00-1.30 [facility] CBC W/Diff, Automatedon 02-14 Absolute Lymph 1.37 X10 3/uL Normal 0.83-4.51 [facility] Comment on above: Performed By: #### L 500.4050, L501.2450, L300.3900, L100.0100 ####[facility] [address] [place], [address] Absolute Neut 2.8 X10 3/uL Normal 2.0-7.7 [facility] Comment on above: Performed By: #### L 500.4050, L501.2450, L300.3900, L100.0100 ####[facility] [address] [place], [address] Basophils/100 WBC (Bld) 1.3 % High 0-1 [facility] Comment on above: Performed By: #### L 500.4050, L501.2450, L300.3900, L100.0100 ####[facility] [address] [place], [address] Eosinophils/100 WBC (Bld) 2.6 % Normal 0-5 [facility] Comment on above: Performed By: #### L 500.4050, L501.2450, L300.3900, L100.0100 ####[facility] [address] [place], [address] Erythrocyte distribution width (RBC) [Ratio] 12.0 % Normal 11.6-14.6 [facility] Comment on above: Performed By: #### L 500.4050, L501.2450, L300.3900, L100.0100 ####[facility] [address] [place], [address] Hematocrit (Bld) [Volume fraction] 37.8 % Normal 37-47 [facility] Comment on above: Performed By: #### L 500.4050, L501.2450, L300.3900, L100.0100 ####[facility] [address] [place], [address] Hemoglobin (Bld) [Mass/Vol] 12.6 g/dL Normal 12.0-15.0 [facility] Comment on above: Performed By: #### L 500.4050, L501.2450, L300.3900, L100.0100 ####[facility] [address] [place], [address] IG% 0.200 Normal 0.0-0.9 [facility] Comment on above: Result Comment: IG% - Immature Granulocytes (promyelocytes, myelocytes and metamyelocytes) > 1% indicates that a LEFT SHIFT is Present. Performed By: #### L 500.4050, L501.2450, L300.3900, L100.0100 ####[facility] [address] [place], [address] Lymphocytes/100 WBC (Bld) 29.7 % Normal 19-41 [facility] Comment on above: Performed By: #### L 500.4050, L501.2450, L300.3900, L100.0100 ####[facility] [address] [place], [address] MCH (RBC) [Entitic mass] 29.7 pg Normal 27.0-32.0 [facility] Comment on above: Performed By: #### L 500.4050, L501.2450, L300.3900, L100.0100 ####[facility] [address] [place], [address] MCHC (RBC) [Mass/Vol] 33.3 g/dL Normal 32-36 [facility] Comment on above: Performed By: #### L 500.4050, L501.2450, L300.3900, L100.0100 ####[facility] [address] [place], [address] MCV (RBC) [Entitic vol] 89.2 fL Normal 81-99 [facility] Comment on above: Performed By: #### L 500.4050, L501.2450, L300.3900, L100.0100 ####[facility] [address] [place], [address] Monocytes/100 WBC (Bld) 6.5 % Normal 0-10 [facility] Comment on above: Performed By: #### L 500.4050, L501.2450, L300.3900, L100.0100 ####[facility] [address] [place], [address] Neutrophils/100 WBC (Bld) 59.7 % Normal 47-70 [facility] Comment on above: Performed By: #### L 500.4050, L501.2450, L300.3900, L100.0100 ####[facility] [address] [place], [address] Nucleated RBC (Bld) [#/Vol] 0 10*3/uL Normal 0-5 [facility] Comment on above: Performed By: #### L 500.4050, L501.2450, L300.3900, L100.0100 ####[facility] [address] [place], [address] Platelet mean volume (Bld) [Entitic vol] 10.8 fL Normal 6.2-12.0 [facility] Comment on above: Performed By: #### L 500.4050, L501.2450, L300.3900, L100.0100 ####[facility] [address] [place], [address] Platelets (Bld) [#/Vol] 228 10*3/uL Normal 150-450 [facility] Comment on above: Performed By: #### L 500.4050, L501.2450, L300.3900, L100.0100 ####[facility] [address] [place], [address] RBC (Bld) [#/Vol] 4.24 10*6/uL Normal 4.2-5.4 [facility] Comment on above: Performed By: #### L 500.4050, L501.2450, L300.3900, L100.0100 ####[facility] [address] [place], [address] RDW SD 38.8 fl Normal 35.1-43.9 [facility] Comment on above: Performed By: #### L 500.4050, L501.2450, L300.3900, L100.0100 ####[facility] [address] [place], [address] WBC (Bld) [#/Vol] 4.6 10*3/uL Normal 4.4-11.0 [facility] Comment on above: Performed By: #### L 500.4050, L501.2450, L300.3900, L100.0100 ####[facility] [address] [place], [address] Carbon dioxide, total [Moles /volume] in Central venous bloodOrdered By: Kaylee Pink on 03-04-2025 CO2 [Moles/Vol] 25.1 mmol/L 21.0-32.0 [facility] Chloride assayOrdered By: Genet Pink on 03-04-2025 Chloride [Moles/Vol] 103 mmol/L 98-108 [facility] Comprehensive Metabolic Prof ilon 03-04-2025 Albumin/Globulin [Mass ratio] 1.3 {ratio} Normal 0.9-2.4 [facility] Comment on above: Performed By: #### L 500.4050, L501.2450, L300.3900, L100.0100 ####[facility] [address] [place], [address] ALK PHOS 24 U/L Low 35-104 [facility] Comment on above: Performed By: #### L 500.4050, L501.2450, L300.3900, L100.0100 ####[facility] [address] [place], [address] ALT [Catalytic activity/Vol] 12 U/L Normal <=34 [facility] Comment on above: Performed By: #### L 500.4050, L501.2450, L300.3900, L100.0100 ####[facility] [address] [place], [address] AST [Catalytic activity/Vol] 21 U/L Normal <=31 [facility] Comment on above: Performed By: #### L 500.4050, L501.2450, L300.3900, L100.0100 ####[facility] [address] [place], [address] Bilirubin [Mass/Vol] 0.38 mg/dL Normal 0.00-1.30 [facility] Comment on above: Performed By: #### L 500.4050, L501.2450, L300.3900, L100.0100 ####[facility] [address] [place], [address] Calcium [Mass/Vol] 9.3 mg/dL Normal 7.6-11.0 [facility] Comment on above: Performed By: #### L 500.4050, L501.2450, L300.3900, L100.0100 ####[facility] [address] [place], [address] Chloride [Moles/Vol] 103 mmol/L Normal 98-108 [facility] Comment on above: Performed By: #### L 500.4050, L501.2450, L300.3900, L100.0100 ####[facility] [address] [place], [address] CO2 [Moles/Vol] 25.1 mmol/L Normal 21.0-32.0 [facility] Comment on above: Performed By: #### L 500.4050, L501.2450, L300.3900, L100.0100 ####[facility] [address] [place], [address] GAP 10 Normal 5-15 [facility] Comment on above: Performed By: #### L 500.4050, L501.2450, L300.3900, L100.0100 ####[facility] [address] [place], [address] Globulin (S) [Mass/Vol] 3.3 g/dL Normal 2.2-4.2 [facility] Comment on above: Performed By: #### L 500.4050, L501.2450, L300.3900, L100.0100 ####[facility] [address] [place], [address] Potassium [Moles/Vol] 4.2 mmol/L Normal 3.3-5.1 [facility] Comment on above: Performed By: #### L 500.4050, L501.2450, L300.3900, L100.0100 ####[facility] [address] [place], [address] Sodium [Moles/Vol] 137 mmol/L Normal 133-145 [facility] Comment on above: Performed By: #### L 500.4050, L501.2450, L300.3900, L100.0100 ####[facility] [address] [place], [address] Albumin [Mass/Vol] 4.3 g/dL Normal 3.5-5.0 [facility] Comment on above: Performed By: #### L 500.4050, L501.2450, L300.3900, L100.0100 ####[facility] [address] [place], [address] BUN/CRE 16.8 RATIO Normal 10-20 [facility] Comment on above: Performed By: #### L 500.4050, L501.2450, L300.3900, L100.0100 ####[facility] [address] [place], [address] Creatinine [Mass/Vol] 0.74 mg/dL Normal 0.70-1.20 [facility] Comment on above: Performed By: #### L 500.4050, L501.2450, L300.3900, L100.0100 ####[facility] [address] [place], [address] GFR/1.73 sq M.predicted among non-blacks MDRD (S/P/Bld) [Vol rate/Area] 95 mL/min/{1.73_m2} Normal >60 [facility] Comment on above: Result Comment: mL/m in/1.73m2 CKD-EPI Creatinine Equation (2020) Performed By: #### L 500.4050, L501.2450, L300.3900, L100.0100 ####[facility] [address] [place], [address] Glucose [Mass/Vol] 81 mg/dL Normal 70-99 [facility] Comment on above: Performed By: #### L 500.4050, L501.2450, L300.3900, L100.0100 ####[facility] [address] [place], [address] T PROT 7.6 g/dL Normal 5.9-8.4 [facility] Comment on above: Performed By: #### L 500.4050, L501.2450, L300.3900, L100.0100 ####[facility] [address] [place], [address] Urea nitrogen [Mass/Vol] 13 mg/dL Normal 4-19 [facility] Comment on above: Performed By: #### L 500.4050, L501.2450, L300.3900, L100.0100 ####[facility] [address] [place], [address] Eosinophil percentageOrdered By: Kaylee Pink on 03-04-2025 Eosinophils/100 WBC (Bld) 2.6 % 0-5 [facility] Erythrocyte distribution wid th ratioOrdered By: Kaylee Pink on 03-04-2025 Erythrocyte distribution width (RBC) [Ratio] 12.0 % 11.6-14.6 [facility] Erythrocyte distribution wid th standard deviationOrdered By: Kaylee Pink on 03-04-2025 Erythrocyte distribution width (RBC) [Ratio] 38.8 fl 35.1-43.9 [facility] Glomerular filtration rate ( GFR) estimation/1.73 sq m using serum, plasma, or whole bOrdered By: Kaylee Pink on 03-04-2025 GFR/1.73 sq M.predicted among non-blacks MDRD (S/P/Bld) [Vol rate/Area] 95 mL/min/{1.73_m2} >60 [facility] Comment on above: mL/min/1.73m2 CKD-EP I Creatinine Equation (2020) Hematocrit Auto (Bld) [Volum e fraction]Ordered By: Kaylee Pink on 03-04-2025 Hematocrit (Bld) [Volume fraction] 37.8 % 37-47 [facility] Hemoglobin measurementOrdere d By: Kaylee Pink on 03-04-2025 Hemoglobin (Bld) [Mass/Vol] 12.6 g/dL 12.0-15.0 [facility] Immature granulocytes/100 WB C Auto (Bld)Ordered By: Kaylee Pink on 03-04-2025 Immature granulocytes/100 WBC (Bld) 0.200 % 0.0-0.9 [facility] Comment on above: IG% - Immature Granu locytes (promyelocytes, myelocytes and metamyelocytes) > 1% indicates that a LEFT SHIFT is Present. International normalized rat io (INR) calculationOrdered By: Kaylee iPnk on 03-04-2025 INR Coag (Bld) [Relative time] 0.9 {INR} [facility] Laboratory - Chemistry and C hemistry - challengeOrdered By: Kaylee Pink on 03-04-2025 AST [Catalytic activity/Vol] 21 U/L <32 [facility] Lipaseon 03-04-2025 Lipase [Catalytic activity/Vol] 35 U/L Normal 13-75 [facility] Comment on above: Result Comment: Fab mancia note: LIPASE revised reference range effective 23. New Lipase methodology. Expected to produce lower values than the previous assay method. NEW Reference Range: 13 - 75 U/L Performed By: #### L 500.4050, L501.2450, L300.3900, L100.0100 ####[facility] [address] [place], [address] Lipase measurementOrdered By : Kaylee Pink on 03-04-2025 Lipase [Catalytic activity/Vol] 35 U/L 13-75 [facility] Comment on above: Please note:LIPASE r evised reference range effective 23. New Lipase methodology. Expected to produce lower values than the previous assay method. NEW Reference Range: 13 - 75 U/L MCV (mean corpuscular volume ) determinationOrdered By: Kaylee Pink on 03-04-2025 MCV (RBC) [Entitic vol] 89.2 fL 81-99 [facility] Mean corpuscular hemoglobin (MCH) determinationOrdered By: Kaylee Pink on 03-04-2025 MCH (RBC) [Entitic mass] 29.7 pg 27.0-32.0 [facility] Mean corpuscular hemoglobin concentration (MCHC) determinationOrdered By: Kaylee Pink on 03-04-2025 MCHC (RBC) [Mass/Vol] 33.3 g/dL 32-36 [facility] Mean platelet volume determi nationOrdered By: Kaylee Pink on 03-04-2025 Platelet mean volume (Bld) [Entitic vol] 10.8 fL 6.2-12.0 [facility] Monocyte percentageOrdered B y: Kaylee Pink on 03-04-2025 Monocytes/100 WBC (Bld) 6.5 % 0-10 [facility] Neutrophil percentageOrdered By: Kalyee Pink on 03-04-2025 Neutrophils/100 WBC (Bld) 59.7 % 47-70 [facility] Nucleated red blood cell per centageOrdered By: Kaylee Pink on 03-04-2025 Nucleated RBC/100 WBC (Bld) [Ratio] 0 % 0-5 [facility] Platelet countOrdered By: Genet Pink on 03-04-2025 Platelets (Bld) [#/Vol] 228 10*3/uL 150-450 [facility] Potassium measurement (mass/ volume)Ordered By: Kaylee Pink on 03-04-2025 Potassium (Unsp spec) [Mass/Vol] 4.2 mmol/L 3.3-5.1 [facility] Prothrombin Time w/INRon INR Coag (PPP) [Relative time] 0.9 {INR} Normal [facility] Comment on above: Performed By: #### L 500.4050, L501.2450, L300.3900, L100.0100 ####[facility] [address] [place], [address] PT Coag (PPP) [Time] 12.8 s Normal 11.7-14.9 [facility] Comment on above: Performed By: #### L 500.4050, L501.2450, L300.3900, L100.0100 ####[facility] [address] [place], [address] Prothrombin timeOrdered By: Kaylee Pink on 03-04-2025 PT Coag (PPP) [Time] 12.8 s 11.7-14.9 [facility] RBC Auto (Bld) [#/Vol]Ordere d By: Kaylee Pink on 03-04-2025 RBC (Bld) [#/Vol] 4.24 10*6/uL 4.2-5.4 [facility] Serum creatinine measurement (mass/volume)Ordered By: Kaylee Pink on 03-04-2025 Creatinine [Mass/Vol] 0.74 mg/dL 0.70-1.20 [facility] Serum globulin measurementOr dered By: Kaylee Pink on 03-04-2025 Globulin (S) [Mass/Vol] 3.3 g/dL 2.2-4.2 [facility] Serum glucose measurement (m ass/volume)Ordered By: Kaylee Pink on 03-04-2025 Glucose [Mass/Vol] 81 mg/dL 70-99 [facility] Serum or plasma alanine dillard otransferase (ALT) measurementOrdered By: Kaylee Pink on 03-04-2025 ALT [Catalytic activity/Vol] 12 U/L <35 [facility] Serum or plasma albumin paul urement (mass/volume)Ordered By: Kaylee Pink on 03-04-2025 Albumin [Mass/Vol] 4.3 g/dL 3.5-5.0 [facility] Serum or plasma albumin/glob ulin mass ratioOrdered By: Kaylee Pink on 03-04-2025 Albumin/Globulin [Mass ratio] 1.3 {ratio} 0.9-2.4 [facility] Serum or plasma alkaline amy sphatase measurementOrdered By: Kaylee Pink on 03-04-2025 ALP [Catalytic activity/Vol] 24 U/L Low 35-104 [facility] Serum or plasma calcium paul urement (mass/volume)Ordered By: Kaylee Pink on 03-04-2025 Calcium [Mass/Vol] 9.3 mg/dL 7.6-11.0 [facility] Serum or plasma urea nitroge n measurement (mass/volume)Ordered By: Kaylee Pink on 03-04-2025 Urea nitrogen [Mass/Vol] 13 mg/dL 4-19 [facility] Sodium levelOrdered By: Kaylee Pink on 03-04-2025 Sodium [Moles/Vol] 137 mmol/L 133-145 [facility] Total proteinOrdered By: Karen Pink on 03-04-2025 Protein [Mass/Vol] 7.6 g/dL 5.9-8.4 [facility] White blood cell (WBC) count Ordered By: Kaylee Pink on 03-04-2025 WBC (Bld) [#/Vol] 4.6 10*3/uL 4.4-11.0 [facility] CNPOtilia 09-17-2024 MAURON Telephone ([facility]) -- JOSE JUAN JOSHI ([id number]) 1970 F Date Time Provider Department 09/17/24 JAZ PATELMOVannesa During your visit today, we recorded the following information about you: Madison High 09/17/2024 8:04 AM Signed Patient is requesting disc and report of 08/14/24 XR FOOT LEFT and 07/17/24 XR TOE LEFT. Please notify patient when items are ready for seed cone picker. Jaz Patel, PSS 09/17/2024 2:37 PM Signed CD READY FOR PANTOGRAPH TRANSFERRER AT [facility] Pt is aware Allergies [...] Status:Closed by MADISON HIGH on 11/29/24 Normal [facility] SCRN MAMM (CAD)W/ALBINA BILATo n 08-27-2024 SCRN MAMM (CAD)W/ALBINA BILAT [facility] Imaging Services [address] [place], [place] [address] SCRN MAMM (CAD)W/ALBINA BILAT MR#: [id number] Acct: [id number] Name: JOSE JUAN JOSHI Rep #: [id number] : 1970 F 53 From: aCrson sheikh MD PCP: Dr. Kaylee Pink, DO Status: REG CLI Study: SCRN MAMM (CAD)W/ALBINA BILAT Date of Exam: 08/17 11/09 Exam# [id number] Ordering Dr: Jamee Gray [id number] MAMMOGRAPHY - BILATERAL SCREENING REASON FOR EXAM: [...] delay biopsy of a clinically suspicious abnormality. [id number] Electronically Signed: Carson Pinon MD at 10:33 EST , CC: Dr. Kaylee Pink, ; Dr. Jamee Gray MD Cannoneer: Signed Normal [facility] CNOVon 08-14-2024 CNOV Office Visit (PODIWS ) -- JOSE JUAN JOSHI ([id number]) 1970 F Date Time Provider Department 08/14/24 2:15 PM GIOVANNI BEY PODIWS During your visit today, we recorded the [...] SPEC WHEN PFRMD 05/14/15 Colonoscopy CYSTOSCOPY 2015 [facility]ERA - IPAS LAPAROSCOPY RADICAL [...] texture, turgor. (more content not included)... Normal [facility] XR FOOT 3V AP/LAT/OBL LTon 1 XR FOOT 3V AP/LAT/OBL LT * * [...] preserved. There is an insertional Achilles enthesophyte. Cannoneer: ARCHANA Transcribe Date/Time: Aug 20 2024 7:39P Dictated by : HARLEY LINDER MD This examination was interpreted and the report reviewed and electronically signed by: HARLEY LINDER MD on Aug 20 2024 7:40PM EST [id number] Normal [facility] Pelvic w/ Transvaginalon Pelvic w/ Transvaginal [facility] Imaging Services [address] [place] [address] Pelvic w/ Transvaginal MR#: [id number] Acct: [id number] Name: JOSE JUAN JOHSI Rep #: [id number] : 1970 F 53 From: Carson sheikh MD PCP: Dr. Kaylee Pink, DO Status: REG CLI Study: Pelvic w/ Transvaginal Date of Exam: 08/13/24 Exam# [id number] Ordering Dr: Jamee Gray [id number] STUDY: ULTRASOUND OF THE FEMALE PELVIS - [...] Signed: Carson Pinon MD at 15:22 EDT Reading Location ID and State: [address] [place] [address] , Service support , CC: Dr. Kaylee Pink DO; Dr. Jamee Gray MD Cannoneer: Signed Normal [facility] CBC W/Diff, Automatedon 10-2 Absolute Lymph 1.81 X10 3/uL Normal 0.83-4.51 [facility] Comment on above: Performed By: #### L 100.0100, L3100.5125, L501.9520, L3300.1750 #### [facility] [address] [place], [address] Absolute Neut 4.0 X10 3/uL Normal 2.0-7.7 [facility] Comment on above: Performed By: #### L 100.0100, L3100.5125, L501.9520, L3300.1750 #### [facility] [address] [place], [address] Basophils/100 WBC (Bld) 0.9 % Normal 0-1 [facility] Comment on above: Performed By: #### L 100.0100, L3100.5125, L501.9520, L3300.1750 #### [facility] [address] [place], [address] Eosinophils/100 WBC (Bld) 0.9 % Normal 0-5 [facility] Comment on above: Performed By: #### L 100.0100, L3100.5125, L501.9520, L3300.1750 #### [facility] [address] [place], [address] Erythrocyte distribution width (RBC) [Ratio] 12.1 % Normal 11.6-14.6 [facility] Comment on above: Performed By: #### L 100.0100, L3100.5125, L501.9520, L3300.1750 #### [facility] [address] [place], [address] Hematocrit (Bld) [Volume fraction] 38.0 % Normal 37-47 [facility] Comment on above: Performed By: #### L 100.0100, L3100.5125, L501.9520, L3300.1750 #### [facility] [address] [place], [address] Hemoglobin (Bld) [Mass/Vol] 12.3 g/dL Normal 12.0-15.0 [facility] Comment on above: Performed By: #### L 100.0100, L3100.5125, L501.9520, L3300.1750 #### [facility] [address] [place], [address] IG% 0.300 Normal 0.0-0.9 [facility] Comment on above: Result Comment: IG% - Immature Granulocytes (promyelocytes, myelocytes and metamyelocytes) > 1% indicates that a LEFT SHIFT is Present. Performed By: #### L 100.0100, L3100.5125, L501.9520, L3300.1750 #### [facility] [address] [place], [address] Lymphocytes/100 WBC (Bld) 28.3 % Normal 19-41 [facility] Comment on above: Performed By: #### L 100.0100, L3100.5125, L501.9520, L3300.1750 #### [facility] [address] [place], [address] MCH (RBC) [Entitic mass] 28.8 pg Normal 27.0-32.0 [facility] Comment on above: Performed By: #### L 100.0100, L3100.5125, L501.9520, L3300.1750 #### [facility] [address] [place], [address] MCHC (RBC) [Mass/Vol] 32.4 g/dL Normal 32-36 [facility] Comment on above: Performed By: #### L 100.0100, L3100.5125, L501.9520, L3300.1750 #### [facility] [address] [place], [address] MCV (RBC) [Entitic vol] 89.0 fL Normal 81-99 [facility] Comment on above: Performed By: #### L 100.0100, L3100.5125, L501.9520, L3300.1750 #### [facility] [address] [place], [address] Monocytes/100 WBC (Bld) 7.0 % Normal 0-10 [facility] Comment on above: Performed By: #### L 100.0100, L3100.5125, L501.9520, L3300.1750 #### [facility] [address] [place], [address] Neutrophils/100 WBC (Bld) 62.6 % Normal 47-70 [facility] Comment on above: Performed By: #### L 100.0100, L3100.5125, L501.9520, L3300.1750 #### [facility] [address] [place], [address] Nucleated RBC (Bld) [#/Vol] 0 10*3/uL Normal 0-5 [facility] Comment on above: Performed By: #### L 100.0100, L3100.5125, L501.9520, L3300.1750 #### [facility] [address] [place], [address] Platelet mean volume (Bld) [Entitic vol] 10.6 fL Normal 6.2-12.0 [facility] Comment on above: Performed By: #### L 100.0100, L3100.5125, L501.9520, L3300.1750 #### [facility] [address] [place], [address] Platelets (Bld) [#/Vol] 238 10*3/uL Normal 150-450 [facility] Comment on above: Performed By: #### L 100.0100, L3100.5125, L501.9520, L3300.1750 #### [facility] [address] [place], [address] RBC (Bld) [#/Vol] 4.27 10*6/uL Normal 4.2-5.4 [facility] Comment on above: Performed By: #### L 100.0100, L3100.5125, L501.9520, L3300.1750 #### [facility] [address] [place], [address] RDW SD 39.3 fl Normal 35.1-43.9 [facility] Comment on above: Performed By: #### L 100.0100, L3100.5125, L501.9520, L3300.1750 #### [facility] [address] [place], [address] WBC (Bld) [#/Vol] 6.4 10*3/uL Normal 4.4-11.0 [facility] Comment on above: Performed By: #### L 100.0100, L3100.5125, L501.9520, L3300.1750 #### [facility] [address] [place], [address] Estradiolon 08-06-2024 ESTRADIOL 81.1 pg/mL Normal [facility] Comment on above: Result Comment: NORM AL [...] DETERMINE ESTRADIOL CONCENTRATION. Performed By: #### L 100.0100, L3100.5125, L501.9520, L3300.1750 #### [facility] [address] [place], [address] Follicle Stimulating Hormone on 08-06-2024 FSH 13.6 mIU/mL Normal [facility] Comment on above: Result Comment: NORMAL REFERENCE RANGES FEMALE FOLLICULAR 2.3 - 12.6 mIU/mL MID-CYCLE PEAK 5.2 - 17.5 mIU/mL LUTEAL 1.7 - 12.9 mIU/mL POST-MENOPAUSAL ON MHT 5.9 - 72.8 mIU/mL NOT ON MHT 12.7 - 132.2 mlU/mL MALE 0.7 - 10.8 mIU/mL Performed By: #### L 100.0100, L3100.5125, L501.9520, L3300.1750 #### [facility] [address] [place], [place], [address] Thyroid Stim Hormone (TSH)on 08-06-2024 TSH 1.490 uIU/mL Normal 0.358-3.740 [facility] Comment on above: Performed By: #### L 100.0100, L3100.5125, L501.9520, L3300.1750 #### [facility] [place], [address] CNOVon 07-17-2024 CNOV Office Visit (UCWSTR ) -- JOSE JUAN JOSHI ([id number]) 1970 F Date Time Provider Department 07/17/24 5:30 PM HARSH VELAZQUEZ [facility] [place] During your visit today, we recorded the following information about you: Temperature Pulse Respiration Blood pressure 98 degrees 73/minute 16/minute 128/80 Weight 65.4 kg Harsh Velazquez APRN.WINDOWS CONSULTANT 07/17/2024 7:14 PM Signed Subjective Female with complaints of left toe pain. Patient says she tripped over a toy. Patient says it is swollen and bruised. Patient says it is painful. Patient denies any numbness tingling or loss of feeling. The history is provided by the patient. No fusing machine feeder was used. Review of Systems Constitutional: Negative. [...] SPEC WHEN PFRMD 05/14/15 Colonoscopy CYSTOSCOPY 2015 [facility] - IPAS LAPAROSCOPY RADICAL [...] the distal phalanx of the third toe. Cannoneer: ARCHANA Transcribe Date/Time: Jul 17 2024 6:34P Dictated by : PREM DEGROOT MD 2. Closed nondisplaced fracture of distal phalanx of lesser toe of left foot, initial encounter - ICD9: 826.0, ICD10: S92.535A Was placed in a postop shoe. Patient was educated to follow-up with primary podiatry. Patient will rest ice elevate. Patient was okay with this care plan. Harsh Velazquez APRN.WINDOWS CONSULTANT Allergies As of Date: 07/17/2024 Noted Allergy [...] initial encounter [S92.535A] Order(s):XR TOE AP/LAT/OBL LEFT [[id number]] Order #: [id number] FUTURE Prescriptions as of 07/17/2024 - ergocalciferol [...] needed. Pro (more content not included)... Normal [facility] XR TOE 3V AP/LAT/OBL LTon XR [...] the distal phalanx of the third toe. Cannoneer: ARCHANA Transcribe Date/Time: Jul 17 2024 6:34P Dictated by : PREM DEGROOT MD This examination was interpreted and the report reviewed and electronically signed by: PREM DEGROOT MD on Jul 17 2024 6:36PM EST [id number] Normal [facility] XR Toes - left 3 Viewson IMPRESSION: Small chip/avulsion fracture involving the dorsal base of the distal phalanx of the third toe. Cannoneer: ARCHANA Transcribe Date/Time: Jul 17 2024 6:34P [...] the third toe. DIVISION OF RADIOLOGY Provider, [facility] - 07/17/2024 * * *Final Report* * [...] the distal phalanx of the third toe. Cannoneer: TESSAB Transcribe Date/Time: Jul 17 2024 6:34P Dictated by : PREM DEGROOT MD This examination was interpreted and the report reviewed and electronically signed by: PREM DEGROOT MD on Jul 17 2024 6:36PM EST [facility] Radiology Study observation (narrative) [facility] XR Toes - left 3 ViewsOrdere d By: Ccf Provider on 07-17-2024 [facility] CNOVon 07-04-2024 CNOV Office Visit (ENDOMN ) -- JOSE JUAN JOSHI ([id number]) 1970 F Date Time Provider Department 07/04/24 11:00 AM JAMSHID DUBOIS During your visit today, we recorded the following information about you: Pulse Blood pressure Weight 67/minute 138/65 66 kg Pennie Wilson OCCA 07/04/2024 10:50 AM Signed Thank you for choosing the [facility] Department of Endocrinology, Diabetes and Metabolism. Did you know that you need to call 48 hours in advance of your scheduled visit, if you are unable to make your appointment? [facility] [place] thanks you for your commitment, because patients not showing to their appointment results in a lost opportunity for patients to receive [facility] health care at the [facility]. To Cancel an appointment, please choose one of the following: - Call the Appointment Call Center at [phone] - From [employer], Go to Appointments - Cancel Appts If cancelling, consider your need to reschedule to prevent further delays in your care. To Schedule an appointment, please choose one of the following: - Call the Appointment Call Center at [phone] - From [employer], Go to Appointments - Request an Appt [...] not c (more content not included)... Normal [facility] US Thyroid glandon [facility] Radiology Study observation (narrative) [facility] CNPNon 02-02-2024 CNPN Telephone (ENDOMN) -- JOSE JUAN JOSHI ([id number]) 1970 F Date Time Provider Department 02/02/24 JAMSHID DUBOIS ENDOCHOCO During your visit today, we recorded the following information about you: Shaheed Librarian Head, Grecia Anival 02/02/2024 4:17 PM Signed Patient called in to let the office know she had her ultrasound done 02/01/24 and is asking for the office to review. Patient can be reached via my chart. Grecia Hummel Aerodynamics Engineer II [facility] Allergies As of Date: 02/02/2024 Noted Allergy [...] Status:Closed by JAMSHID DUBOIS on 02/03/24 Normal [facility] US THYROID/PARATHYROIDon US THYROID/PARATHYROID * * *Final Report * * * DATE OF EXAM: Jan 30 2024 9:33AM WRU 1048 - US THYROID/PARATHYROID / PROCEDURE REASON: [...] 2 points Echogenicity: Hypoechoic, 2 points Shape: Zqvbj-etjc-gzct, 0 points Margin: Smooth, 0 points Echogenic [...] 2 points Echogenicity: Hypoechoic, 2 points Shape: Zugmi-mamh-plkt, 0 points Margin: Smooth, 0 points Echogenic [...] be communicated with the ordering provider via [employer] staff message or phone message by [employer] within 2 business days of report finalization. --END OF FINDING-- Cannoneer: ARCHANA Transcribe Date/Time: Feb 01 2024 1:23P Dictated by : LISA ROJAS MD This examination was interpreted and the report reviewed and electronically signed by: LISA ROJAS MD on Feb 01 2024 1:27PM EST [id number] ACTIONABLE Invalid Interpretation Code [facility] Absolute lymphocyte countOrd ered By: Kaylee Pink on 12-19-2023 Lymphocytes Auto (Unsp spec) [#/Vol] 1.63 10*3/uL 0.83-4.51 [facility] Automated lymphocyte count a s percentage of total leukocytesOrdered By: Kaylee Pink on 12-19-2023 Lymphocytes/100 WBC Auto (Unsp spec) 28.9 % 19-41 [facility] Basophil percentageOrdered B y: Kaylee Pink on 12-19-2023 Basophils/100 WBC (Bld) 1.1 % 0-1 [facility] Bilirubin [Mass/Vol] 0.50 mg/dL 0.20-1.00 [facility] Comment on above: For patients on eltr ombopag therapy, use of Dimension [place] TBIL is not recommended. Chloride [Moles/Vol] 105 mmol/L 98-107 [facility] Cholesterol [Mass/Vol] 220 mg/dL <200 [facility] Comment on above: <200 mg/dL Desirable 200-240 mg/dL Borderline >240 mg/dL High Risk Eosinophils/100 WBC (Bld) 1.2 % 0-5 [facility] Glucose [Mass/Vol] 73 mg/dL 74-106 [facility] Hemoglobin (Bld) [Mass/Vol] 12.7 g/dL 12.0-15.0 [facility] Monocytes/100 WBC (Bld) 6.7 % 0-10 [facility] Neutrophils (Bld) [#/Vol] 3.5 10*3/uL 2.0-7.7 [facility] Neutrophils/100 WBC (Bld) 61.9 % 47-70 [facility] Potassium [Moles/Vol] 4.2 mmol/L 3.5-5.1 [facility] Protein [Mass/Vol] 7.5 g/dL 6.4-8.2 [facility] Sodium [Moles/Vol] 138 mmol/L 136-145 [facility] Triglyceride [Mass/Vol] 53 mg/dL <199 [facility] Comment on above: The drugs N-Acetylcy steine and Metamizole may falsely depress this assay.Serum Triglycerides Reference Interval Normal <150 mg/dL Borderline high 150 - 199 mg/dL High 200 - 499 mg/dL Very High > or = 500 mg/dL WBC (Bld) [#/Vol] 5.6 10*3/uL 4.4-11.0 [facility] Determination of erythrocyte mean corpuscular volume (MCV)Ordered By: Kaylee Pink on 12-19-2023 MCV (RBC) [Entitic vol] 88.9 fL 81-99 [facility] Erythrocyte distribution wid th ratioOrdered By: Kaylee Pink on 12-19-2023 Erythrocyte distribution width (RBC) [Ratio] 12.2 % 11.6-14.6 [facility] Erythrocyte distribution wid th standard deviationOrdered By: Kaylee Pink on 12-19-2023 Erythrocyte distribution width (RBC) [Entitic vol] 39.8 fL 35.1-43.9 [facility] Hematocrit Auto (Bld) [Volum e fraction]Ordered By: Kaylee Pink on 12-19-2023 Hematocrit (Bld) [Volume fraction] 39.4 % 37-47 [facility] Immature granulocytes/100 WB C Auto (Bld)Ordered By: Kaylee Pink on 12-19-2023 Immature granulocytes/100 WBC (Bld) 0.200 % 0.0-0.9 [facility] Comment on above: IG% - Immature Granu locytes (promyelocytes, myelocytes and metamyelocytes) > 1% indicates that a LEFT SHIFT is Present. Laboratory - Chemistry and C hemistry - challengeOrdered By: Kaylee Pink on 12-19-2023 Albumin/Globulin [Mass ratio] 1.0 {ratio} 0.9-2.4 [facility] ALP [Catalytic activity/Vol] 23 U/L 45-117 [facility] ALT [Catalytic activity/Vol] 20 U/L 13-56 [facility] Cholesterol in HDL [Mass/Vol] 90 mg/dL >40 [facility] Comment on above: The drugs N-Acetylcy steine and Metamizole may falsely depress this assay. Reference Range HDL <40 mg/dL Low HDL Cholesterol HDL >or= 60 mg/dL High HDL Cholesterol Cholesterol in LDL [Mass/Vol] 119 mg/dL 0-130 [facility] CO2 [Moles/Vol] 28.0 mmol/L 21.0-32.0 [facility] Globulin (S) [Mass/Vol] 3.8 g/dL 2.2-4.2 [facility] Urea nitrogen/Creatinine [Mass ratio] 17.3 mg/mg 10-20 [facility] - Hematology and Cell countsOrdered By: Kaylee Pink on 12-19-2023 MCH (RBC) [Entitic mass] 28.7 pg 27.0-32.0 [facility] MCHC (RBC) [Mass/Vol] 32.2 g/dL 32-36 [facility] Nucleated RBC/100 WBC (Bld) [Ratio] 0 % 0-5 [facility] Platelet mean volume (Bld) [Entitic vol] 10.9 fL 6.2-12.0 [facility] Platelets (Bld) [#/Vol] 223 10*3/uL 150-450 [facility] No Panel InformationOrdered By: Kaylee Pink on 12-19-2023 Estimated GFR (MDRD) Amer 104 mL/min >60 [facility] Comment on above: GFR Calc Estimated GFR (MDRD) Non-Af Amer 86 mL/min >60 [facility] Comment on above: Non- GFR Calc Vitamin D 25-Hydroxy 34.5 ng/mL [facility] Comment on above: Vitamin D 25(OH) Sta tus Range Deficiency <20 ng/mL (50nmol/L) Insufficiency 20 - 30 ng/mL (50 - 75 nmol/L) Sufficiency 30 - 100 ng/mL (75 - 250 nmol/L) Toxicity >100 ng/mL (>250 nmol/L) VLDL Cholesterol 11 mg/dL 5-40 [facility] RBC Auto (Bld) [#/Vol]Ordere d By: Kaylee Pink on 12-19-2023 RBC (Bld) [#/Vol] 4.43 10*6/uL 4.2-5.4 [facility] Serum or plasma calcium paul urement (mass/volume)Ordered By: Kaylee Pink on 12-19-2023 Calcium [Mass/Vol] 9.2 mg/dL 8.5-10.1 [facility] Serum or plasma creatinine m easurement (mass/volume)Ordered By: Kaylee Pink on 12-19-2023 Creatinine [Mass/Vol] 0.75 mg/dL 0.55-1.02 [facility] Comment on above: The validity of the calculated GFR & GFRAA in patients over 70 years has not been determined. Clinical correlation is essential. Serum or plasma thyroid stim ulating hormone (TSH) measurement (units/volume)Ordered By: Kaylee Pink on 12-19-2023 TSH Qn 1.23 uIU/mL 0.358-3.74 [facility] Serum or plasma urea nitroge n measurement (mass/volume)Ordered By: Kaylee Pink on 12-19-2023 Urea nitrogen [Mass/Vol] 13 mg/dL 05-03 [facility] Thin prep Papanicolaou smear with manual screeningOrdered By: Kaylee Pink on 12-19-2023 Thin prep Papanicolaou smear with manual screening 3.7 g/dL 3.2-5.0 [facility] Thin prep Papanicolaou smear with manual screening 21 U/L 15-37 [facility] Thin prep Papanicolaou smear with manual screening 5 5-15 [facility] Thin prep Papanicolaou smear with manual screening 0.91 ng/dL 0.76-1.46 [facility] Culture, urineOrdered By: Genet Pink on 06-03-2023 Bacteria identified Cx Nom (U) Positive [facility] No Panel InformationOrdered By: Jamee Gray on 05-03-2023 Follicle Stimulating Hormone 14.3 mIU/mL [facility] Comment on above: NORMAL REFERENCE RAN GES FEMALE FOLLICULAR 2.3 - 12.6 mIU/mL MID-CYCLE PEAK 5.2 - 17.5 mIU/mL LUTEAL 1.7 - 12.9 mIU/mL POST-MENOPAUSAL ON MHT 5.9 - 72.8 mIU/mL NOT ON MHT 12.7 - 132.2 mlU/mL MALE 0.7 - 10.8 mIU/mL Serum or plasma estradiol (E 2) measurement (mass/volume)Ordered By: Jamee Gray on 05-03-2023 E2 [Mass/Vol] 435.5 pg/mL [facility] Comment on above: NORMAL REFERENCE RAN GES [...] report Cyto stain Doc (Cvx/Vag) Comment . [facility] Comment on above: The Pap smear is [...] DNA Probe+sig amp Ql (Cvx) Negative Negative [facility] Comment on above: This nucleic acid am plification test detects fourteen high- risk HPV types (16,18,31,33,35,39,45,51,52,56,58,59,66,68)without differentiation. Laboratory - CytologyOrdered By: Cait Torrez on 03-21-2023 Implementation Specialist Payroll Cyto stain Nom (Cvx/Vag) [ID] Comment . [facility] Comment on above: Kelsy Santillan, Cytotec hnologist (ASCP) Laboratory - Miscellaneous t estsOrdered By: Cait Torrez on 03-21-2023 Service comment (Unsp spec) [Interp] Comment . [facility] Comment on above: This liquid based Th inPrep(R) pap test was screened withthe use of an image guided system. Service comment (Unsp spec) [Interp] . . [facility] Liquid-based cerv Pap + CT/G C by CHRISTOPHER w reflex to high-risk HPV for ASCUSOrdered By: Cait Torrez on 03-21-2023 Cytology report Cyto stain.thin prep Doc (Cvx/Vag) Comment . [facility] Comment on above: Criteria not met, HP V Genotype not performed.Performed at: [address], [place] [id number] Director: Delia Barbosa MD, Phone: [phone] at: [facility] Cyto [id number] [place], [place] [id number] Director: Juve Zapata MD, Phone: [phone] at: =G - [facility] [address] [place], [place] [id number] Director: Delia Barbosa MD, Phone: [phone] No Panel InformationOrdered By: Cait Torrez on 03-21-2023 Pap Smear QC Review Comment . [facility] Comment on above: Lisa Sinclair ytotechnologist (ASCP) Pathology report final diagnosis Narrative Comment . [facility] Comment on above: NEGATIVE FOR INTRAEP ITHELIAL LESION OR MALIGNANCY.THIS SPECIMEN WAS RESCREENED PART OF OUR OCCUPATIONAL MEDICINE OFFICER PROGRAM. Miscellaneous Test Comment MAILED SPECIMEN [facility] No Panel Informationon 03-31 Follicle Stimulating Hormone 1.7 mIU/mL [facility] Work Phone: Comment on above: NORMAL REFERENCE RAN GES FEMALE FOLLICULAR 2.3 - 12.6 mIU/mL MID-CYCLE PEAK 5.2 - 17.5 mIU/mL LUTEAL 1.7 - 12.9 mIU/mL POST-MENOPAUSAL ON MHT 5.9 - 72.8 mIU/mL NOT ON MHT 12.7 - 132.2 mlU/mL MALE 0.7 - 10.8 mIU/mL Celeste 08-17-2017 [facility] Telephone (UROLAE) JOSE JUAN JOSHI ([id number]) 1970 [facility] Time Provider Eehupcbmya06/1/17 MONA VALLEJO) HEMANT During your visit today, we recorded the following information about you:Reyes Garcia MA 08/17/2017 9:28 AM SignedPatient called for urine culture results. Please advise. Thank you.Reyes Vallejo CNP, MAURO 08/17/2017 1:18 PM SignedPlease call patientbalbina sent to pharmacy.Reyes Garcia MA 08/17/2017 2:01 PM SignedPatient notified.[place] As of Date: 08/17/2017 Noted Allergy ReactionDUST [...] daily. Status:Closed by MONA VALLEJO on 08/17/17 [facility] CNPN Telephone (UROLAE) JOSE JUAN JOSHI ([id number]) 1970 FDate Time Provider Glxjznmzwk42/1/17 BOLIVAR DEL TORO During your visit today, [...] by BOLIVAR DEL TORO MD on 08/17/17 [facility] Telephone (UROMILDRED) JOSE JUAN JOSHI ([id number]) 1970 [facility] Time Provider Gtyvndbgxx51/23/17 BOLIVAR DEL TORO During your visit today, we recorded the following information about you:Eva Batista MA 08/08/2017 11:56 AM SignedPt called asking for urine culture resultsRaymjaqueline Del Toro MD 08/09/2017 8:39 AM SignedRX sent to pharmacy for uti.Please confirm with patient.Thank Mara Lynne MAYA 08/09/2017 8:51 AM SignedPt should take amoxicillianTamara Lynne MAYA 08/09/2017 9:00 AM SignedThe Rx for amoxicillin was not sent please give directions and I will call inRx to her pharmacyEva Madisonmalcolm MAYA 08/09/2017 9:17 AM SignedPt aware of rxAllergies [...] by BOLIVAR DEL TORO MD on 08/09/17 Normal [facility] CNOVon 06-07-2017 CNOV Office Visit (UROLAE) JOSE JUAN JOSHI ([id number]) 1970 FDate Time Provider Department06/07/17 2:45 PM BOLIVAR DEL TORO During your visit today, we recorded the following information about you: Blood pressure Weight Height 118/74 65.8 kg 1.702 Deysi Del Toro MD 06/07/2017 4:23 PM SignedESTABLISHED PATIENT VISITHPBenny Joshi is a 46 year old female who presents uti symptoms started li8088.Recent uti April entercoccus - amoxicillinNo bladder symptoms [...] Ketones, Urine (no units)Date Value06/07/2017 trace Specific [place], Ur (no units)Date Value06/07/2017 1.024 Hemoglobin/ Blood,Ur [...] Wt 65.8 kg (145 lb) BMI 22.71 kg/q8YQISPGTPGZ/PLAN:1. Urinary tract infection, site not specified- UA [...] Small amount (pea sized) twice weeklyCranberryVaccinium Macrocarpon Samoan Cranberry Proanthocyanidins 36 mg daily 3600mg Cranberry [...] infection, site not specified [N39.0]Order(s):UA DIP B/O [[id number]] Order #: [id number] Methenamine Hippurate (HIPREX) 1 gram tabletTake 1 tablet by mouth twice daily.Disp: 60 tabletRfl: 11 URINE CULTURE [SQURCUL] Order #: [id number] URINE CULTURE [SQURCUL] Order #: [id number] STANDINGPrescriptions as of 06/07/2017 Sig: NUVARING 0.12 [...] (pea sized) twice weekly Cranberry Vaccinium Macrocarpon Samoan Cranberry Proanthocyanidins 36 mg daily 3600mg Cranberry [...] BOLIVAR DEL TORO MD on 06/07/17 Normal [facility] Cult Urineon 06-07-2017 Cult Urine Test performed at [facility] Mixed skin zi. No further identification or susceptibility testing will be performed. Please submit a new specimen. Plates will be held for 5 days. Normal [facility] Comment on above: Performed By: #### C _URI ####[place] [address] PROGRESSon 06-07-2017 PROGRESS HNO ID: [id number] thor: Bolivar Dean: (none)Author Type: PhysicianType: Progress NotesFiled: 06/07/2017 4:23 PMNote Text:ESTABLISHED PATIENT VISITHPIStaaimee Joshi is a 46 year old female [...] Ketones, Urine (no units)Date Value06/07/2017 trace Specific [place], Ur (no units)Date Value06/07/2017 1.024 Hemoglobin/ Blood,Ur [...] Wt 65.8 kg (145 lb) BMI 22.71 kg/a5KMGIURTPIH/PLAN:1. Urinary tract infection, site not specified- UA DIP B/O Normal [facility] URINE CULTUREon 06-01-2017 Urine culture, bacteria URINE RESULT 15-20,000 COL/ML MIXED ZI-PLEASE REPEAT-POSSIBLE CONTAMIN Normal [facility] Comment on above: Performed By: #### M 100.09412 ####[facility] [id number] [place], [place] [address]Ab# [phone] Vital Signs Date Time Vital Sign Value Performing Clinician Facility 07-15-2025 11:09-0400 Body temperature 97.8 [degF] Dr. Kaylee Pink DO Work Phone: [facility] 07-15-2025 11:09-0400 Diastolic blood pressure 60 mm[Hg] Dr. Kaylee Pink DO Work Phone: [facility] 07-15-2025 11:09-0400 Heart rate 85 /min Dr. Kaylee Pink DO Work Phone: [facility] 07-15-2025 11:09-0400 Respiratory rate 16 /min Dr. Kaylee Pink DO Work Phone: [facility] 07-15-2025 11:09-0400 SaO2% (BldA) [Mass fraction] 100 % Dr. Kaylee Pink DO Work Phone: [facility] 07-15-2025 11:09-0400 Systolic blood pressure 111 mm[Hg] Dr. Kaylee Pink DO Work Phone: [facility] 07-15-2025 08:42-0400 Body height 167.[address] Kaylee Pink DO Work Phone: [facility] 07-15-2025 08:42-0400 Body mass index (BMI) [Ratio] 23.3 kg/m2 Dr. Kaylee Pink DO Work Phone: [facility] 07-15-2025 08:42-0400 Body weight 65.[address] Kaylee Pink DO Work Phone: [facility] 07-17-2024 17:31-0400 Body mass index (BMI) [Ratio] 22.52 kg/m2 Harsh Velazquez APRN.WINDOWS CONSULTANT Work Phone: [facility] 07-17-2024 17:31-0400 Body temperature 98.01 [degF] aHrsh Velazquez APRN.WINDOWS CONSULTANT Work Phone: [facility] 07-17-2024 17:31-0400 Body weight 65.4 kg Harsh Velazquez APRN.WINDOWS CONSULTANT Work Phone: [facility] 07-17-2024 17:31-0400 Diastolic blood pressure 80 mm[Hg] Harsh Velazquez APRN.WINDOWS CONSULTANT Work Phone: [facility] 07-17-2024 17:31-0400 Heart rate 73 /min Harsh Velazquez APRN.WINDOWS CONSULTANT Work Phone: [facility] 07-17-2024 17:31-0400 Respiratory rate 16 /min Harsh Velazquez APRN.WINDOWS CONSULTANT Work Phone: [facility] 07-17-2024 17:31-0400 SaO2% (BldA) [Mass fraction] 99 % Harsh Velazqeuz APRN.WINDOWS CONSULTANT Work Phone: [facility] 07-17-2024 17:31-0400 Systolic blood pressure 128 mm[Hg] Harsh Velazquez APRN.WINDOWS CONSULTANT Work Phone: [facility] 07-04-2024 10:56-0400 Body mass index (BMI) [Ratio] 22.73 kg/m2 Jamshid Dubois MD Work Phone: [facility] 07-04-2024 10:56-0400 Body weight 66 kg Jamshid Dubois MD Work Phone: [facility] 07-04-2024 10:56-0400 Diastolic blood pressure 65 mm[Hg] Jamshid Dubois MD Work Phone: [facility] 07-04-2024 10:56-0400 Heart rate 67 /min Jamshid Dubois MD Work Phone: [facility] 07-04-2024 10:56-0400 Systolic blood pressure 138 mm[Hg] Jamshid Dubois MD Work Phone: [facility] 06-13-2023 13:11-0400 Body height 167.[address] Kaylee Pink Work Phone: [facility] 06-13-2023 13:09-0400 Body mass index (BMI) [Ratio] 23.6 kg/m2 Dr. Kaylee Pink Work Phone: [facility] 06-13-2023 13:09-0400 Body weight 66.[address] Kaylee Pink Work Phone: [facility] 06-13-2023 13:09-0400 Diastolic blood pressure 76 mm[Hg] Dr. Kaylee Pink Work Phone: [facility] 06-13-2023 13:09-0400 Systolic blood pressure 115 mm[Hg] Dr. Kaylee Pink Work Phone: [facility] 05-03-2023 12:55-0400 Body mass index (BMI) [Ratio] 23.4 kg/m2 Kaylee Kristian [facility] 05-03-2023 12:55-0400 Body weight 65.88 kg Kaylee Kristian [facility] 05-03-2023 12:55-0400 Diastolic blood pressure 90 mm[Hg] Kaylee Kristian [facility] 05-03-2023 12:55-0400 Systolic blood pressure 131 mm[Hg] Kaylee Kristian [facility] 03-21-2023 10:02-0400 Body height 167.64 cm Kaylee Kristian [facility] 03-21-2023 09:46-0400 Body mass index (BMI) [Ratio] 23.3 kg/m2 Kaylee Kristian [facility] 03-21-2023 09:46-0400 Body weight 65.48 kg Kaylee Kristian [facility] 03-21-2023 09:46-0400 Diastolic blood pressure 77 mm[Hg] Kaylee Kristian [facility] 03-21-2023 09:46-0400 Systolic blood pressure 120 mm[Hg] Kaylee Kristian [facility] 12-23-2022 08:46-0500 Body height 170.4 cm Melina Tranchito DO Work Phone: [facility] 12-23-2022 08:46-0500 Body weight 64.41 kg Melina Tranchito DO Work Phone: [facility] 12-23-2022 08:46-0500 Diastolic blood pressure 60 mm[Hg] Melina Tranchito DO Work Phone: [facility] 12-23-2022 08:46-0500 Heart rate 69 /min Melina Tranchito DO Work Phone: [facility] 12-23-2022 08:46-0500 Systolic blood pressure 115 mm[Hg] Melina Vieira DO Work Phone: [facility] Encounters Encounter Date Encounter Type Care Provider Facility Start: 08-05-2025 ambulatory Jamee Jacksonconchita Peterson lity:[facility] Start: 07-24-2025 ambulatory Dhruv Monroe Faci lity:[facility] Start: 07-18-2025 Encounter for other preprocedural examination Elham Curtis [facility] Start: 07-15-2025 ambulatory Elham Edgardogeoff Facilit y:[facility] Start: 07-15-2025 Non-patient / Non-visit Dr. Zhen Curtis MD -[facility] Start: 07-15-2025 End: 07-15-2025 Admission to same day surgery center Dr. Elham Curtis MD -Endoscopy Work Phone: Start: 07-15-2025 End: 07-15-[address] Kaylee Pink DO Work Phone: -Endoscopy Start: 06-24-2025 End: 06-24-[address] Kaylee Pink DO Work Phone: -Laboratory Specimen Start: 06-24-2025 End: 06-24-[address] Dhruv Monroe MD -Laboratory Specimen Work Phone: Start: 06-24-2025 End: 06-24-2025 ambulatory Dhruv Monroe Facility:[facility] Start: 03-26-2025 End: 03-26-[address] Kaylee Pink DO Work Phone: [facility] Work Phone: Start: 03-26-2025 End: 03-26-[address] Kaylee Pink DO -Radiology [place] Work Phone: Start: 03-26-2025 End: 03-26-[address] Kaylee Pink DO Work Phone: [facility] Work Phone: Start: 03-26-2025 End: 03-26-[address] Kaylee Pink DO -Ultrasound [facility] Work Phone: Start: 03-26-2025 End: 03-26-2025 ambulatory Kaylee [facility] Facility:[facility] Start: 03-09-2025 End: 03-09-[address] Kaylee Pink DO Work Phone: [facility] Work Phone: Start: 03-09-2025 End: 03-09-[address] Kaylee Pink DO -Ultrasound [facility] Work Phone: Start: 03-09-2025 End: 03-09-2025 ambulatory Kaylee [facility] Facility:[facility] Start: 03-04-2025 End: 03-04-[address] Kaylee Pink DO -Laboratory [place] Work Phone: Start: 03-04-2025 End: 03-04-2025 ambulatory Kaylee [facility] Facility:[facility] Start: 09-17-2024 End: 11-29-2024 Telephone encounter Jaz Patel [facility] Radiology Comment on above: Release Of Medical R ecords (Imaging Disc/Report) Start: 08-27-2024 End: 08-27-2024 ambulatory [facility] Facility:[facility] Start: 08-14-2024 End: 08-14-2024 Patient encounter procedure Giovanni Bey Work Phone: Podiatry Comment on above: Closed nondisplaced fracture of phalanx of lesser toe of right foot, unspecified phalanx, initial encounter (Primary Dx); Onychodystrophy; Calcaneal spur of foot, left Start: 08-14-2024 End: 08-14-2024 ambulatory KAYLEE Perez [facility] Facility:[facility] Start: 08-14-2024 End: 08-14-2024 Subsequent hospital visit by physician [facility] Work Phone: Radiology Comment on above: Closed [...] Start: 08-13-2024 End: 08-13-2024 ambulatory Jamee Gray Facility:[facility] Start: 08-06-2024 End: 08-06-2024 ambulatory [facility] Facility:[facility] Start: 07-17-2024 End: 07-17-2024 Subsequent hospital visit by physician Marcella [facility] Work Phone: Radiology Comment on above: Pain [R52] Start: 07-17-2024 End: 07-17-2024 [facility] Facility:[facility] Start: 07-17-2024 End: 07-17-2024 Patient encounter procedure Harsh Velazquez APRN.CNP Work Phone: [facility] Comment on above: Pain (Primary Dx); Closed nondisplaced fracture of distal phalanx of lesser toe of left foot, initial encounter Start: 07-04-2024 End: 07-04-2024 ambulatory [facility] Facility:[facility] Start: 07-04-2024 End: 07-04-2024 Patient encounter procedure Jamshid Dubois MD Work Phone: Endocrinology Comment on above: Multiple thyroid nod ules (Primary Dx) Start: 02-02-2024 Telephone encounter Jamshid byrnes MD Work Phone: Endocrinology Comment on above: Patient Update Start: 01-30-2024 End: 01-30-2024 ambulatory [facility] Facility:[facility] Start: 01-30-2024 End: 01-30-2024 Subsequent hospital visit by physician [facility] Work Phone: Radiology Comment on above: 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 Kaylee Pink Work Phone: [facility] Work Phone: Start: 08-22-2023 End: 08-22-[address] Kaylee Pink Work Phone: [facility]-Outpatient Breast Imaging Work Phone: Start: 06-13-2023 End: 06-13-[address] Kaylee Pink Work Phone: [facility] Work Phone: Start: 06-03-2023 End: 06-03-[address] [facility]lee Pink [facility] Phone[facility] Start: 05-03-2023 End: 05-03-2023 ambulatory Kaylee ROSEN [facility] Work Phone: Start: 05-03-2023 End: 05-03-2023 Patient encounter procedure Kaylee ROSEN [facility]-Laboratory, [place] Start: 05-03-2023 End: 05-03-2023 Patient encounter procedure Kaylee ROSEN [facility] Work Phone: Start: 03-28-2023 End: 03-28-2023 ambulatory Kaylee ROSEN [facility] Work Phone: Start: 03-28-2023 End: 03-28-2023 Patient encounter procedure Kaylee ROSEN [facility]-Ultrasound, [facility] Start: 03-21-2023 Patient encounter procedure Kaylee ROSEN [facility] Start: 03-21-2023 End: 03-21-2023 Patient encounter procedure Kaylee ROSEN [facility]-Laboratory, [facility] Start: 03-21-2023 End: 03-21-2023 Patient encounter procedure Kaylee ROSEN [facility] Start: 12-23-2022 End: 12-23-2022 Patient encounter procedure Melina Vieira DO Work Phone: Endocrinology Comment on above: Multiple thyroid nod ules (Primary Dx) Start: 12-20-2022 End: 12-20-2022 Patient encounter procedure Kaylee ROSEN [facility]-MRI - [facility] Start: 12-06-2022 End: 12-06-2022 Patient encounter procedure Kaylee ROSEN [facility]-Ultrasound, [facility] Start: 08-16-2022 End: 08-16-2022 ambulatory [facility] Work Phone: Start: 08-16-2022 End: 08-16-2022 Patient encounter procedure [facility]-Outpatient Breast Imaging Start: 03-31-2022 End: 03-31-2022 Patient encounter procedure [facility]-Laboratory, Malcolm electrical 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 Kaylee cross DO Work Phone: Start: 06-24-[address] Kaylee Pink DO Work Phone: Start: 03-26-2025 Plain X-ray of shoulder Dr. Kaylee Pink DO Work Phone: Start: 03-26-[address] Kaylee Pink DO Work Phone: Start: 03-09-2025 US scan of thyroid Dr. [...] 08-16-2022 Screening mammography Start: 05-14-2015 Colonoscopy Melina Ajlisa aura Work Phone: Plan of Treatment Date Care Activity Detail Author Start: 07-15-2025 Colonoscopy Colonoscopy - Open Access (Not Applicable) [facility] Start: 07-15-2025 Non-patient / Non-visit Non-patient / Non-visit -[facility] Start: 07-15-2025 End: 07-15-2025 Admission to same day surgery center Nausea -Endoscopy Work Phone: Start: 07-15-2025 Patient discharge [facility] Start: 08-14-2024 End: 08-14-2024 Patient encounter procedure Podiatry Comment on above: broken toe 3rd,Lt Xray Start: 06-17-2024 Covid-19 Vaccine () Covid-19 Vaccine () [facility] Start: 06-17-2024 Covid-19 Vaccine () Covid-19 Vaccine () [facility] Start: 06-17-2024 Influenza vaccination [facility] Start: 10-17-2023 Behavioral Health Screening Behavioral Health Screening [facility] Start: 06-17-2023 Covid-19 Vaccine () Covid-19 Vaccine () [facility] Start: 10-17-2022 DEPRESSION ASSESSMENT DEPRESSION ASS ESSMENT [facility] Start: 06-17-2022 Influenza vaccination INFLUENZA (#1) [facility] Start: 07-19-2021 DIABETES SCREEN DIABETES SCREEN [facility] Start: 07-19-2021 Diabetes Screening Diabetes Screenin g [facility] Start: 2020 Pneumococcal Vaccine : 50+ (1 of 1 - PCV) Pneumococcal Vaccine: 50+ (1 of 1 - PCV) [facility] Start: 2020 SHINGRIX VACCINE (1 of 2) SHINGRIX VACCINE (1 of 2) [facility] Start: 05-14-2020 Colonoscopy COLONOSCOPY [facility] Start: 05-14-2020 COLORECTAL CANCER SCREENING COLORECTAL CANCER SCREENING [facility] Start: 05-14-2020 Screening for malign ant neoplasm of colon [facility] Start: 2015 COLOGUARD (FIT-DNA) COLOGUARD (FIT-D NA) [facility] Start: [address] COLONOGRAPHY [facility] Start: 2015 FECAL OCCULT BLOOD FECAL OCCULT BLOO D [facility] Start: 2015 Lipid panel Lipid Screening [facility] Start: 2015 LIPID SCREEN LIPID SCREEN [facility] Start: 2015 Screening for malign ant neoplasm of colon [facility] Start: 2015 SIGMOIDOSCOPY SIGMOIDOSCOPY [facility] Start: 2010 Mammography MAMMOGRAM [facility] Start: 2010 Screening for malign ant neoplasm of breast Mammogram Screening [facility] Start: 06-05-2005 Urine microalbumin profile [facility] Start: 2000 HPV TESTING HPV TESTING [facility] Start: 2000 Screening for malign ant neoplasm of cervix HPV Testing [facility] Start: 1991 PAP TESTING PAP TESTING [facility] Start: 1991 Screening for malign ant neoplasm of cervix [facility] Start: 1989 Hepatitis B Vaccine (1 of 3 - + 3-dose series) Hepatitis B Vaccine (1 of 3 - + 3-dose series) [facility] Start: 1988 Anxiety Screening Anxiety Screening [facility] Start: 1988 Depression Screening Depression Scre ening [facility] Start: 1988 HEPATITIS C SCREENING HEPATITIS C [facility] Start: 1988 Hepatitis C screening Hepatitis C [facility] Start: 1988 HIV SCREENING HIV SCREENING [facility] Start: 1988 HIV screening HIV Screening [facility] Start: 04-04-1971 COVID-19 VACCINE (#1) COVID-19 VACCI NE (#1) [facility] Start: 1970 HEPATITIS B (1 of 3 - 3-dose series) HEPATITIS B (1 of 3 - 3-dose series) [facility] End: 09-12-2025 XR Foot - left AP and Lateral and oblique XR FOOT GENERAL 3V AP/LAT/OBL LEFT Radiology Routine Closed nondisplaced fracture of distal phalanx of lesser toe of left foot with routine healing, subsequent encounter 1 Occurrences starting 08/13/2024 until 09/12/2025 [facility] Work Phone: Comment on above: 1 Occurrences starti ng 08/13/2024 until 09/12/2025 XR Foot - left AP an d Lateral and oblique XR FOOT GENERAL 3V AP/LAT/OBL LEFT Radiology Routine Closed nondisplaced fracture of distal phalanx of lesser toe of left foot with routine healing, subsequent encounter 08/14/2024 1:52 PM EDT [facility] Work Phone: Immunizations Immunization Date Immunization Notes Care Provider Irene wei 06-04-2005 tetanus and diphther ia toxoids, not adsorbed, for adult use Melina Vieira DO Work Phone: [facility] Work Phone: Payers Date Payer Category Payer Self-pay [id number] 2007 [facility] BLUE CARD PPO OOS [id number] 2007 Unknown [employer] BLUE CARD PPO OOS [id number] 2007-Present [phone] [address] [place] [address] PPO [id number] 2007 Unknown [id number] Unknown [id number] Unknown [id number] Unknown [id number] Unknown [id number] Unknown [id number] Unknown [id number] Unknown [id number] Unknown [id number] Unknown [id number] Unknown [id number] Unknown [id number] Unknown [id number] Social History Date Type Detail Facility Start: 06-29-2016 End: 06-13-2023 Tobacco smoking status NHIS Unknown if ever smoked [facility] Start: 1970 Sex Assigned At Female [facility] Start: 07-30-2024 End: 07-15-2025 Tobacco smoking status NHIS Never smoked tobacco [facility] Start: 12-23-2022 End: 08-14-2024 Alcohol intake Current non-drinker of alcohol (finding) [facility] Start: 1970 Sex Assigned At Not on file [facility] Start: 12-23-2022 End: 07-04-2024 History of Social function [facility] Start: 12-23-2022 End: 07-04-2024 Tobacco use panel [facility] National Score (1-10 0), lower number is lower risk 52 [facility] Goals Date Patient Goal Desired Activity /State Functional Status Date Assessment Result Facility 05-21-2015 Are you deaf, or do you have serious difficulty hearing No 05/21/2015 10:10 AM Alana Martinez LPN No [facility] 05-21-2015 Are you blind, or do you have serious difficulty seeing, even when wearing glasses No 05/21/2015 10:10 AM Alana Martinez LPN No [facility] 05-21-2015 Do you have serious difficulty walking or climbing stairs No 05/21/2015 10:10 AM Alana Martinez LPN No [facility] 05-21-2015 Do you have difficul ty dressing or bathing No 05/21/2015 10:10 AM Alana Martinez LPN No [facility] 05-21-2015 Because of a physica l, mental, or emotional condition, do you have difficulty doing errands alone such as visiting a physician's office or shopping No 05/21/2015 10:10 AM Alana Martinez LPN No [facility] Mental Status Date Assessment Result Facility 07-15-2025 Cognitive function Light Pain [facility] Work Phone: 07-15-2025 Cognitive function Patient Orientation Pe rson [facility] Work Phone: 05-21-2015 Because of a physica l, mental, or emotional condition, do you have serious difficulty concentrating, remembering, or making decisions No 05/21/2015 10:10 AM EDT Alana Paris LPN No [facility] Clinical Notes 12-23-2022 to 07-15-2025 Note Date & Type Note Facility 07-15-2025 Procedure note [facility] 07-15-2025 Procedure note [facility] 07-15-2025 History and physical note Note Date/Time July 15, 2025 9:38am [facility] Medical Records Department [address] [place] [address] History & Physical Exam 07/15/25927 MR#: [id number] Acct: [id number] Name: JOSE JUAN JOSHI Rep #:[id number] : 1970 54 From: Elham Curtis MD PCP: Dr. Kaylee Pink, DO Status:[facility] Location: [place] [address] HPI - General General Date of Service: 07/15/25 HPI Narrative JOSE JUAN JOSHI, is a 54 F who presents for screening colonoscopy. Patient's lastcolonoscopy was about 10 [facility] per patient negative. Patient states her mom did have a grape sized tumor may be related todiverticulitis removed in her 40s not sure if it was cancerous per patient mom is now in her 80s. Patient has bowel movements about every 3 to 4 days. Patient denies any chronic abdominal pain/nausea/vomiting/reflux. Patient is ishaving some nausea at night almost every night currently not on any medication. [facility] Medical History Wears glasses Thyroid disease Arthritis History of renal disease Easy bruising Restless legs History of IBS Non-smoker Leg cramps Home Medications ?Medication ?Instructions ?Recorded ?Last Taken ?Type meclizine 25 mg tablet 25 mg PO BID PRN dizziness 0 03/21/23 Unknown History peg 3350-electrolytes 236 4,000 ml PO ONCE #4,000 mL 0 05/13/25 07/14/25 Rx gram-22.74 gram-6.74 gram-5.86 gram solution metronidazole 0.75 % topical gel 1 applic topical BID PRN ROSCEA 07/10/25 Unknown History Allergy/AdvReac Type Severity Reaction Status Date / Time No Known Allergies Allergy Verified 07/15/25 08:41 Family History Brother Breast cancer Sister Breast cancer Cancer osteocarcinoma Parkinsons disease Mother CVA (cerebral vascular accident) Breast cancer Skin cancer Father CVA (cerebral vascular accident) Prostate cancer Surgical History History of colonoscopy S/P wisdom tooth extraction S/P dilation and curettage S/P endometrial ablation S/p nephrectomy Social History housing: apartment number of children: 2 current occupational status: employed current occupation: [employer] Smoking Status: Never smoker alcohol intake: current details: occasionally substance use type: does not use caffeine: Yes what type of physical activity do you participate in: walking, aerobics and weight training frequency: 1-2 times per week seatbelt use: always do you feel safe at home: Yes additional social history: -Rosalba Past Medical/Surgical History Planned Operation Planned Operative Procedure(s): COLONOSCOPY S.O.S: No Previous Hospitalizations/Surgeries HX Hospitalizations: Yes HX of Surgeries: WISDOM TEETH D AND C 2011 NEPHRECTOMY 2013 Any Problems With Anesthesia: No You/Your Family Experience Fever (Hyperthermia) With Anes: No Cholinesterase deficiency: No Cardiovascular Hx Chest Pain within Last 2 months: No Hx of Irregular Heartbeat and/or Afib: No Hx Heart Attack: No Hx Congestive Heart Failure: No Hx Rheumatic Fever: No Hx Hypertension: No Hx Internal Defibrillator: No Hx Pacemaker: No Hx Cardiac Catheterization: No Hx Cardiac Surgery/Stents/Etc.: No Hx Stress Test: No Hx Pain in Legs when Walking/Leg Cramps: No Respiratory Chronic Cough: No HX of Shortness of Breath: No Hoarseness: No Hx Chronic Obstructive Pulmonary Disease (COPD): No Hx Asthma: No Hx Emphysema: No Hx Sleep Apnea: No CPAP: No BIPAP: No Hx Respiratory Tract Infection/Cold (presently): Yes (MILD COLD, NO FEVER OR COUGH) Do You Snore Loudly (louder than talking or can be heard): No Do You Often Feel Tired/ Fatigued/ Sleepy Dring Daytime?: No Has Anyone Observed You Stop Breathing During Sleep?: No Result (for STOP score): Negative Hx Smoking: No Smoking Status: Never smoker Gastrointestinal Hx Gastrointestinal Disorders: Yes (IBS) Hx Gastrointestinal Bleed: No Hx Ulcer: No Hx Hiatal Hernia: No Difficulty Chewing/Swallowing: No Special diet followed at home: Yes (LOW PROTEIN, LOW SODIUM,) Hx Unplanned Weight Loss of 20#: No HX Unplanned Weight Gain of 20#: No Neurological Hx Seizures: No HX Syncope/Blackout Spells/Unconsciousness: No Hx Transient Ischemic Attacks (TIA): No Hx Multiple Sclerosis: No Hx Parkinson's Disease: No Hx Head/Neck Injury: No Hx Headaches: No Hx Back Injury/Pain: No Recent Onset of Speech Difficulty: No Restless Legs: No Does patient have nerve stimulator: No Blood Disorder Hx Leukemia: No Bleeding Tendencies: No Hx Deep Vein Thrombosis: No Hx High Cholesterol: No Blood Transmitted Disease: No Hx Hepatitis: No Hx Cirrhosis: No Hx Anemia: No Hx Blood Disorders: No Reproduction : No Is Patient Lactating: No Hx Hysterectomy: No Hx Tubal Ligation: No Are You Post Menopause: No Genitourinary Hx 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) Hx Dialysis: No Musculoskeletal Hx Arthritis: No Hx Rheumatoid Arthritis: No Hx Gout: No Recent Onset of an Orthopedic Problem: No Endocrine Hx Diabetes: No Thyroid Disease: Yes Hx Steroid Therapy: No Psycho/Social Hx Substance Use: No Hx Alcohol Use: No Hx Anxiety: No Hx Depression: No Mental Illness: No Hx Dementia: No Miscellaneous Hx Cancer: No Recent Exposure to Contagious Disease: No Hx of C-Diff: No Any Loose Teeth: No Allergies No Known Allergies Allergy (Verified 07/15/25 08:41) Discharge Is Pt Admitted From a Detention, or a Retirement: No Who Could Help: After D/C, Where Do you Plan to Go: Return Home Vital Signs Vital Signs Vital Signs: 07/15/25 08:42 07/15/25 08:42 07/15/25 09:06 Temperature 98.3 F 98.3 F Temperature Source Temporal Pulse Rate 81 81 Respiratory Rate 18 18 Respiratory Pattern Normal Blood Pressure 110/61 110/61 Blood Pressure Mean 77 Blood Pressure Source Monitor Blood Pressure Position Semi-Fowlers Blood Pressure Location Left Arm Pulse Ox 98 98 Oxygen Delivery Method Room Air Weight Weight: 144 lb 13.499 oz Body Mass Index (BMI) 23.3 Physical Exam Const alert, oriented x3 and no apparent distress HEENT normocephalic and head/scalp atraumatic Resp normal respiratory effort Cardio regular rate GI soft to palpation and non-tender; Negative for non-distended Palpation: Negative for guarding Extremity no clubbing, cyanosis or edema Skin no rashes or lesions noted Neuro CN's II-XII intact bilaterally Psych mental status grossly normal Assessment & Plan Assessment/Plan (1) Screening for colon cancer: (2) Nausea: PLAN: Plan Recommend patient trying [id number] omeprazole 20 to 40 mg p.o. daily for couple weeks and Pepcid (famotidine 20 mg p.o. daily for 1 to 2 days) for the initial first few days with the omeprazole due to the nausea and see if it improves. Patient is agreeable to plan. Surgery Risks - Colonoscopy I discussed with the patient the risks of the procedure: Yes Risks Include but are not Limited To: Risks include but are not limited to: Bleeding, perforation requiring further surgery, inability to complete colonoscopy requiring barium enema. 07/15/25 0938 <Electronically signed by Elham Curtis MD> Cosigner Signature (if applicable): CC: Dr. Kaylee Pink DO; Dr. Elham Curtis MD~ Signed [facility] Work Phone: [phone]) 235-788909-29-2025 Consult note Author Go Chen [facility] Note Date/Time July 15, 2025 9:07am [facility] Medical Records Department [address] [place] [address] Pre-Anesthesia Evaluation 07/15/25 0902 MR#: [id number] Acct: [id number] Name: JOSE JUAN JOSHI Rep #:[id number] : 1970 54 From: Go Tamayo PCP: Dr. Kaylee Pink DO Status:REG SDC Y Race: C Location: [place] [address]-1 ASA Classification* ASA Classification ASA Classification: 2 Assessment & Plan Anesthesia* Anesthesia Assessment Anesthesia Assessment: Discussed sedation and/or anesthesia options, risks, benefits, and alternatives with patient/parents/legal guardian/POA. Questions invited. The patient/parents/legal guardian/POA seems to understand and agrees to proceedwith anesthesia plan. Reviewed the physical assessment, medical history, allergy history and patient home medications list prior to surgery/procedure/anesthetic and documented any changes. Performed airway and anesthesia risk assessments. Anesthesia Type Anesthesia Type: MAC History Source History Obtained from:: Patient and Chart Anesthesia Focused Assessment* Temperature: 98.3 F Pulse Rate: 81 Blood Pressure: 110/61 Respiratory Rate: 18 Pulse Ox: 98 Airway Assessment Mouth opens: >3 cm Mallampati Score: I Labs Anesthesia Preop lab: CBC WBC, (4.4-11.0) 4.6 K/mm3 03/04/25, 10:24 RBC, (4.2-5.4) 4.24 M/mm3 03/04/25, 10:24 Hgb, (12.0-15.0) 12.6 g/dL 03/04/25, 10:24 Hct, (37-47) 37.8 % 03/04/25, 10:24 Plt Count, (150-450) 228 K/mm3 03/04/25, 10:24 CHEMISTRY Potassium, (3.3-5.1) 4.2 mmol/L 03/04/25, 10:24 Sodium, (133-145) 137 mmol/L 03/04/25, 10:24 BUN, (4-19) 13 mg/dL 03/04/25, 10:24 Creatinine, (0.70-1.20) 0.74 mg/dL 03/04/25, 10:24 Glucose, (70-99) 81 mg/dL 03/04/25, 10:24 TSH, (0.358-3.740) 1.490 uIU/mL 08/06/24, 16:13 COAG PT, (11.7-14.9) 12.8 SECONDS 03/04/25, 10:24 HCG, Quant, (1-3) < 1 mIU/mL 03/22/24, 12:50 Urine Test Negative Negative Today, 08:33 Pre-Assessment Diagnosis/Proposed Procedure Planned Operative Procedure(s): COLONOSCOPY Anesthesia History Anesthesia History - drainage inspector: Anesthesia History - drainage inspector Hx Hospitalization No 07/10/25 13:54 Any Problems With Anesthesia No 07/10/25 13:54 Cholinesterase deficiency No 07/10/25 13:54 You/Your Family Experience No 07/10/25 13:54 fever (hyperthermia) with Relationship Recent Exposure to Contagious No 05/03/23 14:07 Disease Does patient have nerve No 07/10/25 13:54 stimulator Patient instructed to have device shut off --Does patient have Pacemaker No 07/15/25 08:42 or ICD? When Was Last Pacemaker Check QUESTION #4 FULL TEXT: You/Your Family Experience fever (hyperthermia) with Anesthesia Last Oral Intake Last Oral intake: Last Oral Intake NPO since 00:00 07/15/25 08:42 Meds taken in AM with sips of No 07/15/25 08:42 water? Meds patient instructed to take am of surgery PONV PONV - drainage inspector: PONV - drainage inspector Female Yes 07/10/25 13:54 HX of Motion Sickness Yes 07/10/25 13:54 HX of N/V After Surgery Yes 07/10/25 13:54 Non-Smoker Yes 07/10/25 13:54 Duration of Surgery greater No 07/10/25 13:54 than 60 minutes Number of Risk Factors 4 07/10/25 13:54 PONV Score Severe Risk 07/10/25 13:54 Height & Weight Height & Weight: Anesthesia: Height & Weight Height 5 ft 6 in 07/15/25 08:42 Weight: 65.7 kg 07/15/25 08:42 Body Mass Index (BMI) 23.3 07/15/25 08:42 Respiratory Assessment Respiratory Assessment - drainage inspector: Respiratory Tract Infection Hx - drainage inspector Hx Respiratory Tract Infection Yes: COLD SYMPTOMS, WILL 07/10/25 13:54 CALL IF SYMPTOMS STOP Sleep Apnea STOP Sleep Apnea - drainage inspector: STOP Sleep Apnea - drainage inspector Hx Hypertension No 07/10/25 13:54 Hx Sleep Apnea No 07/10/25 13:54 CPAP No 05/03/23 14:07 BIPAP No 05/03/23 14:07 Do you snore loudly (louder No 07/10/25 13:54 than talking or can be heard Do you often feel tired/ No 07/10/25 13:54 fatigued/ sleepy during daytime? Has anyone observed you stop No 07/10/25 13:54 breathing during sleep? STOP Results Negative 07/10/25 13:54 QUESTION #5 FULL TEXT : Do you snore loudly (louder than talking or can be heard through closed doors)? 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 Specify any problems Hx of Preganancy in last 3 No 07/10/25 13:54 Months Nurse Filling Out Transfusion VLEHMAN 07/10/25 13:54 & Questions: Date: 07/10/25 07/10/25 13:54 Time: 14:01 07/10/25 13:54 Patient unable to answer at this time (ie. confused, unrespo /Reproduction History /Reproductive History - drainage inspector: /Reproductive Hx- drainage inspector Hx Now No 07/10/25 13:54 Gestational Age (in weeks): EDC: Hx Hx Para Hx Section SAB No 07/10/25 13:54 Active Medications Active Medications: Current Medications Generic Name Dose Route Start Last Admin Trade Name Freq PRN Reason Stop Dose Admin Lactated Ringer's 1,000 mls @ 15 mls/hr 07/15/25 08:30 07/15/25 08:54 IV 15 mls/hr .Q48H LYNETTE Administration PFSH Medical History Wears glasses Thyroid disease Arthritis History of renal disease Easy bruising Restless legs History of IBS Non-smoker Leg cramps Home Medications ?Medication ?Instructions ?Recorded ?Last Taken ?Type meclizine 25 mg tablet 25 mg PO BID PRN dizziness 0 03/21/23 Unknown History peg 3350-electrolytes 236 4,000 ml PO ONCE #4,000 mL 0 05/13/25 07/14/25 Rx gram-22.74 gram-6.74 gram-5.86 gram solution metronidazole 0.75 % topical gel 1 applic topical BID PRN ROSCEA 07/10/25 Unknown History Allergy/AdvReac Type Severity Reaction Status Date / Time No Known Allergies Allergy Verified 07/15/25 08:41 Family History Brother Breast cancer Sister Breast cancer Cancer osteocarcinoma Parkinsons disease Mother CVA (cerebral vascular accident) Breast cancer Skin cancer Father CVA (cerebral vascular accident) Prostate cancer Surgical History History of colonoscopy S/P wisdom tooth extraction S/P dilation and curettage S/P endometrial ablation S/p nephrectomy Social History housing: apartment number of children: 2 current occupational status: employed current occupation: [employer] Smoking Status: Never smoker alcohol intake: current details: occasionally substance use type: does not use caffeine: Yes what type of physical activity do you participate in: walking, aerobics and weight training frequency: 1-2 times per week seatbelt use: always do you feel safe at home: Yes additional social history: -Rosalba Addt'l Information Additional Findings: >4 mets Review of Systems (Anesthesia) ROS Narrative System reviewed and no additional complaints, except as documented. Physical Exam Const alert and oriented x3 Neck full ROM Resp normal respiratory effort, normal air movement and clear to auscultation bilaterally Cardio regular rate and regular rhythm Back/Spine normal ROM Neuro oriented x3 and moves all extremities 07/15/25 0907 <Electronically signed by Go Chen MD> Date _ Go Chen MD Cosigner Signature: Date CC: ~ Signed [facility] Work Phone: [phone]) 642-234209-29-2025 Consult note [facility] Medical Records Department [address] [place] [address] Anesthesia Postop Eval I 07/15/25 1046 MR#: [id number] Acct: [id number] Name: JOSE JUAN JOSHI Rep #:[id number] : 1970 54 From: Thao lundberg TRIBAL JUDGE PCP: Dr. Kaylee Pink, DO Status:REG SDC Y Race: C Location: [place] [address] Anesthesia: Postop Eval I Current Vital Signs Temperature: 98.5 F Pulse Rate: 88 Blood Pressure: 154/95 Respiratory Rate: 16 Pulse Ox: 95 Oxygen Delivery Method: Room Air Assessment Airway patent: Yes Spontaneous unlabored respirations: Yes Mental status: Asleep nausea: No Vomiting: No Anesthesia Complication: No Fluid Hydration Crystalloid volume administer (ml): 600 Total IV fluid infused: 600 Progress Note Anesthesia document: Postop Eval 1 completed: No 07/15/25 104 elis TRIBAL JUDGE> Date _ Thao Hansen TRIBAL JUDGE Cosigner Signature: Date CC: ~ Signed [facility]09-29-2025 Evaluation note* Diagnosis Onset Date Resolution Status Admit Date Nausea acute June 8:13am Screening for colon cancer acute July 15, 2025 8:13am [facility] Work Phone: [phone]) [phone] History and physical note [facility] Medical Records Department [address] [place] [address] History & Physical Exam 07/15/2528 MR#: [id number] Acct: [id number] Name: JOSE JUAN JOSHI Rep #:[id number] : 1970 54 From: Elham Curtis MD PCP: Dr. Kaylee Pink, DO [place] [facility] [place]: [place] [address] HPI - General General Date of Service: 07/15/25 HPI Narrative JOSE JUAN JOSHI, is a 54 F who presents for screening colonoscopy. Patient's lastcolonoscopy was about 10 years ago at [facility] per patient negative. Patient states her mom did have a grape sized tumor may be related todiverticulitis removed in her 40s not sure if it was cancerous perpatient mom is now in her 80s. Patient has bowel movements about every 3 to 4 days. Patient denies any chronic abdominal pain/nausea/vomiting/reflux. Patient is ishaving some nausea at night almost every night currently not on any medication. [facility] Medical History Wears glasses Thyroid disease Arthritis History of renal disease Easy bruising Restless legs History of IBS Non-smoker Leg cramps Home Medications ?Medication ?Instructions ?Recorded ?Last Taken ?Type meclizine 25 mg tablet 25 mg PO BID PRN dizziness 0 03/21/23 Unknown History peg 3350-electrolytes 236 4,000 ml PO ONCE #4,000 mL 0 05/13/25 07/14/25 Rx gram-22.74 gram-6.74 gram-5.86 gram solution metronidazole 0.75 % topical gel 1 applic topical BID PRN ROSCEA 07/10/25 Unknown History Allergy/AdvReac Type Severity Reaction Status Date / Time No Known Allergies Allergy Verified 07/15/25 08:41 Family History Brother Breast cancer Sister Breast cancer Cancer osteocarcinoma Parkinsons disease Mother CVA (cerebral vascular accident) Breast cancer Skin cancer Father CVA (cerebral vascular accident) Prostate cancer Surgical History History of colonoscopy S/P wisdom tooth extraction S/P dilation and curettage S/P endometrial ablation S/p nephrectomy Social History housing: apartment number of children: 2 current occupational status: employed current occupation: [employer] Smoking Status: Never smoker alcohol intake: current details: occasionally substance use type: does not use caffeine: Yes what type of physical activity do you participate in: walking, aerobics and weight training frequency: 1-2 times per week seatbelt use: always do you feel safe at home: Yes additional social history: -Rosalba Past Medical/Surgical History Planned Operation Planned Operative Procedure(s): COLONOSCOPY S.O.S: No Previous Hospitalizations/Surgeries HX Hospitalizations: Yes HX of Surgeries: WISDOM TEETH D AND C 2011 NEPHRECTOMY 2013 Any Problems With Anesthesia: No You/Your Family Experience Fever (Hyperthermia) With Anes: No Cholinesterase deficiency: No Cardiovascular Hx Chest Pain within Last 2 months: No Hx of Irregular Heartbeat and/or Afib: No Hx Heart Attack: No Hx Congestive Heart Failure: No Hx Rheumatic Fever: No Hx Hypertension: No Hx Internal Defibrillator: No Hx Pacemaker: No Hx Cardiac Catheterization: No Hx Cardiac Surgery/Stents/Etc.: No Hx Stress Test: No Hx Pain in Legs when Walking/Leg Cramps: No Respiratory Chronic Cough: No HX of Shortness of Breath: No Hoarseness: No Hx Chronic Obstructive Pulmonary Disease (COPD): No Hx Asthma: No Hx Emphysema: No Hx Sleep Apnea: No CPAP: No BIPAP: No Hx Respiratory Tract Infection/Cold (presently): Yes (MILD COLD, NO FEVER OR COUGH) Do You Snore Loudly (louder than talking or can be heard): No Do You Often Feel Tired/ Fatigued/ Sleepy Dring Daytime?: No Has Anyone Observed You Stop Breathing During Sleep?: No Result (for STOP score): Negative Hx Smoking: No Smoking Status: Never smoker Gastrointestinal Hx Gastrointestinal Disorders: Yes (IBS) Hx Gastrointestinal Bleed: No Hx Ulcer: No Hx Hiatal Hernia: No Difficulty Chewing/Swallowing: No Special diet followed at home: Yes (LOW PROTEIN, LOW SODIUM,) Hx Unplanned Weight Loss of 20#: No HX Unplanned Weight Gain of 20#: No Neurological Hx Seizures: No HX Syncope/Blackout Spells/Unconsciousness: No Hx Transient Ischemic Attacks (TIA): No Hx Multiple Sclerosis: No Hx Parkinson's Disease: No Hx Head/Neck Injury: No Hx Headaches: No Hx Back Injury/Pain: No Recent Onset of Speech Difficulty: No Restless Legs: No Does patient have nerve stimulator: No Blood Disorder Hx Leukemia: No Bleeding Tendencies: No Hx Deep Vein Thrombosis: No Hx High Cholesterol: No Blood Transmitted Disease: No Hx Hepatitis: No Hx Cirrhosis: No Hx Anemia: No Hx Blood Disorders: No Reproduction : No Is Patient Lactating: No Hx Hysterectomy: No Hx Tubal Ligation: No Are You Post Menopause: No Genitourinary Hx 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) Hx Dialysis: No Musculoskeletal Hx Arthritis: No Hx Rheumatoid Arthritis: No Hx Gout: No Recent Onset of an Orthopedic Problem: No Endocrine Hx Diabetes: No Thyroid Disease: Yes Hx Steroid Therapy: No Psycho/Social Hx Substance Use: No Hx Alcohol Use: No Hx Anxiety: No Hx Depression: No Mental Illness: No Hx Dementia: No Miscellaneous Hx Cancer: No Recent Exposure to Contagious Disease: No Hx of C-Diff: No Any Loose Teeth: No Allergies No Known Allergies Allergy (Verified 07/15/25 08:41) Discharge Is Pt Admitted From a Detention, or a Retirement: No Who Could Help: After D/C, Where Do you Plan to Go: Return Home Vital Signs Vital Signs Vital Signs: 07/15/25 08:42 07/15/25 08:42 07/15/25 09:06 Temperature 98.3 F 98.3 F Temperature Source Temporal Pulse Rate 81 81 Respiratory Rate 18 18 Respiratory Pattern Normal Blood Pressure 110/61 110/61 Blood Pressure Mean 77 Blood Pressure Source Monitor Blood Pressure Position Semi-Fowlers Blood Pressure Location Left Arm Pulse Ox 98 98 Oxygen Delivery Method Room Air Weight Weight: 144 lb 13.499 oz Body Mass Index (BMI) 23.3 Physical Exam Const alert, oriented x3 and no apparent distress HEENT normocephalic and head/scalp atraumatic Resp normal respiratory effort Cardio regular rate GI soft to palpation and non-tender; Negative for non-distended Palpation: Negative for guarding Extremity no clubbing, cyanosis or edema Skin no rashes or lesions noted Neuro CN's II-XII intact bilaterally Psych mental status grossly normal Assessment & Plan Assessment/Plan (1) Screening for colon cancer: (2) Nausea: PLAN: Plan Recommend patient trying [id number] omeprazole 20 to 40 mg p.o. daily for couple weeks and Pepcid (famotidine 20 mg p.o. daily for 1 to 2 days) for the initial first few days with the omeprazole due to the nausea and see if it improves. Patient is agreeable to plan. Surgery Risks - Colonoscopy I discussed with the patient the risks of the procedure: Yes Risks Include but are not Limited To: Risks include but are not limited to: Bleeding, perforation requiring further surgery, inability to complete colonoscopy requiring barium enema. 07/15/25 09 Cosigner Signature (if applicable): CC: Dr. Kaylee Pink, DO; Dr. Elham Curtis MD~ Signed [facility]09-29-2025 [facility] Medical Records Department [address] [place] [address] History Physical Exam 07/15/25927 MR#: [id number] Acct: [id number] Name: JOSE JUAN JOSHI Rep #: [id number] : 1970 54 From: Elham Curtis MD PCP: Dr. Kaylee Pink DO [place] [facility] [place]: [place] [address] HPI - General General Date of Service: 07/15/25 HPI Narrative JOSE JUAN JOSHI, is a 54 F who presents for screening colonoscopy. Patient's last colonoscopy was about 10 years ago at [facility] per patient negative. Patient states her mom did have a grape sized tumor may be related to diverticulitis removed in her 40s not sure if it was cancerous per patient mom is now in her 80s. Patient has bowel movements about every 3 to 4 days. Patient denies any chronic abdominal pain/nausea/vomiting/reflux. Patient is is having some nausea at night almost every night currently not on any medication. [facility] Medical History Wears glasses Thyroid disease Arthritis History of renal disease Easy bruising Restless legs History of IBS Non-smoker Leg cramps Home Medications ???Medication ???Instructions ???Recorded ???Last Taken ???Type meclizine 25 mg tablet 25 mg PO BID PRN dizziness 3 Unknown History peg 3350-electrolytes 236 4,000 ml PO ONCE #4,000 mL 5 07/14/25 Rx gram-22.74 gram-6.74 gram-5.86 gram solution metronidazole 0.75 % topical gel 1 applic topical BID PRN ROSCEA Unknown History Allergy/AdvReac Type Severity Reaction Status Date / Time No Known Allergies Allergy Verified 07/15/25 08:41 Family History Brother Breast cancer Sister Breast cancer Cancer osteocarcinoma Parkinsons disease Mother CVA (cerebral vascular accident) Breast cancer Skin cancer Father CVA (cerebral vascular accident) Prostate cancer Surgical History History of colonoscopy S/P wisdom tooth extraction S/P dilation and curettage S/P endometrial ablation S/p nephrectomy Social History housing: apartment number of children: 2 current occupational status: employed current occupation: [employer] Smoking Status: Never smoker alcohol intake: current details: occasionally substance use type: does not use caffeine: Yes what type of physical activity do you participate in: walking, aerobics and weight training frequency: 1-2 times per week seatbelt use: always do you feel safe at home: Yes additional social history: -Rosalba Past Medical/Surgical History Planned Operation Planned Operative Procedure(s): COLONOSCOPY S.O.S: No Previous Hospitalizations/Surgeries HX Hospitalizations: Yes HX of Surgeries: WISDOM TEETH D AND C 2011 NEPHRECTOMY 2013 Any Problems With Anesthesia: No You/Your Family Experience Fever (Hyperthermia) With Anes: No Cholinesterase deficiency: No Cardiovascular Hx Chest Pain within Last 2 months: No Hx of Irregular Heartbeat and/or Afib: No Hx Heart Attack: No Hx Congestive Heart Failure: No Hx Rheumatic Fever: No Hx Hypertension: No Hx Internal Defibrillator: No Hx Pacemaker: No Hx Cardiac Catheterization: No Hx Cardiac Surgery/Stents/Etc.: No Hx Stress Test: No Hx Pain in Legs when Walking/Leg Cramps: No Respiratory Chronic Cough: No HX of Shortness of Breath: No Hoarseness: No Hx Chronic Obstructive Pulmonary Disease (COPD): No Hx Asthma: No Hx Emphysema: No Hx Sleep Apnea: No CPAP: No BIPAP: No Hx Respiratory Tract Infection/Cold (presently): Yes (MILD COLD, NO FEVER OR COUGH) Do You Snore Loudly (louder than talking or can be heard): No Do You Often Feel Tired/ Fatigued/ Sleepy Dring Daytime?: No Has Anyone Observed You Stop Breathing During Sleep?: No Result (for STOP score): Negative Hx Smoking: No Smoking Status: Never smoker Gastrointestinal Hx Gastrointestinal Disorders: Yes (IBS) Hx Gastrointestinal Bleed: No Hx Ulcer: No Hx Hiatal Hernia: No Difficulty Chewing/Swallowing: No Special diet followed at home: Yes (LOW PROTEIN, LOW SODIUM,) Hx Unplanned Weight Loss of 20#: No HX Unplanned Weight Gain of 20#: No Neurological Hx Seizures: No HX Syncope/Blackout Spells/Unconsciousness: No Hx Transient Ischemic Attacks (TIA): No Hx Multiple Sclerosis: No Hx Parkinson's Disease: No Hx Head/Neck Injury: No Hx Headaches: No Hx Back Injury/Pain: No Recent Onset of Speech Difficulty: No Restless Legs: No Does patient have nerve stimulator: No Blood Disorder Hx Leukemia: No Bleeding Tendencies: No Hx Deep Vein Thrombosis: No Hx High Cholesterol: No Blood Transmitted Disease: No Hx Hepatitis: No Hx Cirrhosi (more content not included)...[facility]09-29-2025 Consult note [facility] Medical Records Department [address] [place] [address] Pre-Anesthesia Evaluation 07/15/25 0902 MR#: [id number] Acct: [id number] Name: JOSE JUAN JOSHI Rep #:[id number] : 1970 54 From: Go Tamayo PCP: Dr. Kaylee Pink, DO Status:REG SDC Y Race: C Location: [place] [address] ASA Classification* ASA Classification ASA Classification: 2 Assessment & Plan Anesthesia* Anesthesia Assessment Anesthesia Assessment: Discussed sedation and/or anesthesia options, risks, benefits, and alternatives with patient/parents/legal guardian/POA. Questions invited. The patient/parents/legal guardian/POA seems to understand and agrees to proceedwith anesthesia plan. Reviewed the physical assessment, medical history, allergy history and patient home medications list prior to surgery/procedure/anesthetic and documented any changes. Performed airway and anesthesia risk assessments. Anesthesia Type Anesthesia Type: MAC History Source History Obtained from:: Patient and Chart Anesthesia Focused Assessment* Temperature: 98.3 F Pulse Rate: 81 Blood Pressure: 110/61 Respiratory Rate: 18 Pulse Ox: 98 Airway Assessment Mouth opens: >3 cm Mallampati Score: I Labs Anesthesia Preop lab: CBC WBC, (4.4-11.0) 4.6 K/mm3 03/04/25, 10:24 RBC, (4.2-5.4) 4.24 M/mm3 03/04/25, 10:24 Hgb, (12.0-15.0) 12.6 g/dL 03/04/25, 10:24 Hct, (37-47) 37.8 % 03/04/25, 10:24 Plt Count, (150-450) 228 K/mm3 03/04/25, 10:24 CHEMISTRY Potassium, (3.3-5.1) 4.2 mmol/L 03/04/25, 10:24 Sodium, (133-145) 137 mmol/L 03/04/25, 10:24 BUN, (4-19) 13 mg/dL 03/04/25, 10: Creatinine, (0.70-1.20) 0.74 mg/dL 03/04/25, 10: Glucose, (70-99) 81 mg/dL 03/04/25, 10:24 TSH, (0.358-3.740) 1.490 uIU/mL 08/06/24, 16:13 COAG PT, (11.7-14.9) 12.8 SECONDS 03/04/25, 10:24 HCG, Quant, (1-3) < 1 mIU/mL 03/22/24, 12:50 Urine Test Negative Negative Today, 08:33 Pre-Assessment Diagnosis/Proposed Procedure Planned Operative Procedure(s): COLONOSCOPY Anesthesia History Anesthesia History - drainage inspector: Anesthesia History - drainage inspector Hx Hospitalization No 07/10/25 13:54 Any Problems With Anesthesia No 07/10/25 13:54 Cholinesterase deficiency No 07/10/25 13:54 You/Your Family Experience No 07/10/25 13:54 fever (hyperthermia) with Relationship Recent Exposure to Contagious No 05/03/23 14:07 Disease Does patient have nerve No 07/10/25 13:54 stimulator Patient instructed to have device shut off --Does patient have Pacemaker No 07/15/25 08:42 or ICD? When Was Last Pacemaker Check QUESTION #4 FULL TEXT: You/Your Family Experience fever (hyperthermia) with Anesthesia Last Oral Intake Last Oral intake: Last Oral Intake NPO since 00:00 07/15/25 08:42 Meds taken in AM with sips of No 07/15/25 08:42 water? Meds patient instructed to take am of surgery PONV PONV - drainage inspector: PONV - drainage inspector Female Yes 07/10/25 13:54 HX of Motion Sickness Yes 07/10/25 13:54 HX of N/V After Surgery Yes 07/10/25 13:54 Non-Smoker Yes 07/10/25 13:54 Duration of Surgery greater No 07/10/25 13:54 than 60 minutes Number of Risk Factors 4 07/10/25 13:54 PONV Score Severe Risk 07/10/25 13:54 Height & Weight Height & Weight: Anesthesia: Height & Weight Height 5 ft 6 in 07/15/25 08:42 Weight: 65.7 kg 07/15/25 08:42 Body Mass Index (BMI) 23.3 07/15/25 08:42 Respiratory Assessment Respiratory Assessment - drainage inspector: Respiratory Tract Infection Hx - drainage inspector Hx Respiratory Tract Infection Yes: COLD SYMPTOMS, WILL 07/10/25 13:54 CALL IF SYMPTOMS STOP Sleep Apnea STOP Sleep Apnea - drainage inspector: STOP Sleep Apnea - drainage inspector Hx Hypertension No 07/10/25 13:54 Hx Sleep Apnea No 07/10/25 13:54 CPAP No 05/03/23 14:07 BIPAP No 05/03/23 14:07 Do you snore loudly (louder No 07/10/25 13:54 than talking or can be heard Do you often feel tired/ No 07/10/25 13:54 fatigued/ sleepy during daytime? Has anyone observed you stop No 07/10/25 13:54 breathing during sleep? STOP Results Negative 07/10/25 13:54 QUESTION #5 FULL TEXT : Do you snore loudly (louder than talking or can be heard through closeddoors)? 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 Specify any problems Hx of Preganancy in last 3 No 07/10/25 13:54 Months Nurse Filling Out Transfusion [facility] 07/10/25 13:54 & Questions: Date: 07/10/25 07/10/25 13:54 Time: 14:01 07/10/25 13:54 Patient unable to answer at this time (ie. confused, unrespo /Reproduction History /Reproductive History - drainage inspector: /Reproductive Hx- drainage inspector Hx Now No 07/10/25 13:54 Gestational Age (in weeks): EDC: Hx Hx Para Hx Section SAB No 07/10/25 13:54 Active Medications Active Medications: Current Medications Generic Name Dose Route Start Last Admin Trade Name Freq PRN Reason Stop Dose Admin Lactated Ringer's 1,000 mls @ 15 mls/hr 07/15/25 08:30 07/15/25 08:54 IV 15 mls/hr .Q48H LYNETTE Administration PFSH Medical History Wears glasses Thyroid disease Arthritis History of renal disease Easy bruising Restless legs History of IBS Non-smoker Leg cramps Home Medications ?Medication ?Instructions ?Recorded ?Last Taken ?Type meclizine 25 mg tablet 25 mg PO BID PRN dizziness 0 03/21/23 Unknown History peg 3350-electrolytes 236 4,000 ml PO ONCE #4,000 mL 0 05/13/25 07/14/25 Rx gram-22.74 gram-6.74 gram-5.86 gram solution metronidazole 0.75 % topical gel 1 applic topical BID PRN ROSCEA 07/10/25 Unknown History Allergy/AdvReac Type Severity Reaction Status Date / Time No Known Allergies Allergy Verified 07/15/25 08:41 Family History Brother Breast cancer Sister Breast cancer Cancer osteocarcinoma Parkinsons disease Mother CVA (cerebral vascular accident) Breast cancer Skin cancer Father CVA (cerebral vascular accident) Prostate cancer Surgical History History of colonoscopy S/P wisdom tooth extraction S/P dilation and curettage S/P endometrial ablation S/p nephrectomy Social History housing: apartment number of children: 2 current occupational status: employed current occupation: [employer] Smoking Status: Never smoker alcohol intake: current details: occasionally substance use type: does not use caffeine: Yes what type of physical activity do you participate in: walking, aerobics and weight training frequency: 1-2 times per week seatbelt use: always do you feel safe at home: Yes additional social history: -Rosalba [employer] Information Additional Findings: >4 mets Review of Systems (Anesthesia) ROS Narrative System reviewed and no additional complaints, except as documented. Physical Exam Const alert and oriented x3 Neck full ROM Resp normal respiratory effort, normal air movement and clear to auscultation bilaterally Cardio regular rate and regular rhythm Back/Spine normal ROM Neuro oriented x3 and moves all extremities 07/15/25 09 MD> Date _ Go Chen MD Cosigner Signature: Date CC: ~ Signed [facility]06-10-2025 Radiology Diagnostic study note [facility] [address], [place] [address] Abdomen Limited MR#: [id number] Acct: [id number] Name: JOSE JUAN JOSHI Rep #: [id number] : 1970 F 54 From: Jose Daniel Pinon MD PCP: Dr. Kaylee Pink, DO Status: REG CLI Study:Abdomen Limited Date of Exam: 03/17 Exam# [id number] Ordering Dr: Kaylee Pink DO PROCEDURE: ABDOMEN LIMITED 03/26/2025 REASON FOR EXAM: CHRONIC NAUSEA EPIGASTRIC PAIN COMPARISON: None FINDINGS: Liver: Grossly normal size and echotexture. There is evidence of a 1.2 cm 1.3 cm 1.1 cm cyst in theright lobe of the liver. Gallbladder: No stones, sludge, wall thickening or tenderness. Common bile duct: Normal measuring 4.7 mm . Pancreas: Normal Other: Visualized portions of the right kidney are unremarkable. No right upperquadrant ascites. US/Abdomen Limited IMPRESSION: 1.2 cm 1.3 cm 1.1 cm cyst in the right lobe of the liver. Reading Location: [place] [address] CC: Dr. Kaylee Pink DO ~ Cannoneer: Signed [facility]06-10-2025 Radiology Diagnostic study note [facility] Imaging Services [address] [place] [id number] Shoulder min 2 Views MR#: [id number] Acct: [id number] Name: JOSE JUAN JOSHI Rep #: [id number] : 1970 F 54 From: Lb James MD PCP: Dr. Kaylee Pink DO Status: REG CLI Study:Shoulder min 2 Views Date of Exam: 03/26/25 Exam# [id number] Ordering Dr: Kaylee Pink DO PROCEDURE: SHOULDER MIN 2 VIEWS 03/26/2025 REASON FOR EXAM: SHOULDER PAIN TECHNIQUE: Four view right shoulder series COMPARISON: None. RAD/Shoulder min 2 Views IMPRESSION: Qylf-ed-[id number] right acromioclavicular joint degenerative changes are seen, with significant associated joint narrowing. The right glenohumeral joint demonstrates no significant abnormality. 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 No acute fracture or dislocation is seen. If clinical concern persists, short-term follow-up imaging may be obtained to rule out a currently occult fracture. Reading Location: [address] CC: Dr. Kaylee Pink DO ~ Cannoneer: Signed [facility]05-27-2025 Radiology Diagnostic study note [facility] Services [address] [place] [address] Thyroid MR#: [id number] Acct: [id number] Name: JOSE JUAN JOSHI Rep #: [id number] : 1970 F 54 From: Jose Daniel Pinon MD PCP: Dr. Kaylee Pink DO Status: REG CLI Study:Thyroid Date of Exam: 03/09/25 Exam# [id number] Ordering Dr: Kaylee Pink DO PROCEDURE: THYROID 03/09/2025 REASON FOR EXAM: REASSESS THYROID NODULES TECHNIQUE: High-frequency thyroid ultrasound, including grayscale and color-flow images. REFERENCE LINKS: TI-RADS Chart: [email or web address] TI-RADS Calculator Tool with Reference Images: [email or web address]-[email or web address]-[email or web address]/tirads-[email or web address]/ COMPARISON: Prior study dated December 06, 2022. [...] no more than 2 nodules. Reading Location: [place] [address] CC: Dr. Kaylee Pink, DO ~ Cannoneer: Signed [facility]12-02-2024 Telephone encounter Note* Telephone Encounter - Jaz Patel PSS - 09/17/2024 2:36 PM EST CD READY FOR PANTOGRAPH TRANSFERRER AT [facility] Pt is aware [facility]12-02-2024 Miscellaneous Notes* Telephone Encounter - Jaz Patel PSS - 09/17/2024 2:36 PM EST CD READY FOR PANTOGRAPH TRANSFERRER AT [facility] Pt is aware * Telephone Encounter - Madison High - 09/17/2024 8:03 AM EST Patient is requesting disc and report of 08/14/24 XR FOOT LEFT and 07/17/24 XR TOE LEFT. Please notify patient when items are ready for seed cone picker. documented in this encounterC[facility]12-[facility] Telephone encounter Note * Telephone Encounter - Madison High - 09/17/2024 8:03 AM EST Patient is requesting disc and report of 08/14/24 XR FOOT LEFT and 07/17/24 XR TOE LEFT. Please notify patient when items are ready for seed cone picker. [facility]10-29-2024 NoteHNO ID: [id number] Author: CARRIE MACIAS LPN Service: ? Author Type: LICENSED NURSE Type: Progress Notes Filed: 08/15/2024 19:20 Note Text: Per Dr. Bey, Jose Juan was provided with Achilles sleeve, size M, and instructed/educated in its application, wear, and care. All questions were answered, and patient was able to demonstrate competence with the necessary skills to utilize the above equipment. [facility] History of Present illness Narrative* Carrie Macias LPN - 08/14/2024 2:[address] Bey, Jose Juan was provided with Achilles sleeve, size M, and instructed/educated in its application, wear, and care. All questions were answered, and patient was able to demonstrate competence with the necessary skills to utilize the above equipment. Carrie Macias LPN * Giovanni Bey - 08/14/2024 2:06 PM EDT Images from the original note were not [...] No results found for: HBA1C PCP: Kaylee Pink, PAST MEDICAL HISTORY Diagnosis Date Abdominal pain, [...] 14, 2024: I have personally reviewed and interpretedthese XR myself: posterior heel spur. 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 History and physical examination performed. 2. XR reviewed with patient and interpreted today 3. Discussed fracture of left 3rd toe. No significant pain. Fracture is less apparent on xray todaybut xrays were of the foot. Could obtain [...] Giovanni Bey DPM Podiatry [address] [facility] [address] Dept: [phone] Dept documented in this encounterC[facility]10-[facility] Instructions* Patient Instructions* Giovanni Bey - 08/14/2024 2:14 PM EDT Fracture of toe: continue with firm sole sneaker, ie hoka, booker or asics Heel spur: recommend low heels shoes and/or use of gel pad. documented in this encounterCleveland [facility]10-29-2024 NoteHNO ID: [id number] Author: GIOVANNI BEY, ? Service: ? Author [...] No results found for: HBA1C PCP: Kaylee Pink, PAST MEDICAL HISTORY Diagnosis Date Abdominal pain, [...] SPEC WHEN PFRMD 05/14/15 Colonoscopy CYSTOSCOPY 2015 [facility] - IPAS LAPAROSCOPY RADICAL [...] to left posterior heel (more content not included)...[facility]10-29-2024 History of Present illness Narrative* Ricco Montenegro RT(R) - 08/14/2024 1:50 PM EDT Radiology Service Progress Note PATIENT NAME: Jose Juan Joshi DATE OF SERVICE: August 14, 2024 TIME: 1:40 PM PATIENT IDENTITY VERIFICATION COMPLETED USING TWO (2) IDENTIFIERS: Name and Date of confirmedby patient verbally. FALL SCREENING: Has the patient had 2 falls in the last year or 1 fall with injury or currently using an Ambulatory Assistive Device (Walker, Cane, Wheelchair, Crutches, etc.)? No PATIENT GENDER DATA: Female. status: : No status: NO. PATIENT RELEVANT IMPLANT DATA REVIEWED: Yes PATIENT PRESENTS WITH AN IMPLANTABLE OR ATTACHED ADJUNCT MATHEMATICS INSTRUCTOR: No RADIOLOGY DEPARTMENT: General X-ray: Exam(s) Completed: Lower Extremity X- Ray(s): Foot, Left PERIPHERAL IV DATA: Not applicable SIGNED BY: RT Jordan(Junior) August 14, 2024 1:40 PM documented in this encounterCleveland [facility]10-29-2024 NoteHNO ID: [id number] Author: RICCO MONTENEGRO RT(R) Service: ? Author Type: Cutter Gas Type: Progress Notes Filed: 08/14/2024 13:50 Note [...] PATIENT PRESENTS WITH AN IMPLANTABLE OR ATTACHED ADJUNCT MATHEMATICS INSTRUCTOR: No RADIOLOGY DEPARTMENT: General X-ray: Exam(s) Completed: Lower Extremity X-Ray(s): Foot, Left PERIPHERAL IV DATA: Not applicable SIGNED BY: RT Jordan(Junior) August 14, 2024 1:40 [facility]10-01-2024 History of Present illness Narrative* Dinorah Fraser RT(R) - 07/17/2024 5:50 PM EDT Radiology Service Progress Note PATIENT NAME: Jose Juan Joshi DATE OF SERVICE: July 17, 2024 TIME: 5:58 PM PATIENT IDENTITY VERIFICATION COMPLETED USING TWO (2) IDENTIFIERS: Name and Date of confirmedby patient verbally. FALL SCREENING: Has the patient had 2 falls in the last year or 1 fall with injury or currently using an Ambulatory Assistive Device (Walker, Cane, Wheelchair, Crutches, etc.)? No PATIENT GENDER DATA: Female. status: : No status: NO. PATIENT RELEVANT IMPLANT DATA REVIEWED: Yes PATIENT PRESENTS WITH AN IMPLANTABLE OR ATTACHED ADJUNCT MATHEMATICS INSTRUCTOR: No RADIOLOGY DEPARTMENT: General X-ray: Exam(s) Completed: Lower Extremity X- Ray(s): Toes, Left 3rd toe PERIPHERAL IV DATA: Not applicable SIGNED BY: GRICELDA Aguilera) July 17, 2024 5:58 PM documented in this encounterCleveland Clinic [facility]10-01-2024 NoteHNO ID: [id number] Author: DINORAH FRASER RT (R) Service: Radiology Author Type: Technologist Type: Progress Notes Filed: 07/17/2024 18:06 Note Text: Radiology Service Progress Note PATIENT NAME: Jose Jaun Joshi DATE OF SERVICE: July 17, 2024 [...] PATIENT PRESENTS WITH AN IMPLANTABLE OR ATTACHED ADJUNCT MATHEMATICS INSTRUCTOR: No RADIOLOGY DEPARTMENT: General X-ray: Exam(s) Completed: Lower Extremity X-Ray(s): Toes, Left 3rd toe PERIPHERAL IV DATA: Not applicable SIGNED BY: GRICELDA Aguilera) July 17, 2024 5:58 [facility]10-01-2024 NoteHNO ID: [id number] Author: HARSH VELAZQUEZ APRN.WINDOWS CONSULTANT Service: ? Author Type: Nurse Practitioner Type: Progress Notes Filed: 07/17/2024 19:14 Note Text: Subjective Female with complaints of left toe pain. Patient says she tripped over a toy. Patient says it is swollen and bruised. Patient says it is painful. Patient denies any numbness tingling or loss of feeling. The history is provided by the patient. No fusing machine feeder was used. Review of Systems Constitutional: Negative. [...] SPEC WHEN PFRMD 05/14/15 Colonoscopy CYSTOSCOPY 2015 [facility] - IPAS LAPAROSCOPY RADICAL [...] the distal phalanx of the third toe. Cannoneer: ARCHANA Transcribe Date/Time: Jul 17 2024 6:34P Dictated by : PREM DEGROOT MD 2. Closed nondisplaced fracture of distal phalanx of lesser toe of left foot, initial encounter - ICD9: 826.0, ICD10: S92.535A Was placed in a postop shoe. Patient was educated to follow-up with primary podiatry. Patient will rest ice elevate. Patient was okay with this care plan. Hrash Velazquez APRN.[facility]10-01-2024 History of Present illness Narrative* Harsh Velazquez APRN.MAURO - 07/17/2024 5:44 PM EDT Images from the original note were not included. Subjective Female with complaints of left toe pain. Patient says she tripped over a toy. Patient says it is swollen and bruised. Patient says it is painful. Patient denies any numbness tingling or loss of feeling. The history is provided by the patient. No fusing machine feeder was used. Review of Systems Constitutional: Negative. [...] the distal phalanx of the third toe. Cannoneer: ARCHANA Transcribe Date/Time: Jul 17 2024 6:34P Dictated by : PREM DEGROOT MD 2. Closed nondisplaced fracture of distal phalanx of lesser toe of left foot, initial encounter - ICD9: 826.0, ICD10: S92.535A Was placed in a postop shoe. Patient was educated to follow-up with primary podiatry. Patient will rest ice elevate. Patient was okay with this care plan. Harsh Velazquez APRN.MAURO documented in this encounterC[facility]09-18-2024 NoteHNO ID: [id number] Author: JAMSHID DUBOIS MD Service: ? Author [...] U/S by Staff:Jamshid Dubois MD Date: [facility] 04[facility] Procedure note* Jamshid Dubois MD - 07/04/2024 11:15 AM EDT ULTRASOUND EXAM OF THYROID RIGHT: Right thyroid [...] Staff:Jamshid Dubois MD Date: July 04, 2024 [facility]09-18-2024 Procedure note* Jamshid Dubois MD - 07/04/2024 11:15 AM EDT ULTRASOUND EXAM OF THYROID RIGHT: Right thyroid [...] Date: July 04, 2024 documented in this encounterCleveland [facility]09-18-2024 NoteHNO ID: [id number] Author: JAMSHID DUBOIS MD Service: ? Author [...] Hair?: Yes Cold Intolerance: No Heat Intolerance: [facility]09-18-2024 History of Present illness Narrative* Jamshid Dubois MD - 07/04/2024 11:00 AM EDT Jose Juan Joshi is a 53 year [...] mass s/p nephrectomy 2013, presenting today for evaluationof thyroid nodules. She was initially diagnosed with [...] well defined oval and hyperechoic and measures 10mm in largest dimension. Plan: Her nodules are [...] No Heat Intolerance: No documented in this encounterCleveland [facility]09-18-2024 Instructions* Patient Instructions* Pennie Wilson OCCA - 07/04/2024 10:50 AM EDT Thank you for choosing the [facility] Department of Endocrinology, Diabetes and Metabolism. Did you know that you need to call 48 hours in advance of your scheduled visit, if you are unable to make your appointment? [facility] [place] thanks you for your commitment, because patients not showing to their appointment results in a lost opportunity for patients to receive world class health care at the [facility]. To Cancel an appointment, please choose one of the following: - Call the Appointment Call Center at [phone] - From Criptext, Go to Appointments - Cancel Appts If cancelling, consider your need to reschedule to prevent further delays in your care. To Schedule an appointment, please choose one of the following: - Call the Appointment Call Center at [phone] - From Criptext, Go to Appointments - Request an Appt documented in this encounterCleveland Clinic [facility]04-18-2024 Miscellaneous Notes* Telephone Encounter - Shaheed Librarian HeadGrecia - 02/02/2024 4:15 PM EDT Patient called in to let the office know she had her ultrasound done 02/01/24 and is asking for the office to review. Patient can be reached via my chart. Grecia Hummel Aerodynamics Engineer [facility]-0 documented in this encounterCleveland Clinic [facility]04-15-2024 History of Present illness Narrative* Sara Baltazar RDMS - 01/30/2024 9:15 AM EDT Radiology Service Progress Note PATIENT NAME: Jose Juan Joshi DATE OF SERVICE: January 30, 2024 TIME: 2:30 PM PATIENT IDENTITY VERIFICATION COMPLETED USING TWO (2) IDENTIFIERS: Name and Date of confirmedby patient verbally. FALL SCREENING: Has the patient had 2 falls in the last year or 1 fall with injury or currently using an Ambulatory Assistive Device (Walker, Cane, Wheelchair, Crutches, etc.)? No PATIENT GENDER DATA: Female. status: : No status: NO. PATIENT RELEVANT IMPLANT DATA REVIEWED: Not Applicable PATIENT PRESENTS WITH AN IMPLANTABLE OR ATTACHED ADJUNCT MATHEMATICS INSTRUCTOR: No RADIOLOGY DEPARTMENT: Ultrasound PERIPHERAL IV DATA: Not applicable SIGNED BY: Sara Baltazar RDMS RVT January 30, 2024 2:30 PM documented in this encounterCleveland Clinic [facility]04-15-2024 NoteHNO ID: [id number] Author: SARA BALTAZAR RDMS Service: ? Author Type: Technical Writing Lead/Mgr Type: Progress Notes Filed: 01/30/2024 14:31 Note [...] PATIENT PRESENTS WITH AN IMPLANTABLE OR ATTACHED ADJUNCT MATHEMATICS INSTRUCTOR: No RADIOLOGY DEPARTMENT: Ultrasound PERIPHERAL IV DATA: Not applicable SIGNED BY: Sara Baltazar RDMS RVT January 30, 2024 2:30 [facility]06-05-2023 NotePap Smear Specimen AdequacyJun2022 1:22pmComment.Satisfactory for evaluation. Endocervical and/or squamous metaplasticcells (endocervical component)are present.[facility] INTERFACED A#[id number] Community HospitalComment on above: Satisfactory for evaluation. Endocervical and/or squamous metaplasticcells (endocervical component)are present.03-21-2023 NotePap Smear Specimen Adequacy March 21, 2023 1:22pmComment.Satisfactory for evaluation. Endocervical and/or squamous metaplasticcells (endocervical component)are present.[facility] INTERFACED A#[id number] Community HospitalComment on above:Satisfactory for evaluation. 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 # MNG: - Follow up ultrasound in 2 years Melina Vieira, DO PGY-5, [facility] [place]. Patient seen and staffed with Dr. Dubois, addendum to follow Endocrinology Staff Note: New: Patient is self referred to me for evaluation of thyroid nodules.. I personally interviewed and examined Jose Juan Joshi and confirmed the villatoro elements of the historyand physical exam documented by the Fellow. Assessment: [...] well defined oval and hyperechoic and measures 10mm in largest dimension. Plan: Her nodules are small, long standing and stable in size. But, because of sister's history we recommend US exam in 2 years. Jamshid Dubois MD documented in this encounterCleveland [facility]03-09-2023 Instructions* Patient Instructions* Lynn James Ma - 12/23/2022 8:41 AM EST Thank you for choosing the [facility] Department of Endocrinology, Diabetes and Metabolism. Did you know that you need to call 48 hours in advance of your scheduled visit, if you are unable to make your appointment? [facility] [place] thanks you for your commitment, because patients not showing to their appointment results in a lost opportunity for patients to receive [facility] health care at the [facility]. To Cancel an appointment, please choose one of the following: - Call the Appointment Call Center at [phone] - From Criptext, Go to Appointments - Cancel Appts If cancelling, consider your need to reschedule to prevent further delays in your care. To Schedule an appointment, please choose one of the following: - Call the Appointment Call Center at [phone] - From Criptext, Go to Appointments - Request an Appt documented in this encounterC[facility] RehabilitationConsult note [facility] Medical Records Department [address] [place] [address] Anesthesia Postop Eval II 07/15/25 1156 MR#: [id number] Acct: [id number] Name: JOSE JUAN JOSHI Rep #:[id number] : 1970 54 From: Go Tamayo PCP: Dr. Kaylee Pink, DO Status:[facility] Y Race: C Location: EN Anesthesia Postop Eval I Sum Postop Eval Completion status Anesthesia document: Postop Eval 1 completed: No Anesthesia Postop Eval I Summary Anesthesia Postop Eval I Summary: Anesthesia Postop Eval I: Assessment Summary Airway patent Yes 07/15/25 10:47 TRIBAL JUDGE.[email or web address] Spontaneous unlabored Yes 07/15/25 10:47 TRIBAL JUDGE.ADRIOBAnival respirations Mental status Asleep 07/15/25 10:47 TRIBAL JUDGE.[email or web address] nausea No 07/15/25 10:47 TRIBAL JUDGE.[email or web address] Vomiting No 07/15/25 10:47 TRIBAL JUDGE.[email or web address] Anesthesia Postop Eval I: Fluid Summary Crystalloid volume administer 600 07/15/25 10:47 MIK (ml) Colloids volume administered ( ml) Blood Product volume administered (ml) Total IV fluid infused 600 07/15/25 10:47 TRIBAL JUDGEGREGORIO Anesthesia Postop Eval I: Summary Notes Anesthesia Complication No 07/15/25 10:47 MIK Anesthesia Complication Comment: Post-operative progress note Anesthesia: Postop Eval II Evaluation Mental status: Awake and Calm Pain Level: 0 nausea: No Vomiting: No Complications Anesthesia Complication: No 07/15/25 1156 MD> Date _ Go Coxignkomal Signature: Date CC: ~ [facility] Thao Hansen [facility] Note Date/Time July 15, 2025 10:47am [facility] Medical Records Department [address] [place] [address] Anesthesia Postop Eval I 07/15/25 1046 MR#: [id number] Acct: [id number] Name: JOSE JUAN JOSHI Rep #:[id number] : 1970 54 From: Thao lundberg CRNA PCP: Dr. Kaylee Pink, DO Status:[facility] Y Race: C Location: [place] [address] Anesthesia: Postop Eval I Current Vital Signs Temperature: 98.5 F Pulse Rate: 88 Blood Pressure: 154/95 Respiratory Rate: 16 Pulse Ox: 95 Oxygen Delivery Method: Room Air Assessment Airway patent: Yes Spontaneous unlabored respirations: Yes Mental status: Asleep nausea: No Vomiting: No Anesthesia Complication: No Fluid Hydration Crystalloid volume administer (ml): 600 Total IV fluid infused: 600 Progress Note Anesthesia document: Postop Eval 1 completed: No 07/15/25 1047 <Electronically signed by Thao Kobyla nski TRIBAL JUDGE> Date _ Thao Hansen TRIBAL JUDGE Cosigner Signature: Date CC: ~ Signed [facility] Work Phone: Consult note Author Go Chen [facility] Note Date/Time July 15, 2025 11:56am [facility] Medical Records Department [address] [place] [address] Anesthesia Postop Eval II 07/15/25 1156 MR#: [id number] Acct: [id number] Name: JOSE JUAN JOSHINE Rep #:[id number] : 1970 54 From: Go Tamayo PCP: Dr. Kaylee Pink, DO Status:[facility] Y Race: C Location: EN Anesthesia Postop Eval I Sum Postop Eval Completion status Anesthesia document: Postop Eval 1 completed: No Anesthesia Postop Eval I Summary Anesthesia Postop Eval I Summary: Anesthesia Postop Eval I: Assessment Summary Airway patent Yes 07/15/25 10:47 TRIBAL JUDGE.OSMAR Spontaneous unlabored Yes 07/15/25 10:47 TRIBAL JUDGE.OSMAR respirations Mental status Asleep 07/15/25 10:47 TRIBAL JUDGE.ADRIOBAnival nausea No 07/15/25 10:47 TRIBAL JUDGE.ADRIOBAnival Vomiting No 07/15/25 10:47 TRIBAL JUDGE.ADRIOBAnival Anesthesia Postop Eval I: Fluid Summary Crystalloid volume administer 600 07/15/25 10:47 TRIBAL JUDGE.OSMAR (ml) Colloids volume administered ( ml) Blood Product volume administered (ml) Total IV fluid infused 600 07/15/25 10:47 TRIBAL JUDGE.ADRIOBAnival Anesthesia Postop Eval I: Summary Notes Anesthesia Complication No 07/15/25 10:47 TRIBAL JUDGEGREGORIO Anesthesia Complication Comment: Post-operative progress note Anesthesia: Postop Eval II Evaluation Mental status: Awake and Calm Pain Level: 0 nausea: No Vomiting: No Complications Anesthesia Complication: No 07/15/25 1156 <Electronically signed by Go Chen MD> Date _ Go Chen MD Cosigner Signature: Date CC: ~ Signed [facility] Work Phone: Evaluation noteNo assessment information available [facility] Work Phone: Evaluation note* Diagnosis Multiple thyroid nodules- Primary Nontoxic multinodular goiter documented in this encounter [facility]* Diagnosis Onset Date Resolution Status Cervical lesion acute Family history of breast cancer acute Women's annual routine gynecological examination acute [facility] Work Phone: Evaluation note* Diagnosis Onset Date Resolution Status Abnormal uterine bleeding ac deepti Cervical lesion acute Abnormal uterine bleeding ac deepti Cervical lesion acute Family history of breast cancer acute [facility] Work Phone: evaluation note* Diagnosis Multiple thyroid nodules- Primary Nontoxic multinodular goiter [facility] Pain- Primary Generalized pain Closed nondisplaced fracture of distal phalanx of lesser toe of left foot, initial encounter Pain Generalized pain [facility] Pain Generalized pain [facility] Diagnosis Closed nondisplaced fracture of distal phalanx of lesser toe of left foot with routine healing, subsequent encounter- Primary [facility] Diagnosis Closed nondisplaced fracture of distal phalanx of lesser toe of left foot with routine healing, subsequent encounter [facility] Diagnosis Closed nondisplaced fracture of phalanx of lesser toe of right foot, unspecified phalanx, initial encounter- Primary Onychodystrophy Other specified disease of nail Calcaneal spur of foot, left documented in this encounter [facility]* Diagnosis Onset Date Resolution Status Admit Date Nausea acute June 8:13am Screening for colon cancer acute July 15, 2025 8:13am [facility] Work [facility] Diagnostic Procedure Only (Urgent) - Closed Specialty Diagnoses / Procedures Referred By Contac t Referred To Contact XR IMAGING Diagnoses Pain Procedures XR TOE AP/LAT/OBL LEFT RADEX TOE MINIMUM 2 VIEWS Harsh Velazquez APRN.WINDOWS CONSULTANT [address] [place] [address] [place] [address] Referral ID Status Reason Start Date Expiration Date V isits Requested Visits Authorized [id number] Closed Auto-Generate d Referral 07/17/2024 08/16/2025 1 1 [facility] for referral (narrative)* Diagnostic Procedure Only (Urgent) - Closed Specialty Diagnoses / Procedures Referred By Contac t Referred To Contact XR IMAGING Diagnoses Pain Procedures XR TOE AP/LAT/OBL LEFT RADEX TOE MINIMUM 2 VIEWS Harsh Velazquez APRN.WINDOWS CONSULTANT [address] [place] [address] [place] [address] Referral ID Status Reason Start Date Expiration Date V isits Requested Visits Authorized [id number] Closed Auto-Generate d Referral 07/17/2024 08/16/2025 1 1 [facility] for referral (narrative)* Diagnostic Procedure Only (Routine) - Authorized Specialty Diagnoses / Procedures Referred By Contac t Referred To Contact XR IMAGING Diagnoses Closed nondisplaced fracture of distal phalanx of lesser toe of left foot with routine healing, subsequent encounter Procedures XR FOOT GENERAL 3V AP/LAT/OBL LEFT RADEX FOOT COMPLETE MINIMUM [address] [place] [address] [place] [address] Referral ID Status Reason Start Date Expiration Date Visits Requested Visits Authorized [id number] Authorized Auto-Generat ed Referral 09/12/2025 1 1 [facility] for referral (narrative)No reason for referral information availableWCincinnati [facility] Narrative* Diagnostic Procedure Only (Urgent) - Closed Specialty Diagnoses / Procedures Referred By Contac t Referred To Contact XR IMAGING Diagnoses Pain Procedures XR TOE AP/LAT/OBL LEFT RADEX TOE MINIMUM 2 VIEWS Harsh eVlazquez APRN.WINDOWS CONSULTANT [address] [place] [address] [place] [address] Referral ID Status Reason Start Date Expiration Date V isits Requested Visits Authorized [id number] Closed Auto-Generate d Referral 07/17/2024 08/16/2025 1 1 [facility] for visit Narrative* Diagnostic Procedure Only (Routine) - Closed Specialty Diagnoses / Procedures Referred By Contac t Referred To Contact XR IMAGING Diagnoses Closed nondisplaced fracture of distal phalanx of lesser toe of left foot with routine healing, subsequent encounter Procedures XR FOOT GENERAL 3V AP/LAT/OBL LEFT RADEX FOOT COMPLETE MINIMUM 3 VIEWS Giovanni Bey [address] [place] [address] [place] [address] Referral ID Status Reason Start Date Expiration Date V isits Requested Visits Authorized [id number] Closed Auto-Generate d Referral 08/13/2024 09/12/2025 1 1 [facility] Summary Purpose Family History No Family History [...] Yes June 29, 2016 3:39pm Power of Chief Business Officer Yes June 3:39pm Advance Directive Response Recorded Date/ Time Advance Directives Yes June 2:39pm Living Will Yes June 29, 2016 2:39pm Power of Chief Business Officer Yes June 2:39pm Advance Directive Response Recorded Date/ Time Advance Directives Yes March 09 1:08pm Living Will Yes March 09, 2023 1 :08pm Power of Chief Business Officer Yes March 09, 2023 1:08pm Advance Directive Response Recorded Date/ Time Advance Directives Yes May 03 2:07pm Living Will Yes May 03, 2023 2:07pm Power of Chief Business Officer Yes May 03 2:07pm Advance Directive Response Recorded Date/ Time Advance Directives Yes May 03 1:07pm Living Will Yes May 03, 2023 1:07pm Power of Chief Business Officer Yes May 03 1:07pm Advance Directive Response Recorded Date/ Time Advance Directives Yes May 03 2:07pm Advance Directive Response Recorded Date/ Time Do you have a Healthcare Power of Chief Business Officer? 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) , per n ojse moved up due to BC refill POSTCOITAL [...] REASSESS THYROID NODULES March 09, 2025 7:52am Chief Complaint Admit Date REASSESS THYROID NODULES March 09, 2025 7:52am CHRONIC NAUSEA, EPIGASTRIC PAIN March 8:42am RIGHT SHOULDER March 26, 2025 9:53 am Chief Complaint Admit Date CHRONIC NAUSEA, EPIGASTRIC PAIN March 8:42am RIGHT SHOULDER March 26, 2025 9:53 am Reason for Visit Admit Date Nausea July 15, 2025 8:13am Screening for colon cancer June 8:13am Additional Source Comments INFORMATION SOURCE (unrecogn ized section and content) DATE CREATED AUTHOR 04/11/2018 [facility] DATE CREATED AUTHOR AUTHOR'S ORGANIZ ATION 04/12/2018 [facility] DATE CREATED AUTHOR AUTHOR'S ORGANIZ ATION 04/12/2018 [facility] DATE CREATED AUTHOR AUTHOR'S ORGANIZ ATION 12/01/2024 [facility] DATE CREATED AUTHOR AUTHOR'S ORGANIZ ATION 08/01/2025 [facility] Goals (unrecognized section and content) Goals may [...] or prosecute any alcohol or drug abuse patient.[facility] RehabilitationIn the event this information is protected by the Federal Confidentiality of Alcohol and Drug Abuse Patient Records regulations: The Federal rules restrict any use of the information to criminally investigate or prosecute any alcohol or drug abuse patient.[facility] RehabilitationIn the event this information is protected by the Federal Confidentiality of Alcohol and Drug Abuse Patient Records regulations: The Federal rules restrict any use of the information to criminally investigate or prosecute any alcohol or drug abuse patient.[facility] RehabilitationIn the event this information is protected by the Federal Confidentiality of Alcohol and Drug Abuse Patient Records regulations: The Federal rules restrict any use of the information to criminally investigate or prosecute any alcohol or drug abuse patient.[facility] RehabilitationIn the event this information is protected by the Federal Confidentiality of Alcohol and Drug Abuse Patient Records regulations: The Federal rules restrict any use of the information to criminally investigate or prosecute any alcohol or drug abuse patient.[facility] RehabilitationIn the event this information is protected by the Federal Confidentiality of Alcohol and Drug Abuse Patient Records regulations: The Federal rules restrict any use of the information to criminally investigate or prosecute any alcohol or drug abuse patient.[facility] RehabilitationIn the event this information is protected by the Federal Confidentiality of Alcohol and Drug Abuse Patient Records regulations: The Federal rules restrict any use of the information to criminally investigate or prosecute any alcohol or drug abuse patient.[facility] RehabilitationIn the event this information is protected by the Federal Confidentiality of Alcohol and Drug Abuse Patient Records regulations: The Federal rules restrict any use of the information to criminally investigate or prosecute any alcohol or drug abuse patient.[facility] RehabilitationIn the event this information is protected by the Federal Confidentiality of Alcohol and Drug Abuse Patient Records regulations: The Federal rules restrict any use of the information to criminally investigate or prosecute any alcohol or drug abuse patient.[facility] RehabilitationIn the event this information is protected by the Federal Confidentiality of Alcohol and Drug Abuse Patient Records regulations: The Federal rules restrict any use of the information to criminally investigate or prosecute any alcohol or drug abuse patient.[facility] Reason for Visit (unrecogniz ed section and content) Reason Comments Thyroid Nodule Reason Comments Radiology US Reason Comments Patient Update Reason Comments left foot/toe pain X 3 days-tripped ove r toys Reason Comments New broken 3rd toe Pain Reason Comments Release Of Medical Records Imaging Disc/ Report Care Teams (unrecognized sec tion and content) Account Liaison Relationship Specialty Start Date End Date Kaylee Pink DO [address] [facility] [place] [address] PCP - General Family Medicine 09/12/17 Team [...] Primary Care Provider, Attendin g Provider Active Account Liaison Relationship Specialty Start Date End Date Kaylee Pink DO [address] [place] [address] PCP - General Family Medicine 09/12/17 Account Liaison Relationship Specialty Start Date End Date Kaylee Pink DO [address] [place] [address] PCP - General Family Medicine 09/12/17 Account Liaison Relationship Specialty Start Date End Date Kaylee Pink DO [address] [place] [address] PCP - General Family Medicine 09/12/17 Account Liaison Relationship Specialty Start Date End Date Kaylee Pink DO [address] [place] [address] PCP - General Family Medicine 09/12/17 Account Liaison Relationship Specialty Start Date End Date Kaylee Pink DO [address] [place] [address] PCP - General Family Medicine 09/12/17 Account Liaison Relationship Specialty Start Date End Date Kaylee Pink DO [address] [place] [address] PCP - General Family Medicine 09/12/17 Account Liaison Relationship Specialty Start Date End Date Kaylee Pink [address] [place] [address] PCP - General Family Medicine 09/12/17 Team [...] March 09, 2025 End: March 09, 2025 Team Status: Active Member Role Status Dates Dr. Kaylee Pink DO Primary Care Provider Active Start: March 26, 2025 Dr. Kaylee Pink DO Attending Provider Active Start: March 26, 2025 Dr. Kaylee Pink DO Referring Provider Active Start: March 26, 2025 Team Status: Inactive Member Role Status Dates Dr. Kaylee Pink DO Primary Care Provider Active Start: March 26, 2025 End: March 26, 2025 Dr. Kaylee Pink DO Attending Provider Active Start: March 26, 2025 End: March 26, 2025 Dr. Kaylee Pink DO Referring Provider Active Start: March 26, 2025 End: March 26, 2025 Team Status: Active Member Role/Relationship Status Dates Dr. Kaylee Pink DO Primary care physician Active Team Status: Inactive Member Role/Relationship Status Dates Dr. Kaylee Pink DO Primary care physician Active Start: March 26, 2025 End: March 26, 2025 Dr. Kaylee Pink DO Attending physician Active Start: March 26, 2025 End: March 26, 2025 Dr. Kaylee Pink DO Referring Provider Active Start: March 26, 2025 End: March 26, 2025 Team Status: Inactive Member Role/Relationship Status Dates Dr. Kaylee Pink DO Primary care physician Active Start: March 26, 2025 End: March 26, 2025 Dr. Kaylee Pink DO Attending physician Active Start: March 26, 2025 End: March 26, 2025 Dr. Kaylee Pink DO Referring Provider Active Start: March 26, 2025 End: March 26, 2025 Team Status: Inactive Member Role/Relationship Status Dates Dr. Kaylee Pink DO Primary care physician Active Start: June 24, 2025 End: June 24, 2025 Dr. Dhruv Monroe MD Attending physician Active Start: June 24, 2025 End: June 24, 2025 Dr. Dhruv Monroe MD Referring Provider Active Start: June 24, 2025 End: June 24, 2025 Team Status: Inactive Member Role/Relationship Status Dates Dr. Kaylee Pink DO Primary care physician Active Start: July 15, 2025 End: July 15, 2025 Dr. Kaylee Pink DO Referring Provider Active Start: July 15, 2025 End: July 15, 2025 Dr. Elham Curtis MD Attending physician Active Start: July 15, 2025 End: July 15, 2025 Team Status: Active Member Role/Relationship Status Dates Dr. Kaylee Pink DO Primary care physician Active Start: July 15, 2025 Dr. Kaylee Pink DO Referring Provider Active Start: July 15, 2025 Dr. Elham Curtis MD Attending physician Active Start: July 15, 2025 Dr. Elham Curtis MD Nurse Practitioner Active Start: July 15, 2025 FOR RECORDS PERTAINING TO PATIENTS WHO [...] BE BASED ON THE PRIMARY CLINICAL RECORDS. [employer] provides no warranty or guarantee of the accuracy or completeness of information in this document.
--- OUTSIDE RECORDS SUMMARY | 2025-08-05 12:38 | XMS RPT_ITS | CCD ---
Author Organization [facility] [place] [facility] Team Providers Care Last Pattern Grader Name Role Phone BOLOGNA, BOLIVAR A Unavailable [...] Provider Dr. Kaylee Pink Primary Care Provider [phone]. Kaylee Pink Referring Provider Dr. Jamee Gray Attending Provider Dr. Kaylee Pink Primary Care Provider Dr. Kaylee Pink Referring Provider Dr. Jamee Gray Attending Provider [phone] Kaylee Pink DO Primary Care Provider KAYLEE PINK Primary Care Unavailable GIOVANNI BEY Attending Unavailable KAYLEE PINK A Primary Care Unavailable GIOVANNI BEY Referring Unavailable KAYLEE PINK A Primary Care Unavailable HARSH VELAZQUEZ Referring Unavailable KAYLEE PINK A Primary Care Unavailable KAYLEE PINK A Primary Care Unavailable JAMSHID DUBOIS Attending Unavailable KAYLEE PINK A Primary Care Unavailable KAYLEE PINK Referring Unavailable Dr. Kaylee iPnk DO Primary Care Provider Dr. Kaylee Pink DO Attending Provider Dr. Kaylee Pink DO Referring Provider [phone] Kristian LOPEZ, Dr. Mcguire Primary Care Physician [phone] Kristian LOPEZ, Dr. Mcguire Attending Physician Kristian LOPEZ, Dr. Mcguire Referring Provider [phone] Fer LITTLE, Dr. Dhruv Chaparro Attending Physician [...] Translations: [DUST] Propensity to adverse reactions (disorder) [facility] Repository (12 sources) methenamine; Translations: [METHENAMINE] Drug Allergy 7 Unknown [facility] Repository (12 sources) mold extract; Translations: [MOLD] Drug Allergy 6 [facility] Repository (12 sources) Seasonal allergy; Translations: [SEASONAL ALLERGIES] Propensity to adverse reactions (disorder) 7 Unknown [facility] Repository (12 sources) RAGWEED; Translations: [RAGWEED] Propensity to adverse reactions (disorder) 6 [facility] Repository (2 sources) HYDROcodone Drug Allergy 6 Nausea [facility] Work Phone: Medications Current Medications Medication [...] by martin as needed. polyethylene glycol 3350 886358 mg / potassium chloride 2970 mg / sodium bicarbonate 6740 mg / sodium chloride 5860 mg / sodium sulfate 16748 mg powder for oral solution (2 sources) [...] on above: Take 1 capsule by mo [facility] three times daily. amoxicillin 875 mg [...] 29, 2016 12:00am 21 day ethinyl estradiol 0.461460 mg/hr / etonogestrel 0.005 mg/hr vaginal system [...] AC/SALICY/TY-AM (CYSTEX ORAL) (1 source) End: 12-23-2022 METHENAM/EDNIZ AC/SALICY/TY-AM (CYSTEX ORAL) Take by mouth. 0 [...] Cultureon 07-26-2025 [facility] Streptococcus agalac tiae (B) Mitchell Count 50,000-80,000 Streptococcus agalactiae (B): REACTION Ampicillin Islt NELIA <=0.25 cefTRIAXone Islt NELIA <=0.12 S Clindamycin.induced Susc Islt POS Linezolid Islt NELIA <=2 S Vancomycin Islt NELIA 0.5 S Normal [facility] Comment on above: Performed By: #### M 100.2200 ####[facility] [address] [place], [address] Colonoscopy Reporton 025 Colonoscopy Report [facility] Medical Records Department [address] [place] [address] Colonoscopy Report MR#: [id number] Acct: [id number] Name: JOSE JUAN JOSHI Rep #: [id number] : 1970 54 From: Elham Curtis MD PCP: Dr. Kaylee Pink, DO Status:REG [facility] Patient Name: Jose Juan Joshi Procedure Date: [...] malignant neoplasm of colon CPT copyright 2021 [employer]. All rights reserved. The codes documented in this report are preliminary and upon fur glosser review may be revised to meet current compliance requirements. MD Elham Bautista MD 07/15/2025 10:44:01 AM This report has been signed electronically. Number of Addenda: 0 Note Initiated On: 07/15/2025 10:10 AM 07/15/25 1044 Date Elham Lee Signature: Date (if indicated) CC: Dr. Kaylee Pink DO; Dr. Elham Curtis MD Date Dictated: 07/15/25 1010 Date Transcribed: [facility]: TR Signed [facility] MR/OP.Taco 07-15-2025 MR/OP.PROVAT [facility] Medical Records Department [address] [place] [address] Provation Physician Letter MR#: [id number] Acct: [id number] Name: JOSE JUAN JOSHI Rep #: [id number] : 1970 54 From: Elham Curtis MD PCP: Dr. Kaylee Pink DO Status:REG [facility] 07/15/2025 Kaylee Pink [address] [place] [address] Re : Colonoscopy procedure for Jose Juan [...] MD Date Dictated: 07/15/25 1010 Date Transcribed: [facility]: TR Signed [facility] MR/POSTOP.ANEon 07-15-2025 MR/POSTOP.ANE [facility] Medical Records Department [address] [place] [address] Anesthesia Postop Eval I 07/15/25 1046 MR#: [id number] Acct: [id number] Name: JOSE JUAN JOSHI Rep #: [id number] : 1970 54 From: Thao Hansen CRNA PCP: Dr. Kaylee Pink, DO Status:REG SDC Y Race: C Location: [place] [address] Anesthesia: Postop Eval I Current Vital Signs [...] completed: No 07/15/25 1047 Date Thao Hansen ROOFER Cosigner Signature: Date CC: Signed [facility] [id number] 07-15-2025 MR/POSTOPAN2 [facility] Medical Records Department [address] [place] [address] Anesthesia Postop Eval II 07/15/25 1156 MR#: [id number] Acct: [id number] Name: JOSE JUAN JOSHI Rep #: [id number] : 1970 54 From: Go Chen MD PCP: Dr. Kaylee Pink, DO Status:DEP SDC Y Race: C Location: EN Anesthesia Postop Eval I Sum Postop Eval Completion status Anesthesia document: Postop Eval 1 completed: No Anesthesia Postop Eval I Summary Anesthesia Postop Eval I Summary: Anesthesia Postop Eval I: Assessment Summary Airway patent Yes 07/15/25 10:47 ROOFER.OSMAR Spontaneous unlabored Yes 07/15/25 10:47 ROOFER.OSMAR respirations Mental status Asleep 07/15/25 10:47 ROOFER.OSMAR nausea No 07/15/25 10:47 ROOFER.OSMAR Vomiting No 07/15/25 10:47 ROOFER.OSMAR Anesthesia Postop Eval I: Fluid Summary Crystalloid volume administer 600 07/15/25 10:47 ROOFER.OSMAR (ml) Colloids volume administered ( ml) Blood [...] MD Cosigner Signature: Date CC: Signed Normal [facility] ,Urineon 07-15-2025 Beta HCG ( test) Ql (U) Negative Normal [facility] Comment on above: Result Comment: Very dilute urine specimens, as indicated by a low specific gravity, may not contain personal financial representative levels of hCG. If is still suspected, a first morning urine specimen should be collected 48 hours later and tested. Performed By: #### L 400.7600 ####[facility] [address] [place], [address] Urine testOrdered By: Martin Hayward on 07-15-2025 HCG ( test) Ql (U) Negative [facility] Comment on above: Very dilute urine sp ecimens, as indicated by a low specificgravity, may not contain personal financial representative levels of hCG. If is still suspected, a first morning urinespecimen should be collected 48 hours later and tested. Urine Cultureon 06-27-2025 [facility] Streptococcus agalac tiae (B) Mitchell Count 50,000-80,000 Streptococcus agalactiae (B): REACTION Ampicillin Islt NELIA <=0.25 cefTRIAXone Islt NELIA <=0.12 S Clindamycin.induced Susc Islt POS Linezolid Islt NELIA <=2 S Vancomycin Islt NELIA 0.5 S Normal [facility] Comment on above: Performed By: #### M 100.2200 #### [facility] Laboratory [address] [facility] [place], [place], [id number] Urine cultureOrdered By: Lambert Monroe on 06-24-2025 Bacteria identified Cx Nom (U) Streptococcus agalactiae (B) Abnormal [facility] Abdomen Limitedon 03-26-2025 Abdomen Limited [facility] Imaging Services [address] [place], [place] [address] Abdomen Limited MR#: [id number] Acct: [id number] Name: JOSE JUAN JOSHI Rep #: [id number] : 1970 F 54 From: Carson sheikh MD PCP: Dr. Kaylee Pink DO Status: REG CLI Study: Abdomen Limited Date of Exam: 03/26/25 Exam# [id number] Ordering Dr: Kaylee Pink DO PROCEDURE: ABDOMEN [...] right lobe of the liver. Reading Location: [place] [address] CC: Dr. Kaylee Pink DO [facility]: Signed Normal [facility] Shoulder min 2 Viewson 03-26 Shoulder min 2 Views [facility] Imaging Services [address] [place], [place] [id number] Shoulder min 2 Views MR#: [id number] Acct: [id number] Name: JOSE JUAN JOSHINE Rep #: [id number] : 1970 F 54 From: Prem Tamayo PCP: Dr. Kaylee Pink DO Status: REG CLI Study: Shoulder min 2 Views Date of Exam: 03/26/25 Exam# [id number] Ordering Dr: Kaylee Pink DO PROCEDURE: SHOULDER MIN 2 VIEWS 03/26/2025 REASON FOR EXAM: SHOULDER PAIN TECHNIQUE: Four view right shoulder series COMPARISON: None. RAD/Shoulder min 2 Views IMPRESSION: Sbak-iv-kfmpeall right acromioclavicular joint degenerative changes are seen, with significant associated joint narrowing. The right glenohumeral joint demonstrates no significant abnormality. 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 No acute fracture or dislocation is seen. If clinical concern persists, short-term follow-up imaging may be obtained to rule out a currently occult fracture. Reading Location: [address] CC: Dr. Kaylee Pink DO [facility]: Signed Normal [facility] Thyroidon 03-09-2025 Thyroid [facility] Imaging Services [address] [place] [address] Thyroid MR#: [id number] Acct: [id number] Name: JOSE JUAN JOSHI Rep #: [id number] : 1970 F 54 From: Carson sheikh MD PCP: Dr. Kaylee Pink DO Status: REG CLI Study: Thyroid Date of Exam: 03/09/25 Exam# [id number] Ordering Dr: Kaylee Pink DO PROCEDURE: THYROID 03/09/2025 REASON FOR EXAM: REASSESS THYROID NODULES TECHNIQUE: High-frequency thyroid ultrasound, including grayscale and color-flow images. REFERENCE LINKS: TI-RADS Chart: [email or web address]-[email or web address]/ti-[email or web address] ads TI-RADS Calculator Tool with Reference Images: [email or web address] ology-calculators/body-abby ging/tirads-calculator/ COMPARISON: Prior study dated December [...] no more than 2 nodules. Reading Location: [place] [address] CC: Dr. Kaylee Pink, [facility]: Signed Normal [facility] Absolute lymphocyte countOrd ered By: Kaylee Pink on 03-04-2025 Lymphocytes Auto (Unsp spec) [#/Vol] 1.37 10*3/uL 0.83-4.51 [facility] Absolute neutrophil countOrd ered By: Kaylee Pink on 03-04-2025 Neutrophils (Bld) [#/Vol] 2.8 10*3/uL 2.0-7.7 [facility] Anion gap in Serum or Plasma Ordered By: Kaylee Pink on 03-04-2025 Anion gap [Moles/Vol] 10 mmol/L 5-15 [facility] Automated lymphocyte count a s percentage of total leukocytesOrdered By: Kaylee Pink on 03-04-2025 Lymphocytes/100 WBC Auto (Unsp spec) 29.7 % - [facility] BUN/creatinine ratioOrdered By: Kaylee Pink on 03-04-2025 Urea nitrogen/Creatinine [Mass ratio] 16.8 mg/mg 10-20 [facility] Basophil percentageOrdered B y: Kaylee Pink on 03-04-2025 Basophils/100 WBC (Bld) 1.3 % High 0-1 [facility] Bilirubin, totalOrdered By: Kaylee Pink on 03-04-2025 Bilirubin [Mass/Vol] 0.38 mg/dL 0.00-1.30 [facility] CBC W/Diff, Automatedon 02-14 Absolute Lymph 1.37 X10 3/uL Normal 0.83-4.51 [facility] Comment on above: Performed By: #### L 500.4050, L501.2450, L300.3900, L100.0100 ####[facility] [address] [place], [address] Absolute Neut 2.8 X10 3/uL Normal 2.0-7.7 [facility] Comment on above: Performed By: #### L 500.4050, L501.2450, L300.3900, L100.0100 ####[facility] [address] [place], [address] Basophils/100 WBC (Bld) 1.3 % High 0-1 [facility] Comment on above: Performed By: #### L 500.4050, L501.2450, L300.3900, L100.0100 ####[facility] [address] [place], [address] Eosinophils/100 WBC (Bld) 2.6 % Normal 0-5 [facility] Comment on above: Performed By: #### L 500.4050, L501.2450, L300.3900, L100.0100 ####[facility] [address] [place], [address] Erythrocyte distribution width (RBC) [Ratio] 12.0 % Normal 11.6-14.6 [facility] Comment on above: Performed By: #### L 500.4050, L501.2450, L300.3900, L100.0100 ####[facility] [address] [place], [address] Hematocrit (Bld) [Volume fraction] 37.8 % Normal 37-47 [facility] Comment on above: Performed By: #### L 500.4050, L501.2450, L300.3900, L100.0100 ####[facility] [address] [place], [address] Hemoglobin (Bld) [Mass/Vol] 12.6 g/dL Normal 12.0-15.0 [facility] Comment on above: Performed By: #### L 500.4050, L501.2450, L300.3900, L100.0100 ####[facility] [address] [place], [address] IG% 0.200 Normal 0.0-0.9 [facility] Comment on above: Result Comment: IG% - Immature Granulocytes (promyelocytes, myelocytes and metamyelocytes) > 1% indicates that a LEFT SHIFT is Present. Performed By: #### L 500.4050, L501.2450, L300.3900, L100.0100 ####[facility] [address] [place], [address] Lymphocytes/100 WBC (Bld) 29.7 % Normal 19-41 [facility] Comment on above: Performed By: #### L 500.4050, L501.2450, L300.3900, L100.0100 ####[facility] [address] [place], [address] MCH (RBC) [Entitic mass] 29.7 pg Normal 27.0-32.0 [facility] Comment on above: Performed By: #### L 500.4050, L501.2450, L300.3900, L100.0100 ####[facility] [address] [place], [address] MCHC (RBC) [Mass/Vol] 33.3 g/dL Normal 32-36 [facility] Comment on above: Performed By: #### L 500.4050, L501.2450, L300.3900, L100.0100 ####[facility] [address] [place], [address] MCV (RBC) [Entitic vol] 89.2 fL Normal 81-99 [facility] Comment on above: Performed By: #### L 500.4050, L501.2450, L300.3900, L100.0100 ####[facility] [address] [place], [address] Monocytes/100 WBC (Bld) 6.5 % Normal 0-10 [facility] Comment on above: Performed By: #### L 500.4050, L501.2450, L300.3900, L100.0100 ####[facility] [address] [place], [address] Neutrophils/100 WBC (Bld) 59.7 % Normal 47-70 [facility] Comment on above: Performed By: #### L 500.4050, L501.2450, L300.3900, L100.0100 ####[facility] [address] [place], [address] Nucleated RBC (Bld) [#/Vol] 0 10*3/uL Normal 0-5 [facility] Comment on above: Performed By: #### L 500.4050, L501.2450, L300.3900, L100.0100 ####[facility] [address] [place], [address] Platelet mean volume (Bld) [Entitic vol] 10.8 fL Normal 6.2-12.0 [facility] Comment on above: Performed By: #### L 500.4050, L501.2450, L300.3900, L100.0100 ####[facility] [address] [place], [address] Platelets (Bld) [#/Vol] 228 10*3/uL Normal 150-450 [facility] Comment on above: Performed By: #### L 500.4050, L501.2450, L300.3900, L100.0100 ####[facility] [address] [place], [address] RBC (Bld) [#/Vol] 4.24 10*6/uL Normal 4.2-5.[address] [facility] Comment on above: Performed By: #### L 500.4050, L501.2450, L300.3900, L100.0100 ####[facility] [address] [place], [address] RDW SD 38.8 fl Normal 35.1-43.9 [facility] Comment on above: Performed By: #### L 500.4050, L501.2450, L300.3900, L100.0100 ####[facility] [address] [place], [address] WBC (Bld) [#/Vol] 4.6 10*3/uL Normal 4.4-11.0 [facility] Comment on above: Performed By: #### L 500.4050, L501.2450, L300.3900, L100.0100 ####[facility] [address] [place], [address] Carbon dioxide, total [Moles /volume] in Central venous bloodOrdered By: Kaylee Pink on 03-04-2025 CO2 [Moles/Vol] 25.1 mmol/L 21.0-32.0 [facility] Chloride assayOrdered By: Genet Pink on 03-04-2025 Chloride [Moles/Vol] 103 mmol/L 98-108 [facility] Comprehensive Metabolic Prof ilon 03-04-2025 Albumin/Globulin [Mass ratio] 1.3 {ratio} Normal 0.9-2.4 [facility] Comment on above: Performed By: #### L 500.4050, L501.2450, L300.3900, L100.0100 ####[facility] [address] [place], [address] ALK PHOS 24 U/L Low 35-104 [facility] Comment on above: Performed By: #### L 500.4050, L501.2450, L300.3900, L100.0100 ####[facility] [address] [place], [address] ALT [Catalytic activity/Vol] 12 U/L Normal <=34 [facility] Comment on above: Performed By: #### L 500.4050, L501.2450, L300.3900, L100.0100 ####[facility] [address] [place], [address] AST [Catalytic activity/Vol] 21 U/L Normal <=31 [facility] Comment on above: Performed By: #### L 500.4050, L501.2450, L300.3900, L100.0100 ####[facility] [address] [place], [address] Bilirubin [Mass/Vol] 0.38 mg/dL Normal 0.00-1.30 [facility] Comment on above: Performed By: #### L 500.4050, L501.2450, L300.3900, L100.0100 ####[facility] [address] [place], [address] Calcium [Mass/Vol] 9.3 mg/dL Normal 7.6-11.0 [facility] Comment on above: Performed By: #### L 500.4050, L501.2450, L300.3900, L100.0100 ####[facility] [address] [place], [address] Chloride [Moles/Vol] 103 mmol/L Normal 98-108 [facility] Comment on above: Performed By: #### L 500.4050, L501.2450, L300.3900, L100.0100 ####[facility] [address] [place], [address] CO2 [Moles/Vol] 25.1 mmol/L Normal 21.0-32.0 [facility] Comment on above: Performed By: #### L 500.4050, L501.2450, L300.3900, L100.0100 ####[facility] [address] [place], [address] GAP 10 Normal 5-15 [facility] Comment on above: Performed By: #### L 500.4050, L501.2450, L300.3900, L100.0100 ####[facility] [address] [place], [address] Globulin (S) [Mass/Vol] 3.3 g/dL Normal 2.2-4.2 [facility] Comment on above: Performed By: #### L 500.4050, L501.2450, L300.3900, L100.0100 ####[facility] [address] [place], [address] Potassium [Moles/Vol] 4.2 mmol/L Normal 3.3-5.1 [facility] Comment on above: Performed By: #### L 500.4050, L501.2450, L300.3900, L100.0100 ####[facility] [address] [place], [address] Sodium [Moles/Vol] 137 mmol/L Normal 133-145 [facility] Comment on above: Performed By: #### L 500.4050, L501.2450, L300.3900, L100.0100 ####[facility] [address] [place], [address] Albumin [Mass/Vol] 4.3 g/dL Normal 3.5-5.0 [facility] Comment on above: Performed By: #### L 500.4050, L501.2450, L300.3900, L100.0100 ####[facility] [address] [place], [address] BUN/CRE 16.8 RATIO Normal 10-20 [facility] Comment on above: Performed By: #### L 500.4050, L501.2450, L300.3900, L100.0100 ####[facility] [address] [place], [address] Creatinine [Mass/Vol] 0.74 mg/dL Normal 0.70-1.20 [facility] Comment on above: Performed By: #### L 500.4050, L501.2450, L300.3900, L100.0100 ####[facility] [address] [place], [address] GFR/1.73 sq M.predicted among non-blacks MDRD (S/P/Bld) [Vol rate/Area] 95 mL/min/{1.73_m2} Normal >60 [facility] Comment on above: Result Comment: mL/m in/1.73m2 CKD-EPI Creatinine Equation (2020) Performed By: #### L 500.4050, L501.2450, L300.3900, L100.0100 ####[facility] [address] [place], [address] Glucose [Mass/Vol] 81 mg/dL Normal 70-99 [facility] Comment on above: Performed By: #### L 500.4050, L501.2450, L300.3900, L100.0100 ####[facility] [address] [place], [address] T PROT 7.6 g/dL Normal 5.9-8.4 [facility] Comment on above: Performed By: #### L 500.4050, L501.2450, L300.3900, L100.0100 ####[facility] [address] [place], [address] Urea nitrogen [Mass/Vol] 13 mg/dL Normal 4-19 [facility] Comment on above: Performed By: #### L 500.4050, L501.2450, L300.3900, L100.0100 ####[facility] [address] [place], [address] Eosinophil percentageOrdered By: Kaylee Pink on 03-04-2025 Eosinophils/100 WBC (Bld) 2.6 % 0-5 [facility] Erythrocyte distribution wid th ratioOrdered By: Kaylee Pink on 03-04-2025 Erythrocyte distribution width (RBC) [Ratio] 12.0 % 11.6-14.6 [facility] Erythrocyte distribution wid th standard deviationOrdered By: Kaylee Pink on 03-04-2025 Erythrocyte distribution width (RBC) [Ratio] 38.8 fl 35.1-43.9 [facility] Glomerular filtration rate ( GFR) estimation/1.73 sq m using serum, plasma, or whole bOrdered By: Kaylee Pink on 03-04-2025 GFR/1.73 sq M.predicted among non-blacks MDRD (S/P/Bld) [Vol rate/Area] 95 mL/min/{1.73_m2} >60 [facility] Comment on above: mL/min/1.73m2 CKD-EP I Creatinine Equation (2020) Hematocrit Auto (Bld) [Volum e fraction]Ordered By: Kaylee Pink on 03-04-2025 Hematocrit (Bld) [Volume fraction] 37.8 % 37-47 [facility] Hemoglobin measurementOrdere d By: Kaylee Pink on 03-04-2025 Hemoglobin (Bld) [Mass/Vol] 12.6 g/dL 12.0-15.0 [facility] Immature granulocytes/100 WB C Auto (Bld)Ordered By: Kaylee Pink on 03-04-2025 Immature granulocytes/100 WBC (Bld) 0.200 % 0.0-0.9 [facility] Comment on above: IG% - Immature Granu locytes (promyelocytes, myelocytes and metamyelocytes) > 1% indicates that a LEFT SHIFT is Present. International normalized rat io (INR) calculationOrdered By: Kaylee Pink on 03-04-2025 INR Coag (Bld) [Relative time] 0.9 {INR} [facility] Laboratory - Chemistry and C hemistry - challengeOrdered By: Kaylee Pink on 03-04-2025 AST [Catalytic activity/Vol] 21 U/L <32 [facility] Lipaseon 03-04-2025 Lipase [Catalytic activity/Vol] 35 U/L Normal 13-75 [facility] Comment on above: Result Comment: Fab mancia note: LIPASE revised reference range effective 23. New Lipase methodology. Expected to produce lower values than the previous assay method. NEW Reference Range: 13 - 75 U/L Performed By: #### L 500.4050, L501.2450, L300.3900, L100.0100 ####[facility] [address] [place], [address] Lipase measurementOrdered By : Kaylee Pink on 03-04-2025 Lipase [Catalytic activity/Vol] 35 U/L 13-75 [facility] Comment on above: Please note:LIPASE r evised reference range effective 23. New Lipase methodology. Expected to produce lower values than the previous assay method. NEW Reference Range: 13 - 75 U/L MCV (mean corpuscular volume ) determinationOrdered By: Kaylee Pink on 03-04-2025 MCV (RBC) [Entitic vol] 89.2 fL 81-99 [facility] Mean corpuscular hemoglobin (MCH) determinationOrdered By: Kaylee Pink on 03-04-2025 MCH (RBC) [Entitic mass] 29.7 pg 27.0-32.0 [facility] Mean corpuscular hemoglobin concentration (MCHC) determinationOrdered By: Kaylee Pink on 03-04-2025 MCHC (RBC) [Mass/Vol] 33.3 g/dL 32-36 [facility] Mean platelet volume determi nationOrdered By: Kaylee Pink on 03-04-2025 Platelet mean volume (Bld) [Entitic vol] 10.8 fL 6.2-12.0 [facility] Monocyte percentageOrdered B y: Kaylee Pink on 03-04-2025 Monocytes/100 WBC (Bld) 6.5 % 0-10 [facility] Neutrophil percentageOrdered By: Kaylee Pink on 03-04-2025 Neutrophils/100 WBC (Bld) 59.7 % 47-70 [facility] Nucleated red blood cell per centageOrdered By: Kaylee Pink on 03-04-2025 Nucleated RBC/100 WBC (Bld) [Ratio] 0 % 0-5 [facility] Platelet countOrdered By: Genet Pink on 03-04-2025 Platelets (Bld) [#/Vol] 228 10*3/uL 150-450 [facility] Potassium measurement (mass/ volume)Ordered By: Kaylee Pink on 03-04-2025 Potassium (Unsp spec) [Mass/Vol] 4.2 mmol/L 3.3-5.1 [facility] Prothrombin Time w/INRon INR Coag (PPP) [Relative time] 0.9 {INR} Normal [facility] Comment on above: Performed By: #### L 500.4050, L501.2450, L300.3900, L100.0100 ####[facility] [address] [place], [address] PT Coag (PPP) [Time] 12.8 s Normal 11.7-14.9 [facility] Comment on above: Performed By: #### L 500.4050, L501.2450, L300.3900, L100.0100 ####[facility] [address] [place], [address] Prothrombin timeOrdered By: Kaylee Pink on 03-04-2025 PT Coag (PPP) [Time] 12.8 s 11.7-14.9 [facility] RBC Auto (Bld) [#/Vol]Ordere d By: Kaylee Pink on 03-04-2025 RBC (Bld) [#/Vol] 4.24 10*6/uL 4.2-5.[address] [facility] Serum creatinine measurement (mass/volume)Ordered By: Kaylee Pink on 03-04-2025 Creatinine [Mass/Vol] 0.74 mg/dL 0.70-1.20 [facility] Serum globulin measurementOr dered By: Kaylee Pink on 03-04-2025 Globulin (S) [Mass/Vol] 3.3 g/dL 2.2-4.2 [facility] Serum glucose measurement (m ass/volume)Ordered By: Kaylee Pink on 03-04-2025 Glucose [Mass/Vol] 81 mg/dL 70-99 [facility] Serum or plasma alanine dillard otransferase (ALT) measurementOrdered By: Kaylee Pink on 03-04-2025 ALT [Catalytic activity/Vol] 12 U/L <35 [facility] Serum or plasma albumin paul urement (mass/volume)Ordered By: Kaylee Pink on 03-04-2025 Albumin [Mass/Vol] 4.3 g/dL 3.5-5.0 [facility] Serum or plasma albumin/glob ulin mass ratioOrdered By: Kaylee Pink on 03-04-2025 Albumin/Globulin [Mass ratio] 1.3 {ratio} 0.9-2.4 [facility] Serum or plasma alkaline amy sphatase measurementOrdered By: Kaylee Pink on 03-04-2025 ALP [Catalytic activity/Vol] 24 U/L Low 35-104 [facility] Serum or plasma calcium paul urement (mass/volume)Ordered By: Kaylee Pink on 03-04-2025 Calcium [Mass/Vol] 9.3 mg/dL 7.6-11.0 [facility] Serum or plasma urea nitroge n measurement (mass/volume)Ordered By: Kaylee Pink on 03-04-2025 Urea nitrogen [Mass/Vol] 13 mg/dL 4-19 [facility] Sodium levelOrdered By: Kaylee Pink on 03-04-2025 Sodium [Moles/Vol] 137 mmol/L 133-145 [facility] Total proteinOrdered By: Karen Pink on 03-04-2025 Protein [Mass/Vol] 7.6 g/dL 5.9-8.4 [facility] White blood cell (WBC) count Ordered By: Kaylee Pink on 03-04-2025 WBC (Bld) [#/Vol] 4.6 10*3/uL 4.4-11.0 [facility] CNPOtilia 09-17-2024 MAURON Telephone ([facility]) -- JOSE JUAN JOSHI ([id number]) 1970 F Date Time Provider Department 09/17/24 JAZ PATELMOVannesa During your visit today, we recorded the following information about you: Madison High 09/17/2024 8:04 AM Signed Patient is requesting disc and report of 08/14/24 XR FOOT LEFT and 07/17/24 XR TOE LEFT. Please notify patient when items are ready for picker / packer. Jaz Patel, PSS 09/17/2024 2:37 PM Signed CD READY FOR [facility] [employer] [facility] AT [facility] Pt is aware Allergies As of [...] Status:Closed by MADISON HIGH on 11/29/24 Normal [facility] SCRN MAMM (CAD)W/ALBINA BILATo n 08-27-2024 SCRN MAMM (CAD)W/ALBINA BILAT [facility] Imaging Services [address] [place], [place] [address] SCRN MAMM (CAD)W/ALBINA BILAT MR#: [id number] Acct: [id number] Name: JOSE JUAN JOSHI Rep #: [id number] : 1970 F 53 From: Carson sheikh MD PCP: Dr. Kaylee Pink, DO Status: REG CLI Study: SCRN MAMM (CAD)W/ALBINA BILAT Date of Exam: 08/17 11/09 Exam# [id number] Ordering Dr: Jamee Gray [id number] MAMMOGRAPHY - BILATERAL SCREENING REASON FOR EXAM: [...] delay biopsy of a clinically suspicious abnormality. [id number] Electronically Signed: Carson Pinon MD at 10:33 EST , CC: Dr. Kaylee Pink, ; Dr. Jamee Gray MD [facility]: Signed Normal [facility] CNOVon 08-14-2024 CNOV Office Visit (PODIWS ) -- JOSE JUAN JOSHI ([id number]) 1970 F Date Time Provider Department 08/14/24 [...] SPEC WHEN PFRMD 05/14/15 Colonoscopy CYSTOSCOPY 2015 [facility] DIAGNOSTIC OR THERA - IPAS LAPAROSCOPY RADICAL [...] texture, turgor. (more content not included)... Normal [facility] XR FOOT 3V AP/LAT/OBL LTon 1 [...] preserved. There is an insertional Achilles enthesophyte. [facility]: ARCHANA Transcribe Date/Time: Aug 20 2024 7:39P Dictated by : HARLEY LINDER MD This examination was interpreted and the report reviewed and electronically signed by: HARLEY LINDER MD on Aug 20 2024 7:40PM EST [id number] Normal [facility] Pelvic w/ Transvaginalon Pelvic w/ Transvaginal [facility] Imaging Services [address] [place] [address] Pelvic w/ Transvaginal MR#: [id number] Acct: [id number] Name: JOSE JUAN JOSHI Rep #: [id number] : 1970 F 53 From: Carson sheikh MD PCP: Dr. Kaylee Pink, DO Status: REG CLI Study: Pelvic w/ Transvaginal Date of Exam: 08/13/24 Exam# [id number] Ordering Dr: Jamee Gray [id number] STUDY: ULTRASOUND OF THE FEMALE PELVIS - [...] 15:22 EDT Reading Location ID and State: [address] [place] [address] , Service support , CC: Dr. Kaylee Pink DO; Dr. Jamee Gray MD [facility]: Signed Normal [facility] CBC W/Diff, Automatedon 10-2 Absolute Lymph 1.81 X10 3/uL Normal 0.83-4.51 [facility] Comment on above: Performed By: #### L 100.0100, L3100.5125, L501.9520, L3300.1750 #### [facility] [address] [place], [address] Absolute Neut 4.0 X10 3/uL Normal 2.0-7.7 [facility] Comment on above: Performed By: #### L 100.0100, L3100.5125, L501.9520, L3300.1750 #### [facility] [address] [place], [address] Basophils/100 WBC (Bld) 0.9 % Normal 0-1 [facility] Comment on above: Performed By: #### L 100.0100, L3100.5125, L501.9520, L3300.1750 #### [facility] [address] [place], [address] Eosinophils/100 WBC (Bld) 0.9 % Normal 0-5 [facility] Comment on above: Performed By: #### L 100.0100, L3100.5125, L501.9520, L3300.1750 #### [facility] [address] [place], [address] Erythrocyte distribution width (RBC) [Ratio] 12.1 % Normal 11.6-14.6 [facility] Comment on above: Performed By: #### L 100.0100, L3100.5125, L501.9520, L3300.1750 #### [facility] [address] [place], [address] Hematocrit (Bld) [Volume fraction] 38.0 % Normal 37-47 [facility] Comment on above: Performed By: #### L 100.0100, L3100.5125, L501.9520, L3300.1750 #### [facility] [address] [place], [address] Hemoglobin (Bld) [Mass/Vol] 12.3 g/dL Normal 12.0-15.0 [facility] Comment on above: Performed By: #### L 100.0100, L3100.5125, L501.9520, L3300.1750 #### [facility] [address] [place], [address] IG% 0.300 Normal 0.0-0.9 [facility] Comment on above: Result Comment: IG% - Immature Granulocytes (promyelocytes, myelocytes and metamyelocytes) > 1% indicates that a LEFT SHIFT is Present. Performed By: #### L 100.0100, L3100.5125, L501.9520, L3300.1750 #### [facility] [address] [place], [address] Lymphocytes/100 WBC (Bld) 28.3 % Normal 19-41 [facility] Comment on above: Performed By: #### L 100.0100, L3100.5125, L501.9520, L3300.1750 #### [facility] [address] [place], [address] MCH (RBC) [Entitic mass] 28.8 pg Normal 27.0-32.0 [facility] Comment on above: Performed By: #### L 100.0100, L3100.5125, L501.9520, L3300.1750 #### [facility] [address] [place], [address] MCHC (RBC) [Mass/Vol] 32.4 g/dL Normal 32-36 [facility] Comment on above: Performed By: #### L 100.0100, L3100.5125, L501.9520, L3300.1750 #### [facility] [address] [place], [address] MCV (RBC) [Entitic vol] 89.0 fL Normal 81-99 [facility] Comment on above: Performed By: #### L 100.0100, L3100.5125, L501.9520, L3300.1750 #### [facility] [address] [place], [address] Monocytes/100 WBC (Bld) 7.0 % Normal 0-10 [facility] Comment on above: Performed By: #### L 100.0100, L3100.5125, L501.9520, L3300.1750 #### [facility] [address] [place], [address] Neutrophils/100 WBC (Bld) 62.6 % Normal 47-70 [facility] Comment on above: Performed By: #### L 100.0100, L3100.5125, L501.9520, L3300.1750 #### [facility] [address] [place], [address] Nucleated RBC (Bld) [#/Vol] 0 10*3/uL Normal 0-5 [facility] Comment on above: Performed By: #### L 100.0100, L3100.5125, L501.9520, L3300.1750 #### [facility] [address] [place], [address] Platelet mean volume (Bld) [Entitic vol] 10.6 fL Normal 6.2-12.0 [facility] Comment on above: Performed By: #### L 100.0100, L3100.5125, L501.9520, L3300.1750 #### [facility] [address] [place], [address] Platelets (Bld) [#/Vol] 238 10*3/uL Normal 150-450 [facility] Comment on above: Performed By: #### L 100.0100, L3100.5125, L501.9520, L3300.1750 #### [facility] [address] [place], [address] RBC (Bld) [#/Vol] 4.27 10*6/uL Normal 4.2-5.[address] [facility] Comment on above: Performed By: #### L 100.0100, L3100.5125, L501.9520, L3300.1750 #### [facility] [address] [place], [address] RDW SD 39.3 fl Normal 35.1-43.9 [facility] Comment on above: Performed By: #### L 100.0100, L3100.5125, L501.9520, L3300.1750 #### [facility] [address] [place], [address] WBC (Bld) [#/Vol] 6.4 10*3/uL Normal 4.4-11.0 [facility] Comment on above: Performed By: #### L 100.0100, L3100.5125, L501.9520, L3300.1750 #### [facility] [address] [place], [address] Estradiolon 08-06-2024 ESTRADIOL 81.1 pg/mL Normal [facility] Comment on above: Result Comment: NORM [...] #### L 100.0100, L3100.5125, L501.9520, L3300.1750 #### [facility] [address] [place], [address] Follicle Stimulating Hormone on 08-06-2024 FSH 13.6 mIU/mL Normal [facility] Comment on above: Result Comment: NORMAL REFERENCE RANGES FEMALE FOLLICULAR 2.3 - 12.6 mIU/mL MID-CYCLE PEAK 5.2 - 17.5 mIU/mL LUTEAL 1.7 - 12.9 mIU/mL POST-MENOPAUSAL ON MHT 5.9 - 72.8 mIU/mL NOT ON MHT 12.7 - 132.2 mlU/mL MALE 0.7 - 10.8 mIU/mL Performed By: #### L 100.0100, L3100.5125, L501.9520, L3300.1750 #### [facility] [address] [place], [place], [address] Thyroid Stim Hormone (TSH)on 08-06-2024 TSH 1.490 uIU/mL Normal 0.358-3.740 [facility] Comment on above: Performed By: #### L 100.0100, L3100.5125, L501.9520, L3300.1750 #### [facility] [place] [place], [address] CNOVon 07-17-2024 CNOV Office Visit (UCWSTR ) -- JOSE JUAN JOSHI ([id number]) 1970 F Date Time Provider Department 07/17/24 5:30 PM HARSH VELAZQUEZ [facility] During your visit today, we recorded the following information about you: Temperature Pulse Respiration Blood pressure 98 degrees 73/minute 16/minute 128/80 Weight 65.4 kg Harsh Velazquez APRN.WORK ORDER CLERK 07/17/2024 7:14 PM Signed Subjective Female with complaints of left toe pain. Patient says she tripped over a toy. Patient says it is swollen and bruised. Patient says it is painful. Patient denies any numbness tingling or loss of feeling. The history is provided by the patient. No motor vehicle parts interpreter was used. Review of Systems Constitutional: Negative. [...] SPEC WHEN PFRMD 05/14/15 Colonoscopy CYSTOSCOPY 2015 [facility] DIAGNOSTIC OR THERA - IPAS LAPAROSCOPY RADICAL [...] the distal phalanx of the third toe. [facility]: RACHANA Transcribe Date/Time: Jul 17 2024 6:34P Dictated by : PREM DEGROOT MD 2. Closed nondisplaced fracture of distal phalanx of lesser toe of left foot, initial encounter - ICD9: 826.0, ICD10: S92.535A Was placed in a postop shoe. Patient was educated to follow-up with primary podiatry. Patient will rest ice elevate. Patient was okay with this care plan. Harsh Velazquez APRN.WORK ORDER CLERK Allergies As of Date: 07/17/2024 Noted Allergy [...] initial encounter [S92.535A] Order(s):XR TOE AP/LAT/OBL LEFT [[id number]] Order #: [id number] FUTURE Prescriptions as of 07/17/2024 - ergocalciferol [...] needed. Pro (more content not included)... Normal [facility] XR TOE 3V AP/LAT/OBL LTon XR [...] the distal phalanx of the third toe. [facility]: ARCHANA Transcribe Date/Time: Jul 17 2024 6:34P Dictated by : PREM DEGROOT MD This examination was interpreted and the report reviewed and electronically signed by: PREM DEGROOT MD on Jul 17 2024 6:36PM EST [id number] Normal [facility] XR Toes - left 3 Viewson IMPRESSION: Small chip/avulsion fracture involving the dorsal base of the distal phalanx of the third toe. [facility]: ARCHANA Transcribe Date/Time: Jul 17 2024 6:34P [...] the third toe. DIVISION OF RADIOLOGY Provider, [facility] - 07/17/2024 * * *Final [...] the distal phalanx of the third toe. [facility]: TESSAB Transcribe Date/Time: Jul 17 2024 6:34P Dictated by : PREM DEGROOT MD This examination was interpreted and the report reviewed and electronically signed by: PREM DEGROOT MD on Jul 17 2024 6:36PM EST [facility] Radiology Study observation (narrative) [facility] XR Toes - left 3 ViewsOrdere d By: Ccf Provider on 07-17-2024 [facility] CNOVon 07-04-2024 CNOV Office Visit (ENDOMN ) -- JOSE JUAN JOSHI ([id number]) 1970 F Date Time Provider Department 07/04/24 11:00 AM JAMSHID DUBOIS During your visit today, we recorded the following information about you: Pulse Blood pressure Weight 67/minute 138/65 66 kg Pennie Wilson OCCA 07/04/2024 10:50 AM Signed Thank you for choosing the [facility] Department of Endocrinology, Diabetes and Metabolism. Did you know that you need to call 48 hours in advance of your scheduled visit, if you are unable to make your appointment? The [facility] [place] thanks you for your commitment, because patients not showing to their appointment results in a lost opportunity for patients to receive [facility] health care at the [facility]. To Cancel an appointment, please choose one of the following: - Call the Appointment Call Center at [phone] - From [employer], Go to Appointments - Cancel Appts If cancelling, consider your need to reschedule to prevent further delays in your care. To Schedule an appointment, please choose one of the following: - Call the Appointment Call Center at [phone] - From [employer], Go to Appointments - Request an Appt [...] not c (more content not included)... Normal [facility] US Thyroid glandon [facility] Radiology Study observation (narrative) [facility] CNPNon 02-02-2024 CNPN Telephone (ENDOMN) -- JOSE JUAN JOSHI ([id number]) 1970 F Date Time Provider Department 02/02/24 JAMSHID DUBOIS ENDOCHOCO During your visit today, we recorded the following information about you: Shaheed Rocket Scientist, Grecia Anival 02/02/2024 4:17 PM Signed Patient called in to let the office know she had her ultrasound done 02/01/24 and is asking for the office to review. Patient can be reached via my chart. Grecia Hummel Central Service Tech II [facility] Allergies As of Date: 02/02/2024 Noted Allergy [...] Status:Closed by JAMSHID DUBOIS on 02/03/24 Normal [facility] US THYROID/PARATHYROIDon US THYROID/PARATHYROID * * [...] 2 points Echogenicity: Hypoechoic, 2 points Shape: [id number], 0 points Margin: Smooth, 0 points Echogenic [...] 2 points Echogenicity: Hypoechoic, 2 points Shape: [id number], 0 points Margin: Smooth, 0 points Echogenic [...] be communicated with the ordering provider via [employer] staff message or phone message by [facility] within 2 business days of report finalization. --END OF FINDING-- [facility]: ARCHANA Transcribe Date/Time: Feb 01 2024 1:23P Dictated by : LISA ROJAS MD This examination was interpreted and the report reviewed and electronically signed by: LISA ROJAS MD on Feb 01 2024 1:27PM EST [id number] ACTIONABLE Invalid Interpretation Code [facility] Absolute lymphocyte countOrd ered By: Kaylee Pink on 12-19-2023 Lymphocytes Auto (Unsp spec) [#/Vol] 1.63 10*3/uL 0.83-4.51 [facility] Automated lymphocyte count a s percentage of total leukocytesOrdered By: Kaylee Pink on 12-19-2023 Lymphocytes/100 WBC Auto (Unsp spec) 28.9 % 19-41 [facility] Basophil percentageOrdered B y: Kaylee Pink on 12-19-2023 Basophils/100 WBC (Bld) 1.1 % 0-1 [facility] Bilirubin [Mass/Vol] 0.50 mg/dL 0.20-1.00 [facility] Comment on above: For patients on eltr ombopag therapy, use of Dimension Lutz TBIL is not recommended. Chloride [Moles/Vol] 105 mmol/L 98-107 [facility] Cholesterol [Mass/Vol] 220 mg/dL <200 [facility] Comment on above: <200 mg/dL Desirable 200-240 mg/dL Borderline >240 mg/dL High Risk Eosinophils/100 WBC (Bld) 1.2 % 0-5 [facility] Glucose [Mass/Vol] 73 mg/dL 74-106 [facility] Hemoglobin (Bld) [Mass/Vol] 12.7 g/dL 12.0-15.0 [facility] Monocytes/100 WBC (Bld) 6.7 % 0-10 [facility] Neutrophils (Bld) [#/Vol] 3.5 10*3/uL 2.0-7.7 [facility] Neutrophils/100 WBC (Bld) 61.9 % 47-70 [facility] Potassium [Moles/Vol] 4.2 mmol/L 3.5-5.1 [facility] Protein [Mass/Vol] 7.5 g/dL 6.4-8.2 [facility] Sodium [Moles/Vol] 138 mmol/L 136-145 [facility] Triglyceride [Mass/Vol] 53 mg/dL <199 [facility] Comment on above: The drugs N-Acetylcy steine and Metamizole may falsely depress this assay.Serum Triglycerides Reference Interval Normal <150 mg/dL Borderline high 150 - 199 mg/dL High 200 - 499 mg/dL Very High > or = 500 mg/dL WBC (Bld) [#/Vol] 5.6 10*3/uL 4.4-11.0 [facility] Determination of erythrocyte mean corpuscular volume (MCV)Ordered By: Kaylee Pink on 12-19-2023 MCV (RBC) [Entitic vol] 88.9 fL 81-99 [facility] Erythrocyte distribution wid th ratioOrdered By: Kaylee Pink on 12-19-2023 Erythrocyte distribution width (RBC) [Ratio] 12.2 % 11.6-14.6 [facility] Erythrocyte distribution wid th standard deviationOrdered By: Kaylee Pink on 12-19-2023 Erythrocyte distribution width (RBC) [Entitic vol] 39.8 fL 35.1-43.9 [facility] Hematocrit Auto (Bld) [Volum e fraction]Ordered By: Kaylee Pink on 12-19-2023 Hematocrit (Bld) [Volume fraction] 39.4 % 37-47 [facility] Immature granulocytes/100 WB C Auto (Bld)Ordered By: Kaylee Pink on 12-19-2023 Immature granulocytes/100 WBC (Bld) 0.200 % 0.0-0.9 [facility] Comment on above: IG% - Immature Granu locytes (promyelocytes, myelocytes and metamyelocytes) > 1% indicates that a LEFT SHIFT is Present. Laboratory - Chemistry and C hemistry - challengeOrdered By: Kaylee Pink on 12-19-2023 Albumin/Globulin [Mass ratio] 1.0 {ratio} 0.9-2.4 [facility] ALP [Catalytic activity/Vol] 23 U/L 45-117 [facility] ALT [Catalytic activity/Vol] 20 U/L 13-56 [facility] Cholesterol in HDL [Mass/Vol] 90 mg/dL >40 [facility] Comment on above: The drugs N-Acetylcy steine and Metamizole may falsely depress this assay. Reference Range HDL <40 mg/dL Low HDL Cholesterol HDL >or= 60 mg/dL High HDL Cholesterol Cholesterol in LDL [Mass/Vol] 119 mg/dL 0-130 [facility] CO2 [Moles/Vol] 28.0 mmol/L 21.0-32.0 [facility] Globulin (S) [Mass/Vol] 3.8 g/dL 2.2-4.2 [facility] Urea nitrogen/Creatinine [Mass ratio] 17.3 mg/mg 10-20 [facility] Laboratory - Hematology and Cell countsOrdered By: Kaylee Pink on 12-19-2023 MCH (RBC) [Entitic mass] 28.7 pg 27.0-32.0 [facility] MCHC (RBC) [Mass/Vol] 32.2 g/dL 32-36 [facility] Nucleated RBC/100 WBC (Bld) [Ratio] 0 % 0-5 [facility] Platelet mean volume (Bld) [Entitic vol] 10.9 fL 6.2-12.0 [facility] Platelets (Bld) [#/Vol] 223 10*3/uL 150-450 [facility] No Panel InformationOrdered By: Kaylee Pink on 12-19-2023 Estimated GFR (MDRD) Amer 104 mL/min >60 [facility] Comment on above: GFR Calc Estimated GFR (MDRD) Non-Af Amer 86 mL/min >60 [facility] Comment on above: Non- GFR Calc Vitamin D 25-Hydroxy 34.5 ng/mL [facility] Comment on above: Vitamin D 25(OH) Sta tus Range Deficiency <20 ng/mL (50nmol/L) Insufficiency 20 - 30 ng/mL (50 - 75 nmol/L) Sufficiency 30 - 100 ng/mL (75 - 250 nmol/L) Toxicity >100 ng/mL (>250 nmol/L) VLDL Cholesterol 11 mg/dL 5-40 [facility] RBC Auto (Bld) [#/Vol]Ordere d By: Kaylee Pink on 12-19-2023 RBC (Bld) [#/Vol] 4.43 10*6/uL 4.2-5.4 [facility] Serum or plasma calcium paul urement (mass/volume)Ordered By: Kaylee Pink on 12-19-2023 Calcium [Mass/Vol] 9.2 mg/dL 8.5-10.1 [facility] Serum or plasma creatinine m easurement (mass/volume)Ordered By: Kaylee Pink on 12-19-2023 Creatinine [Mass/Vol] 0.75 mg/dL 0.55-1.02 [facility] Comment on above: The validity of the calculated GFR & GFRAA in patients over 70 years has not been determined. Clinical correlation is essential. Serum or plasma thyroid stim ulating hormone (TSH) measurement (units/volume)Ordered By: Kaylee Pink on 12-19-2023 TSH Qn 1.23 uIU/mL 0.358-3.74 [facility] Serum or plasma urea nitroge n measurement (mass/volume)Ordered By: Kaylee Pink on 12-19-2023 Urea nitrogen [Mass/Vol] 13 mg/dL 05-03 [facility] Thin prep Papanicolaou smear with manual screeningOrdered By: Kaylee Pink on 12-19-2023 Thin prep Papanicolaou smear with manual screening 3.7 g/dL 3.2-5.0 [facility] Thin prep Papanicolaou smear with manual screening 21 U/L 15-37 [facility] Thin prep Papanicolaou smear with manual screening 5 5-15 [facility] Thin prep Papanicolaou smear with manual screening 0.91 ng/dL 0.76-1.46 [facility] Hospital Culture, urineOrdered By: Genet Pink on 06-03-2023 Bacteria identified Cx Nom (U) Positive [facility] No Panel InformationOrdered By: Jamee Gray on 05-03-2023 Follicle Stimulating Hormone 14.3 mIU/mL [facility] Comment on above: NORMAL REFERENCE RAN GES FEMALE FOLLICULAR 2.3 - 12.6 mIU/mL MID-CYCLE PEAK 5.2 - 17.5 mIU/mL LUTEAL 1.7 - 12.9 mIU/mL POST-MENOPAUSAL ON MHT 5.9 - 72.8 mIU/mL NOT ON MHT 12.7 - 132.2 mlU/mL MALE 0.7 - 10.8 mIU/mL Serum or plasma estradiol (E 2) measurement (mass/volume)Ordered By: Jamee Gray on 05-03-2023 E2 [Mass/Vol] 435.5 pg/mL [facility] Comment on above: NORMAL REFERENCE RAN [...] report Cyto stain Doc (Cvx/Vag) Comment . [facility] Comment on above: The Pap smear [...] DNA Probe+sig amp Ql (Cvx) Negative Negative [facility] Comment on above: This nucleic acid am plification test detects fourteen high- risk HPV types (16,18,31,33,35,39,45,51,52,56,58,59,66,68)without differentiation. Laboratory - CytologyOrdered By: Cait Torrez on 03-21-2023 Denture Technician Cyto stain Nom (Cvx/Vag) [ID] Comment . [facility] Comment on above: Kelsy Santillan, Cytotec hnologist (ASCP) Laboratory - Miscellaneous t estsOrdered By: Cait Torrez on 03-21-2023 Service comment (Unsp spec) [Interp] Comment . [facility] Comment on above: This liquid based Th inPrep(R) pap test was screened withthe use of an image guided system. Service comment (Unsp spec) [Interp] . . [facility] Liquid-based cerv Pap + CT/G C by CHRISTOPHER w reflex to high-risk HPV for ASCUSOrdered By: Cait Torrez on 03-21-2023 Cytology report Cyto stain.thin prep Doc (Cvx/Vag) Comment . [facility] Comment on above: Criteria not met, HP V Genotype not performed.Performed at: [address], [place] [id number] Director: Delia Barbosa MD, Phone: [phone] at: [facility] Cyto [address] [place], [place] [id number] Director: Juve Zapata MD, Phone: [phone] at: =G - [facility] [address] [place], [place] [id number] Director: Delia Barbosa MD, Phone: [phone] No Panel InformationOrdered By: Cait Torrez on 03-21-2023 Pap Smear QC Review Comment . [facility] Comment on above: Lisa Sinclair ytotechnologist (ASCP) Pathology report final diagnosis Narrative Comment . [facility] Comment on above: NEGATIVE FOR INTRAEP ITHELIAL LESION OR MALIGNANCY.THIS SPECIMEN WAS RESCREENED PART OF OUR FINISH PAINTER PROGRAM. Miscellaneous Test Comment MAILED SPECIMEN [facility] No Panel Informationon 03-31 Follicle Stimulating Hormone 1.7 mIU/mL [facility] Work Phone: Comment on above: NORMAL REFERENCE RAN GES FEMALE FOLLICULAR 2.3 - 12.6 mIU/mL MID-CYCLE PEAK 5.2 - 17.5 mIU/mL LUTEAL 1.7 - 12.9 mIU/mL POST-MENOPAUSAL ON MHT 5.9 - 72.8 mIU/mL NOT ON MHT 12.7 - 132.2 mlU/mL MALE 0.7 - 10.8 mIU/mL Celeste 08-17-2017 VICTORINO Telephone (UROLAE) JOSE JUAN JOSHI ([id number]) 1970 [facility] Time Provider Nbjkkracem41/1/17 MONA VALLEJO) HEMANT During your visit today, [...] by MONA VALLEJO on 08/17/17 [facility] CNPN Telephone (UROLAE) JOSE JUAN JOSHI ([id number]) 1970 FDate Time Provider Tvcjodhgpv55/1/17 BOLIVAR DEL TORO During your visit today, [...] by BOLIVAR DEL TORO MD on [facility]/17/17 [facility] Telephone (UROMILDRED) JOSE JUAN JOSHI ([id number]) 1970 [facility] Time Provider Fsvsmhclwj57/23/17 BOLIVAR DEL TORO During your visit today, [...] TORO MD on 08/09/17 Normal [facility] CNOVon 06-07-2017 CNOV Office Visit (UROLAE) JOSE JUAN JOSHI ([id number]) 1970 FDate Time Provider Department06/07/17 2:45 PM BOLIVAR DEL TORO During your visit today, we recorded the following information about you: Blood pressure Weight Height 118/74 65.8 kg 1.702 Deysi Del Toro MD 06/07/2017 4:23 PM SignedESTABLISHED PATIENT VISITHPBenny Joshi is a 46 year old female who presents uti symptoms started [id number].Recent uti April entercoccus - amoxicillinNo bladder symptoms [...] Ketones, Urine (no units)Date Value06/07/2017 trace Specific [place], Ur (no units)Date Value06/07/2017 1.024 Hemoglobin/ Blood,Ur [...] Wt 65.8 kg (145 lb) BMI 22.71 kg/f2ANSVDPAUUS/PLAN:1. Urinary tract infection, site not specified- UA [...] Small amount (pea sized) twice weeklyCranberryVaccinium Macrocarpon Kazakh Cranberry Proanthocyanidins 36 mg daily 3600mg Cranberry [...] infection, site not specified [N39.0]Order(s):UA DIP B/O [[id number]] Order #: [id number] Methenamine Hippurate (HIPREX) 1 gram tabletTake 1 tablet by mouth twice daily.Disp: 60 tabletRfl: 11 URINE CULTURE [SQURCUL] Order #: [id number] URINE CULTURE [SQURCUL] Order #: [id number] STANDINGPrescriptions as of 06/07/2017 Sig: NUVARING 0.12 [...] (pea sized) twice weekly Cranberry Vaccinium Macrocarpon Kazakh Cranberry Proanthocyanidins 36 mg daily 3600mg Cranberry [...] TORO MD on 06/07/17 Normal [facility] Cult Urineon 06-07-2017 Cult Urine Test performed at [facility] Mixed skin zi. No further identification or susceptibility testing will be performed. Please submit a new specimen. Plates will be held for 5 days. Normal [facility] Comment on above: Performed By: #### C _URI ####[place] [address] PROGRESSon 06-07-2017 PROGRESS HNO ID: [id number] thor: Bolivar Dean: (none)Author Type: PhysicianType: Progress [...] Ketones, Urine (no units)Date Value06/07/2017 trace Specific [place], Ur (no units)Date Value06/07/2017 1.024 Hemoglobin/ Blood,Ur [...] Wt 65.8 kg (145 lb) BMI 22.71 kg/q8BSVLKYRVMK/PLAN:1. Urinary tract infection, site not specified- UA DIP B/O Normal [facility] URINE CULTUREon 06-01-2017 Urine culture, bacteria URINE RESULT 15-20,000 COL/ML MIXED ZI-PLEASE REPEAT-POSSIBLE CONTAMIN Normal [facility] [place] Comment on above: Performed By: #### M [id number] ####[facility] [id number] [place], [place] [address]Zi# [phone] Vital Signs Date Time Vital Sign Value Performing Clinician Facility 07-15-2025 11:09-0400 Body temperature 97.8 [degF] Dr. Kaylee Pink DO Work Phone: [facility] 07-15-2025 11:09-0400 Diastolic blood pressure 60 mm[Hg] Dr. Kaylee Pink DO Work Phone: [facility] 07-15-2025 11:09-0400 Heart rate 85 /min Dr. Kaylee Pink DO Work Phone: [facility] 07-15-2025 11:09-0400 Respiratory rate 16 /min Dr. Kaylee Pink DO Work Phone: [facility] 07-15-2025 11:09-0400 SaO2% (BldA) [Mass fraction] 100 % Dr. Kaylee Pink DO Work Phone: [facility] 07-15-2025 11:09-0400 Systolic blood pressure 111 mm[Hg] Dr. Kaylee Pink DO Work Phone: [facility] 07-15-2025 08:42-0400 Body height 167.[address] Kaylee Pink DO Work Phone: [facility] 07-15-2025 08:42-0400 Body mass index (BMI) [Ratio] 23.3 kg/m2 Dr. Kaylee Pink DO Work Phone: [facility] 07-15-2025 08:42-0400 Body weight 65.[address] Kaylee Pink DO Work Phone: [facility] 07-17-2024 17:31-0400 Body mass index (BMI) [Ratio] 22.52 kg/m2 Harsh Velazquez APRN.WORK ORDER CLERK Work Phone: [facility] 07-17-2024 17:31-0400 Body temperature 98.01 [degF] Harsh Velazquez APRN.WORK ORDER CLERK Work Phone: [facility] 07-17-2024 17:31-0400 Body weight 65.4 kg Harsh Velazquez APRN.WORK ORDER CLERK Work Phone: [facility] 07-17-2024 17:31-0400 Diastolic blood pressure 80 mm[Hg] Harsh Velazquez APRN.WORK ORDER CLERK Work Phone: [facility] 07-17-2024 17:31-0400 Heart rate 73 /min Harsh Velazquez APRN.WORK ORDER CLERK Work Phone: [facility] 07-17-2024 17:31-0400 Respiratory rate 16 /min Harsh Velazquez APRN.WORK ORDER CLERK Work Phone: [facility] 07-17-2024 17:31-0400 SaO2% (BldA) [Mass fraction] 99 % Harsh Velazquez APRN.WORK ORDER CLERK Work Phone: [facility] 07-17-2024 17:31-0400 Systolic blood pressure 128 mm[Hg] Harsh Velazquez APRN.WORK ORDER CLERK Work Phone: [facility] 07-04-2024 10:56-0400 Body mass index (BMI) [Ratio] 22.73 kg/m2 Jamshid Dubois MD Work Phone: [facility] 07-04-2024 10:56-0400 Body weight 66 kg Jamshid Dubois MD Work Phone: [facility] 07-04-2024 10:56-0400 Diastolic blood pressure 65 mm[Hg] Jamshid Dubois MD Work Phone: [facility] 07-04-2024 10:56-0400 Heart rate 67 /min Jamshid Dubois MD Work Phone: [facility] 07-04-2024 10:56-0400 Systolic blood pressure 138 mm[Hg] Jamshid Dubois MD Work Phone: [facility] 06-13-2023 13:11-0400 Body height 167.[address] Kaylee Pink Work Phone: [facility] 06-13-2023 13:09-0400 Body mass index (BMI) [Ratio] 23.6 kg/m2 Dr. Kaylee Pink Work Phone: [facility] 06-13-2023 13:09-0400 Body weight 66.[address] Kaylee Pink Work Phone: [facility] 06-13-2023 13:09-0400 Diastolic blood pressure 76 mm[Hg] Dr. Kaylee Pink Work Phone: [facility] 06-13-2023 13:09-0400 Systolic blood pressure 115 mm[Hg] Dr. Kaylee Pink Work Phone: [facility] 05-03-2023 12:55-0400 Body mass index (BMI) [Ratio] 23.4 kg/m2 Kaylee Kristian [facility] 05-03-2023 12:55-0400 Body weight 65.88 kg Kaylee Kristian [facility] 05-03-2023 12:55-0400 Diastolic blood pressure 90 mm[Hg] Kaylee Kristian [facility] 05-03-2023 12:55-0400 Systolic blood pressure 131 mm[Hg] Kaylee Kristian [facility] 03-21-2023 10:02-0400 Body height 167.64 cm Kaylee Kristian [facility] 03-21-2023 09:46-0400 Body mass index (BMI) [Ratio] 23.3 kg/m2 Kaylee Kristian [facility] 03-21-2023 09:46-0400 Body weight 65.48 kg Kaylee Kristian [facility] 03-21-2023 09:46-0400 Diastolic blood pressure 77 mm[Hg] Kaylee Kristian [facility] 03-21-2023 09:46-0400 Systolic blood pressure 120 mm[Hg] Kaylee Kristian [facility] 12-23-2022 08:46-0500 Body height 170.4 cm Melina Tranchito DO Work Phone: [facility] 12-23-2022 08:46-0500 Body weight 64.41 kg Melina Tranchito DO Work Phone: [facility] 12-23-2022 08:46-0500 Diastolic blood pressure 60 mm[Hg] Melina Tranchito DO Work Phone: [facility] 12-23-2022 08:46-0500 Heart rate 69 /min Melina Tranchito DO Work Phone: [facility] 12-23-2022 08:46-0500 Systolic blood pressure 115 mm[Hg] eMlina Vieira DO Work Phone: [facility] Encounters Encounter Date Encounter Type Care Provider Facility Start: 08-05-2025 ambulatory Jamee Jacksonconchita Peterson lity:[facility] Start: 07-24-2025 ambulatory Dhruv Monroe Faci lity:[facility] Start: 07-18-2025 Encounter for other preprocedural examination Elham Curtis [facility] Start: 07-15-2025 ambulatory Elham Edgardogeoff Facilit y:[facility] Start: 07-15-2025 Non-patient / Non-visit Dr. Zhen Curtis MD -[facility] Start: 07-15-2025 End: 07-15-2025 Admission [...] Start: 06-24-2025 End: 06-24-2025 ambulatory Dhruv Monroe Facility:[facility] Start: 03-26-2025 End: 03-26-[address] Kaylee Pink DO Work Phone: [facility] Work Phone: Start: 03-26-2025 End: 03-26-[address] Kaylee Pink DO -Radiology [place] Work Phone: Start: 03-26-2025 End: 03-26-[address] Kaylee Pink DO Work Phone: [facility] Work Phone: Start: 03-26-2025 End: 03-26-[address] Kaylee Pink DO -Ultrasound [facility] Work Phone: Start: 03-26-2025 End: 03-26-2025 ambulatory Kaylee [facility] Facility:[facility] Start: 03-09-2025 End: 03-09-[address] Kaylee Pink DO Work Phone: [facility] Work Phone: Start: 03-09-2025 End: 03-09-[address] Kaylee Pink DO -Ultrasound [facility] Work Phone: Start: 03-09-2025 End: 03-09-2025 ambulatory Kaylee [facility] Facility:[facility] Start: 03-04-2025 End: 03-04-[address] Kaylee Pink DO -Laboratory [place] Work Phone: Start: 03-04-2025 End: 03-04-2025 ambulatory Kaylee [facility] Facility:[facility] Start: 09-17-2024 End: 11-29-2024 Telephone encounter Jaz Patel [facility] Radiology Comment on above: Release Of Medical R ecords (Imaging Disc/Report) Start: 08-27-2024 End: 08-27-2024 ambulatory [facility] Facility:[facility] Start: 08-14-2024 End: 08-14-2024 Patient encounter procedure Giovanni Bey Work Phone: Podiatry Comment on above: Closed nondisplaced fracture of phalanx of lesser toe of right foot, unspecified phalanx, initial encounter (Primary Dx); Onychodystrophy; Calcaneal spur of foot, left Start: 08-14-2024 End: 08-14-2024 ambulatory KAYLEE Perez [facility] Facility:[facility] Start: 08-14-2024 End: 08-14-2024 Subsequent hospital visit by physician [facility] Work Phone: Radiology Comment on above: Closed [...] Start: 08-13-2024 End: 08-13-2024 ambulatory Jamee Gray Facility:[facility] Start: 08-06-2024 End: 08-06-2024 ambulatory [facility] Facility:[facility] Start: 07-17-2024 End: 07-17-2024 Subsequent hospital visit by physician Marcella [facility] Work Phone: Radiology Comment on above: Pain [R52] Start: 07-17-2024 End: 07-17-2024 [facility] Facility:[facility] Start: 07-17-2024 End: 07-17-2024 Patient encounter procedure Harsh Velazquez APRN.CNP Work Phone: [facility] Comment on above: Pain (Primary Dx); Closed nondisplaced fracture of distal phalanx of lesser toe of left foot, initial encounter Start: 07-04-2024 End: 07-04-2024 ambulatory [facility] Facility:[facility] Start: 07-04-2024 End: 07-04-2024 Patient encounter procedure Jamshid Dubois MD Work Phone: Endocrinology Comment on above: Multiple thyroid nod ules (Primary Dx) Start: 02-02-2024 Telephone encounter Jamshid byrnes MD Work Phone: Endocrinology Comment on above: Patient Update Start: 01-30-2024 End: 01-30-2024 ambulatory [facility] Facility:[facility] Start: 01-30-2024 End: 01-30-2024 Subsequent hospital visit by physician [facility] Work Phone: Radiology Comment on above: 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 Kaylee Pink Work Phone: [facility] Work Phone: Start: 08-22-2023 End: 08-22-[address] Kaylee Pink Work Phone: [facility]-Outpatient Breast Imaging Work Phone: Start: 06-13-2023 End: 06-13-[address] Kaylee Pink Work Phone: [facility] Work Phone: Start: 06-03-2023 End: 06-03-[address] Kaylee Pink Work Phone: [facility] Work Phone: Start: 05-03-2023 End: 05-03-2023 ambulatory Kaylee ROSEN [facility] Work Phone: Start: 05-03-2023 End: 05-03-2023 Patient encounter procedure Kaylee ROSEN [facility]-Laboratory, [place] Start: 05-03-2023 End: 05-03-2023 Patient encounter procedure Kaylee ROSEN [facility] Work Phone: Start: 03-28-2023 End: 03-28-2023 ambulatory Kaylee ROESN [facility] Work Phone: Start: 03-28-2023 End: 03-28-2023 Patient encounter procedure Kaylee ROSEN [facility]-Ultrasound, [facility] Start: 03-21-2023 Patient encounter procedure Kaylee ROSEN [facility] Start: 03-21-2023 End: 03-21-2023 Patient encounter procedure Kaylee ROSEN [facility]-Laboratory, [facility] Start: 03-21-2023 End: 03-21-2023 Patient encounter procedure Kaylee ROSEN [facility] Start: 12-23-2022 End: 12-23-2022 Patient encounter procedure Melina Vieira DO Work Phone: Endocrinology Comment on above: Multiple thyroid nod ules (Primary Dx) Start: 12-20-2022 End: 12-20-2022 Patient encounter procedure Kaylee ROSEN [facility]-MRI - [facility] Start: 12-06-2022 End: 12-06-2022 Patient encounter procedure Kaylee ROSEN [facility]-Ultrasound, [facility] Start: 08-16-2022 End: 08-16-2022 ambulatory [facility] Work Phone: Start: 08-16-2022 End: 08-16-2022 Patient encounter procedure [facility]-Outpatient Breast Imaging Start: 03-31-2022 End: 03-31-2022 Patient encounter procedure [facility]-Laboratory, [place] [employer] Start: 06-07-2017 End: 06-08-2017 Ambulatory [facility] Start: 06-07-2017 End: 06-07-2017 [facility] Start: 05-30-2017 Ambulatory [facility] Facilit y:[facility] Procedures Date Procedure Procedure Detail Performing Clinician [...] Colonoscopy Colonoscopy - Open Access (Not Applicable) [facility] Start: 07-15-2025 Non-patient / Non-visit Non-patient / Non-visit -[facility] Start: 07-15-2025 End: 07-15-2025 Admission to same day surgery center [facility] -Endoscopy Work Phone: Start: 07-15-2025 Patient discharge [facility] Start: 08-14-2024 End: 08-14-2024 Patient encounter procedure Podiatry Comment on above: broken toe 3rd,Lt Xray Start: 06-17-2024 Covid-19 Vaccine () Covid-19 Vaccine () [facility] Start: 06-17-2024 Covid-19 Vaccine () Covid-19 Vaccine () [facility] Start: 06-17-2024 Influenza vaccination C [facility] Start: 10-17-2023 Behavioral Health Screening Behavioral Health Screening [facility] Start: 06-17-2023 Covid-19 Vaccine () Covid-19 Vaccine () [facility] Start: 10-17-2022 DEPRESSION ASSESSMENT DEPRESSION ASS ESSMENT [facility] Start: 06-17-2022 Influenza vaccination INFLUENZA (#1) [facility] Start: 07-19-2021 DIABETES SCREEN DIABETES SCREEN [facility] Start: 07-19-2021 Diabetes Screening Diabetes Screenin g [facility] Start: 2020 Pneumococcal Vaccine : 50+ (1 of 1 - PCV) Pneumococcal Vaccine: 50+ (1 of 1 - PCV) [facility] Start: 2020 SHINGRIX VACCINE (1 of 2) SHINGRIX VACCINE (1 of 2) [facility] Start: 05-14-2020 Colonoscopy COLONOSCOPY [facility] Start: 05-14-2020 COLORECTAL CANCER SCREENING COLORECTAL CANCER SCREENING [facility] Start: 05-14-2020 Screening for malign ant neoplasm of colon [facility] Start: 2015 COLOGUARD (FIT-DNA) COLOGUARD (FIT-D NA) [facility] Start: [address] COLONOGRAPHY [facility] Start: 2015 FECAL OCCULT BLOOD FECAL OCCULT BLOO D [facility] Start: 2015 Lipid panel Lipid Screening [facility] Start: 2015 LIPID SCREEN LIPID SCREEN [facility] Start: 2015 Screening for malign ant neoplasm of colon [facility] Start: 2015 SIGMOIDOSCOPY SIGMOIDOSCOPY [facility] Start: 2010 Mammography MAMMOGRAM [facility] Start: 2010 Screening for malign ant neoplasm of breast Mammogram Screening [facility] Start: 06-05-2005 Urine microalbumin profile [facility] Start: 2000 HPV TESTING HPV TESTING [facility] Start: 2000 Screening for malign ant neoplasm of cervix HPV Testing [facility] Start: 1991 PAP TESTING PAP TESTING [facility] Start: 1991 Screening for malign ant neoplasm of cervix [facility] Start: 1989 Hepatitis B Vaccine (1 of 3 - + 3-dose series) Hepatitis B Vaccine (1 of 3 - + 3-dose series) [facility] Start: 1988 Anxiety Screening Anxiety Screening [facility] Start: 1988 Depression Screening Depression Scre ening [facility] Start: 1988 HEPATITIS C SCREENING HEPATITIS C [facility] Start: 1988 Hepatitis C screening Hep[facility] Start: 1988 HIV SCREENING HIV SCREENING [facility] Start: 1988 HIV screening HIV Screening [facility] Start: 04-04-1971 COVID-19 VACCINE (#1) COVID-19 VACCI NE (#1) [facility] Start: 1970 HEPATITIS B (1 of 3 - 3-dose series) HEPATITIS B (1 of 3 - 3-dose series) [facility] End: 09-12-2025 XR Foot - left AP and Lateral and oblique XR FOOT GENERAL 3V AP/LAT/OBL LEFT Radiology Routine Closed nondisplaced fracture of distal phalanx of lesser toe of left foot with routine healing, subsequent encounter 1 Occurrences starting 08/13/2024 until 09/12/2025 [facility] Work Phone: Comment on above: 1 Occurrences starti ng 08/13/2024 until 09/12/2025 XR Foot - left AP an d Lateral and oblique XR FOOT GENERAL 3V AP/LAT/OBL LEFT Radiology Routine Closed nondisplaced fracture of distal phalanx of lesser toe of left foot with routine healing, subsequent encounter 08/14/2024 1:52 PM EDT [facility] Work Phone: Immunizations Immunization Date Immunization Notes Care Provider Irene wei 06-04-2005 tetanus and diphther ia toxoids, not adsorbed, for adult use Melina Vieira DO Work Phone: [facility] Work Phone: Payers Date Payer Category Payer Self-pay [id number] 2007 [facility] BLUE CARD PPO OOS [id number] 2007 Unknown [employer] BLUE CARD PPO OOS [id number] 2007-Present [phone] [address] [place] [address] PPO [id number] 2007 Unknown [id number] Unknown [id number] Unknown [id number]. [id number] Unknown [id number]. [id number] Unknown [id number]. [id number] Unknown [id number]. 2.462 Unknown [id number]. 2.462 Unknown [id number]. 2.462 Unknown [id number]. 2.462 Unknown [id number]. 2.462 Unknown [id number]. 2.462 Unknown [id number]. 2.462 Unknown [id number]. 2.462 Social History Date Type Detail Facility Start: 06-29-2016 End: 06-13-2023 Tobacco smoking status NHIS Unknown if ever smoked [facility] Start: 1970 Sex Assigned At Female [facility] Start: 07-30-2024 End: 07-15-2025 Tobacco smoking status NHIS Never smoked tobacco [facility] Start: 12-23-2022 End: 08-14-2024 Alcohol intake Current non-drinker of alcohol (finding) [facility] Start: 1970 Sex Assigned At Not on file C [facility] Start: 12-23-2022 End: 07-04-2024 History of Social function [facility] Start: 12-23-2022 End: 07-04-2024 Tobacco use panel [facility] National Score (1-10 0), lower number is lower risk 52 [facility] Goals Date Patient Goal Desired Activity /State Functional Status Date Assessment Result Facility 05-21-2015 Are you deaf, or do you have serious difficulty hearing No 05/21/2015 10:10 AM Alana Martinez LPN No [facility] 05-21-2015 Are you blind, or do you have serious difficulty seeing, even when wearing glasses No 05/21/2015 10:10 AM Alana Martinez LPN No [facility] 05-21-2015 Do you have serious difficulty walking or climbing stairs No 05/21/2015 10:10 AM Alana Martinez LPN No [facility] 05-21-2015 Do you have difficul ty dressing or bathing No 05/21/2015 10:10 AM Alana Martinez LPN No [facility] 05-21-2015 Because of a physica l, mental, or emotional condition, do you have difficulty doing errands alone such as visiting a physician's office or shopping No 05/21/2015 10:10 AM Alana Martinez LPN No [facility] Mental Status Date Assessment Result Facility 07-15-2025 Cognitive function [facility] Work Phone: 07-15-2025 Cognitive function Patient Orientation Pe rson [facility] Work Phone: 05-21-2015 Because of a physica l, mental, or emotional condition, do you have serious difficulty concentrating, remembering, or making decisions No 05/21/2015 10:10 AM EDT Alana Paris LPN No [facility] Clinical Notes 12-23-2022 to 07-15-2025 Note Date & Type Note Facility 07-15-2025 Procedure note [facility] 07-15-2025 Procedure note [facility] 07-15-2025 History and physical note Note Date/Time July 15, 2025 9:38am [facility] Medical Records Department [address] [place] [address] History & Physical Exam 07/15/25927 MR#: [id number] Acct: [id number] Name: JOSE JUAN JOSHI Rep #:[id number] : 1970 54 From: Elham Curtis MD PCP: Dr. Kaylee Pink, DO Status:[facility] Location: [place] [address] HPI - General General Date of Service: 07/15/25 HPI Narrative JOSE JUAN JOSHI, is a 54 F who presents for screening colonoscopy. Patient's lastcolonoscopy was about 10 years ago at [facility] per patient negative. Patient states her mom [...] every night currently not on any medication. [facility] Medical History Wears glasses Thyroid disease Arthritis [...] 2 current occupational status: employed current occupation: [employer] Smoking Status: Never smoker alcohol intake: current [...] 08:41) Discharge Is Pt Admitted From a Correction, or a Mcfp: No Who Could Help: After D/C, Where [...] (2) Nausea: PLAN: Plan Recommend patient trying exrt-riw-iqxxnqi omeprazole 20 to 40 mg p.o. daily [...] Pink DO; Dr. Elham Curtis MD~ Signed [facility] Work Phone: 1(496) 770-310409-29-2025 Consult note Author Go Chen [facility] Note Date/Time July 15, 2025 9:07am [facility] Medical Records Department [address] [place] [address] Pre-Anesthesia Evaluation 07/15/25 0902 MR#: [id number] Acct: [id number] Name: JOSE JUAN JOSHI Rep #:[id number] : 1970 54 From: Go Tamayo PCP: Dr. Kaylee Pink DO Status:REG SDC Y Race: C Location: [place] [address]-1 ASA Classification* ASA Classification ASA Classification: 2 [...] Procedure(s): COLONOSCOPY Anesthesia History Anesthesia History - microbiological analyst: Anesthesia History - microbiological analyst Hx Hospitalization No 07/10/25 13:54 Any Problems [...] take am of surgery PONV PONV - microbiological analyst: PONV - microbiological analyst Female Yes 07/10/25 13:54 HX of Motion [...] 07/15/25 08:42 Respiratory Assessment Respiratory Assessment - microbiological analyst: Respiratory Tract Infection Hx - microbiological analyst Hx Respiratory Tract Infection Yes: COLD SYMPTOMS, WILL 07/10/25 13:54 CALL IF SYMPTOMS STOP Sleep Apnea STOP Sleep Apnea - microbiological analyst: STOP Sleep Apnea - microbiological analyst Hx Hypertension No 07/10/25 13:54 Hx Sleep [...] Tobacco Use History Tobacco Use History - microbiological analyst: Tobacco Use History - microbiological analyst Tobacco Use Smoking Status Never smoker 07/10/25 13:54 Hx Tobacco Use No 07/10/25 13:54 Years Smoking Packs Smoked per Day Smoking Cessation Date was within the last 15 years Hx Smoking Cessation Date Hx Smoking Cessation Counseling Hematologic Medial History Hematologic Hx - microbiological analyst: Hematologic Medical Hx - financial legal assistant Hx of Blood Transfusion No 07/10/25 13:54 [...] confused, unrespo /Reproduction History /Reproductive History - microbiological analyst: /Reproductive Hx- microbiological analyst Hx Now No 07/10/25 13:54 Gestational Age [...] 2 current occupational status: employed current occupation: [employer] Smoking Status: Never smoker alcohol intake: current [...] signed by Go Chen MD> Date _ oG Chen MD Cosigner Signature: Date CC: ~ Signed [facility] Work Phone: 1(913) 139-242409-29-2025 Consult note [facility] Medical Records Department [address] [place] [address] Anesthesia Postop Eval I 07/15/25 1046 MR#: [id number] Acct: [id number] Name: JOSE JUAN JOSHI Rep #:[id number] : 1970 54 From: Thao lundberg ROOFER PCP: Dr. Kaylee Pink, DO Status:REG SDC Y Race: C Location: [place] [address] Anesthesia: Postop Eval I Current Vital Signs [...] Eval 1 completed: No 07/15/25 104 elis ROOFER> Date _ Thao Hansen ROOFER Cosigner Signature: Date CC: ~ Signed [facility]09-29-2025 Evaluation note* Diagnosis Onset Date Resolution Status Admit Date Nausea acute June 8:13am Screening for colon cancer acute July 15, 2025 8:13am [facility] Work Phone: 1(123) 370-484709-29-2025 History and physical note [facility] Medical Records Department [address] [place] [address] History & Physical Exam 07/15/2528 MR#: [id number] Acct: [id number] Name: JOSE JUAN JOSHI Rep #:[id number] : 1970 54 From: Elham Curtis MD PCP: Dr. Kaylee Pink, DO Status:REG [facility] Location: [place] [address] HPI - General General Date of Service: 07/15/25 HPI Narrative JOSE JUAN JOSHI, is a 54 F who presents for screening colonoscopy. Patient's lastcolonoscopy was about 10 years ago at [facility] per patient negative. Patient states her mom [...] every night currently not on any medication. [facility] Medical History Wears glasses Thyroid disease Arthritis [...] 2 current occupational status: employed current occupation: [employer] Smoking Status: Never smoker alcohol intake: current [...] 08:41) Discharge Is Pt Admitted From a Correction, or a Mcfp: No Who Could Help: After D/C, Where [...] (2) Nausea: PLAN: Plan Recommend patient trying qafr-rjd-qryfkyk omeprazole 20 to 40 mg p.o. daily [...] Pink, DO; Dr. Elham Curtis MD~ Signed [facility]09-29-2025 [facility] Medical Records Department [address] [place] [address] History Physical Exam 07/15/25927 MR#: [id number] Acct: [id number] Name: JOSE JUAN JOSHI Rep #: [id number] : 1970 54 From: Elham Curtis MD PCP: Dr. Kaylee Pink DO Status:REG [facility] Location: [place] [address] HPI - General General Date of Service: 07/15/25 HPI Narrative JOSE JUAN JOSHI, is a 54 F who presents for screening colonoscopy. Patient's last colonoscopy was about 10 years ago at [facility] per patient negative. Patient states her mom [...] every night currently not on any medication. [facility] Medical History Wears glasses Thyroid disease Arthritis [...] 2 current occupational status: employed current occupation: [employer] Smoking Status: Never smoker alcohol intake: current [...] Hepatitis: No Hx Cirrhosi (more content not included)...[facility]09-29-2025 Consult note [facility] Medical Records Department [address] [place] [address] Pre-Anesthesia Evaluation 07/15/25 0902 MR#: [id number] Acct: [id number] Name: JOSE JUAN JOSHI Rep #:[id number] : 1970 54 From: Go Tamayo PCP: Dr. Kaylee Pink, DO Status:REG SDC Y Race: C Location: [place] [address] ASA Classification* ASA Classification ASA Classification: 2 [...] Procedure(s): COLONOSCOPY Anesthesia History Anesthesia History - microbiological analyst: Anesthesia History - microbiological analyst Hx Hospitalization No 07/10/25 13:54 Any Problems [...] take am of surgery PONV PONV - microbiological analyst: PONV - microbiological analyst Female Yes 07/10/25 13:54 HX of Motion [...] 07/15/25 08:42 Respiratory Assessment Respiratory Assessment - microbiological analyst: Respiratory Tract Infection Hx - microbiological analyst Hx Respiratory Tract Infection Yes: COLD SYMPTOMS, WILL 07/10/25 13:54 CALL IF SYMPTOMS STOP Sleep Apnea STOP Sleep Apnea - microbiological analyst: STOP Sleep Apnea - microbiological analyst Hx Hypertension No 07/10/25 13:54 Hx Sleep [...] Tobacco Use History Tobacco Use History - microbiological analyst: Tobacco Use History - microbiological analyst Tobacco Use Smoking Status Never smoker 07/10/25 13:54 Hx Tobacco Use No 07/10/25 13:54 Years Smoking Packs Smoked per Day Smoking Cessation Date was within the last 15 years Hx Smoking Cessation Date Hx Smoking Cessation Counseling Hematologic Medial History Hematologic Hx - microbiological analyst: Hematologic Medical Hx - financial legal assistant Hx of Blood Transfusion No 07/10/25 13:54 Hx of Transfusion in last 3 No 07/10/25 13:54 Months Date of Last Transfusion (if within last 3 months) Ever experience any problems No 07/10/25 13:54 with transfusion(s)? Specify any problems Hx of Preganancy in last 3 No 07/10/25 13:54 Months [facility] 07/10/25 13:54 & Questions: Date: 07/10/25 07/10/25 13:54 Time: 14:01 07/10/25 13:54 Patient unable to answer at this time (ie. confused, unrespo /Reproduction History /Reproductive History - microbiological analyst: /Reproductive Hx- microbiological analyst Hx Now No 07/10/25 13:54 Gestational Age [...] 2 current occupational status: employed current occupation: [employer] Smoking Status: Never smoker alcohol intake: current [...] MD Cosigner Signature: Date CC: ~ Signed [facility]06-10-2025 Radiology Diagnostic study note [facility] Imaging Services [address] [place], [place] [address] Abdomen Limited MR#: [id number] Acct: [id number] Name: JOSE JUAN JOSHI Rep #: [id number] : 1970 F 54 From: Jose Daniel Pinon MD PCP: Dr. Kaylee Pink, DO Status: REG CLI Study:Abdomen Limited Date of Exam: 03/17 Exam# [id number] Ordering Dr: Kaylee Pink DO PROCEDURE: ABDOMEN [...] right lobe of the liver. Reading Location: [place] [address] CC: Dr. Kaylee Pink DO ~ [facility]: Signed [facility]06-10-2025 Radiology Diagnostic study note [facility] Imaging Services [address] [place] [address] [id number] Shoulder min 2 Views MR#: [id number] Acct: [id number] Name: JOSE JUAN JOSHI Rep #: [id number] : 1970 F 54 From: Lb James MD PCP: Dr. Kaylee Pink DO Status: REG CLI Study:Shoulder min 2 Views Date of Exam: 03/26/25 Exam# [id number] Ordering Dr: Kaylee Pink DO PROCEDURE: SHOULDER MIN 2 VIEWS 03/26/2025 REASON FOR EXAM: SHOULDER PAIN TECHNIQUE: Four view right shoulder series COMPARISON: None. RAD/Shoulder min 2 Views IMPRESSION: Dnwi-vb-kmlqpljb right acromioclavicular joint degenerative changes are seen, with significant associated joint narrowing. The right glenohumeral joint demonstrates no significant abnormality. 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 No acute fracture or dislocation is seen. If clinical concern persists, short-term follow-up imaging may be obtained to rule out a currently occult fracture. Reading Location: [address] CC: Dr. Kaylee Pink DO ~ [facility]: Signed [facility]05-27-2025 Radiology Diagnostic study note [facility] Imaging Services [address] [place] [address] Thyroid MR#: [id number] Acct: [id number] Name: JOSE JUAN JOSHI Rep #: [id number] : 1970 F 54 From: Jose Daniel Pinon MD PCP: Dr. Kaylee Pink DO Status: REG CLI Study:Thyroid Date of Exam: 03/09/25 Exam# [id number] Ordering Dr: Kaylee Pink DO PROCEDURE: THYROID 03/09/2025 REASON FOR EXAM: REASSESS THYROID NODULES TECHNIQUE: High-frequency thyroid ultrasound, including grayscale and color-flow images. REFERENCE LINKS: TI-RADS Chart: [email or web address].nl/head-neck/ti-rads/ti-rads TI-RADS Calculator Tool with Reference Images: https://Domain [employer] [place]/radiology-calculators/body-imaging/tirads-calculator/ COMPARISON: Prior study dated December 06, 2022. [...] no more than 2 nodules. Reading Location: [place] [address] CC: Dr. Kaylee Pink, DO ~ [facility]: Signed [facility]12-02-2024 Telephone encounter Note* Telephone Encounter - Jaz Patel PSS - 09/17/2024 2:36 PM EST CD READY FOR ASSEMBLER WIRE MESH GATE AT [facility] RADIOLOGY Pt is aware [facility]12-02-2024 Miscellaneous Notes* Telephone Encounter - Jaz Patel PSS - 09/17/2024 2:36 PM EST CD READY FOR ASSEMBLER WIRE MESH GATE AT [facility] RADIOLOGY Pt is aware * Telephone Encounter - Madison High - 09/17/2024 8:03 AM EST Patient is requesting disc and report of 08/14/24 XR FOOT LEFT and 07/17/24 XR TOE LEFT. Please notify patient when items are ready for picker / packer. documented in this encounterCleveland [facility]12-02-2024 Telephone encounter Note * Telephone Encounter - Madison High - 09/17/2024 8:03 AM EST Patient is requesting disc and report of 08/14/24 XR FOOT LEFT and 07/17/24 XR TOE LEFT. Please notify patient when items are ready for picker / packer. [facility]10-29-2024 NoteHNO ID: [id number] Author: CARRIE MACIAS LPN Service: ? Author Type: LICENSED NURSE Type: Progress Notes Filed: 08/15/2024 19:20 Note Text: Per Dr. Bey, Jose Juan was provided with Achilles sleeve, size M, and instructed/educated in its application, wear, and care. All questions were answered, and patient was able to demonstrate competence with the necessary skills to utilize the above equipment. [facility] History of Present illness Narrative* Carrie [...] due to overlap from adjacent toes ASSESSMENT: (M55.246A) Closed nondisplaced fracture of phalanx of lesser [...] Bey DPM Podiatry [address] [facility] [address] Dept: [phone] Dept documented in this encounterCleveland Clinic [facility] Hospital10-29-2024 Instructions* Patient Instructions* Giovanni Bey - 08/14/2024 2:14 PM EDT Fracture of toe: continue with firm sole sneaker, ie hoka, booker or asics Heel spur: recommend low heels shoes and/or use of gel pad. documented in this encounterCleveland Clinic Luther[facility] Hospital10-29-2024 NoteHNO ID: [id number] Author: GIOVANNI BEY, ? Service: ? Author [...] SPEC WHEN PFRMD 05/14/15 Colonoscopy CYSTOSCOPY 2015 [facility] OR [facility] - [facility] LAPAROSCOPY RADICAL [...] to left posterior heel (more content not included)...[facility]10-29-20[facility] History of Present illness Narrative* Ricco [...] PATIENT PRESENTS WITH AN IMPLANTABLE OR ATTACHED PRODUCTION SOLDERER: No RADIOLOGY DEPARTMENT: General X-ray: Exam(s) Completed: Lower Extremity X- Ray(s): Foot, Left PERIPHERAL IV DATA: Not applicable SIGNED BY: RT Jordan(Junior) August 14, 2024 1:40 PM documented in this encounterCleveland Clinic Luther[facility] Hospital10-29-2024 NoteHNO ID: [id number] Author: RICCO MONTENEGRO RT(R) Service: ? Author Type: Guest Services Representative Type: Progress Notes Filed: 08/14/2024 13:50 Note [...] PATIENT PRESENTS WITH AN IMPLANTABLE OR ATTACHED PRODUCTION SOLDERER: No RADIOLOGY DEPARTMENT: General X-ray: Exam(s) Completed: Lower Extremity X-Ray(s): Foot, Left PERIPHERAL IV DATA: Not applicable SIGNED BY: RT Jordan(Junior) August 14, 2024 1:40 [facility]10-01-2024 History of Present illness Narrative* Dinorah [...] PATIENT PRESENTS WITH AN IMPLANTABLE OR ATTACHED PRODUCTION SOLDERER: No RADIOLOGY DEPARTMENT: General X-ray: Exam(s) Completed: Lower Extremity X- Ray(s): Toes, Left 3rd toe PERIPHERAL IV DATA: Not applicable SIGNED BY: GRICELDA Aguilera) July 17, 2024 5:58 PM documented in this encounterCleveland Clinic [facility] Hospital10-01-2024 NoteHNO ID: [id number] Author: DINORAH FRASER RT (R) Service: Radiology [...] PATIENT PRESENTS WITH AN IMPLANTABLE OR ATTACHED PRODUCTION SOLDERER: No RADIOLOGY DEPARTMENT: General X-ray: Exam(s) Completed: Lower Extremity X-Ray(s): Toes, Left 3rd toe PERIPHERAL IV DATA: Not applicable SIGNED BY: GRICELDA Aguilera) July 17, 2024 5:58 [facility]10-01-2024 NoteHNO ID: [id number] Author: HARSH VELAZQUEZ APRN.WORK ORDER CLERK Service: ? Author Type: Nurse Practitioner Type: Progress Notes Filed: 07/17/2024 19:14 Note Text: Subjective Female with complaints of left toe pain. Patient says she tripped over a toy. Patient says it is swollen and bruised. Patient says it is painful. Patient denies any numbness tingling or loss of feeling. The history is provided by the patient. No motor vehicle parts interpreter was used. Review of Systems Constitutional: Negative. [...] SPEC WHEN PFRMD 05/14/15 Colonoscopy CYSTOSCOPY 2015 [facility] OR [facility] - [facility] LAPAROSCOPY RADICAL [...] the distal phalanx of the third toe. [facility]: [facility] Transcribe Date/Time: Jul 17 2024 6:34P Dictated by : PREM DEGROOT MD 2. Closed nondisplaced fracture of distal phalanx of lesser toe of left foot, initial encounter - ICD9: 826.0, ICD10: S92.535A Was placed in a postop shoe. Patient was educated to follow-up with primary podiatry. Patient will rest ice elevate. Patient was okay with this care plan. Harsh Velazquez APRN.[facility] History of Present illness Narrative* Harsh [...] history is provided by the patient. No motor vehicle parts interpreter was used. Review of Systems Constitutional: Negative. [...] the distal phalanx of the third toe. [facility]: [facility] Transcribe Date/Time: Jul 17 2024 6:34P [...] Velazquez APRN.MAURO documented in this encounterCleveland Clinic [facility] Hospital09-18-2024 NoteHNO ID: [id number] Author: JAMSHID DUBOIS MD Service: ? Author [...] U/S by Staff:Jamshid Dubois MD Date: [facility] 04[facility] Procedure note* Jamshid Dubois MD [...] MD Date: July 04, 2024 [facility]09-18-2024 Procedure note* Jamshid Dubois MD - 07/04/2024 [...] 04, 2024 documented in this encounterCleveland Clinic Luther[facility] Hospital09-18-2024 NoteHNO ID: [id number] Author: JAMSHID DUBOIS MD Service: ? Author [...] Hair?: Yes Cold Intolerance: No Heat Intolerance: [facility]09-18-2024 History of Present illness Narrative* Jamshid Dubois [...] Intolerance: No documented in this encounterCleveland Clinic Luther[facility] Hospital09-18-2024 Instructions* Patient Instructions* Pennie Wilson OCCA - 07/04/2024 10:50 AM EDT Thank you for choosing the [facility] Department of Endocrinology, Diabetes and Metabolism. Did you know that you need to call 48 hours in advance of your scheduled visit, if you are unable to make your appointment? The [facility]in[facility] [place] thanks you for your commitment, because patients not showing to their appointment results in a lost opportunity for patients to receive world class health care at the [facility]. To Cancel an appointment, please choose one of the following: - Call the Appointment Call Center at [phone] - From [employer], Go to Appointments - Cancel Appts If cancelling, consider your need to reschedule to prevent further delays in your care. To Schedule an appointment, please choose one of the following: - Call the Appointment Call Center at [phone] - From [employer], Go to Appointments - Request an Appt documented in this encounterCleveland Clinic Luther[facility] Hospital04-18-2024 Miscellaneous Notes* Telephone Encounter - Shaheed Rocket ScientistGrecia - 02/02/2024 4:15 PM EDT Patient called in to let the office know she had her ultrasound done 02/01/24 and is asking for the office to review. Patient can be reached via my chart. Grecia Hummel Central Service Tech [facility]-0 documented in this encounterCleveland Clinic Luther[facility] Hospital04-15-2024 History of Present illness Narrative* Sara Baltazar [...] PATIENT PRESENTS WITH AN IMPLANTABLE OR ATTACHED PRODUCTION SOLDERER: No RADIOLOGY DEPARTMENT: Ultrasound PERIPHERAL IV DATA: Not applicable SIGNED BY: Sara Baltazar RDMS RVT January 30, 2024 2:30 PM documented in this encounterCleveland Clinic Luther[facility] Hospital04-15-2024 NoteHNO ID: [id number] Author: SARA BALTAZAR RDMS Service: ? Author Type: Dental Insurance Coordinator Type: Progress Notes Filed: 01/30/2024 14:31 Note [...] PATIENT PRESENTS WITH AN IMPLANTABLE OR ATTACHED PRODUCTION SOLDERER: No RADIOLOGY DEPARTMENT: Ultrasound PERIPHERAL IV DATA: Not applicable SIGNED BY: Sara Baltazar RDMS RVT January 30, 2024 2:30 [facility]06-05-2023 NotePap Smear Specimen AdequacyJun2022 1:22pmComment.Satisfactory for evaluation. Endocervical and/or squamous metaplasticcells (endocervical component)are present.[facility] INTERFACED A#[id number] Deaconess HospitalComment on above: Satisfactory for evaluation. Endocervical and/or squamous metaplasticcells (endocervical component)are present.03-21-2023 NotePap Smear Specimen Adequacy March 21, 2023 1:22pmComment.Satisfactory for evaluation. Endocervical and/or squamous metaplasticcells (endocervical component)are present.[facility] INTER[facility]ACED A#[id number] Deaconess HospitalComment on above:Satisfactory for evaluation. 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 Patient seen and staffed with Dr. Dubois, [...] Dubois MD documented in this encounterCleveland Clinic Luther[facility] Hospital03-09-2023 Instructions* Patient Instructions* Lynn James Ma - 12/23/2022 8:41 AM EST Thank you for choosing the [facility] Department of Endocrinology, Diabetes and Metabolism. Did you know that you need to call 48 hours in advance of your scheduled visit, if you are unable to make your appointment? The [facility] [place] thanks you for your commitment, because patients not showing to their appointment results in a lost opportunity for patients to receive [facility] health care at the [facility]. To Cancel an appointment, please choose one of the following: - Call the Appointment Call Center at [phone] - From [employer], Go to Appointments - Cancel Appts If cancelling, consider your need to reschedule to prevent further delays in your care. To Schedule an appointment, please choose one of the following: - Call the Appointment Call Center at [phone] - From [employer], Go to Appointments - Request an Appt documented in this encounterCleveland Clinic Lutheran HospitalConsult note [facility] Medical Records Department [address] [place] [address] Anesthesia Postop Eval II 07/15/25 1156 MR#: [id number] Acct: [id number] Name: JOSE JUAN JOSHI Rep #:[id number] : 1970 54 From: Go Tamayo PCP: Dr. Kaylee Pink, DO Status:[facility] Y Race: C Location: [place] Anesthesia Postop Eval I Sum Postop Eval Completion status Anesthesia document: Postop Eval 1 completed: No Anesthesia Postop Eval I Summary Anesthesia Postop Eval I Summary: Anesthesia Postop Eval I: Assessment Summary Airway patent Yes 07/15/25 10:47 [email or web address] Spontaneous unlabored Yes 07/15/25 10:47 [email or web address] respirations Mental status Asleep 07/15/25 10:47 [email or web address] nausea No 07/15/25 10:47 [email or web address] Vomiting No 07/15/25 10:47 [email or web address] Anesthesia Postop Eval I: Fluid Summary Crystalloid volume administer 600 07/15/25 10:47 MIK (ml) Colloids volume administered ( ml) Blood Product volume administered (ml) Total IV fluid infused 600 07/15/25 10:47 [email or web address] Anesthesia Postop Eval I: Summary Notes Anesthesia Complication No 07/15/25 10:47 MIK Anesthesia Complication Comment: Post-operative progress note Anesthesia: Postop Eval II Evaluation Mental status: Awake and Calm Pain Level: 0 nausea: No Vomiting: No Complications Anesthesia Complication: No 07/15/25 1156 MD> Date _ Go Coxignkomal Signature: Date CC: ~ [facility] Note Date/Time July 15, 2025 10:47am [facility] Medical Records Department [address] [place] [address] Anesthesia Postop Eval I 07/15/25 1046 MR#: [id number] Acct: [id number] Name: JOSE JUAN JOSHI Rep #:[id number] : 1970 54 From: Thao lundberg CRNA PCP: Dr. Kaylee Pink, DO Status:[facility] Y Race: C Location: [place] [address] Anesthesia: Postop Eval I Current Vital Signs [...] 1047 <Electronically signed by Thao Kobyla nski ROOFER> Date _ Thao Hansen ROOFER Cosigner Signature: Date CC: ~ Signed [facility] Work Phone: Consult note Author Go Chen [facility] Note Date/Time July 15, 2025 11:56am [facility] Medical Records Department [address] [place] [id number] Anesthesia Postop Eval II 07/15/25 1156 MR#: [id number] Acct: [id number] Name: JOSE JUAN JOSHINE Rep #:[id number] : 1970 54 From: Go Tamayo PCP: Dr. Kaylee Pink, DO Status:[facility] Y Race: C Location: EN Anesthesia Postop Eval I Sum Postop Eval Completion status Anesthesia document: Postop Eval 1 completed: No Anesthesia Postop Eval I Summary Anesthesia Postop Eval I Summary: Anesthesia Postop Eval I: Assessment Summary Airway patent Yes 07/15/25 10:47 [email or web address] Spontaneous unlabored Yes 07/15/25 10:47 [email or web address] respirations Mental status Asleep 07/15/25 10:47 [email or web address] nausea No 07/15/25 10:47 [email or web address] Vomiting No 07/15/25 10:47 [email or web address] Anesthesia Postop Eval I: Fluid Summary Crystalloid volume administer 600 07/15/25 10:47 [email or web address] (ml) Colloids volume administered ( ml) Blood Product volume administered (ml) Total IV fluid infused 600 07/15/25 10:47 [email or web address] Anesthesia Postop Eval I: Summary Notes Anesthesia Complication No 07/15/25 10:47 [email or web address] Anesthesia Complication Comment: Post-operative progress note Anesthesia: Postop Eval II Evaluation Mental status: Awake and Calm Pain Level: 0 nausea: No Vomiting: No Complications Anesthesia Complication: No 07/15/25 1156 <Electronically signed by Go Chen MD> Date _ Go Chen MD Cosigner Signature: Date CC: ~ Signed [facility] Work Phone: Evaluation noteNo assessment information available [facility] Work Phone: Evaluation note* Diagnosis Multiple thyroid nodules- Primary Nontoxic multinodular goiter [facility] Diagnosis Onset Date Resolution Status Cervical lesion acute Family history of breast cancer acute Women's annual routine gynecological examination acute [facility] Work Phone: Evaluation note* Diagnosis Onset Date Resolution Status Abnormal uterine bleeding ac deepti Cervical lesion acute Abnormal uterine bleeding ac deepti Cervical lesion acute Family history of breast cancer acute [facility] Work Phone: evaluation note* Diagnosis Multiple [...] left [facility] Diagnosis Onset Date Resolution Status Admit Date Nausea acute June 8:13am Screening for colon cancer acute July 15, 2025 8:13am [facility] Work Phone: [facility] for referral (narrative)* Diagnostic Procedure Only (Urgent) - Closed Specialty Diagnoses / Procedures Referred By Contac t Referred To Contact XR IMAGING Diagnoses Pain Procedures XR TOE AP/LAT/OBL LEFT RADEX TOE MINIMUM 2 VIEWS Harsh Velazquez APRN.WORK ORDER CLERK [address] [place] [address] [place] [address] Referral ID Status Reason Start Date Expiration Date V isits Requested Visits Authorized [id number] Closed Auto-Generate d Referral 07/17/2024 08/16/2025 1 1 [facility] for referral (narrative)* Diagnostic Procedure Only (Urgent) - Closed Specialty Diagnoses / Procedures Referred By Contac t Referred To Contact XR IMAGING Diagnoses Pain Procedures XR TOE AP/LAT/OBL LEFT RADEX TOE MINIMUM 2 VIEWS Harsh Velazquez APRN.WORK ORDER CLERK [address] [place] [address] [place] [address] Referral ID Status Reason Start Date Expiration Date V isits Requested Visits Authorized [id number] Closed Auto-Generate d Referral 07/17/2024 08/16/2025 1 1 [facility] for referral (narrative)* Diagnostic Procedure Only (Routine) - Authorized Specialty Diagnoses / Procedures Referred By Contac t Referred To Contact XR IMAGING Diagnoses Closed nondisplaced fracture of distal phalanx of lesser toe of left foot with routine healing, subsequent encounter Procedures XR FOOT GENERAL 3V AP/LAT/OBL LEFT RADEX FOOT COMPLETE MINIMUM [address] [place] [address] [place] [address] Referral ID Status Reason Start Date Expiration Date Visits Requested Visits Authorized [id number] Authorized Auto-Generat ed Referral 09/12/2025 1 1 [facility] for referral (narrative)No reason for referral [facility] [facility] Narrative* Diagnostic Procedure Only (Urgent) - Closed Specialty Diagnoses / Procedures Referred By Contac t Referred To Contact XR IMAGING Diagnoses Pain Procedures XR TOE AP/LAT/OBL LEFT RADEX TOE MINIMUM 2 VIEWS Harsh Velazquez APRN.WORK ORDER CLERK [address] [place] [address] [place] [address] Referral ID Status Reason Start Date Expiration Date V isits Requested Visits Authorized [id number] Closed Auto-Generate d Referral 07/17/2024 08/16/2025 1 1 [facility] for visit Narrative* Diagnostic Procedure Only (Routine) - Closed Specialty Diagnoses / Procedures Referred By Contac t Referred To Contact XR IMAGING Diagnoses Closed nondisplaced fracture of distal phalanx of lesser toe of left foot with routine healing, subsequent encounter Procedures XR FOOT GENERAL 3V AP/LAT/OBL LEFT RADEX FOOT COMPLETE MINIMUM 3 VIEWS Giovanni Bey [address] [place] [address] [place] [address] Referral ID Status Reason Start Date Expiration Date V isits Requested Visits Authorized [id number] Closed Auto-Generate d Referral 08/13/2024 09/12/2025 1 1 [facility] Summary Purpose Family History No Family History [...] Yes June 29, 2016 3:39pm Power of Clearing Distribution Clerk Yes June 3:39pm Advance Directive Response Recorded Date/ Time Advance Directives Yes June 2:39pm Living Will Yes June 29, 2016 2:39pm Power of Clearing Distribution Clerk Yes June 2:39pm Advance Directive Response Recorded Date/ Time Advance Directives Yes March 09 1:08pm Living Will Yes March 09, 2023 1 :08pm Power of Clearing Distribution Clerk Yes March 09, 2023 1:08pm Advance Directive Response Recorded Date/ Time Advance Directives Yes May 03 2:07pm Living Will Yes May 03, 2023 2:07pm Power of Clearing Distribution Clerk Yes May 03 2:07pm Advance Directive Response Recorded Date/ Time Advance Directives Yes May 03 1:07pm Living Will Yes May 03, 2023 1:07pm Power of Clearing Distribution Clerk Yes May 03 1:07pm Advance Directive Response Recorded Date/ Time Advance Directives Yes May 03 2:07pm Advance Directive Response Recorded Date/ Time Do you have a Healthcare Power of Clearing Distribution Clerk? Yes July 10, 2025 1:54pm Advance Directives Yes May 03 2:07pm Chief Complaint and Reason for Visit Chief Complaint SCREENING Chief Complaint Nontoxic multinodula r goiter PERSISTENT PULSATILE TINNITUS LEFT EAR Annual (DISABILITY RATER) , per nurse moved up due to BC refill POSTCOITAL BLEEDING Reason for Visit Cervical lesion Family history of breast cancer Women's annual routine gynecological examination Chief Complaint Annual (DISABILITY RATER) , per n jose moved up due to BC refill POSTCOITAL [...] section and content) DATE CREATED AUTHOR [facility] DATE CREATED AUTHOR AUTHOR'S ORGANIZ ATION 04/12/2018 [facility] DATE CREATED AUTHOR AUTHOR'S ORGANIZ ATION 04/12/2018 [facility] DATE CREATED AUTHOR AUTHOR'S ORGANIZ ATION 12/01/2024 [facility] DATE CREATED AUTHOR AUTHOR'S ORGANIZ ATION 08/01/2025 [facility] Goals (unrecognized section and content) [...] any alcohol or drug abuse patient.[facility] the event this information is protected by the Federal Confidentiality of Alcohol and Drug Abuse Patient Records regulations: The Federal rules restrict any use of the information to criminally investigate or prosecute any alcohol or drug abuse patient.[facility] the event this information is protected by the Federal Confidentiality of Alcohol and Drug Abuse Patient Records regulations: The Federal rules restrict any use of the information to criminally investigate or prosecute any alcohol or drug abuse patient.[facility] the event this information is protected by the Federal Confidentiality of Alcohol and Drug Abuse Patient Records regulations: The Federal rules restrict any use of the information to criminally investigate or prosecute any alcohol or drug abuse patient.[facility] Hospital[facility] the event this information is protected by the Federal Confidentiality of Alcohol and Drug Abuse Patient Records regulations: The Federal rules restrict any use of the information to criminally investigate or prosecute any alcohol or drug abuse patient.[facility] the event this information is protected by the Federal Confidentiality of Alcohol and Drug Abuse Patient Records regulations: The Federal rules restrict any use of the information to criminally investigate or prosecute any alcohol or drug abuse patient.[facility] Hospital[facility] the event this information is protected by the Federal Confidentiality of Alcohol and Drug Abuse Patient Records regulations: The Federal rules restrict any use of the information to criminally investigate or prosecute any alcohol or drug abuse patient.[facility] Hospital[facility] the event this information is protected by the Federal Confidentiality of Alcohol and Drug Abuse Patient Records regulations: The Federal rules restrict any use of the information to criminally investigate or prosecute any alcohol or drug abuse patient.[facility] Hospital[facility] the event this information is protected by the Federal Confidentiality of Alcohol and Drug Abuse Patient Records regulations: The Federal rules restrict any use of the information to criminally investigate or prosecute any alcohol or drug abuse patient.[facility] Hospital[facility] the event this information is protected by the Federal Confidentiality of Alcohol and Drug Abuse Patient Records regulations: The Federal rules restrict any use of the information to criminally investigate or prosecute any alcohol or drug abuse patient.[facility] Reason for Visit (unrecogniz ed section and content) Reason Comments Thyroid Nodule Reason Comments Radiology US Reason Comments Patient Update Reason Comments left foot/toe pain X 3 days-tripped ove r toys Reason Comments New broken 3rd toe Pain Reason Comments Release Of Medical Records Imaging Disc/ Report Care Teams (unrecognized sec tion and content) Last Pattern Grader Relationship Specialty Start Date End Date Kaylee Pink DO [address] [facility] [place] [address] PCP - General Family Medicine 09/12/17 Team [...] Primary Care Provider, Attendin g Provider Active Last Pattern Grader Relationship Specialty Start Date End Date Kaylee Pink DO [address] [place] [address] PCP - General Family Medicine 09/12/17 Last Pattern Grader Relationship Specialty Start Date End Date Kaylee Pink DO [address] [place] [address] PCP - General Family Medicine 09/12/17 Last Pattern Grader Relationship Specialty Start Date End Date Kaylee Pink DO [address] [place] [address] PCP - General Family Medicine 09/12/17 Last Pattern Grader Relationship Specialty Start Date End Date Kaylee Pink DO [address] [place] [address] PCP - General Family Medicine 09/12/17 Last Pattern Grader Relationship Specialty Start Date End Date Kaylee Pink DO [address] [place] [address] PCP - General Family Medicine 09/12/17 Last Pattern Grader Relationship Specialty Start Date End Date Kaylee Pink DO [address] [place] [address] PCP - General Family Medicine 09/12/17 Last Pattern Grader Relationship Specialty Start Date End Date Kaylee Pink [address] [place] [address] PCP - General Family Medicine 09/12/17 Team [...] 26, 2025 End: March 26, 2025 Dr. Kalyee Pink DO Referring Provider Active Start: March [...] BE BASED ON THE PRIMARY CLINICAL RECORDS. [employer] provides no warranty or guarantee of the accuracy or completeness of information in this document.
== END | disposition home or self-care (01) ==
LOC: LAB 12:20
PROVIDERS: PCP Family Medicine; Referring Provider Obstetrics & Gynecology; Visit Provider Obstetrics & Gynecology
DX: Z13.29 Encounter for screening for other suspected endocrine disorder (principal); N92.4 Excessive bleeding in the premenopausal period; N93.0 Postcoital and contact bleeding
CPT/HCPCS: 36415; 84439; 84443; 86376

== ENCOUNTER → 2025-09-02 | Outpatient (CLI) | payer BC, SELFPAY ==
--- NOTE | 2025-09-02 08:21 | US_ITS ---
PROCEDURE: PELVIC W/ TRANSVAGINAL REASON FOR EXAM: POSTCOITAL BLEEDING TECHNIQUE: Procedure Code: [id number] Modality: US Procedure: PELVIC W/ TRANSVAGINAL COMPARISON: None FINDINGS: LMP: July 04, 2025. Measurements: Uterus: 8 cm x 5.1 cm x 4.1 cm with a volume of 8.71 mL Endometrial Thickness: 9 mm. 4 mm x 4 mm x 3 mm cystic abnormality is seen within the endometrium. Polyp should be ruled out. Right Ovary: 3 cm x 2.2 cm x 2.1 cm with a volume of 7.2 mL. Left Ovary: 3.1 cm x 1.6 cm x 1.4 cm with a volume of 3.7 mL. TRANSABDOMINAL: Uterus: 1.3 cm 1 cm 0.9 cm posterior fundal fibroid on the left side. Endometrium: Endometrium is thickened. 4 mm x 4 mm x 3 mm cystic structure within the endometrium. Right ovary: Dominant follicle is seen in the right ovary. This measures 1.7 cm x 1.7 cm x 1.3 cm. Left ovary: Normal size and echotexture. Other: No large pelvic mass identified. Transvaginal sonography was performed to better visualize the endometrium. TRANSVAGINAL: Uterus: Anteverted. Small fundal fibroid. Endometrium: Endometrium measures 9 mm. Small cystic structure seen within it. Right ovary: Dominant follicle within it. Left ovary: Normal size and echotexture. Other adnexal findings: None. Cul-de-sac: No free intraperitoneal fluid identified. Tenderness: No tenderness US/Pelvic w/ Transvaginal IMPRESSION: Small fibroid uterus. Dominant follicle in the right ovary. Thickened endometrium with a small cystic structure within it 4 mm x 4 mm x 3 m m. Clinical correlation recommended. Reading Location: [id number]
--- NOTE | 2025-09-02 08:30 | BI_ITS ---
EXAM: SCRN MAMM (CAD)W/ALBINA BILAT DATE: 09/02/2025 CLINICAL HISTORY: F, Age 54 y/o , SCREEN FOR BREAST CANCER TECHNIQUE: Procedure Code: [id number] Modality: MG Procedure: SCRN MAMM (CAD)W/ALBINA BILAT COMPARISON: Prior exam(s) were compared FINDINGS: TISSUE DENSITY: The breasts are heterogeneously dense, which may obscure small masses. Bilateral Breast Mammographic Findings: No significant masses, calcifications or other abnormalities are identified. BI/SCRN MAMM (CAD)W/ALBINA BILAT IMPRESSION: No mammographic evidence of malignancy in either breast. OVERALL FINAL ASSESSMENT BI-RADS 1: NEGATIVE. RECOMMENDATION: Routine annual follow-up in 1 Year Additional Recommendation none A letter with findings and recommendations will be mailed to the patient. Reading Location: [id number]
--- OUTSIDE RECORDS SUMMARY | 2025-09-02 08:50 | XMS RPT_ITS | CCD ---
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 Kaylee Pink Primary Care Provider Dr. Kaylee Pink Referring Provider [phone] Dr. Jamee Gray Attending Provider Dr. Kaylee Pink Primary Care Provider Dr. Kaylee Pink Referring Provider [phone] Dr. Jamee Gray Attending Provider Kaylee Pink [...] Provider Dr. Kaylee Pink DO Referring Provider [phone] Jacek LOPEZ, Dr. Mcguire Primary Care Physician Jacek LOPEZ, Dr. Mcguire Attending Physician Jacek LOPEZ, Dr. Mcguire Referring Provider Fer LITTLE, Dr. Dhruv Chaparro Attending Physician Fer LITTLE, Dr. Dhruv Chaparro Referring Provider Kirsten LITTLE, Dr. Lizarraga Attending Physician Kirsten LITTLE, Dr. Lizarraga Nurse Practitioner Jacek, Kaylee Attending Unavailable Jacek, Kaylee Referring Unavailable Jacek, Kaylee Primary Care Unavailable Robotham, Elham Attending Unavailable Jacek, Kaylee Primary Care Unavailable Jacek, Kaylee Referring Unavailable Fer, Dhruv Chaparro Attending Unavailable Fer, Dhruv Chaparro Referring Unavailable Jacek, Kaylee Primary Care Unavailable Fer, Dhruv Chaparro Attending Unavailable Jacek, Kaylee Primary Care Unavailable Fer, Dhruv Chaparro Referring Unavailable Marcanthony, Jamee Attending Unavailable Marcanthony, Jamee Referring Unavailable Jacek, Kaylee Primary Care Unavailable Marcanthony, Jamee Attending Unavailable Marcanthony, Jamee Referring Unavailable Jacek, Kaylee Primary Care Unavailable Marcanthony, Jamee Attending Unavailable Jacek, Kaylee Referring Unavailable Jacek, Kaylee Primary Care Unavailable Robotham, Elham Attending Unavailable Jacek, Kaylee Referring Unavailable Jacek, Kaylee Primary Care Unavailable Robotham, Elham Consulting Unavailable Jacek, Kaylee Attending Unavailable Jacek, Kaylee Referring Unavailable Jacek, Kaylee Primary Care Unavailable Jacek, Kaylee Attending Unavailable Jacek, Kaylee Primary Care Unavailable Jacek, Kaylee Referring Unavailable Marcanthony, Jamee Attending Unavailable Marcanthony, Jamee Referring Unavailable Jacek, Kaylee Primary Care Unavailable Jacek, Kaylee Attending Unavailable Jacek, Kaylee Referring Unavailable Jacek, Kaylee Primary Care Unavailable Jacek , Dr. Mcguire Primary Care Physician Fer LITTLE, Dr. Dhruv Chaparro Attending Physician Fer LITTLE, Dr. Dhruv Chaparro Referring Provider Dr. Kaylee Pink DO Referring Provider [phone] Dr. Elham Curtis MD Attending Physician [phone] Dr. Elham Curtis MD Nurse Practitioner Dr. Jamee Gray MD Attending Physician Dr. Jamee Gray MD Referring Provider Allergies Allergy Classification Reported Allergen(s) Allergy Type Date of Onset Reaction(s) Facility (12 sources) Dust; Translations: [DUST] Propensity to adverse reactions (disorder) 6 [facility] Rep[facility] (12 sources) methenamine; Translations: [METHENAMINE] Drug Allergy 7 Unknown [facility] (12 sources) mold extract; Translations: [MOLD] Drug Allergy 6 [facility] (12 sources) Seasonal allergy; Translations: [SEASONAL ALLERGIES] Propensity to adverse reactions (disorder) 7 Unknown [facility] (12 sources) RAGWEED; Translations: [RAGWEED] Propensity to adverse reactions (disorder) 6 [facility] Repository (2 sources) HYDROcodone Drug Allergy 6 [facility] Work Phone: Medications Current Medications Medication [...] Active meclizine hydrochloride 25 mg oral tablet (20 sources) Antiemetic Start: 03-21-20 take 1 tablet by mouth twice daily as needed for dizziness take 2 tablets by mo ut three times daily meclizine (ANTIVERT) 12.5 mg tab Take 25 mg by mouth three times daily. Active Comment on above: Take 25 mg by mouth three times daily. metroNIDAZOLE 0.0075 mg/mg topical gel (4 sources) Nitroimidazole Antimicrobial Start: 07-10-2025 Start: 07-10-2025 End: 12-23-2022 metroNIDAZOLE (METROGEL) 1 % Topical Gel Apply to affected area. 0 12/23/2022 Discontinued (Discontinued by Patient) Comment on above: Apply to affected ar ea. multivitamin tablet (10 sources) multivitamin tab let Take 1 tablet by mouth as needed. Active multivitamin tab let Take 1 tablet by mouth as needed. 0 Active Comment on above: Take 1 tablet by martin as needed. traZODone hydrochloride 100 mg oral tablet (1 source) Serotonin Reuptake Inhibitor Start: 08-05-2025 Completed/Discontinued Medications Medication Drug Class(es) Dates Sig [...] on above: Take 1 capsule by mo [facility] three times daily. amoxicillin 875 mg [...] oral tablet (20 sources) Vitamin C Start: End: take 1 tablet by mouth once daily Ascorbic Acid (Vitamin C) (Vitamin C) 1,000 MG tablet Discontinued 1000 mg PO DAILY June 28, 2016 11:00pm July 10, 2025 12:52pm Comment on above: Take 1,000 mg by martin th once daily. biotin 1 mg oral capsule (6 sources) Start: End: take 1 capsule by mouth once daily Biotin 1 mg capsule Discontinued 1 mg PO daily July 29, 2024 11:00pm July 10, 2025 12:52pm Calcium Carbonate (1 source) End: CALCIUM CARBONATE (CALCIUM 300 ORAL) Take by mouth as needed. 0 12/23/2022 Discontinued (Discontinued by Patient) Comment on above: Take by mouth as nee ded. cholecalciferol 0.025 mg oral capsule (6 sources) Vitamin D Start: End: take 1 capsule by mouth once daily Cholecalciferol (Vitamin D3) 25 mcg (1,000 unit) capsule Discontinued 25 ug PO daily July 29, 2024 11:00pm July 10, 2025 12:51pm ciprofloxacin 500 mg oral tablet (1 source) Quinolone Antimicrobial Start: End: ciprofloxacin HCl (CIPRO) 500 mg tablet Cran-C-B.Coag-Fos-L.Ac id-L.Rha (Probiotic Plus & Cranberry Cap) 1 EACH capsule (11 sources) Start: End: Cran-C-B.Coag-Fos-L.Ac id-L.Rha (Probiotic Plus & Cranberry Cap) 1 EACH capsule Discontinued 1 NMA PO DAILY June 29, 2016 12:00am March 21, 2023 9:58am Start: 06-29-2016 End: 03-21-2023 Cran-C-B.Coag-Fos-L.Acid-L.R wei (Probiotic Plus & Cranberry Cap) 1 EACH capsule Discontinued 1 EACH PO DAILY June 28, 2016 11:00pm March 21, 2023 8:58am Start: 06-29-2016 End: 06-05-2023 Cran-C-B.Coag-Fos-L.Acid-L.R wei (Probiotic Plus & Cranberry Cap) [...] 29, 2016 12:00am 21 day ethinyl estradiol 0.801149 mg/hr / etonogestrel 0.005 mg/hr vaginal system (20 sources) Progestin, Estrogen Start: 03-21-2023 End: 06-13-2023 Etonogestrel-Ethinyl Estradiol (Nuvaring) 0.12-0.015 mg/24 hr ring Discontinued 1 NMA VAGINAL every 4 weeks 3 2 May 10, 2023 11:59am June 13, 2023 12:11pm Leave inplace for 4 weeks, remove X 1 week then insert new ring Start: 06-06-2017 End: 06-13-2023 NUVARING 0.12-0.015 mg/24 hr vaginal ring 06/06/2017 Active L.Acid-L.Rha-B.Axul-Iud-Qhch -C (Probiotic Plus & Cranberry Cap) 1 EACH capsule (1 source) Start: 06-29-2016 End: 03-21-2023 L.Acid-L.Rha-B.Fmhb-Kig-Uuht -C (Probiotic Plus & Cranberry Cap) 1 EACH capsule Discontinued 1 NMA PO DAILY June 28, 2016 11:00pm March 21, 2023 8:58am Magnesium Glycinate 100 mg magnesium capsule (6 sources) Start: 07-30-2024 End: 07-10-2025 take 1 mg by mouth once daily Magnesium Glycinate 100 mg magnesium capsule Discontinued mg PO DAILY July 29, 2024 11:00pm July 10, 2025 12:51pm Start: 07-30-2024 End: 07-10-2025 take 1 mg [...] / sodium salicylate 162.5 mg oral tablet (12 sources) Start: 06-29-2016 End: 03-21-2023 Methenamine-Sodium Salicylate (Cystex Tablet) 1 EACH tablet Discontinued 1 NMA PO DAILY June 28, 2016 11:00pm March 21, 2023 8:59am polyethylene glycol 3350 678106 mg / potassium chloride 2970 mg / sodium bicarbonate 6740 mg / sodium chloride 5860 mg / sodium sulfate 56227 mg powder for oral solution (3 sources) Osmotic Laxative Start: 05-13-2025 End: 08-05-2025 take 4000 mL by mouth once Peg 3350-Electrolytes 236-22.74-6.74 -5.86 gram recon soln Discontinued 4000 mL PO ONCE 4000 0 May 12, 2025 11:00pm August 05, 2025 10:18am until fecal effluent is clear; do not exceed a total volume of 4000 mL Problems Active Problems Problem Classification Problem Date [...] Translations: [Dysuria] Onset: 07-05-2025 Episodic Menopausal disorders (19 sources) Postcoital bleeding; Translations: [Excessive bleeding in the premenopausal period] Onset: 08-19-2025 03-21-2023 Chronic Comment on above: discussed irregular menses and insomnia- discussed trazodone Menstrual disorders (6 sources) Amenorrhea; Translations: [Amenorrhea, unspecified] 07-30-2024 Chronic Nausea and vomiting (7 sources) Nausea; Translations: [Nausea] Onset: 08-06-2025 07-15-2025 Episodic Nonmalignant breast conditions (10 sources) Fibrocystic disease of breast; Translations: [Diffuse cystic mastopathy of unspecified breast] 02-18-2006 Chronic Other connective tissue disease (1 source) Calcaneal spur of left foot; Translations: [Calcaneal spur, left foot] 08-15-2024 Episodic Other female genital disorders (8 sources) Abnormal uterine bleeding; Translations: [Abnormal uterine and vaginal bleeding, unspecified] 06-13-2023 Chronic Comment on above: nuvaring if desired. Other female genital disorders (2 sources) Abnormal uterine and vaginal bleeding, unspecified; Translations: [Unspecified disorders of menstruation and other abnormal bleeding from female genital tract] 05-03-2023 Chronic Other female genital disorders (1 source) Postcoital and contact bleeding; Translations: [Postcoital and contact bleeding] Onset: 08-19-2025 Chronic Other female genital disorders (10 sources) Lesion of cervix; Translations: [Noninflammatory disorder of cervix uteri, unspecified] 03-21-2023 Episodic Comment on above: pap obtained today. removed in office Other female genital disorders (4 sources) Noninflammatory disorder of cervix uteri, unspecified; Translations: [Unspecified noninflammatory disorder of cervix] 03-21-2023 Episodic Other screening for suspected conditions (not mental disorders or infectious disease) (11 sources) Patient encounter status; Translations: [Encounter for screening for malignant neoplasm of colon] Onset: 08-05-2025 07-15-2025 Episodic Other skin disorders (1 source) Dystrophia unguium; Translations: [Nail dystrophy] 08-15-2024 Episodic Other upper respiratory disease (10 sources) Allergic rhinitis; Translations: [Allergic rhinitis, unspecified] 02-18-2006 Chronic Residual codes; unclassified (11 sources) Family history of breast cancer; Translations: [Family history of malignant neoplasm of breast] 03-31-2023 Episodic Comment on above: brother with breast cancer cells in prostatesister with metastatic breast cancer empower genetic screening accepted todaydiscontinued nuvaring today. will call if bleeding increases over next few months. will consider POP. 03/31/23 Empower test Negative. brother with breast cancer cells in prostatesister with metastatic breast cancer empower genetic screening nediscontinued nuvaring today. will call if bleeding increases [...] Test Name Value Interpretation Reference Range Facility Thyroid Peroxidase ABon 10-2 THYR PEROX AB < 9 Normal 0-34 [facility] Comment on above: Result Comment: Perf ormed at: CB - [facility] [address] [id number] Infantry Senior Sergeant: Sundeep Luis PhD, Phone: [phone] Performed By: #### L 9973.6416, I829.7049, Q089.6397 ####[facility] [address] [place], [place], [id number] Survey Supervisor Office Visit Reporton 08-05-2025 Survey Supervisor Office Visit Report [facility] [address], [address] [place] [address] OFFICE VISIT Date of Service: 08/05/25 MR#: [id number] Acct: [id number] Name: JOSE JUAN JOSHI Rep #: [id number] : 1970 Provider: Dr. 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 ) Allergies No Known Allergies Allergy (Verified 08/05/25 11:17) Medications ???Medication ???Instructions ???Recorded ???Confirmed ???Type meclizine 25 mg tablet 25 mg PO BID PRN dizziness 3 08/05/25 History metronidazole 0.75 % topical gel 1 applic topical BID PRN ROSCEA 08/05/25 History trazodone 100 mg tablet 50 mg (1/2 x 100 mg) PO QHS PRN 08/05/25 Rx insomnia #30 tabs Is last menstrual period known: Yes Last Menstrual Period: 06/30/25 Post menopausal: No Patient : No : No PFSH Medical History Wears glasses Thyroid disease Arthritis History of renal disease Easy bruising Restless legs History of IBS Non-smoker Leg cramps Surgical History History of colonoscopy S/P wisdom tooth extraction S/P dilation and curettage S/P endometrial ablation S/p nephrectomy Family History Brother Breast cancer Sister Breast cancer Cancer osteocarcinoma Parkinsons disease Mother CVA (cerebral vascular accident) Breast cancer Skin cancer Father CVA (cerebral vascular accident) Prostate cancer Social History housing: apartment number of children: 2 current occupational status: employed current occupation: [employer] Smoking Status: Never smoker alcohol intake: current [...] Date Name GA/Weeks Outcome Route Bth Weight Gen Labor Lgth Anesthesia Del Locatn Provider FOB Unknown Silvino Unknown Adriana HPI Encounter for routine gynecological examination Details: JOSE JUAN JOSHI is a 54 year old who presents for annual exam. being treated for bladder cancer. lost sister to bresat cancer. Last PAP: 03/21/2023 - normal History of abnormal PAP: Last mammogram: 08/27/2024 - normal History of abnormal mammogram: Colon cancer screening: colonoscopy 2024 Other preventative health care screenings: PCP Jacek Female Reproductive History Last Menstrual Period: 06/30/25 Cycle Length: 21-35 Bleeding Duration: 5 Questions: metrorrhagia: No, sexually active: Yes, dyspareunia: No and [...] acute distress, well developed and well groomed HENCT Head: normal to inspection and normocephalic Ears: hearing grossly normal bilaterally and external ears normal Nose: external nose normal Face and sinus: normal facial exam Neck Neck: normal visua (more content not included)... Normal [facility] Serum or plasma thyroperoxid ase antibody assay (units/volume)Ordered By: Jamee Gray on 08-05-2025 TPO Ab Qn [IU]/mL 0-34 [facility] Comment on above: Performed at: [address] [id number] Director: Sundeep Luis PhD, Phone: [phone] T4 Free Directon 08-05-2025 T4 FREE DIRECT 1.10 ng/dL Normal 0.76-1.46 [facility] Comment on above: Performed By: #### L 3300.5483, L506.0400, L501.0229 ####[facility] [address] [place], [address] T4 freeOrdered By: Jamee cejascott on 08-05-2025 Free T4 [Mass/Vol] 1.10 ng/dL 0.76-1.46 [facility] TSH DL <= 0.005 mIU/L QnOrde red By: Jamee Gray on 08-05-2025 TSH Qn 1.580 uIU/mL 0.300-4.200 [facility] Thyroid Stim Hormone (TSH)on 08-05-2025 TSH 1.580 uIU/mL Normal 0.300-4.200 [facility] Comment on above: Performed By: #### L 3300.6900, L506.0400, L501.9520 ####[facility] [address] [place], [address] Urine Cultureon 07-26-2025 URC Streptococcus agalac tiae (B) [place] Count 50,000-80,000 Streptococcus agalactiae (B): REACTION Ampicillin Islt NELIA <=0.25 cefTRIAXone Islt NELIA <=0.12 S Clindamycin.induced Susc Islt POS Linezolid Islt NELIA <=2 S Vancomycin Islt NELIA 0.5 S Normal [facility] Comment on above: Performed By: #### M 100.2200 ####[facility] [address] [place], [address] Urine cultureOrdered By: Lambert Monroe on 07-24-2025 Bacteria identified Cx Nom (U) Streptococcus agalactiae (B) Abnormal [facility] Colonoscopy Reporton 025 Colonoscopy Report [facility] Medical Records Department [address] [place] [address] Colonoscopy Report MR#: [id number] Acct: [id number] Name: JOSE JUAN JOSHI Rep #: [id number] : 1970 54 From: Elham Curtis MD PCP: Dr. Kaylee Pink, DO Status:REG UTC Patient Name: Jose Juan Joshi Procedure Date: [...] malignant neoplasm of colon CPT copyright 2021 [employer]. All rights reserved. The codes documented in this report are preliminary and upon fur designer review may be revised to meet current compliance requirements. ElhamMD Elham Lin MD 07/15/2025 10:44:01 AM This report has been signed electronically. Number of Addenda: 0 Note Initiated On: 07/15/2025 10:10 AM 07/15/25 1044 Date Elham Curtis MD Cosigner Signature: Date (if indicated) CC: Dr. Kaylee Pink DO; Dr. Elham Curtis MD Date Dictated: 07/15/25 1010 Date Transcribed: Hand Sprayer: TR Signed [facility] MR/OP.[facility] 07-15-2025 MR/OP.[facility] Medical Records Department [address] [place] [address] Provation Physician Letter MR#: [id number] Acct: [id number] Name: JOSE JUAN JOSHI Rep #: [id number] : 1970 54 From: Elham Curtis MD PCP: Dr. Kaylee Pink DO Status:REG [facility] [place]/15/2025 Kaylee Pink [address] [place] [address] Re : Colonoscopy procedure for Jose Juan [...] MD Date Dictated: 07/15/25 1010 Date Transcribed: Hand Sprayer: TR Syd [facility] MR/POSTOP.[facility] 07-15-2025 MR/POSTOP.[facility] Medical Records Department [address] [place] [address] Anesthesia Postop Eval I 07/15/25 104 MR#: [id number] Acct: [id number] Name: JOSE JUAN JOSHI Rep #: [id number] : 1970 54 From: Thao Hansen CRNA PCP: Dr. Kaylee Pink DO Status:REG SDC Y Race: C Location: [place] [address] Anesthesia: Postop Eval I Current Vital Signs [...] Postop Eval 1 completed: No 07/15/25 104 Date Thao Hansen WARD ATTENDANT Cosigner Signature: Date CC: Signed Normal [facility] MR/[id number] 07-15-2025 MR/POSTOPAN2 [facility] Medical Records Department [address] [place] [address] Anesthesia Postop Eval II 07/15/25 1156 MR#: [id number] Acct: [id number] Name: JOSE JUAN JOSHI Rep #: [id number] : 1970 54 From: Go Chen MD PCP: Dr. Kaylee Pink, DO Status:DEP [facility] [place] Race: C Location: EN Anesthesia Postop Eval I Sum Postop Eval Completion status Anesthesia document: Postop Eval 1 completed: No Anesthesia Postop Eval I Summary Anesthesia Postop Eval I Summary: Anesthesia Postop Eval I: Assessment Summary Airway patent Yes 07/15/25 10:47 WARD ATTENDANT.ADRIOBAnival Spontaneous unlabored Yes 07/15/25 10:47 WARD ATTENDANT.OSMAR respirations Mental status Asleep 07/15/25 10:47 WARD ATTENDANT.OSMAR nausea No 07/15/25 10:47 WARD ATTENDANT.ADRIOBAnival Vomiting No 07/15/25 10:47 WARD ATTENDANT.ADRIOBAnival Anesthesia Postop Eval I: Fluid Summary Crystalloid volume administer 600 07/15/25 10:47 WARD ATTENDANT.OSMAR (ml) Colloids volume administered ( ml) Blood Product volume administered (ml) Total IV fluid infused 600 07/15/25 10:47 WARD ATTENDANT.OSMAR Anesthesia Postop Eval I: Summary Notes Anesthesia Complication No 07/15/25 10:47 WARD ATTENDANT.OSMAR Anesthesia Complication Comment: Post-operative progress note Anesthesia: Postop Eval II Evaluation Mental status: Awake and Calm Pain Level: 0 nausea: No Vomiting: No Complications Anesthesia Complication: No 07/15/25 1156 Date Go Chen MD Cosigner Signature: Date CC: Signed Normal [facility] ,Urineon 07-15-2025 Beta HCG ( test) Ql (U) Negative Normal [facility] Comment on above: Result Comment: Very dilute urine specimens, as indicated by a low specific gravity, may not contain patient financial representative levels of hCG. If is still suspected, a first morning urine specimen should be collected 48 hours later and tested. Performed By: #### L 400.7602 #### [facility] [address] [place], [address] Urine testOrdered By: Martin Hayward on 07-15-2025 HCG ( test) Ql (U) Negative [facility] Comment on above: Very dilute urine sp ecimens, as indicated by a low specificgravity, may not contain patient financial representative levels of hCG. If is still suspected, a first morning urinespecimen should be collected 48 hours later and tested. Urine Cultureon 06-27-2025 URC Streptococcus agalac tiae (B) [place] Count 50,000-80,000 Streptococcus agalactiae (B): REACTION Ampicillin Islt NELIA <=0.25 cefTRIAXone Islt NELIA <=0.12 S Clindamycin.induced Susc Islt POS Linezolid Islt NELIA <=2 S Vancomycin Islt NELIA 0.5 S Normal [facility] Comment on above: Performed By: #### M 100.2208 #### [facility] [address] [place], [address] Urine cultureOrdered By: Lambert Monroe on 06-24-2025 Bacteria identified Cx Nom (U) Streptococcus agalactiae (B) Abnormal [facility] Abdomen Limitedon 03-26-2025 Abdomen Limited [facility] Imaging Services [address] [place] [address] Abdomen Limited MR#: [id number] Acct: [id number] Name: JOSE JUAN JOSHI Rep #: [id number] : 1970 F 54 From: Carson sheikh MD PCP: Dr. Kaylee Pink DO Status: REG CLI Study: Abdomen Limited Date of Exam: 03/26/25 Exam# [id number] Ordering Dr: Kaylee Pink DO PROCEDURE: ABDOMEN [...] right lobe of the liver. Reading Location: [place] [address] CC: Dr. Kaylee Pink DO Hand Sprayer: Signed Normal [facility] Shoulder min 2 Viewson 03-26 Shoulder min 2 Views [facility] Imaging Services [address] [place] [address] Shoulder min 2 Views MR#: [id number] Acct: [id number] Name: JOSE JUAN JOSHI Rep #: [id number] : 1970 F 54 From: Prem Tamayo PCP: Dr. Kaylee Pink DO Status: REG CLI Study: Shoulder min 2 Views Date of Exam: 03/26/25 Exam# [id number] Ordering Dr: Kaylee Pink DO PROCEDURE: SHOULDER MIN 2 VIEWS 03/26/2025 REASON FOR EXAM: SHOULDER PAIN TECHNIQUE: Four view right shoulder series COMPARISON: None. RAD/Shoulder min 2 Views IMPRESSION: Bjdn-zk-aryybyaq right acromioclavicular joint degenerative changes are seen, with significant associated joint narrowing. The right glenohumeral joint demonstrates no significant abnormality. 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 No acute fracture or dislocation is seen. If clinical concern persists, short-term follow-up imaging may be obtained to rule out a currently occult fracture. Reading Location: [address] CC: Dr. Kaylee Pink DO Hand Sprayer: Signed Normal [facility] Thyroidon 03-09-2025 Thyroid [facility] Imaging Services [address] [place] [address] Thyroid MR#: [id number] Acct: [id number] Name: JOSE JUAN JOSHI Rep #: [id number] : 1970 F 54 From: Carson sheikh MD PCP: Dr. Kaylee Pink DO Status: REG CLI Study: Thyroid Date of Exam: 03/09/25 Exam# [id number] Ordering Dr: Kaylee Pink DO PROCEDURE: THYROID 03/09/2025 REASON FOR EXAM: REASSESS THYROID NODULES TECHNIQUE: High-frequency thyroid ultrasound, including grayscale and color-flow images. REFERENCE LINKS: TI-RADS Chart: [email or web address] ads TI-RADS Calculator Tool with Reference Images: [email or web address]/radi ology-[email or web address]/body-abby ging/tirads-[email or web address]/ COMPARISON: Prior study dated December [...] no more than 2 nodules. Reading Location: [place] [address] CC: Dr. Kaylee Pink DO Hand Sprayer: Signed Normal [facility] Absolute lymphocyte countOrd ered By: Kaylee Pink on 03-04-2025 Lymphocytes Auto (Unsp spec) [#/Vol] 1.37 10*3/uL 0.83-4.51 [facility] Absolute neutrophil countOrd ered By: Kaylee Pink on 03-04-2025 Neutrophils (Bld) [#/Vol] 2.8 10*3/uL 2.0-7.7 [facility] Anion gap in Serum or Plasma Ordered By: Kaylee Pink on 03-04-2025 Anion gap [Moles/Vol] 10 mmol/L 5-15 [facility] Automated lymphocyte count a s percentage of total leukocytesOrdered By: Kaylee Pink on 03-04-2025 Lymphocytes/100 WBC Auto (Unsp spec) 29.7 % - [facility] BUN/creatinine ratioOrdered By: Kaylee Pink on 03-04-2025 Urea nitrogen/Creatinine [Mass ratio] 16.8 mg/mg 10- [facility] Basophil percentageOrdered B y: Kaylee Pink on 03-04-2025 Basophils/100 WBC (Bld) 1.3 % High 0-1 [facility] Bilirubin, totalOrdered By: Kaylee Pink on 03-04-2025 Bilirubin [Mass/Vol] 0.38 mg/dL 0.00-1.30 [facility] CBC W/Diff, Automatedon 02-14 Absolute Lymph 1.37 X10 3/uL Normal 0.83-4.51 [facility] Comment on above: Performed By: #### L 500.4050, L501.2450, L300.3900, L100.0100 #### [facility] [address] [place], [address] Absolute Neut 2.8 X10 3/uL Normal 2.0-7.7 [facility] Comment on above: Performed By: #### L 500.4050, L501.2450, L300.3900, L100.0100 #### [facility] [address] [place], [address] Basophils/100 WBC (Bld) 1.3 % High 0-1 [facility] Comment on above: Performed By: #### L 500.4050, L501.2450, L300.3900, L100.0100 #### [facility] [address] [place], [address] Eosinophils/100 WBC (Bld) 2.6 % Normal 0-5 [facility] Comment on above: Performed By: #### L 500.4050, L501.2450, L300.3900, L100.0100 #### [facility] [address] [place], [address] Erythrocyte distribution width (RBC) [Ratio] 12.0 % Normal 11.6-14.6 [facility] Comment on above: Performed By: #### L 500.4050, L501.2450, L300.3900, L100.0100 #### [facility] [address] [place], [address] Hematocrit (Bld) [Volume fraction] 37.8 % Normal 37-47 [facility] Comment on above: Performed By: #### L 500.4050, L501.2450, L300.3900, L100.0100 #### [facility] [address] [place], [address] Hemoglobin (Bld) [Mass/Vol] 12.6 g/dL Normal 12.0-15.0 [facility] Comment on above: Performed By: #### L 500.4050, L501.2450, L300.3900, L100.0100 #### [facility] [address] [place], [address] IG% 0.200 Normal 0.0-0.9 [facility] Comment on above: Result Comment: IG% - Immature Granulocytes (promyelocytes, myelocytes and metamyelocytes) > 1% indicates that a LEFT SHIFT is Present. Performed By: #### L 500.4050, L501.2450, L300.3900, L100.0100 #### [facility] [address] [place], [address] Lymphocytes/100 WBC (Bld) 29.7 % Normal 19-41 [facility] Comment on above: Performed By: #### L 500.4050, L501.2450, L300.3900, L100.0100 #### [facility] [address] [place], [address] MCH (RBC) [Entitic mass] 29.7 pg Normal 27.0-32.0 [facility] Comment on above: Performed By: #### L 500.4050, L501.2450, L300.3900, L100.0100 #### [facility] [address] [place], [address] MCHC (RBC) [Mass/Vol] 33.3 g/dL Normal 32-36 [facility] Comment on above: Performed By: #### L 500.4050, L501.2450, L300.3900, L100.0100 #### [facility] [address] [place], [address] MCV (RBC) [Entitic vol] 89.2 fL Normal 81-99 [facility] Comment on above: Performed By: #### L 500.4050, L501.2450, L300.3900, L100.0100 #### [facility] [address] [place], [address] Monocytes/100 WBC (Bld) 6.5 % Normal 0-10 [facility] Comment on above: Performed By: #### L 500.4050, L501.2450, L300.3900, L100.0100 #### [facility] [address] [place], [address] Neutrophils/100 WBC (Bld) 59.7 % Normal 47-70 [facility] Comment on above: Performed By: #### L 500.4050, L501.2450, L300.3900, L100.0100 #### [facility] [address] [place], [address] Nucleated RBC (Bld) [#/Vol] 0 10*3/uL Normal 0-5 [facility] Comment on above: Performed By: #### L 500.4050, L501.2450, L300.3900, L100.0100 #### [facility] [address] [place], [address] Platelet mean volume (Bld) [Entitic vol] 10.8 fL Normal 6.2-12.0 [facility] Comment on above: Performed By: #### L 500.4050, L501.2450, L300.3900, L100.0100 #### [facility] [address] [place], [address] Platelets (Bld) [#/Vol] 228 10*3/uL Normal 150-450 [facility] Comment on above: Performed By: #### L 500.4050, L501.2450, L300.3900, L100.0100 #### [facility] [address] [place], [address] RBC (Bld) [#/Vol] 4.24 10*6/uL Normal 4.2-5.4 [facility] Comment on above: Performed By: #### L 500.4050, L501.2450, L300.3900, L100.0100 #### [facility] [address] [place], [address] RDW SD 38.8 fl Normal 35.1-43.9 [facility] Comment on above: Performed By: #### L 500.4050, L501.2450, L300.3900, L100.0100 #### [facility] [address] [place], [address] WBC (Bld) [#/Vol] 4.6 10*3/uL Normal 4.4-11.0 [facility] Comment on above: Performed By: #### L 500.4050, L501.2450, L300.3900, L100.0100 #### [facility] [address] [place], [address] Carbon dioxide, total [Moles /volume] in Central venous bloodOrdered By: Kaylee Pink on 03-04-2025 CO2 [Moles/Vol] 25.1 mmol/L 21.0-32.0 [facility] Chloride assayOrdered By: Genet Pink on 03-04-2025 Chloride [Moles/Vol] 103 mmol/L 98-108 [facility] Comprehensive Metabolic Prof ilon 03-04-2025 Albumin/Globulin [Mass ratio] 1.3 {ratio} Normal 0.9-2.4 [facility] Comment on above: Performed By: #### L 500.4050, L501.2450, L300.3900, L100.0100 #### [facility] [address] [place], [address] ALK PHOS 24 U/L Low 35-104 [facility] Comment on above: Performed By: #### L 500.4050, L501.2450, L300.3900, L100.0100 #### [facility] [address] [place], [address] ALT [Catalytic activity/Vol] 12 U/L Normal <=34 [facility] Comment on above: Performed By: #### L 500.4050, L501.2450, L300.3900, L100.0100 #### [facility] [address] [place], [address] AST [Catalytic activity/Vol] 21 U/L Normal <=31 [facility] Comment on above: Performed By: #### L 500.4050, L501.2450, L300.3900, L100.0100 #### [facility] [address] [place], [address] Bilirubin [Mass/Vol] 0.38 mg/dL Normal 0.00-1.30 [facility] Comment on above: Performed By: #### L 500.4050, L501.2450, L300.3900, L100.0100 #### [facility] [address] [place], [address] Calcium [Mass/Vol] 9.3 mg/dL Normal 7.6-11.0 [facility] Comment on above: Performed By: #### L 500.4050, L501.2450, L300.3900, L100.0100 #### [facility] [address] [place], [address] Chloride [Moles/Vol] 103 mmol/L Normal 98-108 [facility] Comment on above: Performed By: #### L 500.4050, L501.2450, L300.3900, L100.0100 #### [facility] [address] [place], [address] CO2 [Moles/Vol] 25.1 mmol/L Normal 21.0-32.0 [facility] Comment on above: Performed By: #### L 500.4050, L501.2450, L300.3900, L100.0100 #### [facility] [address] [place], [address] GAP 10 Normal 5-15 [facility] Comment on above: Performed By: #### L 500.4050, L501.2450, L300.3900, L100.0100 #### [facility] [address] [place], [address] Globulin (S) [Mass/Vol] 3.3 g/dL Normal 2.2-4.2 [facility] Comment on above: Performed By: #### L 500.4050, L501.2450, L300.3900, L100.0100 #### [facility] [address] [place], [address] Potassium [Moles/Vol] 4.2 mmol/L Normal 3.3-5.1 [facility] Comment on above: Performed By: #### L 500.4050, L501.2450, L300.3900, L100.0100 #### [facility] [address] [place], [address] Sodium [Moles/Vol] 137 mmol/L Normal 133-145 [facility] Comment on above: Performed By: #### L 500.4050, L501.2450, L300.3900, L100.0100 #### [facility] [address] [place], [address] Albumin [Mass/Vol] 4.3 g/dL Normal 3.5-5.0 [facility] Comment on above: Performed By: #### L 500.4050, L501.2450, L300.3900, L100.0100 #### [facility] [address] [place], [address] BUN/CRE 16.8 RATIO Normal 10-20 [facility] Comment on above: Performed By: #### L 500.4050, L501.2450, L300.3900, L100.0100 #### [facility] [address] [place], [address] Creatinine [Mass/Vol] 0.74 mg/dL Normal 0.70-1.20 [facility] Comment on above: Performed By: #### L 500.4050, L501.2450, L300.3900, L100.0100 #### [facility] [address] [place], [address] GFR/1.73 sq M.predicted among non-blacks MDRD (S/P/Bld) [Vol rate/Area] 95 mL/min/{1.73_m2} Normal >60 [facility] Comment on above: Result Comment: mL/m in/1.73m2 CKD-EPI Creatinine Equation (2020) Performed By: #### L 500.4050, L501.2450, L300.3900, L100.0100 #### [facility] [address] [place], [address] Glucose [Mass/Vol] 81 mg/dL Normal 70-99 [facility] Comment on above: Performed By: #### L 500.4050, L501.2450, L300.3900, L100.0100 #### [facility] [address] [place], [address] T PROT 7.6 g/dL Normal 5.9-8.4 [facility] Comment on above: Performed By: #### L 500.4050, L501.2450, L300.3900, L100.0100 #### [facility] [address] [place], [address] Urea nitrogen [Mass/Vol] 13 mg/dL Normal - [facility] Comment on above: Performed By: #### L 500.4050, L501.2450, L300.3900, L100.0100 #### [facility] [address] [place], [address] Eosinophil percentageOrdered By: Kaylee Pink on 03-04-2025 Eosinophils/100 WBC (Bld) 2.6 % 0-5 [facility] Erythrocyte distribution wid th ratioOrdered By: Kaylee Pink on 03-04-2025 Erythrocyte distribution width (RBC) [Ratio] 12.0 % 11.6-14.6 [facility] Erythrocyte distribution wid th standard deviationOrdered By: Kaylee Pink on 03-04-2025 Erythrocyte distribution width (RBC) [Ratio] 38.8 fl 35.1-43.9 [facility] Glomerular filtration rate ( GFR) estimation/1.73 sq m using serum, plasma, or whole bOrdered By: Kaylee Pink on 03-04-2025 GFR/1.73 sq M.predicted among non-blacks MDRD (S/P/Bld) [Vol rate/Area] 95 mL/min/{1.73_m2} >60 [facility] Comment on above: mL/min/1.73m2 CKD-EP I Creatinine Equation (2020) Hematocrit Auto (Bld) [Volum e fraction]Ordered By: Kaylee Pink on 03-04-2025 Hematocrit (Bld) [Volume fraction] 37.8 % 37-47 [facility] Hemoglobin measurementOrdere d By: Kaylee Pink on 03-04-2025 Hemoglobin (Bld) [Mass/Vol] 12.6 g/dL 12.0-15.0 [facility] Immature granulocytes/100 WB C Auto (Bld)Ordered By: Kaylee Pink on 03-04-2025 Immature granulocytes/100 WBC (Bld) 0.200 % 0.0-0.9 [facility] Comment on above: IG% - Immature Granu locytes (promyelocytes, myelocytes and metamyelocytes) > 1% indicates that a LEFT SHIFT is Present. International normalized rat io (INR) calculationOrdered By: Kaylee Pink on 03-04-2025 INR Coag (Bld) [Relative time] 0.9 {INR} [facility] - Chemistry and C hemistry - challengeOrdered By: Kaylee Pink on 03-04-2025 AST [Catalytic activity/Vol] 21 U/L <32 [facility] Lipaseon 03-04-2025 Lipase [Catalytic activity/Vol] 35 U/L Normal 13-75 [facility] Comment on above: Result Comment: Fab mancia note: LIPASE revised reference range effective 23. New Lipase methodology. Expected to produce lower values than the previous assay method. NEW Reference Range: 13 - 75 U/L Performed By: #### L 500.4050, L501.2450, L300.3900, L100.0100 #### [facility] [address] [facility] [place], [address] Lipase measurementOrdered By : Kaylee Pink on 03-04-2025 Lipase [Catalytic activity/Vol] 35 U/L - [facility] Comment on above: Please note:LIPASE r evised reference range effective 23. New Lipase methodology. Expected to produce lower values than the previous assay method. NEW Reference Range: 13 - 75 U/L MCV (mean corpuscular volume ) determinationOrdered By: Kaylee Pink on 03-04-2025 MCV (RBC) [Entitic vol] 89.2 fL 81-99 [facility] Mean corpuscular hemoglobin (MCH) determinationOrdered By: Kaylee Pink on 03-04-2025 MCH (RBC) [Entitic mass] 29.7 pg 27.0-32.0 [facility] Mean corpuscular hemoglobin concentration (MCHC) determinationOrdered By: Kaylee Pink on 03-04-2025 MCHC (RBC) [Mass/Vol] 33.3 g/dL 32-36 [facility] Mean platelet volume determi nationOrdered By: Kaylee Pink on 03-04-2025 Platelet mean volume (Bld) [Entitic vol] 10.8 fL 6.2-12.0 [facility] Monocyte percentageOrdered B y: Kaylee Pink on 03-04-2025 Monocytes/100 WBC (Bld) 6.5 % 0-10 [facility] Neutrophil percentageOrdered By: Kaylee Pink on 03-04-2025 Neutrophils/100 WBC (Bld) 59.7 % 47-70 [facility] Nucleated red blood cell per centageOrdered By: Kaylee Pink on 03-04-2025 Nucleated RBC/100 WBC (Bld) [Ratio] 0 % 0-5 [facility] Platelet countOrdered By: Genet Pink on 03-04-2025 Platelets (Bld) [#/Vol] 228 10*3/uL 150-450 [facility] Potassium measurement (mass/ volume)Ordered By: Kaylee Pink on 03-04-2025 Potassium (Unsp spec) [Mass/Vol] 4.2 mmol/L 3.3-5.1 [facility] Prothrombin Time w/INRon INR Coag (PPP) [Relative time] 0.9 {INR} Normal [facility] Comment on above: Performed By: #### L 500.4050, L501.2450, L300.3900, L100.0100 #### [facility] [address] [place], [address] PT Coag (PPP) [Time] 12.8 s Normal 11.7-14.9 [facility] Comment on above: Performed By: #### L 500.4050, L501.2450, L300.3900, L100.0100 #### [facility] [address] [place], [address] Prothrombin timeOrdered By: Kaylee Pink on 03-04-2025 PT Coag (PPP) [Time] 12.8 s 11.7-14.9 [facility] RBC Auto (Bld) [#/Vol]Ordere d By: Kaylee Pink on 03-04-2025 RBC (Bld) [#/Vol] 4.24 10*6/uL 4.2-5.4 [facility] Serum creatinine measurement (mass/volume)Ordered By: Kaylee Pink on 03-04-2025 Creatinine [Mass/Vol] 0.74 mg/dL 0.70-1.20 [facility] Serum globulin measurementOr dered By: Kaylee Pink on 03-04-2025 Globulin (S) [Mass/Vol] 3.3 g/dL 2.2-4.2 [facility] Serum glucose measurement (m ass/volume)Ordered By: Kaylee Pink on 03-04-2025 Glucose [Mass/Vol] 81 mg/dL 70-99 [facility] Serum or plasma alanine dillard otransferase (ALT) measurementOrdered By: Kaylee Pink on 03-04-2025 ALT [Catalytic activity/Vol] 12 U/L <35 [facility] Serum or plasma albumin paul urement (mass/volume)Ordered By: Kaylee Pink on 03-04-2025 Albumin [Mass/Vol] 4.3 g/dL 3.5-5.0 [facility] Serum or plasma albumin/glob ulin mass ratioOrdered By: Kaylee Pink on 03-04-2025 Albumin/Globulin [Mass ratio] 1.3 {ratio} 0.9-2.4 [facility] Serum or plasma alkaline amy sphatase measurementOrdered By: Kaylee Pink on 03-04-2025 ALP [Catalytic activity/Vol] 24 U/L Low 35-104 [facility] Serum or plasma calcium paul urement (mass/volume)Ordered By: Kaylee Pink on 03-04-2025 Calcium [Mass/Vol] 9.3 mg/dL 7.6-11.0 [facility] Serum or plasma urea nitroge n measurement (mass/volume)Ordered By: Kaylee Pink on 03-04-2025 Urea nitrogen [Mass/Vol] 13 mg/dL 4-19 [facility] Sodium levelOrdered By: Kaylee Pink on 03-04-2025 Sodium [Moles/Vol] 137 mmol/L 133-145 [facility] Total proteinOrdered By: Karen Valenciautzman on 03-04-2025 Protein [Mass/Vol] 7.6 g/dL 5.9-8.4 [facility] White blood cell (WBC) count Ordered By: Kaylee Pink on 03-04-2025 WBC (Bld) [#/Vol] 4.6 10*3/uL 4.4-11.0 [facility] CNPNon 09-17-2024 CNPN Telephone (RGMOB) -- JOSE JUAN JOSHI ([id number]) 1970 F Date Time Provider Department 09/17/24 JAZ PATEL [facility] During your visit today, we recorded the following information about you: Madison High 09/17/2024 8:04 AM Signed Patient is requesting disc and report of 08/14/24 XR FOOT LEFT and 07/17/24 XR TOE LEFT. Please notify patient when items are ready for pick up operator. 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 Kaylee Pink, DO Status[facility] Study: SCRN MAMM (CAD)W/ALBINA BILAT Date of Exam: 08/17 11/09 Exam# [id number] Ordering Dr: Jamee Gray [id number] MAMMOGRAPHY - BILATERAL SCREENING REASON FOR EXAM: [...] delay biopsy of a clinically suspicious abnormality. [id number] Electronically Signed: Carson Pinon MD at 10:33 EST , CC: Dr. Kaylee Pink DO; Dr. Jamee Gray MD Hand Sprayer: [facility]igned [facility]IWS ) -- JOSE JUAN JOSHI ([id number]) 1970 F Date Time Provider Department 08/14/24 2:15 PM GIOVANNI BEY During your visit today, we recorded the [...] SPEC WHEN PFRMD 05/14/15 Colonoscopy CYSTOSCOPY 2015 [facility] - IPAS LAPAROSCOPY [...] texture, turgor. (more content not included)... Normal [facility] XR FOOT 3V AP/LAT/OBL LTon 1 XR [...] preserved. There is an insertional Achilles enthesophyte. Hand Sprayer: ARCHANA Transcribe Date/Time: Aug 20 2024 7:39P Dictated by : HARLEY LINDER MD This examination was interpreted and the report reviewed and electronically signed by: HARLEY LINDER MD on Aug 20 2024 7:40PM EST [id number] Normal [facility] CNOVon 07-17-2024 CNOV Office Visit (UCWSTR ) -- JOSE JUAN JOSHI ([id number]) 1970 F Date Time Provider Department 07/17/24 5:30 PM HARSH VELAZQUEZ [facility] During your visit today, we recorded the following information about you: Temperature Pulse Respiration Blood pressure 98 degrees 73/minute 16/minute 128/80 Weight 65.4 kg Harsh Velazquez APRN.AIRPLANE PILOT 07/17/2024 7:14 PM Signed Subjective Female with complaints of left toe pain. Patient says she tripped over a toy. Patient says it is swollen and bruised. Patient says it is painful. Patient denies any numbness tingling or loss of feeling. The history is provided by the patient. No lock master was used. Review of Systems Constitutional: Negative. [...] SPEC WHEN PFRMD 05/14/15 Colonoscopy CYSTOSCOPY 2015 [facility] - IPAS LAPAROSCOPY [...] the distal phalanx of the third toe. Hand Sprayer: PSCB Transcribe Date/Time: Jul 17 2024 6:34P Dictated by : PREM DEGROOT MD 2. Closed nondisplaced fracture of distal phalanx of lesser toe of left foot, initial encounter - ICD9: 826.0, ICD10: S92.535A Was placed in a postop shoe. Patient was educated to follow-up with primary podiatry. Patient will rest ice elevate. Patient was okay with this care plan. Harsh Velazquez APRN.AIRPLANE PILOT Allergies As of Date: 07/17/2024 Noted Allergy [...] initial encounter [S92.535A] Order(s):XR TOE AP/LAT/OBL LEFT [2355053] Order #: [id number] FUTURE Prescriptions as of 07/17/2024 - ergocalciferol [...] needed. Pro (more content not included)... Normal [facility] XR TOE 3V AP/LAT/OBL LTon XR TOE [...] the distal phalanx of the third toe. Hand Sprayer: [facility] Transcribe Date/Time: Jul 17 2024 6:34P Dictated by : PREM DEGROOT MD This examination was interpreted and the report reviewed and electronically signed by: PREM DEGROOT MD on Jul 17 2024 6:36PM EST [id number] Normal [facility] XR Toes - left 3 Viewson IMPRESSION: Small chip/avulsion fracture involving the dorsal base of the distal phalanx of the third toe. Hand Sprayer: [facility] Transcribe Date/Time: Jul 17 2024 6:34P Dictated [...] the third toe. DIVISION OF RADIOLOGY Provider, [facility] - 07/17/2024 * * *Final Report* * [...] the distal phalanx of the third toe. Hand Sprayer: PSCB Transcribe Date/Time: Jul 17 2024 6:34P Dictated by : PREM DEGROOT MD This examination was interpreted and the report reviewed and electronically signed by: PREM DEGROOT MD on Jul 17 2024 6:36PM EST [facility] Radiology Study observation (narrative) [facility] XR Toes - left 3 ViewsOrdere d By: Ccf Provider on 07-17-2024 [facility] CNOVon 07-04-2024 CNOV Office Visit (ENDOMN ) -- JOSE JUAN JOSHI ([id number]) 1970 F Date Time Provider Department 07/04/24 11:00 AM JAMSHID DUBOIS ENDOMN During your visit today, we recorded the following information about you: Pulse Blood pressure Weight 67/minute 138/65 66 kg Pennie Wilson OCCA 07/04/2024 10:50 AM Signed Thank you for choosing the [facility] Department of Endocrinology, Diabetes and Metabolism. Did you know that you need to call 48 hours in advance of your scheduled visit, if you are unable to make your appointment? [facility] [place] thanks you for your commitment, because patients not showing to their appointment results in a lost opportunity for patients to receive world class health care at the [facility]. To Cancel an appointment, please choose one of the following: - Call the Appointment Call Center at [phone] - From [facility] [employer] [facility], Go to Appointments - Cancel Appts If cancelling, consider your need to reschedule to prevent further delays in your care. To Schedule an appointment, please choose one of the following: - Call the Appointment Call Center at [phone] - From [facility], Go to Appointments - Request an Appt [...] not c (more content not included)... Normal [facility] US Thyroid glandon [facility] Radiology Study observation (narrative) [facility] Celeste 02-02-2024 CNPN Telephone (ENDOMN) -- JOSE JUAN JOSHI ([id number]) 1970 F Date Time Provider Department 02/02/24 JAMSHID DUBOIS During your visit today, we recorded the following information about you: [employer] TeacherGrecia 02/02/2024 4:17 PM Signed Patient called in to let the office know she had her ultrasound done 02/01/24 and is asking for the office to review. Patient can be reached via my chart. Grecia Hummel Rn Lpn Lvn II [facility] Allergies As of Date: 02/02/2024 Noted Allergy [...] Status:Closed by JAMSHID DUBOIS on 02/03/24 Normal [facility] US THYROID/PARATHYROIDon US THYROID/PARATHYROID * * *Final Report * * * DATE OF EXAM: Jan 30 2024 9:33AM U 1048 - US THYROID/PARATHYROID / PROCEDURE REASON: [...] 2 points Echogenicity: Hypoechoic, 2 points Shape: [id number], 0 points Margin: Smooth, 0 points Echogenic [...] 2 points Echogenicity: Hypoechoic, 2 points Shape: [id number], 0 points Margin: Smooth, 0 points Echogenic [...] be communicated with the ordering provider via [employer] staff message or phone message by [facility] within 2 business days of report finalization. --END OF FINDING-- Hand Sprayer: PSCB Transcribe Date/Time: Feb 01 2024 1:23P Dictated by : LISA ROJAS MD This examination was interpreted and the report reviewed and electronically signed by: LISA ROJAS MD on Feb 01 2024 1:27PM EST [id number] ACTIONABLE Invalid Interpretation Code [facility] Absolute lymphocyte countOrd ered By: Kaylee Jacek on 12-19-2023 Lymphocytes Auto (Unsp spec) [#/Vol] 1.63 10*3/uL 0.83-4.51 [facility] Automated lymphocyte count a s percentage of total leukocytesOrdered By: Kaylee Pink on 12-19-2023 Lymphocytes/100 WBC Auto (Unsp spec) 28.9 % 19-41 [facility] Basophil percentageOrdered B y: Kaylee Jacek on 12-19-2023 Basophils/100 WBC (Bld) 1.1 % 0-1 [facility] Bilirubin [Mass/Vol] 0.50 mg/dL 0.20-1.00 [facility] Comment on above: For patients on eltr ombopag therapy, use of Dimension Bryan TBIL is not recommended. Chloride [Moles/Vol] 105 mmol/L 98-107 [facility] Cholesterol [Mass/Vol] 220 mg/dL <200 [facility] Comment on above: <200 mg/dL Desirable 200-240 mg/dL Borderline >240 mg/dL High Risk Eosinophils/100 WBC (Bld) 1.2 % 0-5 [facility] Glucose [Mass/Vol] 73 mg/dL 74-106 [facility] Hemoglobin (Bld) [Mass/Vol] 12.7 g/dL 12.0-15.0 [facility] Monocytes/100 WBC (Bld) 6.7 % 0-10 [facility] Neutrophils (Bld) [#/Vol] 3.5 10*3/uL 2.0-7.7 [facility] Neutrophils/100 WBC (Bld) 61.9 % 47-70 [facility] Potassium [Moles/Vol] 4.2 mmol/L 3.5-5.1 [facility] Protein [Mass/Vol] 7.5 g/dL 6.4-8.2 [facility] Sodium [Moles/Vol] 138 mmol/L 136-145 [facility] Triglyceride [Mass/Vol] 53 mg/dL <199 [facility] Comment on above: The drugs N-Acetylcy steine and Metamizole may falsely depress this assay.Serum Triglycerides Reference Interval Normal <150 mg/dL Borderline high 150 - 199 mg/dL High 200 - 499 mg/dL Very High > or = 500 mg/dL WBC (Bld) [#/Vol] 5.6 10*3/uL 4.4-11.0 [facility] Determination of erythrocyte mean corpuscular volume (MCV)Ordered By: Kaylee Pink on 12-19-2023 MCV (RBC) [Entitic vol] 88.9 fL 81-99 [facility] Erythrocyte distribution wid th ratioOrdered By: Kaylee Pink on 12-19-2023 Erythrocyte distribution width (RBC) [Ratio] 12.2 % 11.6-14.6 [facility] Erythrocyte distribution wid th standard deviationOrdered By: Kaylee Pink on 12-19-2023 Erythrocyte distribution width (RBC) [Entitic vol] 39.8 fL 35.1-43.9 [facility] Hematocrit Auto (Bld) [Volum e fraction]Ordered By: Kaylee Pink on 12-19-2023 Hematocrit (Bld) [Volume fraction] 39.4 % 37-47 [facility] Immature granulocytes/100 WB C Auto (Bld)Ordered By: Kaylee Pink on 12-19-2023 Immature granulocytes/100 WBC (Bld) 0.200 % 0.0-0.9 [facility] Comment on above: IG% - Immature Granu locytes (promyelocytes, myelocytes and metamyelocytes) > 1% indicates that a LEFT SHIFT is Present. Laboratory - Chemistry and C hemistry - challengeOrdered By: Kaylee Pink on 12-19-2023 Albumin/Globulin [Mass ratio] 1.0 {ratio} 0.9-2.4 [facility] ALP [Catalytic activity/Vol] 23 U/L 45-117 [facility] ALT [Catalytic activity/Vol] 20 U/L 13-56 [facility] Cholesterol in HDL [Mass/Vol] 90 mg/dL >40 [facility] Comment on above: The drugs N-Acetylcy steine and Metamizole may falsely depress this assay. Reference Range HDL <40 mg/dL Low HDL Cholesterol HDL >or= 60 mg/dL High HDL Cholesterol Cholesterol in LDL [Mass/Vol] 119 mg/dL 0-130 [facility] CO2 [Moles/Vol] 28.0 mmol/L 21.0-32.0 [facility] Globulin (S) [Mass/Vol] 3.8 g/dL 2.2-4.2 [facility] Urea nitrogen/Creatinine [Mass ratio] 17.3 mg/mg 10-20 [facility] Laboratory - Hematology and Cell countsOrdered By: Kaylee Pink on 12-19-2023 MCH (RBC) [Entitic mass] 28.7 pg 27.0-32.0 [facility] MCHC (RBC) [Mass/Vol] 32.2 g/dL 32-36 [facility] Nucleated RBC/100 WBC (Bld) [Ratio] 0 % 0-5 [facility] Platelet mean volume (Bld) [Entitic vol] 10.9 fL 6.2-12.0 [facility] Platelets (Bld) [#/Vol] 223 10*3/uL 150-450 [facility] No Panel InformationOrdered By: Kaylee Pink on 12-19-2023 Estimated GFR (MDRD) Amer 104 mL/min >60 [facility] Comment on above: GFR Calc Estimated GFR (MDRD) Non-Af Amer 86 mL/min >60 [facility] Comment on above: Non- GFR Calc Vitamin D 25-Hydroxy 34.5 ng/mL [facility] Comment on above: Vitamin D 25(OH) Sta tus Range Deficiency <20 ng/mL (50nmol/L) Insufficiency 20 - 30 ng/mL (50 - 75 nmol/L) Sufficiency 30 - 100 ng/mL (75 - 250 nmol/L) Toxicity >100 ng/mL (>250 nmol/L) VLDL Cholesterol 11 mg/dL 5-40 [facility] RBC Auto (Bld) [#/Vol]Ordere d By: Kaylee Pink on 12-19-2023 RBC (Bld) [#/Vol] 4.43 10*6/uL 4.2-5.4 [facility] Serum or plasma calcium paul urement (mass/volume)Ordered By: Kaylee Pink on 12-19-2023 Calcium [Mass/Vol] 9.2 mg/dL 8.5-10.1 [facility] Serum or plasma creatinine m easurement (mass/volume)Ordered By: Kaylee Pink on 12-19-2023 Creatinine [Mass/Vol] 0.75 mg/dL 0.55-1.02 [facility] Comment on above: The validity of the calculated GFR & GFRAA in patients over 70 years has not been determined. Clinical correlation is essential. Serum or plasma thyroid stim ulating hormone (TSH) measurement (units/volume)Ordered By: Kaylee Pink on 12-19-2023 TSH Qn 1.23 uIU/mL 0.358-3.74 [facility] Serum or plasma urea nitroge n measurement (mass/volume)Ordered By: Kaylee Pink on 12-19-2023 Urea nitrogen [Mass/Vol] 13 mg/dL 7-18 [facility] Thin prep Papanicolaou smear with manual screeningOrdered By: Kaylee Pink on 12-19-2023 Thin prep Papanicolaou smear with manual screening 3.7 g/dL 3.2-5.0 [facility] Thin prep Papanicolaou smear with manual screening 21 U/L 15-37 [facility] Thin prep Papanicolaou smear with manual screening 5 5-15 [facility] Thin prep Papanicolaou smear with manual screening 0.91 ng/dL 0.76-1.46 [facility] Culture, urineOrdered By: Genet Pink on 06-03-2023 Bacteria identified Cx Nom (U) Positive [facility] No Panel InformationOrdered By: Jamee Gray on 05-03-2023 Follicle Stimulating Hormone 14.3 mIU/mL [facility] Comment on above: NORMAL REFERENCE RAN GES FEMALE FOLLICULAR 2.3 - 12.6 mIU/mL MID-CYCLE PEAK 5.2 - 17.5 mIU/mL LUTEAL 1.7 - 12.9 mIU/mL POST-MENOPAUSAL ON MHT 5.9 - 72.8 mIU/mL NOT ON MHT 12.7 - 132.2 mlU/mL MALE 0.7 - 10.8 mIU/mL Serum or plasma estradiol (E 2) measurement (mass/volume)Ordered By: Jamee Gray on 05-03-2023 E2 [Mass/Vol] 435.5 pg/mL [facility] Comment on above: NORMAL REFERENCE RAN [...] report Cyto stain Doc (Cvx/Vag) Comment . [facility] Comment on above: The Pap smear [...] DNA Probe+sig amp Ql (Cvx) Negative Negative [facility] Comment on above: This nucleic acid am plification test detects fourteen high- risk HPV types (16,18,31,33,35,39,45,51,52,56,58,59,66,68)without differentiation. Laboratory - CytologyOrdered By: Cait Torrez on 03-21-2023 Platform Attendant Cyto stain Nom (Cvx/Vag) [ID] Comment . [facility] Comment on above: Kelsy Santillan, [employer] hnologist (ASCP) Laboratory - Miscellaneous t estsOrdered By: Cait Torrez on 03-21-2023 Service comment (Unsp spec) [Interp] Comment . [facility] Comment on above: This liquid based Th inPrep(R) pap test was screened withthe use of an image guided system. Service comment (Unsp spec) [Interp] . . [facility] Liquid-based cerv Pap + CT/G C by CHRISTOPHER w reflex to high-risk HPV for ASCUSOrdered By: Cait Torrez on 03-21-2023 Cytology report Cyto stain.thin prep Doc (Cvx/Vag) Comment . [facility] Comment on above: Criteria not met, HP V Genotype not performed.Performed at: WB - [facility] [id number] [id number] Director: Delia Barbosa MD, Phone: [phone] at: [facility] Cy[id number] [place], [place] [id number] Director: Juve Zapata MD, Phone: [phone] at: =G - [facility] [address], [place] [id number] Director: Delia Barbosa MD, Phone: [phone] No Panel InformationOrdered By: Cait Torrez on 03-21-2023 Pap Smear QC Review Comment . [facility] Comment on above: Lisa Sinclair ytotechnologist (ASC) Pathology report final diagnosis Narrative Comment . [facility] Comment on above: NEGATIVE FOR INTRAEP ITHELIAL LESION OR MALIGNANCY.THIS SPECIMEN WAS RESCREENED PART OF OUR FIELD ASSESSOR PROGRAM. Miscellaneous Test Comment MAILED SPECIMEN [facility] No Panel Informationon 03-31 Follicle Stimulating Hormone 1.7 mIU/mL [facility] Work Phone: Comment on above: NORMAL REFERENCE RAN GES FEMALE FOLLICULAR 2.3 - 12.6 mIU/mL MID-CYCLE PEAK 5.2 - 17.5 mIU/mL LUTEAL 1.7 - 12.9 mIU/mL POST-MENOPAUSAL ON MHT 5.9 - 72.8 mIU/mL NOT ON MHT 12.7 - 132.2 mlU/mL MALE 0.7 - 10.8 mIU/mL [facility] 08-17-2017 CNPN Telephone (UROLAE) DYLANJOSE JUAN BARRETO ([id number]) 1970 FDate Time Provider Ajbhlwclut16/1/17 MONA VALLEJO (MAURO) HEMANT During your visit today, we recorded the following information about you:Reyes Garcia MA 08/17/2017 9:28 AM SignedPatient called for urine culture results. Please advise. Thank you.Reyes Vallejo CNP, CNP 08/17/2017 1:18 PM SignedPlease call patientbalbina sent [...] by MONA VALLEJO on 08/17/17 [facility] CNPN Telephone (UROLAE) JOSE JUAN JOSHI ([id number]) 1970 [facility] Time Provider Egcoylcajj41/1/17 BOLIVAR DEL TORO During your visit today, [...] patient both antibiotics would cover the bacteria.Reyes Carmona 08/17/2017 2:31 PM SignedStacy called requesting to speak with you. She asked if you could call her backregarding concerns about her UTI. Phone # is .Lety Tinsleydeena Call As of Date: 08/17/2017 Noted Allergy [...] DEL TORO MD on 08/17/17 [facility] CNPOtilia 08-08-2017 VICTORINO Telephone (UROLAE) DYLANJOSE JUAN BARRETO ([id number]) 1970 FDate Time Provider Kbtaoravkc74/23/17 BOLIVAR DEL TORO During your visit today, we recorded the following information about you:Eva Batista MA 08/08/2017 11:56 AM SignedPt called asking for urine culture resultsBolivar Del Toro MD 08/09/2017 8:39 AM SignedRX sent to pharmacy for uti.Please confirm with patient.Thank youEva Batista MA 08/09/2017 8:51 AM SignedPt should take amoxicillianTamara Lynne MAYA 08/09/2017 9:00 AM SignedThe Rx for amoxicillin was not sent please give directions and I will call inRx to her pharmacyEva Batista MA 08/09/2017 9:17 AM SignedPt aware [...] by BOLIVAR DEL TORO MD on 08/09/17 [facility] (UROLAE) JOSE JUAN JOSHI ([id number]) 1970 [facility] Time Provider Department06/07/17 2:45 PM BOLIVAR DEL TORO During your visit today, we recorded the following information about you: Blood pressure Weight Height 118/74 65.8 kg 1.702 Deysi Del Toro MD 06/07/2017 4:23 PM SignedESTABLISHED PATIENT VISITHPBenny Joshi is a 46 year old female who presents uti symptoms started [id number].Recent uti April entercoccus - amoxicillinNo bladder symptoms [...] no follow-up imaging of theselesions.Color/Appeara nce (comment:)Date 06/07/2017 yellow/clear Gluc ose, Urine (mg/dL)Date 06/07/2017 neg Bilirubin, Urine (no units)Date 06/07/2017 neg Ketones, Urine (no units)Date 06/07/2017 trace Specific [place], Ur (no units)Date 06/07/2017 1.024 Hemoglobin/ Blood,Ur (no units)Date 06/07/2017 neg pH, Urine (no units)Date 06/07/2017 6.0 Protein, Urine (mg/dL)Date 06/07/2017 neg Nitrites (no units)Date 06/07/2017 neg REVIEW [...] Wt 65.8 kg (145 lb) BMI 22.71 kg/x9RBRHVTIGXU/PLAN:1. Urinary tract infection, site not specified- UA [...] Small amount (pea sized) twice weeklyCranberryVaccinium Macrocarpon Lao Cranberry Proanthocyanidins 36 mg daily 3600mg Cranberry [...] infection, site not specified [N39.0]Order(s):UA DIP B/O [[id number]] Order #: [id number] Methenamine Hippurate (HIPREX) 1 gram tabletTake 1 tablet by mouth twice daily.Disp: 60 tabletRfl: 11 URINE CULTURE [SQURCUL] Order #: [id number] URINE CULTURE [SQURCUL] Order #: [id number] STANDINGPrescriptions as of 06/07/2017 Sig: NUVARING 0.12 [...] PM Not taking LORAZEPAM ORAL >> Reyes Jose MAYA 06/07/2017 3:00 PM >> JOSE MAYAREYESkarmen Jun 07, 2017 3:00 PM Not takingProblem [...] (pea sized) twice weekly Cranberry Vaccinium Macrocarpon Lao Cranberry Proanthocyanidins 36 mg daily 3600mg Cranberry [...] by BOLIVAR DEL TORO MD on 06/07/17 [facility] Cult Urineon 08-22-2017 Cult Urine Test performed at [facility] Mixed skin zi. No further identification or susceptibility testing will be performed. Please submit a new specimen. Plates will be held for [address] [facility] Comment on above: Performed By: #### C _URI ####[facility] [place], [place] [address] PROGRESSon 06-07-2017 PROGRESS HNO ID: [id number] thor: Bolivar Dean: (none)Author Type: PhysicianType: Progress [...] Ketones, Urine (no units)Date Value06/07/2017 trace Specific [place], Ur (no units)Date Value06/07/2017 1.024 Hemoglobin/ Blood,Ur [...] Wt 65.8 kg (145 lb) BMI 22.71 kg/c6QTPWWXFAUX/PLAN:1. Urinary tract infection, site not specified- UA DIP B/O Normal [facility] URINE CULTUREon 06-01-2017 Urine culture, bacteria URINE RESULT 15-20,000 COL/ML MIXED ZI-PLEASE REPEAT-POSSIBLE CONTAMIN Normal [facility] Comment on above: Performed By: #### M [id number] ####[facility] [id number] [place], [place] [address]Wh# [phone] Vital Signs Date Time Vital Sign Value Performing Clinician Facility 08-05-2025 11:14-0400 Body height 167.[address] Kaylee Pink DO Work Phone: [facility] 08-05-2025 11:14-0400 Body mass index (BMI) [Ratio] 23.9 kg/m2 Dr. Kaylee Pink DO Work Phone: [facility] 08-05-2025 11:14-0400 Body weight 67.[address] Kaylee Pink DO Work Phone: [facility] 08-05-2025 11:14-0400 Diastolic blood pressure 79 mm[Hg] Dr. Kaylee Pink DO Work Phone: [facility] 08-05-2025 11:14-0400 Systolic blood pressure 122 mm[Hg] Dr. Kaylee Pink DO Work Phone: [facility] 07-15-2025 11:09-0400 Body temperature 97.8 [degF] Dr. Kaylee Pink DO Work Phone: [facility] 07-15-2025 11:09-0400 Diastolic blood pressure 60 mm[Hg] Dr. Kaylee Pink DO Work Phone: [facility] 07-15-2025 11:09-0400 Heart rate 85 /min Dr. Kaylee Pink DO Work Phone: [facility] 07-15-2025 11:09-0400 Respiratory rate 16 /min Dr. Kaylee Pink DO Work Phone: [facility] 07-15-2025 11:09-0400 SaO2% (BldA) [Mass fraction] 100 % Dr. Kaylee Pink DO Work Phone: [facility] 07-15-2025 11:09-0400 Systolic blood pressure 111 mm[Hg] Dr. Kaylee Pink DO Work Phone: [facility] 07-15-2025 08:42-0400 Body height 167.[address] Kaylee Pink DO Work Phone: [facility] 07-15-2025 08:42-0400 Body mass index (BMI) [Ratio] 23.3 kg/m2 Dr. Kaylee Pink DO Work Phone: [facility] 07-15-2025 08:42-0400 Body weight 65.[address] Kaylee Pink DO Work Phone: [facility] 07-17-2024 17:31-0400 Body mass index (BMI) [Ratio] 22.52 kg/m2 Harsh Velazquez APRN.[employer] Work Phone: [facility] 07-17-2024 17:31-0400 Body temperature 98.01 [degF] Harsh Velazquez APRN.[employer] Work Phone: [facility] 07-17-2024 17:31-0400 Body weight 65.4 kg Harsh Velazquez APRN.[employer] Work Phone: [facility] 07-17-2024 17:31-0400 Diastolic blood pressure 80 mm[Hg] Harsh Velazquez APRN.[employer] Work Phone: [facility] 07-17-2024 17:31-0400 Heart rate 73 /min Harsh Velazquez APRN.[employer] Work Phone: [facility] 07-17-2024 17:31-0400 Respiratory rate 16 /min Harsh Velazquez APRN.[employer] Work Phone: [facility] 07-17-2024 17:31-0400 SaO2% (BldA) [Mass fraction] 99 % Harsh Velazquez APRN.[employer] Work Phone: [facility] 07-17-2024 17:31-0400 Systolic blood pressure 128 mm[Hg] Harsh Velazquez APRN.CNP Work Phone: [facility] 07-04-2024 10:56-0400 Body mass index (BMI) [Ratio] 22.73 kg/m2 Jamshid Dubois MD Work Phone: [facility] 07-04-2024 10:56-0400 Body weight 66 kg Jamshid Dubois MD Work Phone: [facility] 07-04-2024 10:56-0400 Diastolic blood pressure 65 mm[Hg] Jamshid Dubois MD Work Phone: [facility] 07-04-2024 10:56-0400 Heart rate 67 /min Jamshid Dubois MD Work Phone: [facility] 07-04-2024 10:56-0400 Systolic blood pressure 138 mm[Hg] Jamshid Dubois MD Work Phone: [facility] 06-13-2023 13:11-0400 Body height 167.[address] Kaylee Pink Work Phone: [facility] 06-13-2023 13:09-0400 Body mass index (BMI) [Ratio] 23.6 kg/m2 Dr. Kaylee Pink Work Phone: [facility] 06-13-2023 13:09-0400 Body weight 66.[address] Kaylee Pink Work Phone: [facility] 06-13-2023 13:09-0400 Diastolic blood pressure 76 mm[Hg] Dr. Kaylee Pink Work Phone: [facility] 06-13-2023 13:09-0400 Systolic blood pressure 115 mm[Hg] Dr. Kaylee Pink Work Phone: [facility] 05-03-2023 12:55-0400 Body mass index (BMI) [Ratio] 23.4 kg/m2 Kaylee ROSEN [facility] 05-03-2023 12:55-0400 Body weight 65.88 kg Kaylee [facility] 05-03-2023 12:55-0400 Diastolic blood pressure 90 mm[Hg] Kaylee [facility] 05-03-2023 12:55-0400 Systolic blood pressure 131 mm[Hg] Kaylee [facility] 03-21-2023 10:02-0400 Body height 167.64 cm Kaylee [facility] 03-21-2023 09:46-0400 Body mass index (BMI) [Ratio] 23.3 kg/m2 Kaylee [facility] 03-21-2023 09:46-0400 Body weight 65.48 kg Kaylee [facility] 03-21-2023 09:46-0400 Diastolic blood pressure 77 mm[Hg] Kaylee [facility] 03-21-2023 09:46-0400 Systolic blood pressure 120 mm[Hg] Kaylee [facility] 12-23-2022 08:46-0500 Body height 170.4 cm Melina Tranchito DO Work Phone: [facility] 12-23-2022 08:46-0500 Body weight 64.41 kg Melina Tranchito DO Work Phone: [facility] 12-23-2022 08:46-0500 Diastolic blood pressure 60 mm[Hg] Melina Tranchito DO Work Phone: [facility] 12-23-2022 08:46-0500 Heart rate 69 /min Melina Tranchito DO Work Phone: [facility] 12-23-2022 08:46-0500 Systolic blood pressure 115 mm[Hg] Melina Tranchito DO Work Phone: [facility] Encounters Encounter Date Encounter Type Care Provider Facility Start: 09-02-2025 ambulatory Jamee Peterson lity:[facility] Start: 08-06-2025 Encounter for other preprocedural examination [facility] Start: 08-05-2025 End: 08-05-[address] Jamee Gray MD -Laboratory Work Phone: Start: 08-05-2025 End: 08-05-[address] Jamee Gray MD -[facility] Work Phone: Start: 08-05-2025 End: 08-05-[address] Jamee Gray MD [facility] Start: 08-05-2025 End: 08-05-2025 ambulatory Jamee Gray [facility] Start: 08-05-2025 End: 08-05-2025 ambulatory Jamee Gray Facility:[facility] Start: 07-24-2025 End: 07-24-[address] Dhruv Monroe MD -Laboratory Work Phone: Start: 07-24-2025 End: 07-24-2025 ambulatory Dhruv Monroe Facility:[facility] Start: 07-15-2025 ambulatory Elham Curtis Facilit y:[facility] Start: 07-15-2025 Non-patient / Non-visit Dr. Zhen Curtis MD -[facility] Start: 07-15-2025 End: 07-15-2025 Admission to same [...] Start: 06-24-2025 End: 06-24-2025 ambulatory Dhruv Monroe Facility:[facility] Start: 03-26-2025 End: 03-26-[address] Kaylee Pink DO Work Phone: [facility] Work Phone: Start: 03-26-2025 End: 03-26-[address] Kaylee Pink DO -Radiology [place] Work Phone: Start: 03-26-2025 End: 03-26-[address] Kaylee Pink DO Work Phone: [facility] Work Phone: Start: 03-26-2025 End: 03-26-[address] Kaylee Pink DO -Ultrasound [facility] Work Phone: Start: 03-26-2025 End: 03-26-2025 ambulatory Kaylee Pink Facility:[facility] Start: 03-09-2025 End: 03-09-[address] Kaylee Pink DO Work Phone: [facility] Work Phone: Start: 03-09-2025 End: 03-09-[address] Kaylee Pink DO -Ultrasound [facility] Work Phone: Start: 03-09-2025 End: 03-09-2025 ambulatory Kaylee Pink Facility:[facility] Start: 03-04-2025 End: 03-04-[address] Kaylee Pink DO -Laboratory [place] Work Phone: Start: 03-04-2025 End: 03-04-2025 ambulatory Kaylee Pink Facility:[facility] Start: 09-17-2024 End: 11-29-2024 Telephone encounter Jaz Patel [facility] Radiology Comment on above: Release Of Medical R ecords (Imaging Disc/Report) Start: 08-27-2024 End: 08-27-2024 ambulatory Jamee Gray Facility:[facility] Start: 08-14-2024 End: 08-14-2024 Patient encounter procedure Giovanni Bey Work Phone: Podiatry Comment on above: Closed nondisplaced fracture of phalanx of lesser toe of right foot, unspecified phalanx, initial encounter (Primary Dx); Onychodystrophy; Calcaneal spur of foot, left Start: 08-14-2024 End: 08-14-2024 [facility] Facility:[facility] Start: 08-14-2024 End: 08-14-2024 Subsequent hospital visit by physician Marcella [facility] Work Phone: Radiology Comment on above: Closed nondisplaced fracture of distal phalanx of lesser toe of left foot with routine healing, subsequent encounter [S92.535D] Start: 08-13-2024 End: 08-13-2024 Orders Only Giovanni Bey Work Phone: Podiatry Comment on above: Closed nondisplaced fracture of distal phalanx of lesser toe of left foot with routine healing, subsequent encounter (Primary Dx) Start: 07-17-2024 End: 07-17-2024 Subsequent hospital visit by physician Marcella [facility] [place] Work Phone: Radiology Comment on above: Pain [R52] Start: 07-17-2024 End: 07-17-2024 [facility] Facility:[facility] Start: 07-17-2024 End: 07-17-2024 Patient encounter procedure Harsh Velazquez APRN.[employer] Work Phone: [facility] Comment on above: Pain (Primary Dx); Closed nondisplaced fracture of distal phalanx of lesser toe of left foot, initial encounter Start: 07-04-2024 End: 07-04-2024 [facility] Facility:[facility] Start: 07-04-2024 End: 07-04-2024 Patient encounter procedure Jamshid Dubois MD Work Phone: Endocrinology Comment on above: Multiple thyroid nod ules (Primary Dx) Start: 02-02-2024 Telephone encounter Jamshid byrnes MD Work Phone: Endocrinology Comment on above: Patient Update Start: 01-30-2024 End: 01-30-2024 ambulatory [facility] Facility:[facility] Start: 01-30-2024 End: 01-30-2024 Subsequent hospital visit by physician [facility] Work Phone: Radiology Comment on above: 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 Kaylee Pink Work Phone: [facility] Work Phone: Start: 08-22-2023 End: 08-22-[address] Kaylee Pink Work Phone: [facility]-Outpatient Breast Imaging Work Phone: Start: 06-13-2023 End: 06-13-[address] Kaylee Pink Work Phone: [facility] Work Phone: Start: 06-03-2023 End: 06-03-[address] Kaylee Pink Work Phone: [facility] [place] Work Phone: Start: 05-03-2023 End: 05-03-2023 ambulatory Kaylee ROSEN [facility] Work Phone: Start: 05-03-2023 End: 05-03-2023 Patient encounter procedure Kaylee ROSEN [facility]-Laboratory, [facility] Start: 05-03-2023 End: 05-03-2023 Patient encounter procedure Kaylee ROSEN [facility] Work Phone: Start: 03-28-2023 End: 03-28-2023 ambulatory Kaylee ROSEN [facility] Work Phone: Start: 03-28-2023 End: 03-28-2023 Patient encounter procedure Kaylee ROSEN [facility]-Ultrasound, [facility] Start: 03-21-2023 Patient encounter procedure Kaylee ROSEN [facility] Start: 03-21-2023 End: 03-21-2023 Patient encounter procedure Kaylee ROSEN [facility]-Laboratory, [facility] Start: 03-21-2023 End: 03-21-2023 Patient encounter procedure Kaylee ROSEN [facility] Start: 12-23-2022 End: 12-23-2022 Patient encounter procedure Melina Vieira DO Work Phone: Endocrinology Comment on above: Multiple thyroid nod ules (Primary Dx) Start: 12-20-2022 End: 12-20-2022 Patient encounter procedure Kaylee ROSEN [facility]-MRI - [facility] Start: 12-06-2022 End: 12-06-2022 Patient encounter procedure Kaylee ROSEN [facility]-Ultrasound, [facility] Start: 08-16-2022 End: 08-16-2022 ambulatory [facility] Work Phone: Start: 08-16-2022 End: 08-16-2022 Patient encounter procedure [facility]-Outpatient Breast Imaging Start: 03-31-2022 End: 03-31-2022 Patient encounter procedure [facility]-Laboratory, [facility] [employer] Start: 06-07-2017 End: 06-08-2017 Ambulatory [facility] Start: 06-07-2017 End: 06-07-2017 Ambulatory BOLIVAR Perez [facility] Start: 05-30-2017 Ambulatory Bolivar Porras Lamar Facilit y:[facility] Procedures Date Procedure Procedure Detail Performing Clinician Start: 07-24-[address] Kaylee Pink DO Work Phone: Start: 07-15-[address] Kaylee cross DO Work Phone: Start: 06-24-[address] Kaylee Pink DO Work Phone: Start: 03-26-2025 Plain X-ray of shoulder Dr. Kaylee Pink DO Work Phone: Start: 03-26-[address] Kaylee Pink DO Work Phone: Start: 03-09-2025 US scan of thyroid Dr. Kaylee Pink DO Work Phone: Start: 07-17-2024 Radex toe minimum 2 views Harsh Velazquez APRN.[employer] Work Phone: Start: 07-04-2024 Us soft tissue [...] Treatment Date Care Activity Detail Author Start: 09-02-2025 MG Breast - bilatera l Screening [facility] Start: 07-15-2025 End: 07-15-2025 Colonoscopy [facility] Start: 07-15-2025 Non-patient / Non-visit Non-patient / Non-visit -[facility] Start: 07-15-2025 End: 07-15-2025 Admission to same day surgery center Nausea -Endoscopy Work Phone: Start: [facility] Start: 08-14-2024 End: 08-14-2024 Patient encounter procedure Podiatry Comment on above: broken toe 3rd,Lt Xray Start: 06-17-2024 Covid-19 Vaccine ( season) Covid-19 Vaccine () [facility] Start: 06-17-2024 Covid-19 Vaccine ( season) Covid-19 Vaccine ( season) [facility] Start: 06-17-2024 Influenza vaccination C [facility] Start: 10-17-2023 Behavioral Health Screening Behavioral Health Screening [facility] Start: 06-17-2023 Covid-19 Vaccine ( season) Covid-19 Vaccine ( season) [facility] Start: 10-17-2022 DEPRESSION ASSESSMENT DEPRESSION ASS ESSMENT [facility] Start: 06-17-2022 Influenza vaccination INFLUENZA (#1) [facility] Start: 07-19-2021 DIABETES SCREEN DIABETES SCREEN [facility] Start: 07-19-2021 Diabetes Screening Diabetes Screenin g [facility] Start: 2020 Pneumococcal Vaccine : 50+ (1 of 1 - PCV) Pneumococcal Vaccine: 50+ (1 of 1 - PCV) [facility] Start: 2020 SHINGRIX VACCINE (1 of 2) SHINGRIX VACCINE (1 of 2) [facility] Start: 05-14-2020 Colonoscopy COLONOSCOPY [facility] Start: 05-14-2020 COLORECTAL CANCER SCREENING COLORECTAL CANCER SCREENING [facility] Start: 05-14-2020 Screening for malign ant neoplasm of colon [facility] Start: 2015 COLOGUARD (FIT-DNA) COLOGUARD (FIT-D NA) [facility] Start: [address] COLONOGRAPHY [facility] Start: 2015 FECAL OCCULT BLOOD FECAL OCCULT BLOO D [facility] Start: 2015 Lipid panel Lipid Screening [facility] Start: 2015 LIPID SCREEN LIPID SCREEN [facility] Start: 2015 Screening for malign ant neoplasm of colon [facility] Start: 2015 SIGMOIDOSCOPY SIGMOIDOSCOPY [facility] Start: 2010 Mammography MAMMOGRAM [facility] Start: 2010 Screening for malign ant neoplasm of breast Mammogram Screening [facility] Start: 06-05-2005 Urine microalbumin profile [facility] Start: 2000 HPV TESTING HPV TESTING [facility] Start: 2000 Screening for malign ant neoplasm of cervix HPV Testing [facility] Start: 1991 PAP TESTING PAP TESTING [facility] Start: 1991 Screening for malign ant neoplasm of cervix [facility] Start: 1989 Hepatitis B Vaccine (1 of 3 - 19+ 3-dose series) Hepatitis B Vaccine (1 of 3 - 19+ 3-dose series) [facility] Start: 1988 Anxiety Screening Anxiety Screening [facility] Start: 1988 Depression Screening Depression Scre ening [facility] Start: 1988 HEPATITIS C SCREENING HEPATITIS C [facility] Start: 1988 Hepatitis C screening Hepatitis C [facility] Start: 1988 HIV SCREENING HIV SCREENING [facility] Start: 1988 HIV screening HIV Screening [facility] Start: 04-04-1971 COVID-19 VACCINE (#1) COVID-19 VACCI NE (#1) [facility] Start: 1970 HEPATITIS B (1 of 3 - 3-dose series) HEPATITIS B (1 of 3 - 3-dose series) [facility] MG Breast - bilatera l Screening [facility] US Pelvis [facility] End: 09-12-2025 XR Foot - left AP and Lateral and oblique XR FOOT GENERAL 3V AP/LAT/OBL LEFT Radiology Routine Closed nondisplaced fracture of distal phalanx of lesser toe of left foot with routine healing, subsequent encounter 1 Occurrences starting 08/13/2024 until 09/12/2025 [facility] Work Phone: Comment on above: 1 Occurrences starti ng 08/13/2024 until 09/12/2025 XR Foot - left AP an d Lateral and oblique XR FOOT GENERAL 3V AP/LAT/OBL LEFT Radiology Routine Closed nondisplaced fracture of distal phalanx of lesser toe of left foot with routine healing, subsequent encounter 08/14/2024 1:52 PM EDT [facility] Work Phone: Immunizations Immunization Date Immunization Notes Care Provider Irene wei 06-04-2005 tetanus and diphther ia toxoids, not adsorbed, for adult use Melina Vieira DO Work Phone: [facility] Work Phone: Payers Date Payer Category Payer Self-pay [id number] 2007 [employer] BLUE CARD PPO OOS [id number] 2007 Unknown [employer] BLUE CARD PPO OOS [id number] 2007-Present [phone] [address] [place] [address] PPO [id number] 2007 Unknown [id number] Unknown [id number] Unknown [id number] Unknown [id number] Unknown [id number] Unknown [id number] Unknown [id number] Unknown [id number] Unknown [id number] Unknown [id number] Unknown [id number] Unknown [id number] Unknown [id number] Social History Date Type Detail Facility Start: 06-29-2016 End: 06-13-2023 Tobacco smoking status MNIS Unknown if ever smoked [facility] Start: 1970 Sex Assigned At Female [facility] Start: 07-30-2024 End: 07-15-2025 Tobacco smoking status NHIS Never smoked tobacco [facility] Start: 12-23-2022 End: 08-14-2024 Alcohol intake Current non-drinker of alcohol (finding) [facility] Start: 1970 Sex Assigned At Not on file C [facility] Start: 12-23-2022 End: 07-04-2024 History of Social function [facility] Start: 12-23-2022 End: 07-04-2024 Tobacco use panel [facility] National Score (1-10 0), lower number is lower risk 52 [facility] Goals Date Patient Goal Desired Activity /State Functional Status Date Assessment Result Facility 05-21-2015 Are you deaf, or do you have serious difficulty hearing No 05/21/2015 10:10 AM Alana Martinez LPN No [facility] 05-21-2015 Are you blind, or do you have serious difficulty seeing, even when wearing glasses No 05/21/2015 10:10 AM Alana Martinez LPN No [facility] 05-21-2015 Do you have serious difficulty walking or climbing stairs No 05/21/2015 10:10 AM Alana Martinez LPN No [facility] 05-21-2015 Do you have difficul ty dressing or bathing No 05/21/2015 10:10 AM Alana Martinez LPN No [facility] 05-21-2015 Because of a physica l, mental, or emotional condition, do you have difficulty doing errands alone such as visiting a physician's office or shopping No 05/21/2015 10:10 AM EDT Alana Paris LPN No [facility] Mental Status Date Assessment Result Facility 07-15-2025 Cognitive function [facility] Work Phone: 07-15-2025 Cognitive function Patient Orientation Pe rson [facility] Work Phone: 05-21-2015 Because of a physica l, mental, or emotional condition, do you have serious difficulty concentrating, remembering, or making decisions No 05/21/2015 10:10 AM EDT Alana Paris LPN No [facility] Clinical Notes 12-23-2022 to 08-05-2025 Note Date & Type Note Facility 08-05-2025 Progress note [facility] 07-15-2025 Procedure note [facility] 07-15-2025 Procedure note [facility] 07-15-2025 History and physical note Note Date/Time July 15, 2025 9:38am [facility] Medical Records Department [address] [place] [address] History & Physical Exam 07/15/25927 MR#: [id number] Acct: [id number] Name: JOSE JUAN JOSHI Rep #:[id number] : 1970 54 From: Elham Curtis MD PCP: Dr. Kaylee Pink, DO Status:[facility] Location: [place] [address] HPI - General General Date of Service: 07/15/25 HPI Narrative JOSE JUAN JOSHI, is a 54 F who presents for screening colonoscopy. Patient's lastcolonoscopy was about 10 years ago at [facility] per patient negative. Patient states her mom [...] every night currently not on any medication. [facility] Medical History Wears glasses Thyroid disease Arthritis [...] 2 current occupational status: employed current occupation: [employer] Smoking Status: Never smoker alcohol intake: current [...] 08:41) Discharge Is Pt Admitted From a Shelter, or a [place] [facility]: No Who Could Help: After D/C, Where [...] (2) Nausea: PLAN: Plan Recommend patient trying [id number]-[id number]-[id number] omeprazole 20 to 40 mg p.o. daily [...] inability to complete colonoscopy requiring barium enema. 07/15/2538 <Electronically signed by Elham Curtis MD> Cosigner Signature (if applicable): CC: Dr. Kaylee Pink, DO; Dr. Elham Curtis MD~ Signed [facility] Work Phone: 1(486) 747-161409-29-2025 Consult note Author Go Chen [facility] Note Date/Time July 15, 2025 9:07am [facility] Medical Records Department [address] [place] [address] Pre-Anesthesia Evaluation 07/15/25901 MR#: [id number] Acct: [id number] Name: JOSE JUAN JOSHI Rep #:[id number] : 1970 54 From: Go Tamayo PCP: Dr. 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: Anesthesia History - powerhouse operator Hx Hospitalization No 07/10/25 13:54 Any Problems [...] take am of surgery PONV PONV - powerhouse operator: PONV - powerhouse operator Female Yes 07/10/25 13:54 HX of Motion [...] 07/15/25 08:42 Respiratory Assessment Respiratory Assessment - powerhouse operator: Respiratory Tract Infection Hx - powerhouse operator Hx Respiratory Tract Infection Yes: COLD SYMPTOMS, WILL 07/10/25 13:54 CALL IF SYMPTOMS STOP Sleep Apnea STOP Sleep Apnea - powerhouse operator: STOP Sleep Apnea - powerhouse operator Hx Hypertension No 07/10/25 13:54 Hx Sleep [...] Tobacco Use History Tobacco Use History - powerhouse operator: Tobacco Use History - powerhouse operator Tobacco Use Smoking Status Never smoker 07/10/25 13:54 Hx Tobacco Use No 07/10/25 13:54 Years Smoking Packs Smoked per Day Smoking Cessation Date was within the last 15 years Hx Smoking Cessation Date Hx Smoking Cessation Counseling Hematologic Medial History Hematologic Hx - powerhouse operator: 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 Specify any problems Hx of Preganancy in last 3 No 07/10/25 13:54 Months Nurse Filling Out Transfusion [facility] 07/10/25 13:54 & Questions: Date: 07/10/25 07/10/25 13:54 Time: 14:01 07/10/25 13:54 Patient unable to answer at this time (ie. confused, unrespo /Reproduction History /Reproductive History - powerhouse operator: /Reproductive Hx- powerhouse operator Hx Now No 07/10/25 13:54 Gestational Age [...] 2 current occupational status: employed current occupation: [employer] Smoking Status: Never smoker alcohol intake: current [...] MD Cosigner Signature: Date CC: ~ Signed [facility] Work Phone: 1(663) 733-771809-29-2025 Consult note [facility] Medical Records Department [address] [place] [address] Anesthesia Postop Eval I 07/15/25 1046 MR#: [id number] Acct: [id number] Name: JOSE JUAN JOSHI Rep #:[id number] : 1970 54 From: Thao lundberg CRNA PCP: Dr. Kaylee Pink, DO Status:[place] [facility] [place] Race: C Location: [place] [address] Anesthesia: Postop Eval I Current Vital Signs [...] Postop Eval 1 completed: No 07/15/25 1047 elis WARD ATTENDANT> Date _ Thao Hansen WARD ATTENDANT Cosigner Signature: Date CC: ~ Signed [facility]09-29-2025 Evaluation note* Diagnosis Onset Date Resolution Status Admit Date Nausea acute June 8:13am Screening for colon cancer acute July 15, 2025 8:13am [facility] Work Phone: 1(984) 801-358909-29-2025 Evaluation note* Diagnosis Onset Date Resolution Status Admit Date Nausea acute June 8:13am Screening for colon cancer acute July 15, 2025 8:13am Climacteric acute August 05, 2025 11:09am Family history of breast cancer acute August 05 11:09am Premenopausal postcoital bleeding acute August 05 11:09am Encounter for routine gynecological examination noneactive Octobe r 2024 11:09am [facility] Work Phone: 1(224) 295-964609-29-2025 History and physical note [facility] Medical Records Department [address] [place] [address] History & Physical Exam 07/15/25927 MR#: [id number] Acct: [id number] Name: JOSE JUAN JOSHI Rep #:[id number] : 1970 54 From: Elham Curtis MD PCP: Dr. Kaylee Pink, DO Status:[place] [facility] Location: [place] [address]- HPI - General General Date of Service: 07/15/25 HPI Narrative JOSE JUAN JOSHI, is a 54 F who presents for screening colonoscopy. Patient's lastcolonoscopy was about 10 years ago [address] [facility] per patient negative. Patient states her mom [...] every night currently not on any medication. [facility] Medical History Wears glasses Thyroid disease Arthritis [...] 2 current occupational status: employed current occupation: [employer] Smoking Status: Never smoker alcohol intake: current [...] 08:41) Discharge Is Pt Admitted From a Shelter, or a [place] [facility]: No Who Could Help: After D/C, Where [...] (2) Nausea: PLAN: Plan Recommend patient trying jqbr-azw-qsfdehz omeprazole 20 to 40 mg p.o. daily [...] inability to complete colonoscopy requiring barium enema. 07/15/25937 Cosigner Signature (if applicable): CC: Dr. Kaylee Pink DO; Dr. Elham Curtis MD~ Signed [facility]09-29-2025 [facility] Medical Records Department [address] [place] [address] History Physical Exam 07/15/25927 MR#: [id number] Acct: [id number] Name: JOSE JUAN JOSHI Rep #: [id number] : 1970 54 From: Elham Curtis MD PCP: Dr. Kaylee Pink DO Status:[facility] Location: [place] [address] HPI - General General Date of Service: 07/15/25 HPI Narrative JOSE JUAN JOSHI, is a 54 F who presents for screening colonoscopy. Patient's last colonoscopy was about 10 years ago [address] [facility] per patient negative. Patient states her mom [...] every night currently not on any medication. [facility] Medical History Wears glasses Thyroid disease Arthritis [...] 2 current occupational status: employed current occupation: [employer] Smoking Status: Never smoker alcohol intake: current [...] Hepatitis: No Hx Cirrhosi (more content not included)...[facility]09-29-2025 Consult note [facility] Medical Records Department [address] [place] [address] Pre-Anesthesia Evaluation 07/15/25 0902 MR#: [id number] Acct: [id number] Name: JOSE JUAN JOSHI Rep #:[id number] : 1970 54 From: Go Tamayo PCP: Dr. 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: Anesthesia History - powerhouse operator Hx Hospitalization No 07/10/25 13:54 Any Problems [...] take am of surgery PONV PONV - powerhouse operator: PONV - powerhouse operator Female Yes 07/10/25 13:54 HX of Motion [...] 07/15/25 08:42 Respiratory Assessment Respiratory Assessment - powerhouse operator: Respiratory Tract Infection Hx - powerhouse operator Hx Respiratory Tract Infection Yes: COLD SYMPTOMS, WILL 07/10/25 13:54 CALL IF SYMPTOMS STOP Sleep Apnea STOP Sleep Apnea - powerhouse operator: STOP Sleep Apnea - powerhouse operator Hx Hypertension No 07/10/25 13:54 Hx Sleep [...] Tobacco Use History Tobacco Use History - powerhouse operator: Tobacco Use History - powerhouse operator Tobacco Use Smoking Status Never smoker 07/10/25 13:54 Hx Tobacco Use No 07/10/25 13:54 Years Smoking Packs Smoked per Day Smoking Cessation Date was within the last 15 years Hx Smoking Cessation Date Hx Smoking Cessation Counseling Hematologic Medial History Hematologic Hx - powerhouse operator: 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 Specify any problems Hx of Preganancy in last 3 No 07/10/25 13:54 Months Nurse Filling Out Transfusion [facility] 07/10/25 13:54 & Questions: Date: 07/10/25 07/10/25 13:54 Time: 14:01 07/10/25 13:54 Patient unable to answer at this time (ie. confused, unrespo /Reproduction History /Reproductive History - powerhouse operator: /Reproductive Hx- powerhouse operator Hx Now No 07/10/25 13:54 Gestational Age [...] 2 current occupational status: employed current occupation: [employer] Smoking Status: Never smoker alcohol intake: current [...] x3 and moves all extremities 07/15/25 0907 MD> Date _ Go Chen MD Cosigner Signature: Date CC: ~ Signed [facility]06-10-2025 Radiology Diagnostic study note [facility] Imaging Services [address] [place], [place] [id number] Abdomen Limited MR#: [id number] Acct: [id number] Name: JOSE JUAN JOSHI Rep #: [id number] : 1970 F 54 From: Jose Daniel Pinon MD PCP: Dr. Kaylee Pink DO Status: REG CLI Study:Abdomen Limited Date of Exam: 03/17 Exam# [id number] Ordering Dr: Kaylee Pink DO PROCEDURE: ABDOMEN [...] right lobe of the liver. Reading Location: [facility] CC: Dr. Kaylee Pink DO ~ Hand Sprayer: Signed [facility]06-10-2025 Radiology Diagnostic study note [facility] Imaging Services [address] [place] [address] Shoulder min 2 Views MR#: [id number] Acct: [id number] Name: JOSE JUAN JOSHI Rep #: [id number] : 1970 F 54 From: Lb James MD PCP: Dr. Kaylee Pink DO Status: REG CLI Study:Shoulder min 2 Views Date of Exam: 03/26/25 Exam# [id number] Ordering Dr: Kaylee Pink DO PROCEDURE: SHOULDER MIN 2 VIEWS 03/26/2025 REASON FOR EXAM: SHOULDER PAIN TECHNIQUE: Four view right shoulder series COMPARISON: None. RAD/Shoulder min 2 Views IMPRESSION: Mwan-vp-xfxcjdpf right acromioclavicular joint degenerative changes are seen, with significant associated joint narrowing. The right glenohumeral joint demonstrates no significant abnormality. 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 No acute fracture or dislocation is seen. If clinical concern persists, short-term follow-up imaging may be obtained to rule out a currently occult fracture. Reading Location: [address] CC: Dr. Kaylee Pink DO ~ Hand Sprayer: Signed [facility]05-27-2025 Radiology Diagnostic study note [facility] Imaging Services [address] [place], [place] [address] Thyroid MR#: [id number] Acct: [id number] Name: JOSE JUAN JOSHI Rep #: [id number] : 1970 F 54 From: Jose Daniel Pinon MD PCP: Dr. Kaylee Pink DO Status: REG CLI Study:Thyroid Date of Exam: 03/09/25 Exam# [id number] Ordering Dr: Kaylee Pink DO PROCEDURE: THYROID 03/09/2025 REASON FOR EXAM: REASSESS THYROID NODULES TECHNIQUE: High-frequency thyroid ultrasound, including grayscale and color-flow images. REFERENCE LINKS: TI-RADS Chart: [email or web address] TI-RADS Calculator Tool with Reference Images: [email or web address]/ COMPARISON: Prior study dated December 06, 2022. [...] no more than 2 nodules. Reading Location: [facility] CC: Dr. Kaylee Pink, DO ~ Hand Sprayer: Signed [facility]12-02-2024 Telephone encounter Note* Telephone Encounter - Jaz Patel, PSS - 09/17/2024 2:36 PM EST CD READY FOR REFINERY PIPELINE OPERATOR AT [facility] Pt is aware [facility]12-02-2024 Miscellaneous Notes* Telephone Encounter - Jaz Patel PSS - 09/17/2024 2:36 PM EST CD READY FOR REFINERY PIPELINE OPERATOR AT [facility] Pt is aware * Telephone Encounter - [place] [employer] - 09/17/2024 8:03 AM EST Patient is requesting disc and report of 08/14/24 XR FOOT LEFT and 07/17/24 XR TOE LEFT. Please notify patient when items are ready for pick up operator. [facility] [facility] Telephone encounter Note * Telephone Encounter - [place] [facility] - 09/17/2024 8:03 AM EST Patient is requesting disc and report of 08/14/24 XR FOOT LEFT and 07/17/24 XR TOE LEFT. Please notify patient when items are ready for pick up operator. [facility]10-29-2024 NoteHNO ID: [id number] Author: CARRIE MACIAS LPN Service: ? Author Type: LICENSED NURSE Type: Progress Notes Filed: 08/15/2024 19:20 Note Text: Per Dr. Bey Jose Juan was provided with Achilles sleeve, size M, and instructed/educated in its application, wear, and care. All questions were answered, and patient was able to demonstrate competence with the necessary skills to utilize the above equipment. [facility] History of Present illness Narrative* Carrie Macias LPN - 08/14/2024 2:16 PM EDT Per Jose Juan Coker was provided with Achilles sleeve, size M, [...] due to overlap from adjacent toes ASSESSMENT: (S92.222A) Closed nondisplaced fracture of phalanx of lesser [...] Bey DPM Podiatry [address] [facility] [address] Dept: [phone] Dept documented in this encounterHol[facility] Instructions* Patient Instructions* Giovanni Bey - 08/14/2024 2:14 PM EDT Fracture of toe: continue with firm sole sneaker, ie hoka, booker or asics Heel spur: recommend low heels shoes and/or use of gel pad. documented in this encounterHolmes County [facility]10-29-2024 NoteHNO ID: [id number] Author: GIOVANNI BEY, ? Service: ? Author [...] SPEC WHEN PFRMD 05/14/15 Colonoscopy CYSTOSCOPY 2015 [facility]ERA - IPAS LAPAROSCOPY [...] to left posterior heel (more content not included)...[facility]10-29-2024 History of Present illness Narrative* Ricco Montenegro RT(Junior) - 08/14/2024 1:50 PM EDT Radiology Service [...] PATIENT PRESENTS WITH AN IMPLANTABLE OR ATTACHED CONDOMINIUM MANAGER: No RADIOLOGY DEPARTMENT: General X-ray: Exam(s) Completed: Lower Extremity X- Ray(s): Foot, Left PERIPHERAL IV DATA: Not applicable SIGNED BY: RT Jordan(Junior) August 14, 2024 1:40 PM documented in this encounterHolmes County [facility]10-29-2024 NoteHNO ID: [id number] Author: RICCO MONTENEGRO RT(R) Service: ? Author Type: Professor Of Art History Type: Progress Notes Filed: 08/14/2024 13:50 Note [...] PATIENT PRESENTS WITH AN IMPLANTABLE OR ATTACHED CONDOMINIUM MANAGER: No RADIOLOGY DEPARTMENT: General X-ray: Exam(s) Completed: Lower Extremity X-Ray(s): Foot, Left PERIPHERAL IV DATA: Not applicable SIGNED BY: RT Jordan(R) August 14, 2024 1:40 [facility]10-01-2024 History of Present illness Narrative* Dinorah Fraser [...] PATIENT PRESENTS WITH AN IMPLANTABLE OR ATTACHED CONDOMINIUM MANAGER: No RADIOLOGY DEPARTMENT: General X-ray: Exam(s) Completed: Lower Extremity X- Ray(s): Toes, Left 3rd toe PERIPHERAL IV DATA: Not applicable SIGNED BY: RT Willy(Junior) July 17, 2024 5:58 PM documented in this encounterHolmes County [facility]10-01-2024 NoteHNO ID: [id number] Author: DINORAH FRASER RT(Junior) Service: Radiology Author Type: Technologist Type: Progress [...] PATIENT PRESENTS WITH AN IMPLANTABLE OR ATTACHED CONDOMINIUM MANAGER: No RADIOLOGY DEPARTMENT: General X-ray: Exam(s) Completed: Lower Extremity X-Ray(s): Toes, Left 3rd toe PERIPHERAL IV DATA: Not applicable SIGNED BY: RT Willy(R) July 17, 2024 5:58 [facility]10-01-2024 NoteHNO ID: [id number] Author: HARSH VELAZQUEZ APRN.[employer]PLANE P[employer] Service: ? Author Type: Nurse Practitioner Type: Progress Notes Filed: 07/17/2024 19:14 Note Text: Subjective Female with complaints of left toe pain. Patient says she tripped over a toy. Patient says it is swollen and bruised. Patient says it is painful. Patient denies any numbness tingling or loss of feeling. The history is provided by the patient. No lock master was used. Review of Systems Constitutional: Negative. [...] SPEC WHEN PFRMD 05/14/15 Colonoscopy CYSTOSCOPY 2015 [facility] - IPAS LAPAROSCOPY [...] the distal phalanx of the third toe. Hand Sprayer: ARCHANA Transcribe Date/Time: Jul 17 2024 6:34P Dictated by : PREM DEGROOT MD 2. Closed nondisplaced fracture of distal phalanx of lesser toe of left foot, initial encounter - ICD9: 826.0, ICD10: S92.535A Was placed in a postop shoe. Patient was educated to follow-up with primary podiatry. Patient will rest ice elevate. Patient was okay with this care plan. Harsh Velazquez APRN.[facility] History of Present illness Narrative* Harsh Velazquez APRN.[facility] - 07/17/2024 5:44 PM EDT Images from the original note were not included. Subjective Female with complaints of left toe pain. Patient says she tripped over a toy. Patient says it is swollen and bruised. Patient says it is painful. Patient denies any numbness tingling or loss of feeling. The history is provided by the patient. No lock master was used. Review of Systems Constitutional: Negative. [...] the distal phalanx of the third toe. Hand Sprayer: ARCHANA Transcribe Date/Time: Jul 17 2024 6:34P Dictated by : PREM DEGROOT MD 2. Closed nondisplaced fracture of distal phalanx of lesser toe of left foot, initial encounter - ICD9: 826.0, ICD10: S92.535A Was placed in a postop shoe. Patient was educated to follow-up with primary podiatry. Patient will rest ice elevate. Patient was okay with this care plan. Harsh Velazquez APRN.[employer]PL[employer] P[employer] documented in this encounterHolmes County [facility]09-18-2024 NoteHNO ID: [id number] Author: JAMSHID DUBOIS MD Service: ? Author [...] U/S by Staff:Jamshid Dubois MD [facility]: [facility] Procedure note* Jamshid Dubois MD [...] Staff:Jamshid Dubois MD Date: July 04, 2024 [facility]09-18-2024 Procedure note* Jamshid Dubois MD - [...] Date: July 04, 2024 documented in this encounterHolmes County [facility]09-18-2024 NoteHNO ID: [id number] Author: JAMSHID DUBOIS MD Service: ? Author [...] Hair?: Yes Cold Intolerance: No Heat Intolerance: [facility]09-18-2024 History of Present illness Narrative* Jamshid [...] No Heat Intolerance: No [place] [address]-18[place]2024 Instructions* Patient Instructions* Pennie Wilson OCCA - 07/04/2024 10:50 AM EDT Thank you for choosing the [facility] Department of Endocrinology, Diabetes and Metabolism. Did you know that you need to call 48 hours in advance of your scheduled visit, if you are unable to make your appointment? [facility] [place] thanks you for your commitment, because patients not showing to their appointment results in a lost opportunity for patients to receive [facility] health care at the [facility]. To Cancel an appointment, please choose one of the following: - Call the Appointment Call Center at [phone] - [employer], Go to Appointments - Cancel Appts If cancelling, consider your need to reschedule to prevent further delays in your care. To Schedule an appointment, please choose one of the following: - Call the Appointment Call Center at [phone] - [employer], Go to Appointments - Request an Appt documented in this encounterHolmes County [facility]04-18-2024 Miscellaneous Notes* Telephone Encounter - Grecia Morrell - 02/02/2024 4:15 PM EDT Patient called in to let the office know she had her ultrasound done 02/01/24 and is asking for the office to review. Patient can be reached via my chart. Grecia Hummel Rn Lpn [facility] documented in this encounterHolmes County [facility]04-15-2024 History of Present illness Narrative* Sara [...] PATIENT PRESENTS WITH AN IMPLANTABLE OR ATTACHED CONDOMINIUM MANAGER: No RADIOLOGY DEPARTMENT: Ultrasound PERIPHERAL IV DATA: Not applicable SIGNED BY: Sara Baltazar RDMS RVT January 30, 2024 2:30 PM documented in this encounterHolmes County [facility]04-15-2024 NoteHNO ID: [id number] Author: SARA BALTAZAR RDMS Service: ? Author Type: Commuter Train Operator Type: Progress Notes Filed: 01/30/2024 14:31 Note [...] PATIENT PRESENTS WITH AN IMPLANTABLE OR ATTACHED CONDOMINIUM MANAGER: No RADIOLOGY DEPARTMENT: Ultrasound PERIPHERAL IV DATA: Not applicable SIGNED BY: Sara Baltazar RDMS RVLauren January 30, 2024 2:30 [facility]06-05-2023 NotePap Smear Specimen AdequacyJun2022 1:22pmComment.Satisfactory for evaluation. Endocervical and/or squamous metaplasticcells (endocervical component)are present.[facility] INTER[facility]ACED A#[id number] City HospitalComment on above: Satisfactory for evaluation. Endocervical and/or squamous metaplasticcells (endocervical component)are present.03-21-2023 NotePap Smear Specimen Adequacy March 21, 2023 1:22pmComment.Satisfactory for evaluation. Endocervical and/or squamous metaplasticcells (endocervical component)are present.[facility] INTER[facility]ACED A#[id number] City HospitalComment on above:Satisfactory for evaluation. 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 Patient seen and staffed with Dr. Dubois, [...] years. Jamshid Dubois MD documented in this encounterHolmes County [facility]03-09-2023 Instructions* Patient Instructions* Lynn James Ma - 12/23/2022 8:41 AM EST Thank you for choosing the [facility] Department of Endocrinology, Diabetes and Metabolism. Did you know that you need to call 48 hours in advance of your scheduled visit, if you are unable to make your appointment? [facility] [place] thanks you for your commitment, because patients not showing to their appointment results in a lost opportunity for patients to receive world class health care at the [facility]. To Cancel an appointment, please choose one of the following: - Call the Appointment Call Center at [phone] - [employer], Go to Appointments - Cancel Appts If cancelling, consider your need to reschedule to prevent further delays in your care. To Schedule an appointment, please choose one of the following: - Call the Appointment Call Center at [phone] - [employer], Go to Appointments - Request an Appt documented in this encounterHolmes County [facility] HospitalConsult note [facility] Medical Records Department [address] [place] [address] Anesthesia Postop Eval II 07/15/25 1156 MR#: [id number] Acct: [id number] Name: JOSE JUAN JOSHI Rep #:[id number] : 1970 54 From: Go Tamayo PCP: Dr. Kaylee Pink, DO [place] [facility] [place] C Location: EN Anesthesia Postop Eval I Sum Postop Eval Completion status Anesthesia document: Postop Eval 1 completed: No Anesthesia Postop Eval I Summary Anesthesia Postop Eval I Summary: Anesthesia Postop Eval I: Assessment Summary Airway patent Yes 07/15/25 10:47 WARD ATTENDANT.ADRIOBY Spontaneous unlabored Yes 07/15/25 10:47 WARD ATTENDANT.OSMAR respirations Mental status Asleep 07/15/25 10:47 WARD ATTENDANT.ADRIOBY nausea No 07/15/25 10:47 WARD ATTENDANT.ADRIOBAnival Vomiting No 07/15/25 10:47 WARD ATTENDANT.ADRIOBAnival Anesthesia Postop Eval I: Fluid Summary Crystalloid volume administer 600 07/15/25 10:47 WARD ATTENDANT.ADRIOBAnival (ml) Colloids volume administered ( ml) Blood Product volume administered (ml) Total IV fluid infused 600 07/15/25 10:47 WARD ATTENDANT.ADRIOBAnival Anesthesia Postop Eval I: Summary Notes Anesthesia Complication No 07/15/25 10:47 WARD ATTENDANT.OSMAR Anesthesia Complication Comment: Post-operative progress note Anesthesia: Postop Eval II Evaluation Mental status: Awake and Calm Pain Level: 0 nausea: No Vomiting: No Complications Anesthesia Complication: No 07/15/25 1156 > Date _ Go Chen MD Cosigner Signature: Date CC: ~ Signed [facility] HospitalCons[facility] note Author Thao Hansen [facility] Note Date/Time July 15, 2025 10:47am [facility] Medical Records Department [address] [place] [address] Anesthesia Postop Eval I 07/15/25 1046 MR#: [id number] Acct: [id number] Name: JOSE JUAN JOSHI Rep #:[id number] : 1970 54 From: Thao lundberg CRNA PCP: Dr. Kaylee Pink, DO Status:[facility] Y Race: C Location: [place] [address] Anesthesia: Postop Eval I Current Vital Signs [...] No 07/15/25 1047 <Electronically signed by Thao gillis CRNA> Date _ Thao Hansen CRNA Cosigner Signature: Date CC: ~ Signed [facility] Work Phone: Consult note Author Go Chen [facility] Note Date/Time July 15, 2025 11:56am [facility] Medical Records Department [address] [place] [address] Anesthesia Postop Eval II 07/15/25 1156 MR#: [id number] Acct: [id number] Name: JOSE JUAN JOSHI Rep #:[id number] : 1970 54 From: Go Tamayo PCP: Dr. Kaylee Pink, DO Status:[place] [facility] [place] Race: C Location: EN Anesthesia Postop Eval I Sum Postop Eval Completion status Anesthesia document: Postop Eval 1 completed: No Anesthesia Postop Eval I Summary Anesthesia Postop Eval I Summary: Anesthesia Postop Eval I: Assessment Summary Airway patent Yes 07/15/25 10:47 WARD ATTENDANT.OSMAR Spontaneous unlabored Yes 07/15/25 10:47 WARD ATTENDANT.OSMAR respirations Mental status Asleep 07/15/25 10:47 WARD ATTENDANT.OSMAR nausea No 07/15/25 10:47 WARD ATTENDANT.OSMAR Vomiting No 07/15/25 10:47 WARD ATTENDANT.OSMAR Anesthesia Postop Eval I: Fluid Summary Crystalloid volume administer 600 07/15/25 10:47 WARD ATTENDANT.OSMAR (ml) Colloids volume administered ( ml) Blood Product volume administered (ml) Total IV fluid infused 600 07/15/25 10:47 WARD ATTENDANT.OSMAR Anesthesia Postop Eval I: Summary Notes Anesthesia Complication No 07/15/25 10:47 WARD ATTENDANTGREGORIO Anesthesia Complication Comment: Post-operative progress note Anesthesia: Postop Eval II Evaluation Mental status: Awake and Calm Pain Level: 0 nausea: No Vomiting: No Complications Anesthesia Complication: No 07/15/25 1156 <Electronically signed by Go Chen MD> Date _ Go Chen MD Cosigner Signature: Date CC: ~ Signed [facility] Work Phone: Evaluation noteNo assessment information available [facility] Work Phone: Evaluation note* Diagnosis Multiple thyroid nodules- Primary Nontoxic multinodular goiter documented in this encounter [facility]* Diagnosis Onset Date Resolution Status Cervical lesion acute Family history of breast cancer acute Women's annual routine gynecological examination acute [facility] Work Phone: Evaluation note* Diagnosis Onset Date Resolution Status Abnormal uterine bleeding ac deepti Cervical lesion acute Abnormal uterine bleeding ac deepti Cervical lesion acute Family history of breast cancer acute [facility] Work Phone: Evaluation note* Diagnosis Multiple thyroid nodules- Primary Nontoxic multinodular goiter documented in this encounter [facility]* Diagnosis Pain- Primary Generalized pain Closed nondisplaced fracture of distal phalanx of lesser toe of left foot, initial encounter Pain Generalized pain documented in this encounter [facility]* Diagnosis Pain Generalized pain documented in this encounter [facility]* Diagnosis Closed nondisplaced fracture of distal phalanx of lesser toe of left foot with routine healing, subsequent encounter- Primary documented in this encounter [facility]* Diagnosis Closed nondisplaced fracture of distal phalanx of lesser toe of left foot with routine healing, subsequent encounter documented in this encounter [facility]* Diagnosis Closed nondisplaced fracture of phalanx of lesser toe of right foot, unspecified phalanx, initial encounter- Primary Onychodystrophy Other specified disease of nail Calcaneal spur of foot, left documented in this encounter [facility]* Diagnosis Onset Date Resolution Status Admit Date Nausea acute June 8:13am Screening for colon cancer acute July 15, 2025 8:13am [facility] Work Phone: Progress note Author Jamee Gray [employer] [facility] Note Date/Time August 05, 2025 1 :12pm [facility] [address], [address] [place] [address] OFFICE VISIT Date of Service: 08/05/25 MR#: [id number] Acct: [id number] Name: JOSE JUAN JOSHI Rep #: [id number] : 1970 Provider: Dr. 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 ) Allergies No Known Allergies Allergy (Verified 08/05/25 11:17) Medications ?Medication ?Instructions ?Recorded ?Confirmed ?Type meclizine 25 mg tablet 25 mg PO BID PRN dizziness 0 03/21/23 08/05/25 History metronidazole 0.75 % topical gel 1 applic topical BID PRN ROSCEA 07/10/25 08/05/25 History trazodone 100 mg tablet 50 mg (1/2 x 100 mg) PO QHS PRN 08/05/25 08/05/25 Rx insomnia #30 tabs Is last menstrual period known: Yes Last Menstrual Period: 06/30/25 Post menopausal: No Patient : No : No PFSH Medical History Wears glasses Thyroid disease Arthritis History of renal disease Easy bruising Restless legs History of IBS Non-smoker Leg cramps Surgical History History of colonoscopy S/P wisdom tooth extraction S/P dilation and curettage S/P endometrial ablation S/p nephrectomy Family History Brother Breast cancer Sister Breast cancer Cancer osteocarcinoma Parkinsons disease Mother CVA (cerebral vascular accident) Breast cancer Skin cancer Father CVA (cerebral vascular accident) Prostate cancer Social History housing: apartment number of children: 2 current occupational status: employed current occupation: [employer] Smoking Status: Never smoker alcohol intake: current [...] examination Details: JOSE JUAN JOSHI is a 54 year old who presents for annual exam. being treated for bladder cancer. lost sister to bresat cancer. Last PAP: 03/21/2023 - normal History of abnormal PAP: Last mammogram: 08/27/2024 - normal History of abnormal mammogram: Colon cancer screening: colonoscopy 2024 Other preventative health care screenings: PCP Jacek Female Reproductive History Last Menstrual Period: 06/30/25 Cycle Length: 21-35 Bleeding Duration: 5 Questions: metrorrhagia: No, sexually active: Yes, dyspareunia: No and [...] pain, prolapse symptoms, urinary frequency, urinary incontinence, urinaryurgency, vaginal discharge, vaginal dryness, vaginal odor or vaginal pruritus Skin Skin/Breast: Denies changing lesions, breast mass, breast pain, breast skin changes or nipple discharge Psych Psych: Denies anxiety, change in libido, depression or difficulty concentrating Exam Const General: cooperative, healthy appearing, comfortable, no acute distress, well developed and well groomed [facility] Head: normal to inspection and normocephalic Ears: hearing grossly normal bilaterally and external ears normal Nose: external nose normal Face and sinus: normal facial exam Neck Neck: normal visual inspection, full ROM and no lymphadenopathy Thyroid: thyroid normal Chest Chest palpation & inspection: normal inspection of the chest Breast inspection: normal inspection of the breasts and normal inspection of theaxillae Breast palpation: normal palpation of the breasts, normal palpation of the axillae and no axillary lymphadenopathy Resp Effort & Inspection: normal respiratory effort GI Inspection: normal to inspection and non-distended Palpation: soft, no hepatosplenomegaly and no guarding General: bladder normal to palpation External Female Exam: normal external appearance, normal appearance of the urethra and no lesions Urethra: normal appearance of the urethra and normal palpation Speculum Exam - Vagina: normal appearance of the vagina and normal vaginal discharge Speculum Exam - Cervix: normal appearance of the cervix, no cervical discharge, no lesions and nontender Bimanual Exam- Vagina & Uterus: normal bimanual exam, uterine size normal, bladder normal to palpation, No tender, uterine mobility normal, consistency normal, non-tender and no cervical motion tenderness Bimanual Exam- Adnexa, other: normal adnexae, no masses and non-tender Skin General: no rashes or lesions noted Neuro General: patient alert, moves all extremities and no focal motor deficits Extrem General: normal to inspection and no pedal edema Psych Appearance: grossly normal Mental Status: mental status grossly normal Affect: normal affect Speech and Movement: speech and movement normal Attitude: cooperative Coding Level of Care Code Off vis,est,prev 40-64yrs Diagnoses Encounter for routine gynecological examination Z01.419 Family history of breast cancer Z80.3 Premenopausal postcoital bleeding N92.4; N93.0 Climacteric N95.1 Assessment and Plan Assessment and Plan (1) Encounter for routine gynecological examination: (2) Family history of breast cancer: Status: Acute Comment: brother with breast cancer cells in prostate sister with metastatic breast cancer empower genetic screening ne discontinued nuvaring today. will call if bleeding increases over next few months. will consider POP. 03/31/23 Empower test Negative. (3) Premenopausal postcoital bleeding: Status: Acute (4) Climacteric: Status: Acute Comment: discussed irregular menses and insomnia- discussed trazodone Orders: Orders [facility] MAMM (CAD)W/ALBINA BILAT 03/26/25 Z12.31 - Encounter for screening mammogramfor malignant neoplasm of breast SCRN MAMM (CAD)W/ALBINA BILAT Today Z12.31 - Encounter for screening mammogram for malignant neoplasm of breast Thyroid Stim Hormone (TSH) Today N92.4 - Excessive bleeding in the premenopausal period, N93.0 - Postcoital and contact bleeding, Z13.29 - Encounter for screening for other suspected endocrine disorder Free T4 Today N92.4 - Excessive bleeding in the premenopausal period, N93.0 - Postcoital and contact bleeding Thyroid Peroxidase AB Today N92.4 - Excessive bleeding in the premenopausal period, N93.0 - Postcoital and contact bleeding Pelvic w/ Transvaginal Today N92.4 - Excessive bleeding in the premenopausal period, N93.0 - Postcoital and contact bleeding Medications: New trazodone 50 mg (1/2 x 100 mg) PO QHS PRN 30 tabs 12RF insomnia Plan Cervical cancer screening: pap hpv up to date Breast cancer screening: mamm US ordered and bloodwork trazodone other health maintenance examination reviewed and orders placed if needed. Encouraged maintenance of a healthy weight and active lifestyle and handout given. Annual exam handout including recommendations for good health guidelines, Calcium/vitamin D recommendations, and basic screening information given. Problem list up to date, see problem list details for any additional plan information. Follow up in one year for annual health maintenance exam or sooner if needed. 08/05/25 1251 <Electronically signed by Jamee knight MD> Date _ Jamee Gray MD Cosigner Signature: Date (if applicable) CC: ~ [employer] Work Phone: Reason for referral (narrative)* Diagnostic Procedure Only (Urgent) - Closed Specialty Diagnoses / Procedures Referred By Kelly mendez Referred To Contact XR IMAGING Diagnoses Pain Procedures XR TOE AP/LAT/OBL LEFT RADEX TOE MINIMUM 2 VIEWS Harsh Velazquez APRN.[employer] [address] [place] [address] [place] [address] Referral ID Status Reason Start Date Expiration Date V isits Requested Visits Authorized [id number] Closed Auto-Generate d Referral 07/17/2024 08/16/2025 1 1 [facility] for referral (narrative)* Diagnostic Procedure Only (Urgent) - Closed Specialty Diagnoses / Procedures Referred By Contac t Referred To Contact XR IMAGING Diagnoses Pain Procedures XR TOE AP/LAT/OBL LEFT RADEX TOE MINIMUM 2 VIEWS Harsh Velazquez APRN.[facility] [address] [place] [address] [place] [address] Referral ID Status Reason Start Date Expiration Date V isits Requested Visits Authorized [id number] Closed Auto-Generate d Referral 07/17/2024 08/16/2025 1 1 [facility] for referral (narrative)* Diagnostic Procedure Only (Routine) - Authorized Specialty Diagnoses / Procedures Referred By Contac t Referred To Contact XR IMAGING Diagnoses Closed nondisplaced fracture of distal phalanx of lesser toe of left foot with routine healing, subsequent encounter Procedures XR FOOT GENERAL 3V AP/LAT/OBL LEFT RADEX FOOT COMPLETE MINIMUM 3 VIEWS Giovanni Bey [address] [place] [id number] [place] [address] Referral ID Status Reason Start Date Expiration Date Visits Requested Visits Authorized [id number] Authorized Auto-Generat ed Referral 09/12/2025 1 1 [facility] for referral (narrative)No reason for referral information [facility]WL[facility]: Reason for visit Narrative* Diagnostic Procedure Only (Urgent) - Closed Specialty Diagnoses / Procedures Referred By Contac t Referred To Contact XR IMAGING Diagnoses Pain Procedures XR TOE AP/LAT/OBL LEFT RADEX TOE MINIMUM 2 VIEWS Harsh Velazquez APRN.[facility] [address] [place] [address] [place] [address] Referral ID Status Reason Start Date Expiration Date V isits Requested Visits Authorized [id number] Closed Auto-Generate d Referral 07/17/2024 08/16/2025 1 1 [facility] for visit Narrative* Diagnostic Procedure Only (Routine) - Closed Specialty Diagnoses / Procedures Referred By Contac t Referred To Contact XR IMAGING Diagnoses Closed nondisplaced fracture of distal phalanx of lesser toe of left foot with routine healing, subsequent encounter Procedures XR FOOT GENERAL 3V AP/LAT/OBL LEFT RADEX FOOT COMPLETE MINIMUM 3 VIEWS Giovanni [address] [place] [address] [place] [address] Referral ID Status Reason Start Date Expiration Date V isits Requested Visits Authorized [id number] Closed Auto-Generate d Referral 08/13/2024 09/12/2025 1 1 [facility] Summary Purpose Family History Relationship Condition Age at Onset Recorded Date/T [...] Malignant neoplasm of prostate Unknown Advance Directives Advance Directive Response Recorded Date/ Time Advance Directives Yes June 3:39pm Living Will Yes June 29, 2016 3:39pm Power of Window Glazier Helper Yes June 3:39pm Advance Directive Response Recorded Date/ Time Advance Directives Yes June 2:39pm Living Will Yes June 29, 2016 2:39pm Power of Window Glazier Helper Yes June 2:39pm Advance Directive Response Recorded Date/ Time Advance Directives Yes March 09 1:08pm Living Will Yes March 09, 2023 1 :08pm Power of Window Glazier Helper Yes March 09, 2023 1:08pm Advance Directive Response Recorded Date/ Time Advance Directives Yes May 03 2:07pm Living Will Yes May 03, 2023 2:07pm Power of Window Glazier Helper Yes May 03 2:07pm Advance Directive Response Recorded Date/ Time Advance Directives Yes May 03 1:07pm Living Will Yes May 03, 2023 1:07pm Power of Window Glazier Helper Yes May 03 1:07pm Advance Directive Response Recorded Date/ Time Advance Directives Yes May 03 2:07pm Advance Directive Response Recorded Date/ Time Do you have a Healthcare Power of Window Glazier Helper? Yes July 10, 2025 1:54pm Advance Directives Yes May 03 2:07pm Advance Directive Response Recorded Date/ Time Do you have a Healthcare Power of Window Glazier Helper? 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) , per n jose moved up due [...] 8:13am Screening for colon cancer June 8:13am Chief Complaint Admit Date LABS July 24, 2025 12 :21pm Annual (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 RELATIONS ANALYST) August 05, 2025 1 1:09am E ORDERS August 05, 2025 1 2:19pm Reason for Visit Admit Date Nausea July 15, 2025 8:13am Screening for colon cancer June 8:13am Climacteric August 05, 2025 1 1:09am Family history of breast cancer August 05, 2025 11:09am Premenopausal postcoital bleeding Octobe r 2024 11:09am Encounter for routine gynecological exam ination August 05, 2025 11:09am Additional Source Comments INFORMATION SOURCE (unrecogn ized section and content) DATE CREATED AUTHOR 04/11/2018 [facility] DATE CREATED AUTHOR AUTHOR'S ORGANIZ ATION 04/12/2018 Re[facility] DATE CREATED AUTHOR AUTHOR'S ORGANIZ ATION 04/12/2018 [facility] DATE CREATED AUTHOR AUTHOR'S ORGANIZ ATION 12/01/2024 [facility] DATE CREATED AUTHOR AUTHOR'S ORGANIZ ATION 08/19/2025 [facility] Goals (unrecognized section and content) [...] or prosecute any alcohol or drug abuse patient.[facility] Hospital[facility] the event this information is protected by the Federal Confidentiality of Alcohol and Drug Abuse Patient Records regulations: The Federal rules restrict any use of the information to criminally investigate or prosecute any alcohol or drug abuse patient.[facility] the event this information is protected by the Federal Confidentiality of Alcohol and Drug Abuse Patient Records regulations: The Federal rules restrict any use of the information to criminally investigate or prosecute any alcohol or drug abuse patient.[facility] Hospital[facility] the event this information is protected by the Federal Confidentiality of Alcohol and Drug Abuse Patient Records regulations: The Federal rules restrict any use of the information to criminally investigate or prosecute any alcohol or drug abuse patient.[facility] HospitalIn the event this information is protected by the Federal Confidentiality of Alcohol and Drug Abuse Patient Records regulations: The Federal rules restrict any use of the information to criminally investigate or prosecute any alcohol or drug abuse patient.[facility] Hospital[facility] the event this information is protected by the Federal Confidentiality of Alcohol and Drug Abuse Patient Records regulations: The Federal rules restrict any use of the information to criminally investigate or prosecute any alcohol or drug abuse patient.[facility] HospitalIn the event this information is protected by the Federal Confidentiality of Alcohol and Drug Abuse Patient Records regulations: The Federal rules restrict any use of the information to criminally investigate or prosecute any alcohol or drug abuse patient.[facility] HospitalIn the event this information is protected by the Federal Confidentiality of Alcohol and Drug Abuse Patient Records regulations: The Federal rules restrict any use of the information to criminally investigate or prosecute any alcohol or drug abuse patient.[facility] Hospital[facility] the event this information is protected by the Federal Confidentiality of Alcohol and Drug Abuse Patient Records regulations: The Federal rules restrict any use of the information to criminally investigate or prosecute any alcohol or drug abuse patient.[facility] Hospital[facility] the event this information is protected by the Federal Confidentiality of Alcohol and Drug Abuse Patient Records regulations: The Federal rules restrict any use of the information to criminally investigate or prosecute any alcohol or drug abuse patient.[facility] Reason for Visit (unrecogniz ed section and content) Reason Comments Thyroid Nodule Reason Comments Radiology US Reason Comments Patient Update Reason Comments left foot/toe pain X 3 days-tripped ove r toys Reason Comments New broken 3rd toe Pain Reason Comments Release Of Medical Records Imaging Disc/ Report Care Teams (unrecognized sec tion and content) 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 Relationship Specialty Start Date End Date Kaylee Pink DO [address] [place] [address] PCP - General Family Medicine 09/12/17 Team [...] Primary Care Provider, Attendin g Provider Active 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 Relationship Specialty Start Date End Date Kaylee Pink DO [address] [place], [place] [id number] PCP - General Family Medicine 09/12/17 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 Relationship Specialty Start Date End Date JacekKaylee wilson [address] [place] [address] PCP - General Family Medicine 09/12/17 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 Relationship Specialty Start Date End Date Kaylee Pink [address] [place] [address] PCP - General Family Medicine 09/12/17 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 Relationship Specialty Start Date End Date Kaylee Pink [address] [place] [address] PCP - General Family Medicine 09/12/17 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 Relationship Specialty Start Date End Date Kaylee PinkDO [address] [place] [address] PCP - General Family Medicine 09/12/17 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 Kaylee Pink DO Primary care physician Active Start: July 24, 2025 End: July 24, 2025 Dr. Dhruv Monroe MD Attending physician Active Start: July 24, 2025 End: July 24, 2025 Dr. Dhruv Monroe MD Referring Provider Active Start: July 24, 2025 End: July 24, 2025 Team Status: Inactive Member Role/Relationship Status Dates Dr. Kaylee Pink DO Primary care physician Active Start: August 05, 2025 End: August 05, 2025 Dr. Kaylee Pink DO Referring Provider Active Start: August 05, 2025 End: August 05, 2025 Dr. Jamee Gray MD Attending physician Active Start: August 05, 2025 End: August 05, 2025 Team Status: Inactive Member Role/Relationship Status Dates Dr. Kaylee Pink DO Primary care physician Active Start: August 05, 2025 End: August 05, 2025 Dr. Jamee Gray MD Attending physician Active Start: August 05, 2025 End: August 05, 2025 Dr. Jamee Gray MD Referring Provider Active Start: August 05, 2025 End: August 05, 2025 FOR RECORDS PERTAINING TO PATIENTS WHO [...] BE BASED ON THE PRIMARY CLINICAL RECORDS. [facility]. provides no warranty or guarantee of the accuracy or completeness of information in this document.
== END | disposition home or self-care (01) ==
LOC: OPBI 08:20
PROVIDERS: PCP Family Medicine; Referring Provider Obstetrics & Gynecology; Visit Provider Obstetrics & Gynecology
DX: Z12.31 Encounter for screening mammogram for malignant neoplasm of breast (principal); N92.4 Excessive bleeding in the premenopausal period; N93.0 Postcoital and contact bleeding
CPT/HCPCS: 76830; 76856; 77063; 77067